=== PATIENT | male | born 1960 | race American Indian/Alaskan Native ===

== ENCOUNTER 2017-12-15 08:22 | Observation (INO) | payer MEDICARE, OTHER ==
--- NOTE | 2017-12-15 08:30 | ED PDOC ---
Arrival/HPI - General Chief Complaint: Shortness Of Breath Time Seen by Provider: 12/15/17 08:25 Historian: Patient, Other (Patient is deaf-mute and a signing high scaler was used) - History of Present Illness Time/Duration: Other (Approximately 4 days) Symptom Onset: Gradual Symptom Course: Worsening Severity Level: Moderate Associated Symptoms (Text): 12/15/17 08:38 Signing high scaler reports approximately a 4 day history of chest pain and shortness of breath and increasing pedal edema with a mild nonproductive cough. No abdominal pain nausea vomiting or diarrhea. Urinary frequency. No fever or chills. No trauma. Unclear what medications other than Lasix that the patient takes. He has a pacemaker or defibrillator in the left chest. Past Medical History - Provider Review Nursing Documentation Reviewed: Yes - Infectious Disease Hx of Infectious Diseases: None - Cardiac Hx Hypertension: Yes - Psychiatric Hx Psychophysiologic Disorder: No Hx Anxiety: No Hx Bipolar Disorder: No Hx Depression: No Hx Emotional Abuse: No Hx Hallucinations: No Hx Panic Disorder: No Hx Post Traumatic Stress Disorder: No Hx Psychosis: No Hx Physical Abuse: No Hx Schizophrenia: No Hx Sexual Abuse: No Hx Substance Use: No - Anesthesia Hx Anesthesia: No Hx Anesthesia Reactions: No Hx Malignant Hyperthermia: No Family/Social History - Physician Review Nursing Documentation Reviewed: Yes Family/Social History: Unknown Family HX Smoking Status: Never Smoked Hx Alcohol Use: Yes Hx Substance Use: No Hx Substance Use Treatment: No Allergies/Home Meds Allergies/Adverse Reactions: Allergies No Known Allergies Allergy (Verified 12/15/17 08:38) Home Medications: Home Meds Medication Instructions Recorded Confirmed Carvedilol [Coreg] 12.5 mg PO BID 04/08/13 12/15/17 Tamsulosin [Flomax] 0.4 mg PO DAILY 04/08/13 12/15/17 Aspirin [Aspirin EC] 81 mg PO DAILY 12/15/17 12/15/17 Clopidogrel [Plavix] 75 mg PO DAILY 12/15/17 12/15/17 Furosemide [Lasix] 40 mg PO BID 12/15/17 12/15/17 Omega3,5,6,7,9 No.1/[place] Oil 1 each PO BID 12/15/17 12/15/17 [Complete [place] Softgel] Pantoprazole [Protonix] 40 mg PO DAILY 12/15/17 12/15/17 Sacubitril/Valsartan [Entresto 24 1 each PO DAILY 12/15/17 12/15/17 mg-26 mg Tablet] Simvastatin [Zocor] 20 mg PO DAILY 12/15/17 12/15/17 Spironolactone [Aldactone] 25 mg PO DAILY 12/15/17 12/15/17 Torsemide [Demadex] 10 mg PO DAILY 12/15/17 12/15/17 Review of Systems - Physician Review All systems were reviewed & negative as marked: Yes - Review of Systems Constitutional: Fatigue. absent: Fevers Respiratory: SOB, Cough. absent: Sputum, Wheezing Cardiovascular: Chest Pain. absent: Palpitations, Syncope Gastrointestinal: absent: Abdominal Pain, Diarrhea, Nausea, Vomiting Genitourinary Male: Frequency. absent: Hematuria Neurological: absent: Headache, Dizziness Physical Exam Vital Signs Reviewed: Yes Vital Signs Temp Pulse Resp BP Pulse Ox 12/15/17 12:09 82 18 119/84 95 12/15/17 10:30 104/74 12/15/17 08:58 20 12/15/17 08:37 98.6 F 83 18 108/65 98 Temperature: Afebrile Blood Pressure: Normal Pulse: Regular Respiratory Rate: Normal Appearance: Positive for: Well-Appearing, Non-Toxic, Comfortable Pain Distress: None Mental Status: Positive for: other (Awake alert and cooperative) - Systems Exam Head: Present: Atraumatic, Normocephalic Pupils: Present: PERRL Extroacular Muscles: Present: EOMI Conjunctiva: Present: Normal Mouth: Present: Moist Mucous Membranes Pharnyx: No: ERYTHEMA, EXUDATE, TONSILS ENLARGED Neck: Present: Normal Range of Motion. No: Paraspinal Tenderness Respiratory/Chest: Present: Clear to Auscultation, Good Air Exchange, Decreased Breath Sounds. No: Respiratory Distress, Accessory Muscle Use Cardiovascular: Present: Regular Rate and Rhythm, Normal S1, S2. No: Murmurs Abdomen: No: Tenderness, Distention, Peritoneal Signs, Rebound, Guarding Back: Present: Normal Inspection. No: CVA Tenderness Upper Extremity: Present: Normal Inspection. No: Cyanosis, Edema Lower Extremity: Present: Edema (1+ bilateral lower extremity edema) Neurological: Present: GCS=15, CN II-XII Intact, Motor Func Grossly Intact Skin: Present: Warm, Dry, Normal Color. No: Rashes Psychiatric: Present: Alert Medical Decision Making ED Course and Treatment: 12/15/17 08:41 EKG shows atrial flutter rate approximately 90 with variable conduction and poor R waves with no acute ST changes and inverted T waves laterally 12/15/17 09:15 Chest X-ray Impressions: No active disease 12/15/17 09:54 Patient's BNP is elevated and Lasix has been ordered. A d-dimer is markedly elevated. His creatinine is 2.3 and therefore a VQ scan has been ordered. 12/15/17 13:05 Dr. Vaz is here - Lab Interpretations Lab Results: 12/15/17 08:50 12/15/17 09:00 Lab Results 12/15/17 11:30: Urine Color Yellow, Urine Appearance Clear, Urine pH 6.0, Ur Specific [place] 1.020, Urine Protein 30 H, Urine Glucose (UA) Negative, Urine Ketones Negative, Urine Blood Negative, Urine Nitrate Negative, Urine Bilirubin Negative, Urine Urobilinogen 2.0 H, Ur Leukocyte Esterase Negative, Urine RBC 0 - 2, Urine WBC 1 - 3, Ur Epithelial Cells None, Urine Bacteria Mod, Hyaline Casts 0 - 2 12/15/17 09:00: PT 18.3 H, INR 1.58, APTT 29.4, D-Dimer, Quantitative 886 H 12/15/17 09:00: Sodium 141, Chloride 103, Potassium 4.5, Carbon Dioxide 25, Anion Gap 18, BUN 39 H, Creatinine 2.3 H, Est GFR ( Amer) 36, Est GFR ( Non-Af Amer) 29, Random Glucose 123 H, Calcium 9.5, Magnesium 2.2, Total Bilirubin 3.6 H, AST 26, ALT 34, Alkaline Phosphatase 280 H, Lactate Dehydrogenase 529, Total Creatine Kinase 75, Troponin I 0.07, NT-Pro-B Natriuret Pep 6830 H, Total Protein 6.9, Albumin 3.6, Globulin 3.3, Albumin/ Globulin Ratio 1.1 12/15/17 08:50: pO2 48, VBG pH 7.35, VBG pCO2 46.0, VBG HCO3 25.4, VBG Total CO2 26.8, VBG O2 Sat (Calc) 81.2 H, VBG Base Excess -0.6 L, VBG Potassium 7.6 H* , Sodium 136.0, Chloride 101.0, Glucose 132 H, Lactate 2.3 H, FiO2 21.0, Venous Blood Potassium 7.6 H* 12/15/17 08:50: WBC 5.6, RBC 5.38, Hgb 15.3, Hct 45.0, MCV 83.6, MCH 28.4, MCHC 34.0, RDW 19.3 H, Plt Count 170, MPV 10.2, Gran % 56.9, Lymph % (Auto) 32.4, Burke % (Auto) 9.9 H, Eos % (Auto) 0.4 L, Baso % (Auto) 0.4, Gran # 3.16, Lymph # (Auto) 1.8, Burke # (Auto) 0.6, Eos # (Auto) 0.0, Baso # (Auto) 0.02 12/15/17 08:48: POC Glucose (mg/dL) 109 - RAD Interpretation Radiology Orders: 12/15/17 08:36 CHEST PORTABLE [RAD] Stat 12/15/17 09:53 LUNG PERF & VENT SCAN [NM] Stat Chest one view shows severe cardiomegaly and a pacemaker present. No infiltrate or effusion. VQ scan as read by the radiologist shows low probability for pulmonary embolus. [facility] Nurse: Radiologist - Medication Orders Current Medication Orders: Discontinued Medications Furosemide (Lasix) 40 mg IVP ONCE ONE Stop: 12/15/17 09:54 Last Admin: 12/15/17 10:30 Dose: 40 mg MAR Blood Pressure Document 12/15/17 10:30 SZA (Rec: 12/15/17 10:43 [facility] [id number]) Blood Pressure Blood Pressure (100/60-150/90 mm Hg) 104/74 IVP Administration Document 12/15/17 10:30 SZMaria R (Rec: 12/15/17 10:43 [facility] [id number]) Charges for Administration # of IVP Administrations 1 Disposition/Present on Arrival - Present on Arrival Any Indicators Present on Arrival: No History of DVT/PE: No History of Uncontrolled Diabetes: No Urinary Catheter: No History of Decub. Ulcer: No History Surgical Site Infection Following: None - Disposition Have Diagnosis and Disposition been Completed?: Yes Diagnosis: Cardiomegaly, Congestive heart failure, Pedal edema, Renal failure, Lactic acidosis Disposition: HOSPITALIZED Disposition Time: 13:05 Patient Plan: Observation, Telemetry Patient Problems: Current Active Problems Problem Status Onset Cardiomegaly Acute Congestive heart failure Acute Pedal edema Acute Renal failure Acute Condition: FAIR Discharge Instructions (ExitCare): Heart Failure (ED) Forms: [employer] (Stateless)
[2017-12-15 09:03] LABS: BASO # 0.02 K/mm3 (0.0-2.0); BASO % 0.4 % (0.0-3.0); EOS % 0.4 % (1.5-5.0); GRAN # 3.16 (1.4-6.5); GRAN % 56.9 % (50.0-68.0); HEMOGLOBIN 15.3 g/dL (14.0-18.0); LYMPH # 1.8 (1.2-3.4); LYMPH % 32.4 % (22.0-35.0); MEAN CELL VOLUME 83.6 fl (80.0-105.0); MEAN CORPUSCULAR HEMOGLOBIN 28.4 pg (25.0-35.0); MEAN PLATELET VOLUME 10.2 fl (7.0-11.0); MONO # 0.6 (0.1-0.6); MONO % 9.9 % (1.0-6.0); RBC 5.38 10^6/uL (3.5-6.1); RED CELL DISTRIBUTION WIDTH 19.3 % (11.5-14.5); WHITE BLOOD COUNT 5.6 10^3/ul (4.5-11.0)
[2017-12-15 09:04] LABS: VENOUS BLOOD GAS BASE EXCESS -0.6 mmol/L (0.0-2.0); VENOUS BLOOD GAS PO2 48 mm/Hg (30-55); VENOUS BLOOD PH 7.35 (7.32-7.43)
--- NOTE | 2017-12-15 09:12 | RAD ---
Date of service: 12/15/2017 HISTORY: sob COMPARISON: No prior. FINDINGS: LUNGS: No active pulmonary disease. PLEURA: No significant pleural effusion identified, no pneumothorax apparent. CARDIOVASCULAR: Severe cardiomegaly. Pacemaker OSSEOUS STRUCTURES: No significant abnormalities. VISUALIZED UPPER ABDOMEN: Normal. OTHER FINDINGS: None. IMPRESSION: No active disease.
[2017-12-15 09:39] LABS: ALB/GLOB RATIO 1.1 (1.1-1.8); ALBUMIN 3.6 g/dL (3.0-4.8); CALCIUM 9.5 mg/dL (8.4-10.5)
[2017-12-15 09:44] LABS: INR 1.58; PROTHROMBIN TIME 18.3 SECONDS (9.4-12.5)
[2017-12-15 09:49] LABS: PARTIAL THROMBOPLASTIN TIME 29.4 Seconds (25.1-36.5)
[2017-12-15 09:50] LABS: TROPONIN I 0.07 ng/mL
[2017-12-15 11:40] LABS: URINE BILIRUBIN NEGATIVE (NEGATIVE); URINE BLOOD NEGATIVE (NEGATIVE); URINE GLUCOSE (UA) NEGATIVE (NEGATIVE); URINE LEUKOCYTE ESTERASE NEGATIVE Leu/uL (NEGATIVE); URINE PROTEIN 30 mg/dL (<30 mg/dL)
[2017-12-15 11:50] LABS: URINE APPEARANCE CLEAR (CLEAR); URINE COLOR YELLOW (YELLOW)
[2017-12-15 12:01] LABS: URINE BACTERIA MOD (NEG); URINE HYALINE CAST 0 - 2 /hpf; URINE RBC 0 - 2 /hpf (0-2)
--- NOTE | 2017-12-15 12:37 | NM ---
Date of service: 12/15/2017 COMPARISON: December 15, 2017. Single-view chest. TECHNIQUE: 38.2 mCi technetium 99-m DTPA aerosol. 3.8 mCI technetium 99-m MAA administered intravenously. FINDINGS: VENTILATION COMPONENT: Unremarkable. Retention of radionuclide in the tracheobronchial tree and ingestion of radionuclide in the stomach, incidental findings PERFUSION COMPONENT: Heterogeneous distribution of radionuclide. No geographic, segmental, lobar abnormalities apparent on the present examination. IMPRESSION: Low probability ventilation perfusion scan for pulmonary embolism.
[2017-12-15 13:23] LABS: VENOUS BLOOD GAS BASE EXCESS 0.7 mmol/L (0.0-2.0); VENOUS BLOOD GAS PO2 32 mm/Hg (30-55); VENOUS BLOOD PH 7.32 (7.32-7.43)
[2017-12-15] MEDS: cefTRIAXone 1 gm 1 GM/100 ML BAG IVPB SCH (13:59)
--- NOTE | 2017-12-15 14:50 | HP ---
Copied To: Wesley Vaz DO Attending MD: Wesley Vaz DO HISTORY OF PRESENT ILLNESS: I am on-call for the emergency room today. I got called down by the emergency room doctor for a patient that is deaf and mute. He has a signing refinery process engineer which is his son who brought him in. He comes in with shortness of breath for approximately 4 days. It is still got worse. He is a 57-year-old man with 4 days of worsening shortness of breath, [id number] level of shortness of breath. He has been drinking lots of water. He has not been taking his medications what I understand. He has had this before. His legs are getting swollen and nonproductive cough. No nausea or vomiting. He is getting weaker especially in the right leg with the swelling. It is harder for him to lift the legs up. He has a pacemaker and a defibrillator in the left chest. He has hypertension. He has CHF. He has a defibrillator and a pacemaker. FAMILY HISTORY: He also has GERD, high cholesterol, hypertension in the family. SOCIAL HISTORY: Never smoked. Does drink alcohol. No drugs. ALLERGIES: NO KNOWN DRUG ALLERGIES. MEDICATIONS: He is on Coreg, Flomax for BPH, aspirin, Plavix, Lasix, omega-3, Protonix, Entresto, Zocor, Aldactone, Demadex. REVIEW OF SYSTEMS: He is tired, swollen. He is short of breath with a cough. He has chest pain. No palpitations. No abdominal pain. No diarrhea, nausea or vomiting. He has increasing urination. No headaches or dizziness. Skin for the most part is intact. PHYSICAL EXAMINATION: VITAL SIGNS: He has a 98.6 temperature, 83 pulse, 18 respiratory rate, 108/65 blood pressure, 98% O2 sat. HEENT: Head: Atraumatic, normocephalic. He is well appearing after a dose of Lasix. Pupils equally and reactive to light and accommodation. Extraocular muscle intact. Throat is moist. NECK: Supple. HEART: Regular rate. Normal S1, S2. LUNGS: Decreased breath sounds bilaterally, but clear to auscultation. ABDOMEN: Soft, nontender. Positive bowel sounds. EXTREMITIES: Have +1 pitting edema in bilateral lower extremities up to the knee. SKIN: For I could tell, he has got no rashes or ulcers appreciated. Warm and dry. NEUROLOGIC: GCS is 15. Cranial nerves II-XII grossly intact. He is alert. He is oriented as per the son. LABORATORY DATA AND IMAGING: He has had multiple tests. The chest x-ray showed no active disease. Low probability on V/Q scan. Urine was moderate bacteria. I will give him a dose of Rocephin. He has 141 sodium, potassium 4.5, BUN 29, creatinine 2.3. He is little bit renal insufficient. I will get Renal to see him. GFR is 29, sugar is 123. I will put him on insulin coverage. Calcium is 9.5, magnesium 2.2, total bili is 3.6, AST is 26, ALT is 34, alkaline phosphatase 280, total creatine kinase is 75, lactate dehydrogenase is 529. Troponin I is 0.07. I will check more troponins. His BNP is quite high at 6830, total protein 6.9, previous potassium 7.6, his lactate was 2.3. His D-dimer is 886, gasper high with an INR of 1.58. The V/Q scan was low probability. WBC is 5.6, hemoglobin 15.3, hematocrit 45, platelets of 170. He will have consults with Cardiology and Renal. He will have IV Lasix. Hopefully, he will improve. We will check his labs tomorrow and he is here for acute CHF. Wesley Vaz, DO : 12/15/2017 13:29:53
--- NOTE | 2017-12-15 14:51 | CP.PCM.CON ---
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 Hypertension control with meds as ordered. Maintain hemodynamics stable. Avoid hypotension. Patient on ACEI/ARB as Entresto, can continue. also on aldactone Monitor Input/Output, daily weights and renal function with basic metabolic panel CHF optimization as per primary team/cardiology continue with loop diuretics continue with flomax Check urine analysis, spot protein/creatinine, albumin/creatinine ratio, urine for sodium/cr, renal and bladder sonogram Check for 25-OH vitamin D, iPTH, phosphorus level. Dose meds/antibiotics for reduced GFR. Avoid fleets enema/magnesium based laxatives. Avoid nephrotoxins/NSAIDs/ iodinated contrast (unless needed emergently) Glycemic control Further work up/management as per primary team Thanks for allowing me to participate in care of your patient. Will follow patient with you. Please call if any Qs Dr Shree Ríos Office: [phone] Chief Complaint; shortness of breath Reason for consult: Acute Kidney Injury HPI: Pt is a 57 M with hx of deafness since , no family hx of CKD, BPH< CHF s/p AICD presented with complaints of worsening SOB on exertion and leg swelling for last few days. also feels distension of abdomen. pt aware about kidney problem for some time, was told it is due to heart and excess fluid. Denies OTC/herbal meds or NSAIDs No recent iodinated contrast exposure. No obvious episodes of low BP. ROS: language line [employer] used for sign/language interpretation Cardiovascular: No chest pain. Pulmonary: c/o shortness of breath Gastrointestinal: denies abdominal pain No nausea. No vomiting. Genitourinary: No pain while urinating. Denies blood in urine. reports increased frequency if urination All other negative except as mentioned in HPI Physical Examination: General Appearance: Comfortable, in no acute respiratory distress, co-operative . Vitals reviewed and noted as below Head; Atraumatic, normocephalic ENT: no ulcers no thrush. Tongue is midline. Oropharynx: no rash or ulcers. has hearing impairment EYES: Pupils are equal, round and reactive to light accommodation. Eye muscles and extraocular movement intact. Sclera is icteric. Neck; supple no lymphadenopathy, no thyromegaly or bruit. JVP distended Lungs: Normal respiratory rate/effort. Breath sounds bilateral clear and decreased at bases Heart: Normal rate. s1s2 normal. No rub or gallop. left side AICD + Extremities: 2+ edema. No varicose veins Neurological: Patient is alert, awake and oriented to person, place and time. No focal deficit. Strength bilateral appropriate and equal Skin: Warm and dry. Normal turgor. No rash. Palpitation: Normal elasticity for age Abdomen: Abdomen is soft. Bowel sounds +. There is no abdominal tenderness, no guarding/rigidity has hepatomegaly. distended Psych: normal insight and normal affect/mood MSK: no joint tenderness or swelling. Digits and nails normal, no deformity : kidney or bladder not palpable but exam limited Labs/imaging reviewed. Past medical history, past surgical history, family history, social history, allergy reviewed and noted as below Family hx: no hx of CKD. Rest non-contributory work up: VQ scan neg Past Patient History - Infectious Disease Hx of Infectious Diseases: None - Past Social History Smoking Status: Never Smoked - CARDIAC Hx Hypertension: Yes - ENDOCRINE/METABOLIC Hx Diabetes Mellitus Type 2: Yes - PSYCHIATRIC Hx Psychophysiologic Disorder: No Hx Anxiety: No Hx Bipolar Disorder: No Hx Depression: No Hx Emotional Abuse: No Hx Hallucinations: No Hx Panic Symptoms: No Hx Post Traumatic Stress Disorder: No Hx Psychosis: No Hx Physical Abuse: No Hx Schizophrenia: No Hx Sexual Abuse: No Hx Substance Use: No - ANESTHESIA Hx Anesthesia: No Hx Anesthesia Reactions: No Hx Malignant Hyperthermia: No Meds Allergies/Adverse Reactions: Allergies Allergy/AdvReac Type Severity Reaction Status Date / Time No Known Allergies Allergy Verified 12/15/17 14:09 - Medications Medications: Current Medications Aspirin (Ecotrin) 81 mg PO DAILY [facility] Atorvastatin Calcium (Lipitor) 10 mg PO DAILY [facility] Carvedilol (Coreg) 12.5 mg PO BID [facility] Clopidogrel Bisulfate (Plavix) 75 mg PO DAILY [facility] Furosemide (Lasix) 40 mg IVP DAILY [facility] Ceftriaxone Sodium (Rocephin 1 Gram Ivpb) 1 gm in 100 mls @ 100 mls/hr IVPB DAILY [facility] PRN Reason: Protocol Last Admin: 12/15/17 13:59 Dose: 100 mls/hr Insulin Human Regular (Humulin R Med) 0 units SC ACHS [facility] PRN Reason: Protocol Non-Formulary Medication (Omega3,5,6,7,9 No.1/[place] Oil [Complete [place] Softgel ]) 1 each PO BID [facility] Pantoprazole Sodium (Protonix Ec Tab) 40 mg PO DAILY [facility] Spironolactone (Aldactone) 25 mg PO DAILY [facility] Tamsulosin HCl (Flomax) 0.4 mg PO DAILY [facility] Results - Vital Signs Recent Vital Signs: Last Vital Signs Temp 98.6 F 12/15/17 08:37 Pulse 77 12/15/17 14:02 Resp 18 12/15/17 14:02 BP 146/83 12/15/17 14:02 Pulse Ox 96 12/15/17 14:02 - Labs Result Diagrams: 12/15/17 08:50 12/15/17 09:00 Labs: Laboratory Results - last 24 hr 12/15/17 13:10 pO2 32 VBG pH 7.32 VBG pCO2 54.0 VBG HCO3 27.8 VBG Total CO2 29.5 H VBG O2 Sat (Calc) 55.9 VBG Base Excess 0.7 VBG Potassium 4.3 Sodium 140.0 Chloride 100.0 Glucose 123 H Lactate 1.7 FiO2 21.0 Venous Blood Potassium 4.3
--- NOTE | 2017-12-15 15:12 | CARD ---
APPROVED REPORT Date of service: 12/15/2017 EKG Measurement Heart [id number] <Conclusion> Atrial flutter with variable AV block with premature ventricular or aberrantly conducted complexes Left axis deviation Incomplete right bundle branch block Septal infarct, age undetermined Inferior infarct, age undetermined Abnormal ECG
[2017-12-15 16:21] LABS: BASO # 0.04 K/mm3 (0.0-2.0); BASO % 0.6 % (0.0-3.0); EOS % 0.3 % (1.5-5.0); GRAN # 4.02 (1.4-6.5); GRAN % 62.5 % (50.0-68.0); HEMOGLOBIN 14.7 g/dL (14.0-18.0); LYMPH # 1.7 (1.2-3.4); LYMPH % 26.2 % (22.0-35.0); MEAN CELL VOLUME 84.1 fl (80.0-105.0); MEAN CORPUSCULAR HEMOGLOBIN 28.1 pg (25.0-35.0); MEAN CORPUSCULAR HGB CONC 33.4 g/dl (31.0-37.0); MEAN PLATELET VOLUME 10.2 fl (7.0-11.0); MONO # 0.7 (0.1-0.6); MONO % 10.4 % (1.0-6.0); RBC 5.23 10^6/uL (3.5-6.1); RED CELL DISTRIBUTION WIDTH 19.1 % (11.5-14.5); WHITE BLOOD COUNT 6.4 10^3/ul (4.5-11.0)
[2017-12-15] MEDS: Insulin Reg-MEDIUM-Coverage SC SCH ×2 (16:40→23:03)
[2017-12-15] MEDS: [UNRECOGNIZED DRUG - REMARK] PO SCH (17:34)
[2017-12-15 19:40] VITALS: BMI 25.1
[2017-12-15] MEDS ORDERED: Pneumococcal 23-Valent Vaccine IM ONE (19:40)
[2017-12-15] MEDS ORDERED: guaiFENesin 100 mg/5 ml Syrup UD PO ONE (23:09)
[2017-12-16] MEDS ORDERED: Albuterol 0.083% Inhal Sol (2.5 mg/3 mL) UD INH STA (00:34)
[2017-12-16 06:44] LABS: ALB/GLOB RATIO 1.1 (1.1-1.8); ALBUMIN 3.9 g/dL (3.0-4.8); CALCIUM 9.7 mg/dL (8.4-10.5)
[2017-12-16] MEDS: Insulin Reg-MEDIUM-Coverage SC SCH ×4 (08:10→23:13)
--- NOTE | 2017-12-16 08:56 | PN ---
Copied To: Wesley Vaz DO Attending MD: Wesley Vaz DO DATE: 12/16/2017 SUBJECTIVE: I saw him this morning in bed. He told me to a media technician on demand that he is worse than yesterday. He has got more shortness of breath. He is having abdominal pain now. He did not move his bowels yesterday. He is eating okay. Just does not feel well. Some chest discomfort too. MEDICATIONS: On Aldactone, Coreg, Ecotrin, Flomax, Lasix, Lipitor, Plavix, Protonix and Rocephin. PHYSICAL EXAMINATION: VITAL SIGNS: 97.5 temp. He has 83 pulse, 111/84 blood pressure, 20 respiratory rate and 99% O2 sat on 2 L. HEENT: His head is atraumatic, normocephalic. GENERAL: He is very alert. HEART: Regular rate. LUNGS: Decreased breath sounds, but clear. ABDOMEN: Mildly distended like a bubble, but soft. Positive bowel sounds. Not tender to palpation. EXTREMITIES: The extremities have +1/4 pitting edema. He is getting the Lasix IV and still with edema. LABORATORY DATA: He has a moderate bacteriuria in urine, which is part of his issue. He has a 6.4 white count, 14.7 hemoglobin, 44 hematocrit with 161 platelets. His lactate dropped to 1.7, it was 2.3 when he came in. He has a 142 sodium, potassium 4.7, BUN 42, creatinine 2.3, GFR is 29, sugar is 125, calcium is 9.7, phosphorus is 4.2, total bili is 3.8, AST is 24, ALT is 40, alk phos 288, total protein 7.5. ASSESSMENT AND PLAN: So the new complaints from today are more shortness of breath, getting worse and abdominal pain. I am going to consult GI. I am going to consult Dr. Lewis, who is a floor framer. Renal had seen him. Awaiting for Cardiology to come in. We will check his labs tomorrow. Waiting for physical therapy, get him out of bed to chair and hopefully he will start improving. He is still in observation. I am hoping that if he can improve in the next 24 hours, I can discharge him if he does improve. Wesley Vaz DO
[2017-12-16] MEDS ORDERED: Levalbuterol 1.25 MG/3 ML Inhal Soln UD IH SCH (09:15)
[2017-12-16] MEDS: Pantoprazole 40 mg EC Tab PO SCH (09:44)
[2017-12-16] MEDS: cefTRIAXone 1 gm 1 GM/100 ML BAG IVPB SCH (09:44)
--- NOTE | 2017-12-16 09:47 | CON ---
Copied To: Yang Lewis MD Attending MD: Yang Lewis MD DATE: 12/16/2017 PULMONARY CONSULTATION REASON FOR CONSULTATION: Shortness of breath. REFERRING PHYSICIAN: Dr. Wesley Vaz. HISTORY OF PRESENT ILLNESS: History is obtained via extensive discussion with the nurse. I have also obtained the history via signing lock fitter. I have also reviewed the chart at length. The patient is a 57-year-old male, with past medical history significant for congestive heart failure, cardiomyopathy("weak heart"), status post AICD placement, who presents to [facility] (Formerly [facility]) with a two-day history of worsening shortness of breath at rest and dyspnea on exertion. The patient also states to a dry cough over the past two days. No history of sputum production. No history of chest pain, coughing up of blood or chest pain - made worse with deep respirations. There is no history of temperatures, chills or infectious exposure. There is no history of night sweats, weight loss or appetite change prior to the above events. No history of leg or calf pains. However, the patient does state to bilateral leg swelling over the past few days. No history of syncope or diaphoresis. No history of recent travel or trauma. REVIEW OF SYSTEMS: No history of nausea, vomiting or diarrhea. No acute urinary symptoms. No new neurologic or musculoskeletal complaints. Rest of the review of systems is negative. ALLERGIES: NO KNOWN ALLERGIES. SOCIAL HISTORY: Negative for tobacco and negative for alcohol. FAMILY HISTORY: No inheritable diseases. HOME MEDICATIONS: Include Demadex, Zocor, Lasix, Protonix, Plavix, Coreg, Aldactone, aspirin and Flomax. PHYSICAL EXAMINATION: GENERAL: The patient appears comfortable at rest. He is not short of breath. He is not using accessory muscles for breathing. VITAL SIGNS: Temperature is 97.5, pulse 83, respirations 18/20, blood pressure 111/84. Oxygen saturation on room air is 99-100%. HEENT: Normocephalic and atraumatic. No JVD. CARDIOVASCULAR: Positive S1, S2. Questionable S3 gallop. LUNGS: Decreased breath sounds at the bases. No rhonchi. No wheezing. EXTREMITIES: Mild edema. No cyanosis, no clubbing. Calves are nontender to palpation. GI: Abdomen is soft, nontender and nondistended. Bowel sounds are positive. SKIN: No acute rash. NEUROLOGIC: Exam limited at the present time. PERTINENT LABORATORY DATA: Chest x-ray was done yesterday and reviewed. There is significant cardiomegaly present. Pacemaker is also present. Other than these two findings, there is no active disease present. Ventilation-perfusion scan was also done. It is low probability for pulmonary embolism. CBC: White count 6.4K, hemoglobin 14.7, hematocrit 44, platelets of 161,000. Complete metabolic profile: BUN 42, creatinine 2.3, glucose 125, bilirubin 3.8, alkaline phosphatase 288. Rest of the metabolic profile is within normal limits. Initial B-type natriuretic peptide 6830. IMPRESSION: 1. Acute congestive heart failure. 2. Cardiomyopathy. 3. Mild bronchitis. 4. Renal insufficiency. PLAN: Again, I did discuss the case with the nurse at length. I have also obtained the history via a sign lock fitter. I have also reviewed the chart at length. The patient presents to [facility] (Former[facility]) with increasing pulmonary symptoms for the past two days. I did review the chest x-ray as above. There is severe cardiomegaly and a pacemaker present. There are no other abnormal findings. The patient also had a ventilation-perfusion scan. It is low probability for pulmonary embolism. On physical exam, there is no significant bronchospasm noted. In addition, there is no significant alveolar-arterial gradient. I will start the patient on Xopenex nebulizer treatments - hopefully, that will help his cough.. Input by Renal (Dr. Best) is noted. In addition, Cardiology and GI evaluations have been ordered. At the time of my examination, the patient is quite comfortable and not short of breath. He does state (via sign lock fitter) to feeling better this morning. He is clinically improved. Additional pulmonary intervention will be based on the clinical status of the patient. I will discuss the above with Dr. Vaz. Thank you very much for this pulmonary consultation. Yang Lewis MD JUHI
--- NOTE | 2017-12-16 10:10 | CP.PCM.CON ---
<Sarah Galeano - Last Filed: 12/16/17 10:21> History of Present Illness - History of Present Illness History of Present Illness: GI Fellow PGY5 Consult Note This is a 57yM with a significant pmhx of HTN, HLD, BPH, CKD who is presenting with complaints of Chest pain and SOB for the past 3-4days. Pt is deaf and mute and much of the history was gathered from reconsignment clerk and EMR. He has been complaining of chest pain and shortness of breath and increasing pedal edema. He reports mild abdominal pain yesterday which he attributes to difficultly breathing which has now resolved. He reports soft 2BM today. He denies any prior abdominal pain, no constipation, diarrhea, N/V, rectal bleeding. He never had a colonoscopy. Denies any issues with liver, gallbladder or hepatitis. He is tolerating diet with no issues. No prior hx of tobacco or etoh use. He has a pacemaker or defibrillator in the left chest. ROS: A 12pt ROS was negative except as above PmHx: As stated in HPI PsHx: AICD, PPM SHx: Denies etoh, drugs, tobacco FHx: Neg for colon cancer Past Patient History - Infectious Disease Hx of Infectious Diseases: None - Past Social History Smoking Status: Never Smoked - CARDIAC Hx Cardiac Disorders: Yes (CARDIOMEGALY) Hx Congestive Heart Failure: Yes (12-15-17) Hx Hypercholesterolemia: Yes Hx Hypertension: Yes Hx Pacemaker: Yes (2003) Hx Peripheral Edema: Yes - PULMONARY Hx Respiratory Disorders: No - NEUROLOGICAL Hx Neurological Disorder: No - HEENT Hx HEENT Problems: Yes Hx Deafness: Yes (MUTE) - RENAL Hx Chronic Kidney Disease: No - ENDOCRINE/METABOLIC Hx Endocrine Disorders: Yes Hx Diabetes Mellitus Type 2: Yes - HEMATOLOGICAL/ONCOLOGICAL Hx Blood Disorders: No - INTEGUMENTARY Hx Dermatological Problems: Yes Other/Comment: 12-15-17 BILATERAL LE EDEMA +3 EXTENDS TO LOWER ABDOMINAL AREA. - MUSCULOSKELETAL/RHEUMATOLOGICAL Hx Musculoskeletal Disorders: No Hx Falls: No - GASTROINTESTINAL Hx Gastrointestinal Disorders: No - GENITOURINARY/GYNECOLOGICAL Hx Genitourinary Disorders: No - PSYCHIATRIC Hx Psychophysiologic Disorder: No Hx Anxiety: No Hx Bipolar Disorder: No Hx Depression: No Hx Emotional Abuse: No Hx Hallucinations: No Hx Panic Symptoms: No Hx Post Traumatic Stress Disorder: No Hx Psychosis: No Hx Physical Abuse: No Hx Schizophrenia: No Hx Sexual Abuse: No Hx Substance Use: No - SURGICAL HISTORY Hx Surgeries: Yes (PACEMAKER) - ANESTHESIA Hx Anesthesia: No Hx Anesthesia Reactions: No Hx Malignant Hyperthermia: No Meds Allergies/Adverse Reactions: Allergies Allergy/AdvReac Type Severity Reaction Status Date / Time No Known Allergies Allergy Verified 12/15/17 14:09 - Medications Medications: Current Medications Aspirin (Ecotrin) 81 mg PO DAILY [facility] Last Admin: 12/16/17 09:45 Dose: 81 mg Atorvastatin Calcium (Lipitor) 10 mg PO DAILY [facility] Last Admin: 12/16/17 09:45 Dose: 10 mg Carvedilol (Coreg) 12.5 mg PO BID [facility] Last Admin: 12/16/17 09:45 Dose: 12.5 mg Clopidogrel Bisulfate (Plavix) 75 mg PO DAILY [facility] Last Admin: 12/16/17 09:45 Dose: 75 mg Furosemide (Lasix) 40 mg IVP DAILY [facility] Last Admin: 12/16/17 09:45 Dose: 40 mg Ceftriaxone Sodium (Rocephin 1 Gram Ivpb) 1 gm in 100 mls @ 100 mls/hr IVPB DAILY [facility] PRN Reason: Protocol Last Admin: 12/16/17 09:44 Dose: 100 mls/hr Insulin Human Regular (Humulin R Med) 0 units SC ACHS [facility] PRN Reason: Protocol Last Admin: 12/16/17 08:10 Dose: Not Given Levalbuterol HCl (Xopenex) 1.25 mg IH TIDRESP [facility] Non-Formulary Medication (Omega3,5,6,7,9 No.1/Sargeant Oil [Complete [place] Softgel ]) 1 each PO BID [facility] Last Admin: 12/15/17 17:34 Dose: Not Given Pantoprazole Sodium (Protonix Ec Tab) 40 mg PO DAILY [facility] Last Admin: 12/16/17 09:44 Dose: 40 mg Spironolactone (Aldactone) 25 mg PO DAILY [facility] Last Admin: 12/16/17 09:45 Dose: 25 mg Tamsulosin HCl (Flomax) 0.4 mg PO DAILY [facility] Last Admin: 12/16/17 09:45 Dose: 0.4 mg Physical Exam - Constitutional Appears: Non-toxic, No Acute Distress - Head Exam Head Exam: ATRAUMATIC, NORMAL INSPECTION, NORMOCEPHALIC - Eye Exam Eye Exam: EOMI, Normal appearance, PERRL Pupil Exam: PERRL - ENT Exam ENT Exam: Mucous Membranes Moist - Neck Exam Neck exam: Positive for: Full Rom, Normal Inspection - Respiratory Exam Respiratory Exam: Clear to Auscultation Bilateral, NORMAL BREATHING PATTERN - Cardiovascular Exam Cardiovascular Exam: REGULAR RHYTHM, RRR, +S1, +S2 - GI/Abdominal Exam GI & Abdominal Exam: Distended, Normal Bowel Sounds, Soft. absent: Firm, Guarding, Organomegaly, Tenderness - Rectal Exam Rectal Exam: Deferred - Extremities Exam Extremities exam: Positive for: full ROM, pedal edema - Back Exam Back exam: NORMAL INSPECTION - Neurological Exam Neurological exam: Alert, Oriented x3 - Psychiatric Exam Psychiatric exam: Normal Affect, Normal Mood - Skin Skin Exam: Dry, Intact, Normal Color, Warm Results - Vital Signs Recent Vital Signs: Last Vital Signs Temp 97.5 F L 12/16/17 06:00 Pulse 85 12/16/17 09:45 Resp 20 12/16/17 06:00 BP 99/62 L 12/16/17 09:45 Pulse Ox 99 12/16/17 06:00 - Labs Result Diagrams: 12/15/17 16:21 12/16/17 05:25 Labs: Laboratory Results - last 24 hr 12/15/17 12/15/17 12/15/17 13:10 16:21 16:31 WBC 6.4 RBC 5.23 Hgb 14.7 Hct 44.0 MCV 84.1 MCH 28.1 MCHC 33.4 RDW 19.1 H Plt Count 161 MPV 10.2 Gran % 62.5 Lymph % (Auto) 26.2 [place] % (Auto) 10.4 H Eos % (Auto) 0.3 L Baso % (Auto) 0.6 Gran # 4.02 Lymph # (Auto) 1.7 [place] # (Auto) 0.7 H Eos # (Auto) 0.0 Baso # (Auto) 0.04 pO2 32 VBG pH 7.32 VBG pCO2 54.0 VBG HCO3 27.8 VBG Total CO2 29.5 H VBG O2 Sat (Calc) 55.9 VBG Base Excess 0.7 VBG Potassium 4.3 Sodium 140.0 Chloride 100.0 Glucose 123 H Lactate 1.7 FiO2 21.0 Potassium Carbon Dioxide Anion Gap BUN Creatinine Est GFR ( Amer) Est GFR (Non-Af Amer) POC Glucose (mg/dL) 145 H Random Glucose Calcium Phosphorus Total Bilirubin AST ALT Alkaline Phosphatase Total Protein Albumin Globulin Albumin/Globulin Ratio Venous Blood Potassium 4.3 Ur Random Creatinine Ur Random Sodium 12/15/17 12/15/17 12/15/17 21:30 21:40 21:46 WBC RBC Hgb Hct MCV MCH MCHC RDW Plt Count MPV Gran % Lymph % (Auto) [place] % (Auto) Eos % (Auto) Baso % (Auto) Gran # Lymph # (Auto) [place] # (Auto) Eos # (Auto) Baso # (Auto) pO2 VBG pH VBG pCO2 VBG HCO3 VBG Total CO2 VBG O2 Sat (Calc) VBG Base Excess VBG Potassium Sodium Chloride Glucose Lactate FiO2 Potassium Carbon Dioxide Anion Gap BUN Creatinine Est GFR ( Amer) Est GFR (Non-Af Amer) POC Glucose (mg/dL) 139 H Random Glucose Calcium Phosphorus Total Bilirubin AST ALT Alkaline Phosphatase Total Protein Albumin Globulin Albumin/Globulin Ratio Venous Blood Potassium Ur Random Creatinine 124 Ur Random Sodium 57 12/16/17 12/16/17 05:25 07:24 WBC RBC Hgb Hct MCV MCH MCHC RDW Plt Count MPV Gran % Lymph % (Auto) [place] % (Auto) Eos % (Auto) Baso % (Auto) Gran # Lymph # (Auto) [place] # (Auto) Eos # (Auto) Baso # (Auto) pO2 VBG pH VBG pCO2 VBG HCO3 VBG Total CO2 VBG O2 Sat (Calc) VBG Base Excess VBG Potassium Sodium 142 Chloride 102 Glucose Lactate FiO2 Potassium 4.7 Carbon Dioxide 26 Anion Gap 19 BUN 42 H Creatinine 2.3 H Est GFR ( Amer) 36 Est GFR (Non-Af Amer) 29 POC Glucose (mg/dL) 125 H Random Glucose 125 H Calcium 9.7 Phosphorus 4.2 Total Bilirubin 3.8 H AST 24 ALT 40 Alkaline Phosphatase 288 H Total Protein 7.5 Albumin 3.9 Globulin 3.6 Albumin/Globulin Ratio 1.1 Venous Blood Potassium Ur Random Creatinine Ur Random Sodium Assessment & Plan - Assessment and Plan (Free Text) Assessment: This is a 57yM with pmhx of CHF s/p AICD, PPM, HTN, HLD presenting with complaints of progressively worsening SOB and Chest pain. 1. Abdominal pain resolved 2. Elevated Alkaline Phosphatase 3. Elevated Tbili 4. AECHF 5. YODIT/CKD 6. Hx of CAD AICD, PPM Plan: -Continue supportive care with pain control and anti-emetics -Pt with abdominal pain that has resolved -Recommend bowel regimen with miralax daily -Pt with elevated alkaline phosphatase likely from congestive hepatopathy vs cholestasis -Will order GGTP -Will order Abdominal US -Elevated Tbili will order fractionated bili -Further medical management for AECHF per primary and cardio team -Will continue to follow closely Discussed patient and A/P with Dr. Damon who agrees with the above mentioned plan of care. <Louise Damon - Last Filed: 12/16/17 12:50> Meds - Medications Medications: Current Medications Aspirin (Ecotrin) 81 mg PO DAILY [facility] Last Admin: 12/16/17 09:45 Dose: 81 mg Atorvastatin Calcium (Lipitor) 10 mg PO DAILY [facility] Last Admin: 12/16/17 09:45 Dose: 10 mg Carvedilol (Coreg) 12.5 mg PO BID [facility] Last Admin: 12/16/17 09:45 Dose: 12.5 mg Clopidogrel Bisulfate (Plavix) 75 mg PO DAILY [facility] Last Admin: 12/16/17 09:45 Dose: 75 mg Furosemide (Lasix) 40 mg IVP DAILY [facility] Last Admin: 12/16/17 09:45 Dose: 40 mg Ceftriaxone Sodium (Rocephin 1 Gram Ivpb) 1 gm in 100 mls @ 100 mls/hr IVPB DAILY [facility] PRN Reason: Protocol Last Admin: 12/16/17 09:44 Dose: 100 mls/hr Insulin Human Regular (Humulin R Med) 0 units SC ACHS [facility] PRN Reason: Protocol Last Admin: 12/16/17 11:57 Dose: Not Given Levalbuterol HCl (Xopenex) 1.25 mg IH TIDRESP [facility] Last Admin: 12/16/17 11:08 Dose: 1.25 mg Non-Formulary Medication (Omega3,5,6,7,9 No.1/[place] Oil [Complete [place] Softgel ]) 1 each PO BID [facility] Last Admin: 12/16/17 11:58 Dose: Not Given Pantoprazole Sodium (Protonix Ec Tab) 40 mg PO DAILY [facility] Last Admin: 12/16/17 09:44 Dose: 40 mg Polyethylene Glycol (Miralax) 17 gm PO DAILY [facility] Spironolactone (Aldactone) 25 mg PO DAILY [facility] Last Admin: 12/16/17 09:45 Dose: 25 mg Tamsulosin HCl (Flomax) 0.4 mg PO DAILY [facility] Last Admin: 12/16/17 09:45 Dose: 0.4 mg Results - Vital Signs Recent Vital Signs: Last Vital Signs Temp 98.6 F 12/16/17 11:53 Pulse 70 12/16/17 11:53 Resp 18 12/16/17 11:53 BP 118/89 12/16/17 11:53 Pulse Ox 99 12/16/17 06:00 - Labs Result Diagrams: 12/15/17 16:21 12/16/17 05:25 Labs: Laboratory Results - last 24 hr 12/15/17 12/15/17 12/15/17 13:10 16:21 16:21 WBC 6.4 RBC 5.23 Hgb 14.7 Hct 44.0 MCV 84.1 MCH 28.1 MCHC 33.4 RDW 19.1 H Plt Count 161 MPV 10.2 Gran % 62.5 Lymph % (Auto) 26.2 [place] % (Auto) 10.4 H Eos % (Auto) 0.3 L Baso % (Auto) 0.6 Gran # 4.02 Lymph # (Auto) 1.7 [place] # (Auto) 0.7 H Eos # (Auto) 0.0 Baso # (Auto) 0.04 pO2 32 VBG pH 7.32 VBG pCO2 54.0 VBG HCO3 27.8 VBG Total CO2 29.5 H VBG O2 Sat (Calc) 55.9 VBG Base Excess 0.7 VBG Potassium 4.3 Sodium 140.0 Chloride 100.0 Glucose 123 H Lactate 1.7 FiO2 21.0 Potassium Carbon Dioxide Anion Gap BUN Creatinine Est GFR ( Amer) Est GFR (Non-Af Amer) POC Glucose (mg/dL) Random Glucose Calcium Phosphorus Total Bilirubin Direct Bilirubin GGT AST ALT Alkaline Phosphatase Total Protein Albumin Globulin Albumin/Globulin Ratio 25-OH Vitamin D Total PTH Intact Whole Molec 83 H Venous Blood Potassium 4.3 Ur Random Creatinine Ur Random Sodium 12/15/17 12/15/17 12/15/17 16:31 21:30 21:40 WBC RBC Hgb Hct MCV MCH MCHC RDW Plt Count MPV Gran % Lymph % (Auto) [place] % (Auto) Eos % (Auto) Baso % (Auto) Gran # Lymph # (Auto) [place] # (Auto) Eos # (Auto) Baso # (Auto) pO2 VBG pH VBG pCO2 VBG HCO3 VBG Total CO2 VBG O2 Sat (Calc) VBG Base Excess VBG Potassium Sodium Chloride Glucose Lactate FiO2 Potassium Carbon Dioxide Anion Gap BUN Creatinine Est GFR ( Amer) Est GFR (Non-Af Amer) POC Glucose (mg/dL) 145 H 139 H Random Glucose Calcium Phosphorus Total Bilirubin Direct Bilirubin GGT AST ALT Alkaline Phosphatase Total Protein Albumin Globulin Albumin/Globulin Ratio 25-OH Vitamin D Total PTH Intact Whole Molec Venous Blood Potassium Ur Random Creatinine Ur Random Sodium 57 12/15/17 12/16/17 12/16/17 21:46 05:25 05:25 WBC RBC Hgb Hct MCV MCH MCHC RDW Plt Count MPV Gran % Lymph % (Auto) [place] % (Auto) Eos % (Auto) Baso % (Auto) Gran # Lymph # (Auto) [place] # (Auto) Eos # (Auto) Baso # (Auto) pO2 VBG pH VBG pCO2 VBG HCO3 VBG Total CO2 VBG O2 Sat (Calc) VBG Base Excess VBG Potassium Sodium 142 Chloride 102 Glucose Lactate FiO2 Potassium 4.7 Carbon Dioxide 26 Anion Gap 19 BUN 42 H Creatinine 2.3 H Est GFR ( Amer) 36 Est GFR (Non-Af Amer) 29 POC Glucose (mg/dL) Random Glucose 125 H Calcium 9.7 Phosphorus 4.2 Total Bilirubin 3.8 H Direct Bilirubin GGT AST 24 ALT 40 Alkaline Phosphatase 288 H Total Protein 7.5 Albumin 3.9 Globulin 3.6 Albumin/Globulin Ratio 1.1 25-OH Vitamin D Total 16.3 L PTH Intact Whole Molec Venous Blood Potassium Ur Random Creatinine 124 Ur Random Sodium 12/16/17 12/16/17 06:30 07:24 WBC RBC Hgb Hct MCV MCH MCHC RDW Plt Count MPV Gran % Lymph % (Auto) [place] % (Auto) Eos % (Auto) Baso % (Auto) Gran # Lymph # (Auto) [place] # (Auto) Eos # (Auto) Baso # (Auto) pO2 VBG pH VBG pCO2 VBG HCO3 VBG Total CO2 VBG O2 Sat (Calc) VBG Base Excess VBG Potassium Sodium Chloride Glucose Lactate FiO2 Potassium Carbon Dioxide Anion Gap BUN Creatinine Est GFR ( Amer) Est GFR (Non-Af Amer) POC Glucose (mg/dL) 125 H Random Glucose Calcium Phosphorus Total Bilirubin 3.6 H Direct Bilirubin 1.8 H GGT 605 H AST ALT Alkaline Phosphatase Total Protein Albumin Globulin Albumin/Globulin Ratio 25-OH Vitamin D Total PTH Intact Whole Molec Venous Blood Potassium Ur Random Creatinine Ur Random Sodium Attending/Attestation - Attestation I have personally seen and examined this patient.: Yes I have fully participated in the care of the patient.: Yes I have reviewed all pertinent clinical information: Yes Notes (Text): 12/16/17 12:48 Patient discussed with GI fellow in detail. In a nutshell this is a 57 yr old M with pmhx of CHF s/p AICD, PPM, HTN, HLD presenting with complaints of progressively worsening SOB and Chest pain getting work up for PE. GI called for associated abdominal pain which has resolved. Elevated cholestatic pic likely due to CHF. Bowel regimen for constipation. Fractionate bilirubin
--- NOTE | 2017-12-16 10:30 | CP.PCM.PN ---
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 Hypertension control with meds as ordered. Maintain hemodynamics stable. Avoid hypotension. Patient on ACEI/ARB as Entresto, can continue. also on aldactone Monitor Input/Output, daily weights and renal function with basic metabolic panel CHF optimization as per primary team/cardiology continue with loop diuretics continue with flomax Check urine analysis, spot protein/creatinine, albumin/creatinine ratio, urine for sodium/cr, renal and bladder sonogram Check for 25-OH vitamin D, iPTH, phosphorus level. Dose meds/antibiotics for reduced GFR. Avoid fleets enema/magnesium based laxatives. Avoid nephrotoxins/NSAIDs/ iodinated contrast (unless needed emergently) Glycemic control Further work up/management as per primary team Thanks for allowing me to participate in care of your patient. Will follow patient with you. Please call if any Qs. had d/w team Dr Shree Ríos Office: [phone] Chief Complaint; shortness of breath Reason for consult: Acute Kidney Injury HPI: Pt is a 57 M with hx of deafness since , no family hx of CKD, BPH< CHF s/p AICD presented with complaints of worsening SOB on exertion and leg swelling for last few days. also feels distension of abdomen. pt aware about kidney problem for some time, was told it is due to heart and excess fluid. Denies OTC/herbal meds or NSAIDs No recent iodinated contrast exposure. No obvious episodes of low BP. ROS: language line [employer] used for sign/language interpretation Cardiovascular: No chest pain. Pulmonary: c/o shortness of breath Gastrointestinal: denies abdominal pain No nausea. No vomiting. Genitourinary: No pain while urinating. Denies blood in urine. reports increased frequency of urination All other negative except as mentioned in HPI Physical Examination: General Appearance: Comfortable, SOB noted, co-operative . Vitals reviewed and noted as below Head; Atraumatic, normocephalic ENT: no ulcers no thrush. Tongue is midline. Oropharynx: no rash or ulcers. has hearing impairment EYES: Pupils are equal, round and reactive to light accommodation. Eye muscles and extraocular movement intact. Sclera is icteric. Neck; supple no lymphadenopathy, no thyromegaly or bruit. JVP distended Lungs: Increased respiratory rate/effort. Breath sounds bilateral clear and improved at bases Heart: Normal rate. s1s2 normal. No rub or gallop. left side AICD + Extremities: 1+ edema. No varicose veins Neurological: Patient is alert, awake and oriented to person, place and time. No focal deficit. Strength bilateral appropriate and equal Skin: Warm and dry. Normal turgor. No rash. Palpitation: Normal elasticity for age Abdomen: Abdomen is soft. Bowel sounds +. There is no abdominal tenderness, no guarding/rigidity has hepatomegaly. distended Psych: normal insight and normal affect/mood MSK: no joint tenderness or swelling. Digits and nails normal, no deformity : kidney or bladder not palpable but exam limited Labs/imaging reviewed. Past medical history, past surgical history, family history, social history, allergy reviewed and noted as below Family hx: no hx of CKD. Rest non-contributory work up: VQ scan neg Objective - Vital Signs/Intake and Output Vital Signs (last 24 hours): Temp Pulse Resp BP Pulse Ox 97.5 F L 85 20 99/62 L 99 12/16/17 06:00 12/16/17 09:45 12/16/17 06:00 12/16/17 09:45 12/16/17 06:00 Intake and Output: 12/16/17 12/16/17 06:59 18:59 Intake Total 240 Balance 240 - Medications Medications: Current Medications Aspirin (Ecotrin) 81 mg PO DAILY [facility] Last Admin: 12/16/17 09:45 Dose: 81 mg Atorvastatin Calcium (Lipitor) 10 mg PO DAILY [facility] Last Admin: 12/16/17 09:45 Dose: 10 mg Carvedilol (Coreg) 12.5 mg PO BID [facility] Last Admin: 12/16/17 09:45 Dose: 12.5 mg Clopidogrel Bisulfate (Plavix) 75 mg PO DAILY [facility] Last Admin: 12/16/17 09:45 Dose: 75 mg Furosemide (Lasix) 40 mg IVP DAILY [facility] Last Admin: 12/16/17 09:45 Dose: 40 mg Ceftriaxone Sodium (Rocephin 1 Gram Ivpb) 1 gm in 100 mls @ 100 mls/hr IVPB DAILY [facility] PRN Reason: Protocol Last Admin: 12/16/17 09:44 Dose: 100 mls/hr Insulin Human Regular (Humulin R Med) 0 units SC ACHS [facility] PRN Reason: Protocol Last Admin: 12/16/17 08:10 Dose: Not Given Levalbuterol HCl (Xopenex) 1.25 mg IH TIDRESP [facility] Non-Formulary Medication (Omega3,5,6,7,9 No.1/[place] Oil [Complete [place] Softgel ]) 1 each PO BID [facility] Last Admin: 12/15/17 17:34 Dose: Not Given Pantoprazole Sodium (Protonix Ec Tab) 40 mg PO DAILY [facility] Last Admin: 12/16/17 09:44 Dose: 40 mg Polyethylene Glycol (Miralax) 17 gm PO DAILY [facility] Spironolactone (Aldactone) 25 mg PO DAILY [facility] Last Admin: 12/16/17 09:45 Dose: 25 mg Tamsulosin HCl (Flomax) 0.4 mg PO DAILY [facility] Last Admin: 12/16/17 09:45 Dose: 0.4 mg - Labs Labs: 12/15/17 16:21 12/16/17 05:25 PT 18.3 SECONDS (9.4-12.5) H 12/15/17 09:00 INR 1.58 12/15/17 09:00 APTT 29.4 Seconds (25.1-36.5) 12/15/17 09:00
[2017-12-16 10:39] LABS: BILIRUBIN,DIRECT 1.8 mg/dL (0.0-0.4)
[2017-12-16 11:53] VITALS: RESP 18
[2017-12-16] MEDS: [UNRECOGNIZED DRUG - REMARK] PO SCH ×2 (11:58→18:01)
[2017-12-16] MEDS ORDERED: DOBUTamine 500mg/250ml D5W 500 MG/250 ML BAG IV PRN (13:11)
[2017-12-16] MEDS ORDERED: Ergocalciferol 50,000 Intl Units Cap PO SCH (13:45)
--- NOTE | 2017-12-16 14:15 | CON ---
Copied To: Garrett Yang MD Attending MD: Garrett Yang MD DATE: 12/16/2017 CARDIOLOGY CONSULTATION HISTORY OF PRESENT ILLNESS: The patient is a 57-year-old male with decreased hearing and decrease in speaking who through a index editor were able to that the patient presented with progressive shortness of breath. He was found to have a dilated cardiomyopathy treated and diagnosed at [facility] where he has been treated with Entresto, Lasix, diuretics, beta-blockers. He comes to the hospital with progressive shortness of breath including shortness of breath at rest. It appears he was placed on aspirin and Plavix for atrial fibrillation/atrial flutter. There is a question of why no anticoagulants were given. The patient denies chest pain. Social history and review of systems was difficult but his predominant symptoms are dyspnea at rest as well as dyspnea on exertion. There is no edema in lower extremities. PHYSICAL EXAMINATION: VITAL SIGNS: Blood pressure is 118/89, heart rate is atrial flutter/atrial fibrillation in the 70s. NECK: Negative JVD. LUNGS: Decreased breath sounds bilaterally with crackles at the bases. HEART: Reveal S1, S2. EXTREMITIES: Without edema. EKG shows atrial fib versus atrial flutter with ventricular rate in the 80s. Laboratory is elevated. ProBNP, BUN and creatinine is 42 and 2.3. The glucose is 125, hemoglobin 14.7. Chest x-ray reveals no infiltrates. IMPRESSION: 1. Acute systolic congestive heart failure. 2. Dilated cardiomyopathy. 3. Atrial fibrillation/flutter. 4. Dyspnea. 5. Diabetes mellitus. 6. History of pacemaker defibrillator. PLAN: Given these findings, we will hold his beta-blockers for now. We will discontinue his IV antibiotics. We will start the patient on IV dobutamine in hopes of increasing his cardiac output improving his dyspnea as well as his BUN and creatinine. If his symptoms are better in the morning, we will discontinue his Xopenex. Garrett Yang MD : 12/16/2017 13:26:57
[2017-12-17 06:24] LABS: HEMOGLOBIN 13.8 g/dL (14.0-18.0); MEAN CELL VOLUME 83.8 fl (80.0-105.0); MEAN CORPUSCULAR HEMOGLOBIN 27.9 pg (25.0-35.0); MEAN CORPUSCULAR HGB CONC 33.3 g/dl (31.0-37.0); MEAN PLATELET VOLUME 10.1 fl (7.0-11.0); RBC 4.95 10^6/uL (3.5-6.1); RED CELL DISTRIBUTION WIDTH 19.2 % (11.5-14.5); WHITE BLOOD COUNT 5.9 10^3/ul (4.5-11.0)
[2017-12-17 06:39] VITALS: TEMP 97.8; O2SAT 100
[2017-12-17] MEDS: Insulin Reg-MEDIUM-Coverage SC SCH ×2 (07:38→12:34)
[2017-12-17 07:43] LABS: ALBUMIN 3.3 g/dL (3.0-4.8); CALCIUM 9.1 mg/dL (8.4-10.5)
--- NOTE | 2017-12-17 07:50 | PN ---
Copied To: Yang Lewis MD Attending MD: Yang Lewis MD DATE: 12/17/2017 PULMONARY NOTE SUBJECTIVE: The patient appears very comfortable this morning. He is not short of breath at rest. PHYSICAL EXAMINATION: VITAL SIGNS: Temperature is 97.8, pulse 81, respirations 18, blood pressure 123/83. Oxygen saturation on room air is 100%. HEENT: Normocephalic, atraumatic. No JVD. CARDIOVASCULAR: Positive S1, S2. Questionable S3 gallop. LUNGS: Clear bilaterally. EXTREMITIES: Mild edema. No cyanosis. No clubbing. Calves are nontender to palpation. GI: Abdomen is soft, nontender and nondistended. Bowel sounds are positive. SKIN: No acute rash. NEUROLOGIC: Limited at the present time. IMPRESSION: 1. Acute congestive heart failure. 2. Cardiomyopathy. 3. Mild bronchitis - resolved. 4. Renal insufficiency. PLAN: The patient appears very comfortable this morning. He is not short of breath at rest. I did discuss the case with the night nurse at length. The night nurse informed me that the patient did have a run of ventricular tachycardia last night. The night nurse also informed me that she did NOT witness any shortness of breath or cough during her shift. On physical exam, the patient's lungs remain clear. The saturation on room air is now 100%. Xopenex nebulizer treatments were discontinued by Cardiology (prior to the ventricular tachycardia). At this point in time, no additional pulmonary intervention is needed or warranted. Again, the patient's lungs are clear. Oxygen saturation on room air is 100%. Again, the nurse did not note any shortness of breath or cough during her shift. I will thus follow up on this patient again as requested. Please call me for any additional pulmonary questions or problems. I would be happy to reevaluate. I did discuss the above with Dr. Vaz. Yang Lewis MD MTDD
--- NOTE | 2017-12-17 09:52 | CP.PCM.PN ---
<Sarah Galeano - Last Filed: 12/17/17 10:32> Subjective - Date & Time of Evaluation Date of Evaluation: 12/17/17 Time of Evaluation: 09:00 - Subjective Subjective: GI Fellow PGY5 Progress Note Pt seen and examined at bedside, pt doing well with no abdominal pain, N/V. Tolerating diet and +BM. ROS: A 12pt ROS was negative except as above. Objective - Vital Signs/Intake and Output Vital Signs (last 24 hours): Temp Pulse Resp BP Pulse Ox 97.8 F 81 18 123/83 100 12/17/17 06:00 12/17/17 06:00 12/17/17 06:00 12/17/17 06:00 12/17/17 06:00 Intake and Output: 12/17/17 12/17/17 06:59 18:59 Intake Total 120 0 Output Total 100 Balance 120 -100 - Medications Medications: Current Medications Aspirin (Ecotrin) 81 mg PO DAILY [facility] Last Admin: 12/16/17 09:45 Dose: 81 mg Atorvastatin Calcium (Lipitor) 10 mg PO DAILY [facility] Last Admin: 12/16/17 09:45 Dose: 10 mg Clopidogrel Bisulfate (Plavix) 75 mg PO DAILY [facility] Last Admin: 12/16/17 09:45 Dose: 75 mg Ergocalciferol (Drisdol 50,000 Intl Units Cap) 1 cap PO Q7D [facility] Last Admin: 12/16/17 15:00 Dose: 1 cap Furosemide (Lasix) 40 mg IVP DAILY [facility] Last Admin: 12/16/17 09:45 Dose: 40 mg Dobutamine HCl/Dextrose (Dobutamine/Dextrose 5% 500mg/250ml) 500 mg in 250 mls @ 11.567 mls/hr IV .[id number] PRN; Protocol; 5 MCG/KG/MIN PRN Reason: TITRATE PER PROTOCOL Last Admin: 12/16/17 13:34 Dose: 5 mcg/kg/min, 11.567 mls/hr Insulin Human Regular (Humulin R Med) 0 units SC ACHS [facility] PRN Reason: Protocol Last Admin: 12/17/17 07:38 Dose: Not Given Non-Formulary Medication (Omega3,5,6,7,9 No.1/[place] Oil [Complete [place] Softgel ]) 1 each PO BID [facility] Last Admin: 12/16/17 18:01 Dose: Not Given Pantoprazole Sodium (Protonix Ec Tab) 40 mg PO DAILY [facility] Last Admin: 12/16/17 09:44 Dose: 40 mg Polyethylene Glycol (Miralax) 17 gm PO DAILY [facility] Spironolactone (Aldactone) 25 mg PO DAILY [facility] Last Admin: 12/16/17 09:45 Dose: 25 mg Tamsulosin HCl (Flomax) 0.4 mg PO DAILY [facility] Last Admin: 12/16/17 09:45 Dose: 0.4 mg - Labs Labs: 12/17/17 05:30 12/17/17 05:30 PT 18.3 SECONDS (9.4-12.5) H 12/15/17 09:00 INR 1.58 12/15/17 09:00 APTT 29.4 Seconds (25.1-36.5) 12/15/17 09:00 - Constitutional Appears: Non-toxic, No Acute Distress, Chronically Ill - Head Exam Head Exam: ATRAUMATIC, NORMAL INSPECTION, NORMOCEPHALIC - Eye Exam Eye Exam: EOMI, Normal appearance, PERRL Pupil Exam: PERRL - ENT Exam ENT Exam: Mucous Membranes Moist, Normal Exam - Neck Exam Neck Exam: Normal Inspection - Respiratory Exam Respiratory Exam: Clear to Ausculation Bilateral, NORMAL BREATHING PATTERN - Cardiovascular Exam Cardiovascular Exam: REGULAR RHYTHM, +S1, +S2 - GI/Abdominal Exam GI & Abdominal Exam: Distended, Soft, Tenderness, Normal Bowel Sounds. absent: Organomegaly - Rectal Exam Rectal Exam: Deferred - Extremities Exam Extremities Exam: Full ROM, Pedal Edema - Back Exam Back Exam: NORMAL INSPECTION - Neurological Exam Neurological Exam: Alert, Awake, Oriented x3 - Psychiatric Exam Psychiatric exam: Normal Affect, Normal Mood - Skin Skin Exam: Dry, Intact, Normal Color, Warm Assessment and Plan - Assessment and Plan (Free Text) Assessment: This is a 57yM with pmhx of CHF s/p AICD, PPM, HTN, HLD presenting with complaints of progressively worsening SOB and Chest pain. 1. Abdominal pain resolved 2. Elevated Alkaline Phosphatase 3. Elevated Tbili 4. AECHF 5. YODIT/CKD 6. Hx of CAD AICD, PPM Plan: -Continue supportive care with pain control and anti-emetics -Pt with abdominal pain that has resolved -Recommend bowel regimen with miralax daily -Pt with elevated alkaline phosphatase likely from congestive hepatopathy vs cholestasis -GGTP elevated likely liver etiology -Abdominal US with ascites, no stones or hepatomegaly -Tbili trending down -Further medical management for AECHF per primary and cardio team -Pt will need outpt workup for ascites and possible paracentesis, recommend aggressive diuresis -From GI perspective okay for discharge home <Van Guidry - Last Filed: 12/17/17 12:52> Objective - Vital Signs/Intake and Output Vital Signs (last 24 hours): Temp Pulse Resp BP Pulse Ox 97.8 F 58 L 18 103/79 100 12/17/17 11:36 12/17/17 11:36 12/17/17 11:36 12/17/17 11:36 12/17/17 06:00 Intake and Output: 12/17/17 12/17/17 06:59 18:59 Intake Total 120 0 Output Total 100 Balance 120 -100 - Medications Medications: Current Medications Aspirin (Ecotrin) 81 mg PO DAILY [facility] Last Admin: 12/17/17 10:06 Dose: 81 mg Atorvastatin Calcium (Lipitor) 10 mg PO DAILY [facility] Last Admin: 12/17/17 10:07 Dose: 10 mg Clopidogrel Bisulfate (Plavix) 75 mg PO DAILY [facility] Last Admin: 12/17/17 10:08 Dose: 75 mg Ergocalciferol (Drisdol 50,000 Intl Units Cap) 1 cap PO Q7D [facility] Last Admin: 12/16/17 15:00 Dose: 1 cap Furosemide (Lasix) 40 mg IVP DAILY [facility] Last Admin: 12/17/17 10:06 Dose: 40 mg Insulin Human Regular (Humulin R Med) 0 units SC [facility] PRN Reason: Protocol Last Admin: 12/17/17 12:34 Dose: 3 unit Non-Formulary Medication (Omega3,5,6,7,9 No.1/[place] Oil [Complete [place] Softgel ]) 1 each PO BID [facility] Last Admin: 12/17/17 10:09 Dose: Not Given Pantoprazole Sodium (Protonix Ec Tab) 40 mg PO DAILY [facility] Last Admin: 12/17/17 10:08 Dose: 40 mg Polyethylene Glycol (Miralax) 17 gm PO DAILY [facility] Last Admin: 12/17/17 10:05 Dose: 17 gm Spironolactone (Aldactone) 25 mg PO DAILY [facility] Last Admin: 12/17/17 10:08 Dose: 25 mg Tamsulosin HCl (Flomax) 0.4 mg PO DAILY [facility] Last Admin: 12/17/17 10:06 Dose: 0.4 mg - Labs Labs: 12/17/17 05:30 12/17/17 05:30 PT 18.3 SECONDS (9.4-12.5) H 12/15/17 09:00 INR 1.58 12/15/17 09:00 APTT 29.4 Seconds (25.1-36.5) 12/15/17 09:00 Attending/Attestation - Attestation I have personally seen and examined this patient.: Yes I have fully participated in the care of the patient.: Yes I have reviewed all pertinent clinical information, including history, physical exam and plan: Yes Notes (Text): 12/17/17 12:48 I have seen and examined patient with GI fellow. No acute events overnight, he is seen resting in bed comfortably. He still continues to report ongoing mild dyspnea but otherwise denies abdominal pain, nausea, vomiting, fever/chills. Tolerating PO diet without difficulty. Review of vitals from today are normal. CHF s/p ICD HTN CKD Hyperlipidemia Elevated LFTs Ascites - likely cardiac etiology based on clinical presentation - Low sodium diet as tolerated - Management of CHF as per cardiology - LFTs stable, continue to monitor - Patient would benefit from outpatient elective further workup of suspected cardiac related ascites, he would need diagnostic paracentesis for further evaluation - Patient planned for hospital discharge today, office contact information provided for additional GI follow up. Will sign off case, please reconsult as necessary, thank you.
[2017-12-17] MEDS ORDERED: POLYETHYLENE GLYCOL 3350 17 GM/Dose PACKET PO SCH (10:00)
[2017-12-17] MEDS: Pantoprazole 40 mg EC Tab PO SCH (10:08)
[2017-12-17] MEDS: [UNRECOGNIZED DRUG - REMARK] PO SCH (10:09)
--- NOTE | 2017-12-17 10:16 | PN ---
Copied To: Wesley Vaz DO Attending MD: Wesley Vaz DO DATE: 12/17/2017 SUBJECTIVE: I saw him resting comfortably in bed. He is eating his breakfast very well, better than yesterday. He is breathing better. He is now on new medicines from Cardiology. He is on dobutamine drip. He is on Aldactone, Drisdol, Ecotrin, Flomax, insulin, Lasix, Lipitor, MiraLax, omega-3, Plavix, Protonix. He is off beta blockers. His legs are less swollen. He slept through the night, not short of breath. He had three bowel movements. OBJECTIVE: VITAL SIGNS: He has 97.8 temperature, 81 pulse, 123/83 blood pressure, 18 respiratory rate, 100% O2 sat on room air. I had in-demand business functional analyst, sign language lady and the nurse in the room as I conducted my interview and exam. He is doing much better than yesterday. HEENT: His head is atraumatic, normocephalic. HEART: Regular rate. LUNGS: Decreased breath sounds, but clear. ABDOMEN: Soft. Positive bowel sounds. Nontender. EXTREMITIES: Have trace if any edema, much better. DATA: His blood test today, he has 5.9 white count,13.8 hemoglobin, 41.5 hematocrit with 159 platelets. He has a 141 sodium, potassium 3.8, BUN 40, creatinine 2. He is a bit better. GFR is 34, sugar is 108, calcium is 9.1, total bili is 2.9, AST is 24, ALT is 26, alkaline phosphatase 241, total protein 6.5. Overall, I see an improvement. I will talk to the supervisor fryer farm this morning, Dr. Yang; Renal, Pulmonary and GI said there is nothing else to do for him and I can get him off the dobutamine drip and back on his regular medications. We will discharge him. He did walk well with physical therapy. He is here for a few reasons; acute congestive heart failure, systolic; dilated cardiomyopathy; acute kidney injury; constipation; atrial fibrillation; diabetes. Wesley Vaz DO [facility] # [id number]
[2017-12-17 11:37] VITALS: BP 103/79; PULSE 58
--- NOTE | 2017-12-17 12:29 | US ---
Date of service: 12/16/2017 HISTORY: r/o gallstones, biliary obstruction COMPARISON: None. TECHNIQUE: Sonographic evaluation of the abdomen. FINDINGS: LIVER: Measures 16.3 x 14.5 cm. Patent portal vein. Portal venous flow: Hepatopetal. Unremarkable echogenicity of the liver parenchyma. No mass. No intrahepatic bile duct dilatation. GALLBLADDER: Collapsed gallbladder. No gallstones identified. COMMON BILE DUCT: Measures 4.4 mm. No stones. No dilatation. PANCREAS: Unremarkable as visualized. No mass. No ductal dilatation. RIGHT KIDNEY: Measures 4.8 x 11.1cm. Normal echogenicity. No calculus, mass, or hydronephrosis.Incidental finding(s): Exophytic cyst upper pole 2.4 x 2.6 cm. LEFT KIDNEY: Measures 4.4 x 10.4cm. Normal echogenicity. No calculus, mass, or hydronephrosis. SPLEEN: Normal in size and contour. No mass. AORTA: No aneurysmal dilatation. IVC: Unremarkable. OTHER FINDINGS: None. IMPRESSION: Hepatosplenomegaly. Incompletely visualized ascitic fluid. Incompletely visualized and characterized cyst/mass upper pole right kidney. Elective follow-up recommended. Incompletely visualized ascites. Concordant results (preliminary interpretation) provided by [facility]. Procedure Completed: 20:02 Preliminary ([facility]) Report: Dictated and Authenticated: 21:43. Final Interpretation: 12:21 December 17, 2017.
--- NOTE | 2017-12-17 12:30 | US ---
Date of service: 12/16/2017 PROCEDURE: Bladder ultrasound HISTORY: YODIT versus CKD r/o retention COMPARISON: None TECHNIQUE: Standard protocol for this study/examination. FINDINGS: Urinary bladder assessment: Prevoid volume: 115.4 ml Postvoid residual: 33.7 ml Intrinsic, mural, perivesical abnormalities: None Ureteral jets: Not visualize. Enlarged prostate. Transabdominal volume 70.6 mL. The prostate impresses upon the base of the urinary bladder. IMPRESSION: Small capacitance bladder, moderate postvoid residual. Enlarged heterogeneous prostate.
--- NOTE | 2017-12-17 13:38 | CP.PCM.PN ---
Subjective - Date & Time of Evaluation Date of Evaluation: 12/17/17 Time of Evaluation: 13:37 - Subjective Subjective: Nephrology Consultation Note: Assessment: Stable Acute Kidney Injury (N17.9) versus underlying CKD 3, likely due to cardio-renal syndrome CHF exacerbation hyperbilirubinemia hx of AICD BPH, hearing impairment Renal cyst vit D def Plan No acute need for renal replacement therapy at this time. Hypertension control with meds as ordered. Maintain hemodynamics stable. Avoid hypotension. Patient on ACEI/ARB as Entresto, can continue. also on aldactone Monitor Input/Output, daily weights and renal function with basic metabolic panel CHF optimization as per primary team/cardiology continue with loop diuretics continue with flomax started on inotropes by cardiology, serum cr improvement noted will start weekly vit D Check urine analysis, spot protein/creatinine, albumin/creatinine ratio, urine for sodium/cr, renal and bladder sonogram Check for 25-OH vitamin D, iPTH, phosphorus level. Dose meds/antibiotics for reduced GFR. Avoid fleets enema/magnesium based laxatives. Avoid nephrotoxins/NSAIDs/ iodinated contrast (unless needed emergently) Glycemic control Further work up/management as per primary team Thanks for allowing me to participate in care of your patient. Will follow patient with you. Please call if any Qs. had d/w team Dr Shree Ríos Office: [phone] Chief Complaint; shortness of breath Reason for consult: Acute Kidney Injury HPI: Pt is a 57 M with hx of deafness since , no family hx of CKD, BPH< CHF s/p AICD presented with complaints of worsening SOB on exertion and leg swelling for last few days. also feels distension of abdomen. pt aware about kidney problem for some time, was told it is due to heart and excess fluid. Denies OTC/herbal meds or NSAIDs No recent iodinated contrast exposure. No obvious episodes of low BP. ROS: son helped in sign/language interpretation Cardiovascular: No chest pain. Pulmonary: improved shortness of breath Gastrointestinal: denies abdominal pain No nausea. No vomiting. Genitourinary: No pain while urinating. Denies blood in urine. reports increased frequency of urination All other negative except as mentioned in HPI Physical Examination: General Appearance: Comfortable, no SOB today, co-operative . Vitals reviewed and noted as below Head; Atraumatic, normocephalic ENT: no ulcers no thrush. Tongue is midline. Oropharynx: no rash or ulcers. has hearing impairment EYES: Pupils are equal, round and reactive to light accommodation. Eye muscles and extraocular movement intact. Sclera is icteric. Neck; supple no lymphadenopathy, no thyromegaly or bruit. JVP distended Lungs: Improved respiratory rate/effort. Breath sounds bilateral clear and improved at bases Heart: Normal rate. s1s2 normal. No rub or gallop. left side AICD + Extremities: trace+ edema. No varicose veins Neurological: Patient is alert, awake and oriented to person, place and time. No focal deficit. Strength bilateral appropriate and equal Skin: Warm and dry. Normal turgor. No rash. Palpitation: Normal elasticity for age Abdomen: Abdomen is soft. Bowel sounds +. There is no abdominal tenderness, no guarding/rigidity has hepatomegaly. distended Psych: normal insight and normal affect/mood MSK: no joint tenderness or swelling. Digits and nails normal, no deformity : kidney or bladder not palpable but exam limited Labs/imaging reviewed. Past medical history, past surgical history, family history, social history, allergy reviewed and noted as below Family hx: no hx of CKD. Rest non-contributory work up: VQ scan neg Objective - Vital Signs/Intake and Output Vital Signs (last 24 hours): Temp Pulse Resp BP Pulse Ox 97.8 F 58 L 18 103/79 100 12/17/17 11:36 12/17/17 11:36 12/17/17 11:36 12/17/17 11:36 12/17/17 06:00 Intake and Output: 12/17/17 12/17/17 06:59 18:59 Intake Total 120 0 Output Total 100 Balance 120 -100 - Medications Medications: Current Medications Aspirin (Ecotrin) 81 mg PO DAILY [facility] Last Admin: 12/17/17 10:06 Dose: 81 mg Atorvastatin Calcium (Lipitor) 10 mg PO DAILY [facility] Last Admin: 12/17/17 10:07 Dose: 10 mg Clopidogrel Bisulfate (Plavix) 75 mg PO DAILY [facility] Last Admin: 12/17/17 10:08 Dose: 75 mg Ergocalciferol (Drisdol 50,000 Intl Units Cap) 1 cap PO Q7D [facility] Last Admin: 12/16/17 15:00 Dose: 1 cap Furosemide (Lasix) 40 mg IVP DAILY [facility] Last Admin: 12/17/17 10:06 Dose: 40 mg Insulin Human Regular (Humulin R Med) 0 units SC ACHS [facility] PRN Reason: Protocol Last Admin: 12/17/17 12:34 Dose: 3 unit Non-Formulary Medication (Omega3,5,6,7,9 No.1/[place] Oil [Complete [place] Softgel ]) 1 each PO BID [facility] Last Admin: 12/17/17 10:09 Dose: Not Given Pantoprazole Sodium (Protonix Ec Tab) 40 mg PO DAILY [facility] Last Admin: 12/17/17 10:08 Dose: 40 mg Polyethylene Glycol (Miralax) 17 gm PO DAILY [facility] Last Admin: 12/17/17 10:05 Dose: 17 gm Spironolactone (Aldactone) 25 mg PO DAILY [facility] Last Admin: 12/17/17 10:08 Dose: 25 mg Tamsulosin HCl (Flomax) 0.4 mg PO DAILY [facility] Last Admin: 12/17/17 10:06 Dose: 0.4 mg - Labs Labs: 12/17/17 05:30 12/17/17 05:30 PT 18.3 SECONDS (9.4-12.5) H 12/15/17 09:00 INR 1.58 12/15/17 09:00 APTT 29.4 Seconds (25.1-36.5) 12/15/17 09:00
--- NOTE | 2017-12-17 13:42 | PN ---
Copied To: Garrett Yang MD Attending MD: Garrett Yang MD DATE: 12/17/2017 CARDIOLOGY FOLLOWUP SUBJECTIVE: The patient's breathing is markedly improved on IV dobutamine. PHYSICAL EXAMINATION: VITAL SIGNS: Blood pressure 123/83, heart rates in the 80s. NECK: Negative JVD. LUNGS: Without rales. HEART: S1 and S2. EXTREMITIES: Without edema. LABORATORY: Hemoglobin is 13.8. Chemistries, BUN and creatinine are improved to 40 and 2.0. The glucose is 113 with potassium of 3.8. IMPRESSION: 1. Severe dilated cardiomyopathy. 2. History of percutaneous transluminal coronary angioplasty and stents in the past. 3. Ischemic dilated cardiomyopathy. 4. Resolution of congestive heart failure. 5. Improvement of renal function. 6. Diabetes mellitus. 7. Status post defibrillator and pacemaker. PLAN: Given these findings, we will DC the IV inotropic therapy. Followup and instructions have been given to the patient. He will see me in the office in the next 2 to 3 weeks. Garrett Yang MD
== END 2017-12-17 13:40 | disposition home or self-care (01) ==
LOC: ED 08:22 → ERH 13:03 → 2RNO 14:43
PROVIDERS: ADMIT Family Medicine; ATTEND Family Medicine
DX: I13.0 Hypertensive heart and chronic kidney disease with heart failure and stage 1 through stage 4 chronic kidney disease, or unspecified chronic kidney disease (principal); I50.21 Acute systolic (congestive) heart failure; N17.9 Acute kidney failure, unspecified; E11.22 Type 2 diabetes mellitus with diabetic chronic kidney disease; N18.3 Chronic kidney disease, stage 3 (moderate); I42.0 Dilated cardiomyopathy; I25.5 Ischemic cardiomyopathy; E87.2 Acidosis; N40.0 Benign prostatic hyperplasia without lower urinary tract symptoms; E78.00 Pure hypercholesterolemia, unspecified; H91.3 Deaf nonspeaking, not elsewhere classified; J40 Bronchitis, not specified as acute or chronic; I25.10 Atherosclerotic heart disease of native coronary artery without angina pectoris; I48.91 Unspecified atrial fibrillation; I48.92 Unspecified atrial flutter; N28.1 Cyst of kidney, acquired; E78.5 Hyperlipidemia, unspecified; E55.9 Vitamin D deficiency, unspecified; R10.9 Unspecified abdominal pain; R18.8 Other ascites; K59.00 Constipation, unspecified; R17 Unspecified jaundice; Z95.810 Presence of automatic (implantable) cardiac defibrillator; Z79.02 Long term (current) use of antithrombotics/antiplatelets; Z79.82 Long term (current) use of aspirin; Z95.5 Presence of coronary angioplasty implant and graft; Z82.49 Family history of ischemic heart disease and other diseases of the circulatory system
CPT/HCPCS: 36415; 71045; 76700; 76857; 78582; 80053; 81001; 82043; 82247; 82248; 82306; 82550; 82570; 82803; 82948; 82977; 83615; 83735; 83880; 83970; 84100; 84156; 84300; 84484; 85025; 85027; 85378; 85610; 85730; 93005; 93306; 94640; 94761; 96365; 96366; 96375; 96376; 97116; 97161; 97530; 99285; A9540; G0378; G8978; G8979; J0696; J1250; J1940

== ENCOUNTER 2018-01-20 21:59 | Inpatient (IN) | payer MEDICARE, OTHER ==
--- NOTE | 2018-01-20 23:04 | ED PDOC ---
Arrival/HPI - General Historian: Patient <Destinee Coulter - Last Filed: 01/21/18 02:10> <Karson Stone - Last Filed: 01/21/18 04:36> - General Chief Complaint: Syncope Time Seen by Provider: 01/20/18 22:17 - History of Present Illness Narrative History of Present Illness (Text): 01/20/18 22:58 57-year-old male with a history of CHF presents today with a syncopal episode earlier today. Patient is complaining of dizziness he is complaining of headache and complaining of abdominal distention and the inability to urinate for the past 3 days as well as the inability to have a bowel movement. He is also complaining of bilateral lower leg swelling. Patient denies chest pain or shortness of breath at present time. He denies fevers or chills. No other complaints. History was translated by the patient's daughter as a show design supervisor approved by the patient (Destinee Coulter) Past Medical History - Provider Review Nursing Documentation Reviewed: Yes - Travel History Have you recently traveled outside [place] w/in the past 3 mons?: No - Infectious Disease Hx of Infectious Diseases: None - Cardiac Hx Congestive Heart Failure: Yes Hx Hypertension: Yes Hx Pacemaker: Yes (with defib) - Pulmonary Hx Respiratory Disorders: No - Neurological Hx Neurological Disorder: No - HEENT Hx HEENT Disorder: Yes Hx Deafness: Yes (MUTE) - Renal Hx Renal Disorder: No - Endocrine/Metabolic Hx Endocrine Disorders: Yes Hx Diabetes Mellitus Type 2: Yes - Hematological/Oncological Hx Blood Disorders: No - Integumentary Hx Dermatological Disorder: Yes Other/Comment: 12-15-17 BILATERAL LE EDEMA +3 EXTENDS TO LOWER ABDOMINAL AREA. - Musculoskeletal/Rheumatological Hx Musculoskeletal Disorders: No Hx Falls: No - Gastrointestinal Hx Gastrointestinal Disorders: No - Genitourinary/Gynecological Hx Genitourinary Disorders: No - Psychiatric Hx Psychophysiologic Disorder: No Hx Anxiety: No Hx Bipolar Disorder: No Hx Depression: No Hx Emotional Abuse: No Hx Hallucinations: No Hx Panic Disorder: No Hx Post Traumatic Stress Disorder: No Hx Psychosis: No Hx Physical Abuse: No Hx Schizophrenia: No Hx Sexual Abuse: No Hx Substance Use: No - Anesthesia Hx Anesthesia: Yes Hx Anesthesia Reactions: No Hx Malignant Hyperthermia: No <Destinee Coulter - Last Filed: 01/21/18 02:10> Family/Social History - Physician Review Nursing Documentation Reviewed: Yes Family/Social History: Unknown Family HX Smoking Status: Never Smoked Hx Alcohol Use: Yes (OCCASIONALLY) Hx Substance Use: No Hx Substance Use Treatment: No <Destinee Coulter - Last Filed: 01/21/18 02:10> Allergies/Home Meds <Destinee Coulter - Last Filed: 01/21/18 02:10> <Karson Stone - Last Filed: 01/21/18 04:36> Allergies/Adverse Reactions: Allergies No Known Allergies Allergy (Verified 12/15/17 14:09) Home Medications: Home Meds Medication Instructions Recorded Confirmed Albuterol HFA [Ventolin HFA 90 1 puff IH PRN PRN 01/20/18 01/20/18 mcg/actuation (8 g)] Atenolol [Tenormin] 1 tab PO DAILY 01/20/18 01/20/18 Carvedilol [Coreg] 1 tab PO DAILY 01/20/18 01/20/18 Linagliptin [Tradjenta] 1 tab PO DAILY 01/20/18 01/20/18 Magnesium Oxide [Mag-Oxide] 400 mg PO DAILY 01/20/18 01/20/18 Potassium Chloride [K-Dur 20 mEq 1 tab PO DAILY 01/20/18 01/20/18 ER Tab] Sacubitril/Valsartan [Entresto 97 1 tab PO DAILY 01/20/18 01/20/18 mg-103 mg Tablet] Spironolactone [Aldactone] 1 tab PO DAILY 01/20/18 01/20/18 Tramadol HCl [Ultram] 1 tab PO BID PRN 01/20/18 01/20/18 Review of Systems - Review of Systems Constitutional: Fatigue, Fevers Respiratory: absent: SOB, Cough Cardiovascular: Syncope. absent: Chest Pain, Palpitations Gastrointestinal: Abdominal Pain, Constipation. absent: Nausea, Vomiting Genitourinary Male: Urinary Output Changes. absent: Hematuria Musculoskeletal: absent: Arthralgias, Back Pain, Neck Pain Neurological: Headache, Dizziness Psychiatric: absent: Anxiety, Depression <Destinee Coulter - Last Filed: 01/21/18 02:10> Physical Exam Vital Signs Reviewed: Yes Temperature: Afebrile Blood Pressure: Normal Pulse: Tachycardic Respiratory Rate: Normal Appearance: Positive for: Well-Appearing, Non-Toxic, Comfortable Pain Distress: None Mental Status: Positive for: Alert and Oriented X 3 - Systems Exam Head: Present: Atraumatic Pupils: Present: PERRL Extroacular Muscles: Present: EOMI Mouth: Present: Moist Mucous Membranes Neck: Present: Normal Range of Motion Respiratory/Chest: Present: Clear to Auscultation, Good Air Exchange. No: Respiratory Distress, Accessory Muscle Use, Wheezes, Rhonchi Cardiovascular: Present: Murmurs, Irregular Rhythm Abdomen: Present: Tenderness, Distention, Guarding. No: Rebound Back: Present: Normal Inspection Upper Extremity: Present: Normal ROM Lower Extremity: Present: Edema (there is 2+ pitting edema to bilateral legs/ thighs), Normal ROM Neurological: Present: GCS=15, Motor Func Grossly Intact, Normal Sensory Function Skin: Present: Warm Psychiatric: Present: Alert, Oriented x 3 <Destinee Coulter - Last Filed: 01/21/18 02:10> Vital Signs Temp Pulse Resp BP Pulse Ox 01/20/18 22:27 97.3 F L 93 H 18 134/73 100 Medical Decision Making <Destinee Coulter - Last Filed: 01/21/18 02:10> <Karson Stone - Last Filed: 01/21/18 04:36> ED Course and Treatment: 01/20/18 23:36 57yr old male with dizziness and syncope episode with abdominal distention and difficulty with urination x 3 days cbc wnl cmp; elevated bun/cr trop; 0.05 ekg; atrial flutter with variable AV block at 95 bpm left axis deviation QTC 496. Reviewed from 12/15/2017 unchanged cxr; + cardiomegaly; no infiltrate head ct abd/pelvis ct pt reassessment; resting comfortably; no distress. vitals stable. 01/21/18 02:10 case signed out to dr. stone pending labs, CT abd/pelvis, ct head re- evaluation and disposition. (Destinee Coulter) 01/21/18 03:49: Case discussed in detail with medical esthetician and Dr. Gracia who accepts patient to the hospitalist's service. EXAM: CT Head Without Intravenous Contrast Dictated and Authenticated by: Kane Rush MD 01/21/2018 3:59 AM Eastern Time ([place] & [place]) IMPRESSION: 1. 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 2. No acute CT intracranial abnormalities. EXAM: CT Abdomen and Pelvis Without Intravenous Contrast Dictated and Authenticated by: Kane Rush MD 01/21/2018 4:17 AM Eastern Time ([place] & [place]). IMPRESSION: 1. Marked cardiomegaly. 2. Approximately 1.3 cm pericardial effusion on right side. 3. Large abdominal and pelvic ascites. 4. No bowel obstruction. Preliminary interpretation is based on receipt of 674 images. A final report will be issued subsequently. We appreciate the opportunity to be involved in this patient's care. (Karson Stone) - Lab Interpretations Lab Results: 01/20/18 23:22 01/21/18 01:05 Lab Results 01/21/18 01:05: PT 17.3 H, INR 1.50, APTT 30.5 01/21/18 01:05: Sodium 141, Potassium 4.9, Chloride 106, Carbon Dioxide 21, Anion Gap 20, BUN 47 H, Creatinine 2.3 H, Est GFR ( Amer) 36, Est GFR ( Non-Af Amer) 29, Random Glucose 113 H, Calcium 9.8, Total Bilirubin 3.6 H, AST 31, ALT 25, Alkaline Phosphatase 286 H, Lactate Dehydrogenase 489, Total Creatine Kinase 90, Troponin I 0.05 D, Total Protein 7.6, Albumin 4.0, Globulin 3.6, Albumin/Globulin Ratio 1.1, Lipase 66 01/20/18 23:22: WBC 4.5 D, RBC 5.49, Hgb 15.8 D, Hct 46.1, MCV 84.0, MCH 28.8 , MCHC 34.3, RDW 19.7 H, Plt Count 198, MPV 9.9, Gran % 67.6, Lymph % (Auto) 24.4, Sampson % (Auto) 7.1 H, Eos % (Auto) 0.2 L, Baso % (Auto) 0.7, Gran # 3.04, Lymph # (Auto) 1.1 L, Sampson # (Auto) 0.3, Eos # (Auto) 0.0, Baso # (Auto) 0.03 01/20/18 23:16: POC Glucose (mg/dL) 118 H 01/20/18 23:00: Urine Color Dark yellow, Urine Appearance Clear, Urine pH 6.0, Ur Specific Donner >= 1.030, Urine Protein 100 H, Urine Glucose (UA) Negative, Urine Ketones Negative, Urine Blood Negative, Urine Nitrate Negative, Urine Bilirubin Moderate H, Urine Urobilinogen 2.0 H, Ur Leukocyte Esterase Negative, Urine RBC 0 - 2, Urine WBC 0 - 2, Ur Epithelial Cells 0 - 2, Amorphous Sediment Few, Hyaline Casts 4-6 - RAD Interpretation Radiology Orders: 01/20/18 22:30 HEAD W/O CONTRAST [CT] Stat CHEST PORTABLE [RAD] Stat 01/21/18 01:59 ABD & PELVIS W/O PO OR IV CONT [CT] Stat - PA / DIESEL STATIONARY ENGINEER / Resident Statement / has reviewed & agrees with the documentation as recorded. / has examined the patient and agrees with the treatment plan. <Karson Stone - Last Filed: 01/21/18 04:36> Disposition/Present on Arrival - Present on Arrival History of DVT/PE: No History of Uncontrolled Diabetes: No Urinary Catheter: No History of Decub. Ulcer: No History Surgical Site Infection Following: None <Destinee Coulter - Last Filed: 01/21/18 02:10> - Present on Arrival Any Indicators Present on Arrival: No History of DVT/PE: No History of Uncontrolled Diabetes: No Urinary Catheter: No History of Decub. Ulcer: No History Surgical Site Infection Following: None - Disposition Have Diagnosis and Disposition been Completed?: Yes Disposition Time: 03:45 <Karson Stone - Last Filed: 01/21/18 04:36> - Disposition Diagnosis: Syncope Disposition: HOSPITALIZED Patient Problems: Current Active Problems Problem Status Onset Syncope Acute Condition: STABLE
[2018-01-20 23:47] LABS: BASO # 0.03 K/mm3 (0.0-2.0); BASO % 0.7 % (0.0-3.0); EOS % 0.2 % (1.5-5.0); GRAN # 3.04 (1.4-6.5); GRAN % 67.6 % (50.0-68.0); LYMPH # 1.1 (1.2-3.4); LYMPH % 24.4 % (22.0-35.0); MEAN CORPUSCULAR HEMOGLOBIN 28.8 pg (25.0-35.0); MEAN CORPUSCULAR HGB CONC 34.3 g/dl (31.0-37.0); MEAN PLATELET VOLUME 9.9 fl (7.0-11.0); MONO # 0.3 (0.1-0.6); MONO % 7.1 % (1.0-6.0); RBC 5.49 10^6/uL (3.5-6.1); RED CELL DISTRIBUTION WIDTH 19.7 % (11.5-14.5); WHITE BLOOD COUNT 4.5 10^3/ul (4.5-11.0)
[2018-01-20 23:54] LABS: URINE BILIRUBIN MODERATE (NEGATIVE); URINE BLOOD NEGATIVE (NEGATIVE); URINE GLUCOSE (UA) NEGATIVE (NEGATIVE); URINE LEUKOCYTE ESTERASE NEGATIVE Leu/uL (NEGATIVE); URINE PROTEIN 100 mg/dL (<30 mg/dL)
[2018-01-20 23:55] LABS: HEMOGLOBIN 15.8 g/dL (14.0-18.0)
[2018-01-20 23:56] LABS: URINE APPEARANCE CLEAR (CLEAR); URINE COLOR DARK YELLOW (YELLOW)
[2018-01-21 00:15] LABS: URINE RBC 0 - 2 /hpf (0-2); URINE WBC 0 - 2 /hpf (0-6)
[2018-01-21 00:16] LABS: URINE EPITHELIAL CELLS 0 - 2 /hpf (0-5)
[2018-01-21 00:17] LABS: URINE AMORPHOUS SEDIMENT FEW
[2018-01-21 01:22] LABS: INR 1.5; PARTIAL THROMBOPLASTIN TIME 30.5 Seconds (25.1-36.5); PROTHROMBIN TIME 17.3 SECONDS (9.4-12.5)
[2018-01-21 01:47] LABS: ALB/GLOB RATIO 1.1 (1.1-1.8); CALCIUM 9.8 mg/dL (8.4-10.5)
[2018-01-21 02:03] LABS: TROPONIN I 0.05 ng/mL
--- NOTE | 2018-01-21 05:40 | CP.PCM.HP ---
History of Present Illness - History of Present Illness History of Present Illness: Lisset Lewis, PGY-1 H&P for Hospitalist Service This is a 57 year old male with PMH of HTN, CKD, DM, systolic CHF with EF last month of 12%, pacemaker, defibrillator, deaf and mute presenting to hospital for unwitnessed syncopal episode earlier today. Per son, who communicates with patient via sign language, patient lost consciousness while standing, hit his head on the floor, and does not remember how long he was on the floor. Patient states he was dizzy before syncopal episode but admits to no other symptoms at time of LOC. Additionally, patient says he has not urinated or had BM in 3 days. He admits to abdominal swelling and B/L lower extremity swelling. Patient was admitted last month for similar symptoms. Currently, he denies CP, SOB, abdominal pain, back pain, fevers, chills, nausea, vomiting, numbness, tingling , recent travel and recent sickness. 12 point ROS noted here, otherwise unremarkable. In the ED, EKG showed atrial flutter with variable AV block 95bpm and left axis deviation that is unchanged from EKG last month. Troponin was 0.05. Elevated BUN /Cr. CXR showed cardiomegaly (interpreted by me). 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 No acute CT intracranial abnormalities. CT abd/pelvis showed 1.3cm pericardial effusion on right, large abdominal/pelvic ascites, no bowel obstruction. Swatch Maker: Dr. Yang PMH: as above SH: lives by himself, independent with ADL. History of former drinker, denies drugs/smoking Sx: pacemaker and defibrillator FH: GERD, HTN, dyslipidemia All: NKDA Present on Admission - Present on Admission Any Indicators Present on Admission: No Past Patient History - Infectious Disease Hx of Infectious Diseases: None - Past Social History Smoking Status: Never Smoked - CARDIAC Hx Congestive Heart Failure: Yes Hx Hypertension: Yes Hx Pacemaker: Yes (with defib) - PULMONARY Hx Respiratory Disorders: No - NEUROLOGICAL Hx Neurological Disorder: No - HEENT Hx HEENT Problems: Yes Hx Deafness: Yes (MUTE) - RENAL Hx Chronic Kidney Disease: No - ENDOCRINE/METABOLIC Hx Endocrine Disorders: Yes Hx Diabetes Mellitus Type 2: Yes - HEMATOLOGICAL/ONCOLOGICAL Hx Blood Disorders: No - INTEGUMENTARY Hx Dermatological Problems: Yes Other/Comment: 12-15-17 BILATERAL LE EDEMA +3 EXTENDS TO LOWER ABDOMINAL AREA. - MUSCULOSKELETAL/RHEUMATOLOGICAL Hx Musculoskeletal Disorders: No Hx Falls: No - GASTROINTESTINAL Hx Gastrointestinal Disorders: No - GENITOURINARY/GYNECOLOGICAL Hx Genitourinary Disorders: No - PSYCHIATRIC Hx Psychophysiologic Disorder: No Hx Anxiety: No Hx Bipolar Disorder: No Hx Depression: No Hx Emotional Abuse: No Hx Hallucinations: No Hx Panic Symptoms: No Hx Post Traumatic Stress Disorder: No Hx Psychosis: No Hx Physical Abuse: No Hx Schizophrenia: No Hx Sexual Abuse: No Hx Substance Use: No - SURGICAL HISTORY Hx Surgeries: Yes (PACEMAKER) - ANESTHESIA Hx Anesthesia: Yes Hx Anesthesia Reactions: No Hx Malignant Hyperthermia: No Meds Allergies/Adverse Reactions: Allergies Allergy/AdvReac Type Severity Reaction Status Date / Time No Known Allergies Allergy Verified 12/15/17 14:09 Physical Exam - Constitutional Appears: No Acute Distress - Head Exam Head Exam: ATRAUMATIC, NORMAL INSPECTION - Eye Exam Eye Exam: EOMI Pupil Exam: PERRL - ENT Exam ENT Exam: Mucous Membranes Moist - Neck Exam Neck exam: Positive for: Normal Inspection - Respiratory Exam Respiratory Exam: absent: Wheezes, Respiratory Distress Additional comments: rales appreciated in B/L lower lung [place] - Cardiovascular Exam Cardiovascular Exam: REGULAR RHYTHM, +S1, +S2, Systolic Murmur - GI/Abdominal Exam GI & Abdominal Exam: Distended, Normal Bowel Sounds. absent: Firm, Guarding - Extremities Exam Extremities exam: Positive for: normal inspection. Negative for: calf tenderness Additional comments: +1 B/L swelling appreciated in lower extremities - Neurological Exam Neurological exam: Alert, CN II-XII Intact - Skin Skin Exam: Normal Color, Warm Results - Vital Signs Recent Vital Signs: Last Vital Signs Temp 97.3 F L 01/20/18 22:27 Pulse 93 H 01/20/18 22:27 Resp 18 01/20/18 22:27 BP 134/73 01/20/18 22:27 Pulse Ox 100 01/20/18 22:27 - Labs Result Diagrams: 01/20/18 23:22 01/21/18 01:05 Assessment & Plan - Assessment and Plan (Free Text) Assessment: This is a 57 year old male with PMH of HTN, CKD, DM, systolic CHF with EF last month of 12%, pacemaker, defibrillator, deaf and mute presenting to hospital for unwitnessed syncopal episode earlier today. Patient is deaf/mute and communicates via sign language with children who are present. Patient will have syncopal workup. Admitted to [facility] for monitoring. Plan: Syncope -CT head showed encephalomalacia from previous infarct left frontal lobe and left parietal occipital lobe -EKG showed atrial flutter with variable AV block 95bpm and left axis deviation that is unchanged from EKG last month -Troponin was 0.05 on admission, will trend troponin -orthostatics ordered -carotid dopplers ordered -neurology on consult, Dr. Wetzel -cardiology on consult, Dr. Yang Hx of Systolic CHF -echo 12/2017 showed EF 12%, severe LV hypokinesis, mild LVH, dilated LA/RA/RV, mild MR and pulmonary hypertension, severe TR and pacemaker in RV. -CXR showed cardiomegaly (interpreted by me) -s/p pacemaker, defibrillator -BNP pending -may need diuresis, awaiting cardiology recommendations Urinary retention with abdominal distention -CT abd/pelvis showed 1.3cm pericardial effusion on right, large abdominal/ pelvic ascites, no bowel obstruction -ortiz catheter in place, initially draining sanguineous fluid -may need paracentesis -GI on consult, Dr. Bird HX CKD -elevated BUN/Cr consistent with previous baseline -avoid nephrotoxic agents Hx HTN -currently normotensive, will monitor Hx DM -continue home tradjenta PPX with protonix and heparin Patient seen and case discussed with attending, Dr. Mak Lewis, PGY-1
[2018-01-21] MEDS ORDERED: Albuterol 0.083% Inhal Sol (2.5 mg/3 mL) UD IH PRN (06:09)
[2018-01-21 07:55] LABS: BASO # 0.03 K/mm3 (0.0-2.0); BASO % 0.5 % (0.0-3.0); EOS % 0.2 % (1.5-5.0); GRAN # 4.1 (1.4-6.5); GRAN % 69.7 % (50.0-68.0); HEMOGLOBIN 14.6 g/dL (14.0-18.0); LYMPH # 1.1 (1.2-3.4); LYMPH % 18.7 % (22.0-35.0); MEAN CELL VOLUME 84.2 fl (80.0-105.0); MEAN CORPUSCULAR HEMOGLOBIN 27.9 pg (25.0-35.0); MEAN CORPUSCULAR HGB CONC 33.1 g/dl (31.0-37.0); MONO # 0.6 (0.1-0.6); MONO % 10.9 % (1.0-6.0); RBC 5.24 10^6/uL (3.5-6.1); RED CELL DISTRIBUTION WIDTH 19.7 % (11.5-14.5); WHITE BLOOD COUNT 5.9 10^3/ul (4.5-11.0)
--- NOTE | 2018-01-21 08:03 | RAD ---
Date of service: 01/20/2018 HISTORY: syncope COMPARISON: 12/15/2017 FINDINGS: LUNGS: No active pulmonary disease. PLEURA: No significant pleural effusion identified, no pneumothorax apparent. CARDIOVASCULAR: Moderate cardiomegaly. Dual lead pacemaker OSSEOUS STRUCTURES: No significant abnormalities. VISUALIZED UPPER ABDOMEN: Normal. OTHER FINDINGS: None. IMPRESSION: No active disease.
[2018-01-21 08:06] LABS: ALB/GLOB RATIO 1.1 (1.1-1.8); ALBUMIN 3.8 g/dL (3.0-4.8); CALCIUM 9.6 mg/dL (8.4-10.5)
[2018-01-21 08:13] LABS: TROPONIN I 0.05 ng/mL
--- NOTE | 2018-01-21 09:09 | CP.PCM.CON ---
<Carlos EnriqueVel - Last Filed: 01/21/18 14:28> History of Present Illness - History of Present Illness History of Present Illness: GI Consult Note for Dr. Bird's Service - Sina PGY2 Reason for Consult: Abdominal/Pelvic Ascites; Congestive Hepatopathy Mr. Snider is a 57 year old male with a past medical history significant for HTN, CKD, DM2, systolic CHF (Last EF 12%), PPM, AICD, deafness and mute who presents with one syncopal episode earlier today. Patient communicates through ASL and historic interpreter was used to obtain HPI information. Patient reports that earlier today, he felt lightheaded while standing and the next thing he remembers was waking up on the floor. According to patients family, patient did hit his head on the ground. Patient also endorses that he has been unable to urinate or defecate for the past three days but does note that he has been having intermittent but progressive abdominal "fullness" that he has never experienced before. GI was consulted as patient was found to have a moderate to large amount of abdominal/pelvis ascites. Currently, he denies any sick contacts , changes in diet, fevers, headache, chest pain, SOB, abdominal pain, N/V/D/C, hematemesis, melena, hematochezia, or skin changes. Of note, a CT Abdomen/Pelvis without contrast was done in the ED and showed marked cardiomegaly, hepatomegaly, and large abdominal/pelvic ascites. PMH: As stated above PSH: PPM and AICD Family History: GERD, HTN, HLD; No history of colon/liver/GI cancer Social History: Currently denies any tobacco, alcohol or illicit drug use; Former alcohol abuse noted; Lives alone and independent with ADL's Allergies: NKDA Home Medications: As per [facility] Felt Finishing Supervisor: Dr. Yang Review of Systems - Review of Systems Review of Systems: As stated in HPI, otherwise negative Past Patient History - Infectious Disease Hx of Infectious Diseases: None - Past Social History Smoking Status: Never Smoked - CARDIAC Hx Congestive Heart Failure: Yes Hx Hypertension: Yes Hx Pacemaker: Yes (with defib) - PULMONARY Hx Respiratory Disorders: No - NEUROLOGICAL Hx Neurological Disorder: No - HEENT Hx HEENT Problems: Yes Hx Deafness: Yes (MUTE) - RENAL Hx Chronic Kidney Disease: No - ENDOCRINE/METABOLIC Hx Endocrine Disorders: Yes Hx Diabetes Mellitus Type 2: Yes - HEMATOLOGICAL/ONCOLOGICAL Hx Blood Disorders: No - INTEGUMENTARY Hx Dermatological Problems: Yes Other/Comment: 12-15-17 BILATERAL LE EDEMA +3 EXTENDS TO LOWER ABDOMINAL AREA. - MUSCULOSKELETAL/RHEUMATOLOGICAL Hx Musculoskeletal Disorders: No Hx Falls: No - GASTROINTESTINAL Hx Gastrointestinal Disorders: No - GENITOURINARY/GYNECOLOGICAL Hx Genitourinary Disorders: No - PSYCHIATRIC Hx Psychophysiologic Disorder: No Hx Anxiety: No Hx Bipolar Disorder: No Hx Depression: No Hx Emotional Abuse: No Hx Hallucinations: No Hx Panic Symptoms: No Hx Post Traumatic Stress Disorder: No Hx Psychosis: No Hx Physical Abuse: No Hx Schizophrenia: No Hx Sexual Abuse: No Hx Substance Use: No - SURGICAL HISTORY Hx Surgeries: Yes (PACEMAKER) - ANESTHESIA Hx Anesthesia: Yes Hx Anesthesia Reactions: No Hx Malignant Hyperthermia: No Meds Allergies/Adverse Reactions: Allergies Allergy/AdvReac Type Severity Reaction Status Date / Time No Known Allergies Allergy Verified 01/21/18 11:32 - Medications Medications: Current Medications Albuterol Sulfate (Albuterol 0.083% Inhal Fanny (2.5 Mg/3 Ml) Ud) 2.5 mg IH [id number] PRN PRN Reason: Shortness of Breath Non-Formulary Medication (Linagliptin [Tradjenta]) 1 tab PO DAILY MOOK Pantoprazole Sodium (Protonix Ec Tab) 40 mg PO 0600 MOOK Tramadol HCl (Ultram) 50 mg PO BID PRN PRN Reason: Pain, moderate (4-7) Physical Exam - Constitutional Appears: Non-toxic, No Acute Distress - Head Exam Head Exam: ATRAUMATIC, NORMOCEPHALIC - Eye Exam Eye Exam: EOMI - ENT Exam ENT Exam: Mucous Membranes Moist - Neck Exam Neck exam: Positive for: Full Rom - Respiratory Exam Respiratory Exam: NORMAL BREATHING PATTERN. absent: Accessory Muscle Use, Respiratory Distress - Cardiovascular Exam Cardiovascular Exam: +S1, +S2 - GI/Abdominal Exam GI & Abdominal Exam: Distended (Mild to moderate distention; per patient interval history), Normal Bowel Sounds, Soft. absent: Bruit, Diminished Bowel Sounds, Firm, Guarding, Hernia, Hyperactive Bowel Sounds, Hypoactive Bowel Sounds, Mass, Organomegaly, Pulsatile Mass, Rebound, Rigid, Tenderness Additional comments: +shifting dullness - Rectal Exam Rectal Exam: Deferred - Neurological Exam Neurological exam: Alert, Oriented x3 - Psychiatric Exam Psychiatric exam: Normal Affect, Normal Mood - Skin Skin Exam: Dry, Intact, Normal Color, Warm Results - Vital Signs Recent Vital Signs: Last Vital Signs Temp 97.8 F 01/21/18 06:30 Pulse 67 01/21/18 06:30 Resp 18 01/21/18 06:30 BP 118/80 01/21/18 06:30 Pulse Ox 99 01/21/18 06:30 - Labs Result Diagrams: 01/21/18 07:30 01/21/18 07:30 Labs: Laboratory Results - last 24 hr 01/21/18 01/21/18 01/21/18 07:29 07:30 07:30 WBC 5.9 D RBC 5.24 Hgb 14.6 Hct 44.1 MCV 84.2 MCH 27.9 MCHC 33.1 RDW 19.7 H Plt Count 172 MPV 10.0 Gran % 69.7 H Lymph % (Auto) 18.7 L Ross % (Auto) 10.9 H Eos % (Auto) 0.2 L Baso % (Auto) 0.5 Gran # 4.10 Lymph # (Auto) 1.1 L Ross # (Auto) 0.6 Eos # (Auto) 0.0 Baso # (Auto) 0.03 Sodium 140 Potassium 4.5 Chloride 108 H Carbon Dioxide 20 L Anion Gap 17 BUN 46 H Creatinine 2.1 H Est GFR ( Amer) 39 Est GFR (Non-Af Amer) 33 POC Glucose (mg/dL) 88 Random Glucose 94 Calcium 9.6 Total Bilirubin 3.7 H AST 23 ALT 27 Alkaline Phosphatase 274 H Troponin I 0.05 Total Protein 7.4 Albumin 3.8 Globulin 3.5 Albumin/Globulin Ratio 1.1 Assessment & Plan - Assessment and Plan (Free Text) Assessment: 57 year old male with a past medical history significant for HTN, CKD, DM2, systolic CHF (Last EF 12%), PPM, AICD, deafness and mute who presents with one syncopal episode earlier today. Of note, a CT Abdomen/Pelvis without contrast was done in the ED and showed marked cardiomegaly, hepatomegaly, and large abdominal/pelvic ascites. Plan: -CT Abdomen/Pelvis without contrast was done in the ED and showed marked cardiomegaly, hepatomegaly, and large abdominal/pelvic ascites -Heart Healthy Diet -Daily PPI for GI Prophylaxis -DVT Prophylaxis -Cardiology consulted, all recommendations appreciated Will discuss further with attending - Date & Time Date: 01/21/18 Time: 15:08 <Roger Bird V - Last Filed: 01/21/18 23:43> Meds - Medications Medications: Current Medications Albuterol Sulfate (Albuterol 0.083% Inhal Fanny (2.5 Mg/3 Ml) Ud) 2.5 mg IH [id number] PRN PRN Reason: Shortness of Breath Furosemide (Lasix) 40 mg IVP DAILY MOOK Non-Formulary Medication (Linagliptin [Tradjenta]) 1 tab PO DAILY MOOK Pantoprazole Sodium (Protonix Ec Tab) 40 mg PO 0600 MOOK Tramadol HCl (Ultram) 50 mg PO BID PRN PRN Reason: Pain, moderate (4-7) Results - Vital Signs Recent Vital Signs: Last Vital Signs Temp 99.3 F 01/21/18 18:00 Pulse 77 01/21/18 18:00 Resp 20 01/21/18 18:00 BP 120/66 01/21/18 18:00 Pulse Ox 99 01/21/18 06:30 - Labs Result Diagrams: 01/21/18 07:30 01/21/18 07:30 Labs: Laboratory Results - last 24 hr 01/21/18 01/21/18 01/21/18 07:29 07:30 07:30 WBC 5.9 D RBC 5.24 Hgb 14.6 Hct 44.1 MCV 84.2 MCH 27.9 MCHC 33.1 RDW 19.7 H Plt Count 172 MPV 10.0 Gran % 69.7 H Lymph % (Auto) 18.7 L Ross % (Auto) 10.9 H Eos % (Auto) 0.2 L Baso % (Auto) 0.5 Gran # 4.10 Lymph # (Auto) 1.1 L Ross # (Auto) 0.6 Eos # (Auto) 0.0 Baso # (Auto) 0.03 Sodium 140 Potassium 4.5 Chloride 108 H Carbon Dioxide 20 L Anion Gap 17 BUN 46 H Creatinine 2.1 H Est GFR ( Amer) 39 Est GFR (Non-Af Amer) 33 POC Glucose (mg/dL) 88 Random Glucose 94 Calcium 9.6 Total Bilirubin 3.7 H AST 23 ALT 27 Alkaline Phosphatase 274 H Troponin I 0.05 Total Protein 7.4 Albumin 3.8 Globulin 3.5 Albumin/Globulin Ratio 1.1 Prostate Specific Ag 01/21/18 01/21/18 01/21/18 11:10 11:32 16:33 WBC RBC Hgb Hct MCV MCH MCHC RDW Plt Count MPV Gran % Lymph % (Auto) Ross % (Auto) Eos % (Auto) Baso % (Auto) Gran # Lymph # (Auto) Ross # (Auto) Eos # (Auto) Baso # (Auto) Sodium Potassium Chloride Carbon Dioxide Anion Gap BUN Creatinine Est GFR ( Amer) Est GFR (Non-Af Amer) POC Glucose (mg/dL) 201 H 116 H Random Glucose Calcium Total Bilirubin AST ALT Alkaline Phosphatase Troponin I Total Protein Albumin Globulin Albumin/Globulin Ratio Prostate Specific Ag 7.1 H 01/21/18 19:36 WBC RBC Hgb Hct MCV MCH MCHC RDW Plt Count MPV Gran % Lymph % (Auto) Ross % (Auto) Eos % (Auto) Baso % (Auto) Gran # Lymph # (Auto) Ross # (Auto) Eos # (Auto) Baso # (Auto) Sodium Potassium Chloride Carbon Dioxide Anion Gap BUN Creatinine Est GFR ( Amer) Est GFR (Non-Af Amer) POC Glucose (mg/dL) Random Glucose Calcium Total Bilirubin AST ALT Alkaline Phosphatase Troponin I 0.06 Total Protein Albumin Globulin Albumin/Globulin Ratio Prostate Specific Ag Attending/Attestation - Attestation I have personally seen and examined this patient.: Yes I have fully participated in the care of the patient.: Yes I have reviewed all pertinent clinical information: Yes Notes (Text): This is an addendum to GI consult report dictated by the [facility].The patient was seen and evaluated earlier. Medical records, lab studies, imagings were reviewed. Last 24 hours events reviewed. Agreed with the above treatment plan as outlined in [facility] 's notes with the addition of the following This patient who is deaf and mute admitted syncopal episode is past medical history includes CKD, DM CHF cardiomypathy with EF12% Has acitis GI consult was requested to follow up Cardiology eval noted Would consider large volume paracentisis if OK with cardiology (being considered for ionotropic support) Would request abdominal doppler to evaluate portal vein Would request hepatitis profile 01/21/18 23:39
--- NOTE | 2018-01-21 09:26 | CT ---
Date of service: 01/21/2018 PROCEDURE: CT HEAD WITHOUT CONTRAST. HISTORY: syncope/headache COMPARISON: None available. TECHNIQUE: Axial computed tomography images were obtained through the head/brain without intravenous contrast. Radiation dose: Total exam DLP = 833.02 mGy-cm. This CT exam was performed using one or more of the following dose reduction techniques: Automated exposure control, adjustment of the mA and/or kV according to patient size, and/or use of iterative reconstruction technique. FINDINGS: HEMORRHAGE: No intracranial hemorrhage. 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 Mild atrophy and xvah-mi-[id number] white matter changes suggestive but nonspecific for chronic microvascular ischemic disease. VENTRICLES: Unremarkable. No hydrocephalus. CALVARIUM: Unremarkable. PARANASAL SINUSES: Unremarkable as visualized. No significant inflammatory changes. MASTOID AIR CELLS: Unremarkable as visualized. No inflammatory changes. OTHER FINDINGS: None. IMPRESSION: No evidence of acute intracranial hemorrhage mass effect or midline shift. 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 Preliminary report was submitted by [facility].
--- NOTE | 2018-01-21 09:43 | CT ---
Date of service: 01/21/2018 PROCEDURE: CT Abdomen and Pelvis without intravenous contrast HISTORY: ABDOMINAL PAIN COMPARISON: No prior similar study available for comparison. Patient had ultrasound of the abdomen dated 12/16/2017 TECHNIQUE: Axial and reformatted coronal and sagittal CT images of the abdomen and pelvis were obtained without IV or oral contrast administration.. Contrast dose: 0 Radiation dose: Total exam DLP = 920.52 mGy-cm. This CT exam was performed using one or more of the following dose reduction techniques: Automated exposure control, adjustment of the mA and/or kV according to patient size, and/or use of iterative reconstruction technique. FINDINGS: LOWER THORAX: Market cardiomegaly is noted. There are pacemaker wires extending to the heart. There is a small pericardial effusion seen. No evidence of pleural effusion. Small opacities noted at the right lung base may represent atelectasis or pneumonia. LIVER: Hepatomegaly is noted. The assessment of the liver and upper abdomen solid organs is limited without IV contrast administration and due to motion artifacts. GALLBLADDER AND BILE DUCTS: Distended gallbladder without definite CT evidence of acute cholecystitis or biliary obstruction. PANCREAS: Unremarkable. No gross lesion or ductal dilatation. SPLEEN: Unremarkable. ADRENALS: Unremarkable. No mass. KIDNEYS AND URETERS: No evidence of obstructing renal calculi or hydronephrosis. Foci of cortical defects noted bilaterally suggestive of prior injury or infarct in the renal cortex. VASCULATURE: Unremarkable. No aortic aneurysm. BOWEL: No evidence of high-grade bowel obstruction. No evidence of pneumatosis. APPENDIX: No evidence of appendicitis. PERITONEUM: Unremarkable. NoThere is moderate to large amount of ascites in the abdomen and pelvis noted. No evidence of free air in this limited study. Free fluid. No free air. LYMPH NODES: Unremarkable. No enlarged lymph nodes. BLADDER: Gordon catheter in the urinary bladder is noted. REPRODUCTIVE: The prostate is moderately to markedly enlarged. BONES: No acute fracture. OTHER FINDINGS: Mild to moderate anasarca. IMPRESSION: Limited assessment without IV or oral contrast administration Cardiomegaly. Small pericardial effusion. Moderate to large amount of ascites in the abdomen and pelvis. Enlarged prostate. [id number] anasarca. Preliminary report was submitted by [facility].
[2018-01-21] MEDS ORDERED: LINAGLIPTIN PO SCH (10:00)
[2018-01-21] MEDS: DOBUTamine 500mg/250ml D5W 500 MG/250 ML BAG IV PRN ×2 (15:07→15:08)
[2018-01-21 15:59] VITALS: BMI 25.5
[2018-01-21] MEDS ORDERED: Pneumococcal 23-Valent Vaccine IM ONE (15:59)
--- NOTE | 2018-01-21 17:27 | US ---
PROCEDURE: Bilateral carotid artery duplex ultrasound HISTORY: Carotid stenosis PHYSICIAN(S): Garrett Dejesus MD. TECHNIQUE: Duplex sonography and color-flow Doppler were used to evaluate the carotid bifurcations and limited segments of the vertebral arteries bilaterally. FINDINGS: There is mild smooth hypoechoic plaque noted at the carotid bifurcations bilaterally. The peak systolic velocity in the proximal right internal carotid artery is 44 cm/sec. This corresponds to a 20 to 39% proximal right ICA stenosis. Normal systolic velocities are noted in the proximal right external carotid artery. There is antegrade flow in the right vertebral artery. The peak systolic velocity in the proximal left internal carotid artery is 50 cm/sec. This corresponds to a 20 to 39% proximal left ICA stenosis. Normal systolic velocities are noted in the proximal left external carotid artery. There is antegrade flow in the left vertebral artery. IMPRESSION: 1. Bilateral 20-39% proximal ICA stenoses. 2. Antegrade flow in both vertebral arteries.
--- NOTE | 2018-01-21 17:39 | CARD ---
APPROVED REPORT Date of service: 01/20/2018 EKG Measurement Heart [id number] <Conclusion> Atrial flutter with variable AV block Left axis deviation Incomplete right bundle branch block Possible Lateral infarct, age undetermined Inferior infarct, age undetermined Abnormal ECG
[2018-01-21] MEDS ORDERED: Morphine 2 mg/ml ISec IVP ONE (19:47)
[2018-01-22] MEDS ORDERED: Pantoprazole 40 mg EC Tab PO SCH (06:00)
--- NOTE | 2018-01-22 06:37 | CP.PCM.PN ---
<Bon Benitez - Last Filed: 01/22/18 18:55> Subjective - Date & Time of Evaluation Date of Evaluation: 01/22/18 Time of Evaluation: 05:46 - Subjective Subjective: Bon Benitez DO PGY-1, Internal Medicine Resident. Hospitalist Progress Note Patient seen and examined at bedside. Patient is deaf/mute and communicates via sign language through the automated service. Patient felt SOB with suprapubic discomfort yesterday, Lasix was given and bladder irrigation, he felt well after. Patient denied CP, palpitations, headache, fever. ROS is otherwise negative Objective - Vital Signs/Intake and Output Vital Signs (last 24 hours): Temp Pulse Resp BP Pulse Ox 99.3 F 91 H 20 120/66 99 01/21/18 18:00 01/22/18 02:00 01/21/18 18:00 01/21/18 18:00 01/21/18 06:30 Intake and Output: 01/21/18 01/22/18 18:59 06:59 Intake Total 1320 Output Total 300 Balance 1020 - Medications Medications: Current Medications Albuterol Sulfate (Albuterol 0.083% Inhal Fanny (2.5 Mg/3 Ml) Ud) 2.5 mg IH [id number] PRN PRN Reason: Shortness of Breath Furosemide (Lasix) 40 mg IVP DAILY MOOK Non-Formulary Medication (Linagliptin [Tradjenta]) 1 tab PO DAILY MOOK Pantoprazole Sodium (Protonix Ec Tab) 40 mg PO 0600 MOOK Last Admin: 01/22/18 05:36 Dose: 40 mg Tramadol HCl (Ultram) 50 mg PO BID PRN PRN Reason: Pain, moderate (4-7) Last Admin: 01/22/18 02:45 Dose: 50 mg - Labs Labs: 01/21/18 07:30 01/21/18 07:30 PT 17.3 SECONDS (9.4-12.5) H 01/21/18 01:05 INR 1.50 01/21/18 01:05 APTT 30.5 Seconds (25.1-36.5) 01/21/18 01:05 - Constitutional Appears: Well, Other (mild discomfort due to ascites and sanchez placed) - Head Exam Head Exam: ATRAUMATIC, NORMOCEPHALIC - Eye Exam Eye Exam: EOMI, Normal appearance, PERRL Pupil Exam: NORMAL ACCOMODATION, PERRL - ENT Exam ENT Exam: Mucous Membranes Moist, Normal Exam - Neck Exam Neck Exam: Full ROM. absent: Thyromegaly Additional comments: +JVD - Respiratory Exam Respiratory Exam: Decreased Breath Sounds, Respiratory Distress - Cardiovascular Exam Cardiovascular Exam: +S1, +S2, Murmur - GI/Abdominal Exam GI & Abdominal Exam: Distended, Firm, Normal Bowel Sounds. absent: Guarding - Exam Additional comments: SANCHEZ IN PLACE. NO SIGNS OF INFECTION - Extremities Exam Extremities Exam: Full ROM, Normal Capillary Refill, Normal Inspection, Pedal Edema. absent: Joint Swelling Additional comments: +1 LE edema - Back Exam Back Exam: NORMAL INSPECTION - Neurological Exam Neurological Exam: Alert, Awake, CN II-XII Intact, Oriented x3 - Psychiatric Exam Psychiatric exam: Normal Affect, Normal Mood - Skin Skin Exam: Dry, Intact, Normal Color, Warm Assessment and Plan - Assessment and Plan (Free Text) Assessment: 57 y/o male with PMH of HTN, CKD, DM, systolic CHF with EF last month of 12%, pacemaker, defibrillator, presented to ED with unwitnessed syncopal episode. Admitted for anuria, syncope, ascites and LE edema. Plan: Syncope -Head CT: encephalomalacia from previous infarct left frontal lobe and left parietal occipital lobe -EKG showed atrial flutter with variable AV block 95bpm and left axis deviation that is unchanged from EKG last month -neurology consulted Dr. Wetzel: no neurological abnormlities, cadiac related -cardiology on consult, Dr. Yang -carotid US Bilateral 20-39% proximal ICA stenosis -Troponin 0.05 -patient did not tolerate dobutamine when initiated Ascites -CT abd/pelvis showed large abdominal/pelvic ascites, no bowel obstruction -Albumin/globulin ratio 1.1 -AST/ALT normal -PT/INR 17.3/1.5 -Lipase 66 -Tramadol for abd pain prn -As per GI consult: patient should have Dx/Tx paracentesis. Cell count, culture , gram stain, albumin, TP, cytology should be ordered. Hx of Systolic CHF -Last Ech 12/25 showed EF 12%, severe LV hypokinesis, mild LVH, dilated LA/RA/RV , mild MR and PHTN, severe TR -s/p pacemaker, defibrillator -continue lasix -CXR showed cardiomegaly Urinary retention -Patient anuric for 4 days -sanchez catheter in place, initially draining bloody urine with clots. getting clear now -UA: +protein, bilirubin. - RBC, blood, WBC, epithelial cells -urology consulted -PSA 7.1 -BUN/Cr elevated DM2 -continue home med trajenta PPX with protonix, GI ppx:protonix DVT ppx SCD heart healthy diet Head elevation PT/OT eval and treat Case reviewed and plan discussed with attending physician Dr. Palumbo <Jeff Palumbo - Last Filed: 01/23/18 06:55> Objective - Vital Signs/Intake and Output Vital Signs (last 24 hours): Temp Pulse Resp BP Pulse Ox 97.8 F 95 H 19 126/96 H 100 01/23/18 06:00 01/23/18 06:00 01/23/18 06:00 01/23/18 06:00 01/23/18 06:00 Intake and Output: 01/22/18 01/23/18 18:59 06:59 Intake Total 300 880 Output Total 1000 1500 Balance -700 -620 - Medications Medications: Current Medications Albuterol Sulfate (Albuterol 0.083% Inhal Fanny (2.5 Mg/3 Ml) Ud) 2.5 mg IH [id number] PRN PRN Reason: Shortness of Breath Furosemide (Lasix) 40 mg IVP DAILY MOOK Non-Formulary Medication (Linagliptin [Tradjenta]) 1 tab PO DAILY MOOK Tramadol HCl (Ultram) 50 mg PO BID PRN PRN Reason: Pain, moderate (4-7) Last Admin: 01/23/18 06:02 Dose: 50 mg - Labs Labs: PT 17.3 SECONDS (9.4-12.5) H 01/21/18 01:05 INR 1.50 01/21/18 01:05 APTT 30.5 Seconds (25.1-36.5) 01/21/18 01:05 Attending/Attestation - Attestation I have personally seen and examined this patient.: Yes I have fully participated in the care of the patient.: Yes I have reviewed all pertinent clinical information, including history, physical exam and plan: Yes Notes (Text): 01/22/18 57 year old male with past medical history of hypertension, cardiomyopathy s/p PPM/defibrillator and diabetes who presented with syncopal episode. Also found to have ascites and urinary retention. 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 Neurology evaluation was appreciated; no further workup recommended. Cardiology evaluation was also appreciated. Pacemaker was interrogated; ok as per Dr. Yang. CT abd/pelvis showed moderate to large abdominal ascites. Patient is started on iv lasix. Case was discussed with Dr. Yang given cardiac history recommended first trial of diuresis prior to attempting paracentesis. Also recommended dobutamine which patient did not tolerate. GI evaluation was also appreciated. Abdominal doppler and hepatitis panel is ordered. Consider diagnostic/therapeutic tap on Wednesday if no improvement of ascites and ok with cardiology. Urology evaluation was requested for urinary retention and possible BPH. Jeff Palumbo MD Hospitalist.
[2018-01-22 07:51] LABS: BASO # 0.02 K/mm3 (0.0-2.0); BASO % 0.3 % (0.0-3.0); GRAN # 4.68 (1.4-6.5); GRAN % 72.6 % (50.0-68.0); HEMOGLOBIN 14.8 g/dL (14.0-18.0); LYMPH # 1.2 (1.2-3.4); MEAN CELL VOLUME 83.8 fl (80.0-105.0); MEAN CORPUSCULAR HEMOGLOBIN 27.9 pg (25.0-35.0); MEAN CORPUSCULAR HGB CONC 33.3 g/dl (31.0-37.0); MEAN PLATELET VOLUME 9.5 fl (7.0-11.0); MONO # 0.6 (0.1-0.6); MONO % 9.1 % (1.0-6.0); RBC 5.3 10^6/uL (3.5-6.1); RED CELL DISTRIBUTION WIDTH 19.5 % (11.5-14.5); WHITE BLOOD COUNT 6.5 10^3/ul (4.5-11.0)
[2018-01-22 08:07] LABS: ALB/GLOB RATIO 1.1 (1.1-1.8); ALBUMIN 3.6 g/dL (3.0-4.8); CALCIUM 9.4 mg/dL (8.4-10.5)
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
--- NOTE | 2018-01-22 09:40 | CARD ---
APPROVED REPORT Date of service: 01/21/2018 EKG Measurement Heart [id number] <Conclusion> Atrial fibrillation with rapid ventricular response Left axis deviation Right bundle branch block Septal infarct, age undetermined T wave abnormality, consider lateral ischemia or digitalis effect Abnormal ECG
--- NOTE | 2018-01-22 15:33 | CP.PCM.PN ---
<Brad Radford - Last Filed: 01/22/18 15:27> Subjective - Date & Time of Evaluation Date of Evaluation: 01/22/18 Time of Evaluation: 15:27 - Subjective Subjective: GI Fellow PGY4, Patient looks improved from last night. No distress. Afeb, HDS. Objective - Vital Signs/Intake and Output Vital Signs (last 24 hours): Temp Pulse Resp BP Pulse Ox 98.6 F 85 20 108/77 100 01/22/18 12:00 01/22/18 12:00 01/22/18 12:00 01/22/18 12:00 01/22/18 06:00 Intake and Output: 01/22/18 01/22/18 06:59 18:59 Intake Total 1320 Output Total 300 Balance 1020 - Medications Medications: Current Medications Albuterol Sulfate (Albuterol 0.083% Inhal Fanny (2.5 Mg/3 Ml) Ud) 2.5 mg IH [id number] PRN PRN Reason: Shortness of Breath Non-Formulary Medication (Linagliptin [Tradjenta]) 1 tab PO DAILY [facility] Tramadol HCl (Ultram) 50 mg PO BID PRN PRN Reason: Pain, moderate (4-7) Last Admin: 01/22/18 02:45 Dose: 50 mg - Labs Labs: 01/22/18 07:00 01/22/18 07:00 PT 17.3 SECONDS (9.4-12.5) H 01/21/18 01:05 INR 1.50 01/21/18 01:05 APTT 30.5 Seconds (25.1-36.5) 01/21/18 01:05 - Constitutional Appears: No Acute Distress, Chronically Ill - Head Exam Head Exam: NORMAL INSPECTION - Eye Exam Eye Exam: Normal appearance - ENT Exam ENT Exam: Mucous Membranes Moist - Respiratory Exam Respiratory Exam: Clear to Ausculation Bilateral, NORMAL BREATHING PATTERN - Cardiovascular Exam Cardiovascular Exam: REGULAR RHYTHM, +S1, +S2 - GI/Abdominal Exam GI & Abdominal Exam: Distended, Firm, Normal Bowel Sounds. absent: Tenderness - Extremities Exam Extremities Exam: Normal Inspection - Neurological Exam Neurological Exam: Alert, Awake, Oriented x3 - Psychiatric Exam Psychiatric exam: Normal Affect, Normal Mood - Skin Skin Exam: Dry, Normal Color Assessment and Plan - Assessment and Plan (Free Text) Assessment: 57 year old male with a past medical history significant for HTN, CKD, DM2, systolic CHF (Last EF 12%), PPM, AICD, deafness and mute who presents with one syncopal episode earlier today. Of note, a CT Abdomen/Pelvis without contrast was done in the ED and showed marked cardiomegaly, hepatomegaly, and large abdominal/pelvic ascites. Plan: -CT Abdomen/Pelvis without contrast was done in the ED and showed marked cardiomegaly, hepatomegaly, and large abdominal/pelvic ascites -Heart Healthy Diet -Daily PPI for GI Prophylaxis -DVT Prophylaxis -Cardiology consulted, all recommendations appreciated -Patient should have Dx/Tx paracentesis. Cell count, culture, gram stain, albumin, TP, cytology should be ordered. <Rogre Bird V - Last Filed: 01/22/18 21:00> Objective - Vital Signs/Intake and Output Vital Signs (last 24 hours): Temp Pulse Resp BP Pulse Ox 98.6 F 109 H 18 108/81 99 01/22/18 18:00 01/22/18 18:00 01/22/18 18:00 01/22/18 18:00 01/22/18 18:00 Intake and Output: 01/22/18 01/23/18 18:59 06:59 Intake Total 300 Output Total 1000 Balance -700 - Medications Medications: Current Medications Albuterol Sulfate (Albuterol 0.083% Inhal Fanny (2.5 Mg/3 Ml) Ud) 2.5 mg IH [id number] PRN PRN Reason: Shortness of Breath Furosemide (Lasix) 40 mg IVP DAILY [facility] Non-Formulary Medication (Linagliptin [Tradjenta]) 1 tab PO DAILY [facility] Tramadol HCl (Ultram) 50 mg PO BID PRN PRN Reason: Pain, moderate (4-7) Last Admin: 01/22/18 02:45 Dose: 50 mg - Labs Labs: PT 17.3 SECONDS (9.4-12.5) H 01/21/18 01:05 INR 1.50 01/21/18 01:05 APTT 30.5 Seconds (25.1-36.5) 01/21/18 01:05 Attending/Attestation - Attestation I have personally seen and examined this patient.: Yes I have fully participated in the care of the patient.: Yes I have reviewed all pertinent clinical information, including history, physical exam and plan: Yes Notes (Text): This is an addendum to GI progress report dictated by the GI Fellow.The patient was seen and examined earlier. Medical records, lab studies, imagings were reviewed. Last 24 hours events reviewed. Agreed with the above treatment plan as outlined in GI Fellow 's notes with the addition of the following This patient with chronic kidney disease, CHF status post defibrillator Patient could not tolerate DOBUTAMAINE has ortiz cath and on diuretics Large ascitis would recommend paracenthisis and fluid analysis patient is deaf mute explain to the nurse Will discuss with medical team 01/22/18 20:51 01/22/18 20:59
--- NOTE | 2018-01-23 06:40 | CP.PCM.PN ---
<Bon Benitez - Last Filed: 01/23/18 15:06> Subjective - Date & Time of Evaluation Date of Evaluation: 01/23/18 Time of Evaluation: 06:20 - Subjective Subjective: Bon Benitez DO PGY-1, Internal Medicine Resident. Hospitalist Progress Note Patient seen and examined at bedside. Patient is deaf/mute and communicates via sign language through the automated service. Patient still feels suprapubic discomfort and irritation at sanchez site. Patient denied CP, palpitations, headache, fever. ROS is otherwise negative Objective - Vital Signs/Intake and Output Vital Signs (last 24 hours): Temp Pulse Resp BP Pulse Ox 97.9 F 119 H 20 115/85 99 01/23/18 00:01 01/23/18 02:00 01/23/18 00:01 01/23/18 00:01 01/23/18 00:01 Intake and Output: 01/22/18 01/23/18 18:59 06:59 Intake Total 300 200 Output Total 1000 250 Balance -700 -50 - Medications Medications: Current Medications Albuterol Sulfate (Albuterol 0.083% Inhal Fanny (2.5 Mg/3 Ml) Ud) 2.5 mg IH [id number] PRN PRN Reason: Shortness of Breath Furosemide (Lasix) 40 mg IVP DAILY [facility] Non-Formulary Medication (Linagliptin [Tradjenta]) 1 tab PO DAILY [facility] Tramadol HCl (Ultram) 50 mg PO BID PRN PRN Reason: Pain, moderate (4-7) Last Admin: 01/23/18 06:02 Dose: 50 mg - Labs Labs: PT 17.3 SECONDS (9.4-12.5) H 01/21/18 01:05 INR 1.50 01/21/18 01:05 APTT 30.5 Seconds (25.1-36.5) 01/21/18 01:05 - Additional Findings Additional findings: - Constitutional Appears: Well, Other (mild discomfort due to ascites and sanchez placed) - Head Exam Head Exam: ATRAUMATIC, NORMOCEPHALIC - Eye Exam Eye Exam: EOMI, Normal appearance, PERRL Pupil Exam: NORMAL ACCOMODATION, PERRL - ENT Exam ENT Exam: Mucous Membranes Moist, Normal Exam - Neck Exam Neck Exam: Full ROM. absent: Thyromegaly Additional comments: +JVD - Respiratory Exam Respiratory Exam: Decreased Breath Sounds, Respiratory Distress - Cardiovascular Exam Cardiovascular Exam: +S1, +S2, Murmur - GI/Abdominal Exam GI & Abdominal Exam: Distended, Firm, Normal Bowel Sounds. absent: Guarding - Exam Additional comments: SANCHEZ IN PLACE. NO SIGNS OF INFECTION - Extremities Exam Extremities Exam: Full ROM, Normal Capillary Refill, Normal Inspection, Pedal Edema. absent: Joint Swelling Additional comments: +1 LE edema - Back Exam Back Exam: NORMAL INSPECTION - Neurological Exam Neurological Exam: Alert, Awake, CN II-XII Intact, Oriented x3 - Psychiatric Exam Psychiatric exam: Normal Affect, Normal Mood - Skin Skin Exam: Dry, Intact, Normal Color, Warm Assessment and Plan - Assessment and Plan (Free Text) Assessment: 57 y/o male with PMH of HTN, CKD, DM, systolic CHF with EF last month of 12%, pacemaker, defibrillator, presented to ED with unwitnessed syncopal episode. Admitted for anuria, syncope, ascites and LE edema. 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 Wetzel: no neurological abnormlities, cadiac related -cardiology consult Dr Whitehead: -carotid US Bilateral 20-39% proximal ICA stenosis -Troponin 0.05 -patient did not tolerate dobutamine when initiated Ascites -CT abd/pelvis showed large abdominal/pelvic ascites, no bowel obstruction -Albumin/globulin ratio 1.1 -AST/ALT normal -PT/INR 17.3/1.5 -Lipase 66 -Tramadol for abd pain prn -As per GI consult: patient should have Dx/Tx paracentesis. Cell count, culture , gram stain, albumin, TP, cytology should be ordered. -Lactulose was given as per GI Hx of Systolic CHF -Last Ech 12/25 showed EF 12%, severe LV hypokinesis, mild LVH, dilated LA/RA/RV , mild MR and PHTN, severe TR -s/p pacemaker, defibrillator -continue lasix -CXR showed cardiomegaly Urinary retention -Patient anuric for 4 days -sanchez catheter in place, initially draining bloody urine with clots. getting clear now -UA: +protein, bilirubin. - RBC, blood, WBC, epithelial cells -Per urology consult Dr Miller: Flomax 0.4mg BID, repeat PSA, Urine Cx and cytology -PSA 7.1 -BUN/Cr elevated DM2 -continue home med trajenta PPX with protonix, GI ppx:protonix DVT ppx SCD heart healthy diet Head elevation PT/OT eval and treat Encourage out of bed ambulation Case reviewed and plan discussed with attending physician Dr. Palumbo <Jeff Palumbo - Last Filed: 01/23/18 16:20> Objective - Vital Signs/Intake and Output Vital Signs (last 24 hours): Temp Pulse Resp BP Pulse Ox 98 F 92 H 18 130/73 100 01/23/18 12:00 01/23/18 14:00 01/23/18 12:00 01/23/18 12:00 01/23/18 06:00 Intake and Output: 01/23/18 01/23/18 06:59 18:59 Intake Total 880 Output Total 1500 Balance -620 - Medications Medications: Current Medications Albuterol Sulfate (Albuterol 0.083% Inhal Fanny (2.5 Mg/3 Ml) Ud) 2.5 mg IH [id number] PRN PRN Reason: Shortness of Breath Furosemide (Lasix) 40 mg IVP DAILY [facility] Last Admin: 01/23/18 10:45 Dose: 40 mg Lactulose (Enulose) 20 gm PO DAILY [facility] Last Admin: 01/23/18 12:04 Dose: 20 gm Non-Formulary Medication (Linagliptin [Tradjenta]) 1 tab PO DAILY [facility] Tamsulosin HCl (Flomax) 0.4 mg PO BID [facility] Last Admin: 01/23/18 10:45 Dose: 0.4 mg Tramadol HCl (Ultram) 50 mg PO BID PRN PRN Reason: Pain, moderate (4-7) Last Admin: 01/23/18 06:02 Dose: 50 mg - Labs Labs: 01/23/18 06:30 01/23/18 06:30 PT 17.3 SECONDS (9.4-12.5) H 01/21/18 01:05 INR 1.50 01/21/18 01:05 APTT 30.5 Seconds (25.1-36.5) 01/21/18 01:05 Attending/Attestation - Attestation I have personally seen and examined this patient.: Yes I have fully participated in the care of the patient.: Yes I have reviewed all pertinent clinical information, including history, physical exam and plan: Yes Notes (Text): 01/23/18 16:17 57 year old male with past medical history of hypertension, cardiomyopathy s/p PPM/defibrillator and diabetes who presented with syncopal episode. 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 Neurology evaluation was appreciated; no further workup recommended. Cardiology evaluation was also appreciated. Pacemaker was interrogated; ok as per Dr. Yang. He was also found to have ascites and urinary retention. CT abd/pelvis showed moderate to large abdominal ascites and enlarged prostate. PSA elevated. Case was discussed with Dr. Yang given cardiac history recommended first trial of diuresis prior to attempting paracentesis. Also recommended dobutamine which patient did not tolerate. Patient is on lasix with minimal improvement. Will request IR evaluation tomorrow for diagnostic/therapeutic paracentesis tomorrow if ok with cardiology. GI is also following and requested abdominal doppler and hepatitis panel. Case also discussed with urology who recommended flomax, repeat PSA and urine cytology. Jeff Palumbo MD Hospitalist.
[2018-01-23 07:34] LABS: BASO # 0.02 K/mm3 (0.0-2.0); BASO % 0.3 % (0.0-3.0); EOS % 0.2 % (1.5-5.0); GRAN # 4.43 (1.4-6.5); GRAN % 68.5 % (50.0-68.0); HEMOGLOBIN 15.2 g/dL (14.0-18.0); LYMPH # 1.5 (1.2-3.4); LYMPH % 22.8 % (22.0-35.0); MEAN CELL VOLUME 84.6 fl (80.0-105.0); MEAN CORPUSCULAR HEMOGLOBIN 28.2 pg (25.0-35.0); MEAN CORPUSCULAR HGB CONC 33.3 g/dl (31.0-37.0); MEAN PLATELET VOLUME 10.3 fl (7.0-11.0); MONO # 0.5 (0.1-0.6); MONO % 8.2 % (1.0-6.0); RBC 5.39 10^6/uL (3.5-6.1); RED CELL DISTRIBUTION WIDTH 19.9 % (11.5-14.5); WHITE BLOOD COUNT 6.5 10^3/ul (4.5-11.0)
[2018-01-23 07:46] LABS: ALB/GLOB RATIO 1.1 (1.1-1.8); ALBUMIN 3.8 g/dL (3.0-4.8); CALCIUM 9.3 mg/dL (8.4-10.5)
[2018-01-23] MEDS ORDERED: POLYETHYLENE GLYCOL 3350 17 GM/Dose PACKET PO ONE (10:17)
--- NOTE | 2018-01-23 11:39 | CP.PCM.PN ---
<Brad Radford - Last Filed: 01/23/18 11:37> Subjective - Date & Time of Evaluation Date of Evaluation: 01/23/18 Time of Evaluation: 11:37 - Subjective Subjective: GI Fellow pgy4 No changes clinically, still with distended abdomen. Paracentesis tomorrow. Objective - Vital Signs/Intake and Output Vital Signs (last 24 hours): Temp Pulse Resp BP Pulse Ox 97.8 F 115 H 19 115/74 100 01/23/18 06:00 01/23/18 10:00 01/23/18 06:00 01/23/18 10:45 01/23/18 06:00 Intake and Output: 01/23/18 01/23/18 06:59 18:59 Intake Total 880 Output Total 1500 Balance -620 - Medications Medications: Current Medications Albuterol Sulfate (Albuterol 0.083% Inhal Fanny (2.5 Mg/3 Ml) Ud) 2.5 mg IH [id number] PRN PRN Reason: Shortness of Breath Furosemide (Lasix) 40 mg IVP DAILY [facility] Last Admin: 01/23/18 10:45 Dose: 40 mg Lactulose (Enulose) 20 gm PO DAILY [facility] Non-Formulary Medication (Linagliptin [Tradjenta]) 1 tab PO DAILY [facility] Tamsulosin HCl (Flomax) 0.4 mg PO BID [facility] Last Admin: 01/23/18 10:45 Dose: 0.4 mg Tramadol HCl (Ultram) 50 mg PO BID PRN PRN Reason: Pain, moderate (4-7) Last Admin: 01/23/18 06:02 Dose: 50 mg - Labs Labs: 01/23/18 06:30 01/23/18 06:30 PT 17.3 SECONDS (9.4-12.5) H 01/21/18 01:05 INR 1.50 01/21/18 01:05 APTT 30.5 Seconds (25.1-36.5) 01/21/18 01:05 - Constitutional Appears: No Acute Distress, Chronically Ill - Respiratory Exam Respiratory Exam: Clear to Ausculation Bilateral, NORMAL BREATHING PATTERN - Cardiovascular Exam Cardiovascular Exam: REGULAR RHYTHM - GI/Abdominal Exam GI & Abdominal Exam: Distended, Normal Bowel Sounds. absent: Tenderness - Extremities Exam Extremities Exam: Normal Inspection - Neurological Exam Neurological Exam: Alert, Awake, Oriented x3 - Psychiatric Exam Psychiatric exam: Normal Affect, Normal Mood - Skin Skin Exam: Normal Color Assessment and Plan - Assessment and Plan (Free Text) Assessment: 57 year old male with a past medical history significant for HTN, CKD, DM2, systolic CHF (Last EF 12%), PPM, AICD, deafness and mute who presents with one syncopal episode earlier today. Of note, a CT Abdomen/Pelvis without contrast was done in the ED and showed marked cardiomegaly, hepatomegaly, and large abdominal/pelvic ascites. Plan: -CT Abdomen/Pelvis without contrast was done in the ED and showed marked cardiomegaly, hepatomegaly, and large abdominal/pelvic ascites -Heart Healthy Diet -Daily PPI for GI Prophylaxis -DVT Prophylaxis -Cardiology consulted, all recommendations appreciated -Patient should have Dx/Tx paracentesis. Cell count, culture, gram stain, albumin, TP, cytology has been ordered by me. <Roger Bird V - Last Filed: 01/23/18 21:38> Objective - Vital Signs/Intake and Output Vital Signs (last 24 hours): Temp Pulse Resp BP Pulse Ox 98.6 F 94 H 18 128/63 100 01/23/18 17:56 01/23/18 18:00 01/23/18 17:56 01/23/18 17:56 01/23/18 06:00 Intake and Output: 01/23/18 01/24/18 18:59 06:59 Intake Total 720 Output Total 1100 Balance -380 - Medications Medications: Current Medications Albuterol Sulfate (Albuterol 0.083% Inhal Fanny (2.5 Mg/3 Ml) Ud) 2.5 mg IH [id number] PRN PRN Reason: Shortness of Breath Carvedilol (Coreg) 3.125 mg PO BID [facility] Furosemide (Lasix) 40 mg IVP DAILY [facility] Last Admin: 01/23/18 10:45 Dose: 40 mg Heparin Sodium (Porcine) (Heparin) 5,000 units SC Q8 [facility] PRN Reason: Protocol Lactulose (Enulose) 20 gm PO DAILY [facility] Last Admin: 01/23/18 12:04 Dose: 20 gm Losartan Potassium (Cozaar) 12.5 mg PO DAILY [facility] Non-Formulary Medication (Linagliptin [Tradjenta]) 1 tab PO DAILY [facility] Spironolactone (Aldactone) 12.5 mg PO BID [facility] Tamsulosin HCl (Flomax) 0.4 mg PO BID [facility] Last Admin: 01/23/18 17:15 Dose: 0.4 mg Tramadol HCl (Ultram) 50 mg PO BID PRN PRN Reason: Pain, moderate (4-7) Last Admin: 01/23/18 17:21 Dose: 50 mg - Labs Labs: 01/23/18 06:30 01/23/18 06:30 PT 17.3 SECONDS (9.4-12.5) H 01/21/18 01:05 INR 1.50 01/21/18 01:05 APTT 30.5 Seconds (25.1-36.5) 01/21/18 01:05 Attending/Attestation - Attestation I have personally seen and examined this patient.: Yes I have fully participated in the care of the patient.: Yes I have reviewed all pertinent clinical information, including history, physical exam and plan: Yes Notes (Text): This is an addendum to GI progress report dictated by the GI Fellow.The patient was seen and examined earlier. Medical records, lab studies, imagings were reviewed. Last 24 hours events reviewed. Agreed with the above treatment plan as outlined in GI Fellow 's notes with the addition of the following Patient would benefit from large volume paracentesis patient has chronic kidney disease which limits effectiveness of diaursis In this patient with large ascitis Would request baseline hepatitis profile and follow up lytes 01/23/18 21:32
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
--- NOTE | 2018-01-23 22:27 | PN ---
DATE: 01/23/2018 COVERING FOR: Garrett Yang MD. SUBJECTIVE: I did have digital designer via the closed TV circuit. The patient stated that he underwent cardiac catheterization recently by his job specification writer, Dr. Willy Singer at [facility]. The patient denies any prior abdominal tap and is unaware of any coronary artery disease. The patient is mainly bothered by the indwelling Gordon catheter and he denies any dizziness or chest pain at this time. PHYSICAL EXAMINATION: VITAL SIGNS: Blood pressure 1:08, heart rate 73, temperature 98, respirations 18. HEENT: Normocephalic. CHEST: Diminished breath sounds over the bases. HEART: S1 and S2 regular. ABDOMEN: Moderate ascites. EXTREMITIES: Trace edema. LABORATORY DATA: EKG revealed atrial flutter with 2:1 conduction. Hemoglobin and hematocrit 15.1 and 45.6, white count and platelet count are within normal limits. Today's BUN and creatinine are 44 and 1.9. The rest of SMA-7 is within normal limits. Total bilirubin is elevated at 4. Troponin 0.06 and 0.05. Prostatic specific antigen is elevated at 7.1. A recent echocardiographic study last month revealed severe left ventricular hypokinesis, mild LVH, dilated left atrium, right atrium, right ventricle with mild pulmonary hypertension. Chest x-ray on admission revealed significant cardiomegaly, ICD placement. Ventilation/perfusion scan last month was low probability for PE. Abdominopelvic CT scan: Cardiomegaly, small pericardial effusion, [id number] ascites, enlarged prostate, [id number] anasarca. ASSESSMENT: 1. Cardiomyopathy. 2. Enlarged prostate with elevated prostatic specific antigen. 3. Chronic renal insufficiency. 4. Consider right heart failure. RECOMMENDATIONS: Continue Lasix 40 mg intravenously daily. Start Aldactone at 12.5 mg once a day. Start Cozaar 12.5 mg daily, Coreg 3.125 mg twice a day. Start subcutaneous heparin 5000 units every 8 hours. Consider full anticoagulation for atrial flutter following any planned urological intervention on the patient's bladder neck obstruction. Ke Torres MD Psychiatric # [id number]
--- NOTE | 2018-01-24 06:20 | CP.PCM.PN ---
<Bon Benitez - Last Filed: 01/24/18 17:20> Subjective - Date & Time of Evaluation Date of Evaluation: 01/24/18 Time of Evaluation: 06:20 - Subjective Subjective: Bon Benitez DO PGY-1, Internal Medicine Resident. Hospitalist Progress Note Patient seen and examined at bedside. Patient is deaf/mute and communicates via sign language through the automated service. Patient still feels suprapubic discomfort and irritation at sanchez site. Patient denied CP, palpitations, headache, fever. Patient had 3 large bowel movement last night after starting lactulose. ROS is otherwise negative Objective - Vital Signs/Intake and Output Vital Signs (last 24 hours): Temp Pulse Resp BP Pulse Ox 98.6 F 94 H 18 128/63 100 01/23/18 17:56 01/23/18 18:00 01/23/18 17:56 01/23/18 17:56 01/23/18 06:00 Intake and Output: 01/23/18 01/24/18 18:59 06:59 Intake Total 720 Output Total 1100 Balance -380 - Medications Medications: Current Medications Albuterol Sulfate (Albuterol 0.083% Inhal Fanny (2.5 Mg/3 Ml) Ud) 2.5 mg IH [id number] PRN PRN Reason: Shortness of Breath Carvedilol (Coreg) 3.125 mg PO BID [facility] Furosemide (Lasix) 40 mg IVP DAILY [facility] Last Admin: 01/23/18 10:45 Dose: 40 mg Heparin Sodium (Porcine) (Heparin) 5,000 units SC Q8 [facility] PRN Reason: Protocol Last Admin: 01/24/18 05:30 Dose: 5,000 units Lactulose (Enulose) 20 gm PO DAILY [facility] Last Admin: 01/23/18 12:04 Dose: 20 gm Losartan Potassium (Cozaar) 12.5 mg PO DAILY [facility] Non-Formulary Medication (Linagliptin [Tradjenta]) 1 tab PO DAILY [facility] Spironolactone (Aldactone) 12.5 mg PO BID [facility] Tamsulosin HCl (Flomax) 0.4 mg PO BID [facility] Last Admin: 01/23/18 17:15 Dose: 0.4 mg Tramadol HCl (Ultram) 50 mg PO BID PRN PRN Reason: Pain, moderate (4-7) Last Admin: 01/23/18 17:21 Dose: 50 mg - Labs Labs: 01/23/18 06:30 01/23/18 06:30 PT 17.3 SECONDS (9.4-12.5) H 01/21/18 01:05 INR 1.50 01/21/18 01:05 APTT 30.5 Seconds (25.1-36.5) 01/21/18 01:05 - Additional Findings Additional findings: - Constitutional Appears: Well, Other (mild discomfort due to ascites and sanchez placed) - Head Exam Head Exam: ATRAUMATIC, NORMOCEPHALIC - Eye Exam Eye Exam: EOMI, Normal appearance, PERRL Pupil Exam: NORMAL ACCOMODATION, PERRL - ENT Exam ENT Exam: Mucous Membranes Moist, Normal Exam - Neck Exam Neck Exam: Full ROM. absent: Thyromegaly Additional comments: +JVD - Respiratory Exam Respiratory Exam: Decreased Breath Sounds, Respiratory Distress - Cardiovascular Exam Cardiovascular Exam: +S1, +S2, Murmur - GI/Abdominal Exam GI & Abdominal Exam: Distended, Firm, Normal Bowel Sounds. absent: Guarding - Exam Additional comments: SANCHEZ IN PLACE. NO SIGNS OF INFECTION - Extremities Exam Extremities Exam: Full ROM, Normal Capillary Refill, Normal Inspection, Pedal Edema. absent: Joint Swelling Additional comments: +1 LE edema - Back Exam Back Exam: NORMAL INSPECTION - Neurological Exam Neurological Exam: Alert, Awake, CN II-XII Intact, Oriented x3 - Psychiatric Exam Psychiatric exam: Normal Affect, Normal Mood - Skin Skin Exam: Dry, Intact, Normal Color, Warm Assessment and Plan - Assessment and Plan (Free Text) Assessment: 57 y/o male with PMH of HTN, CKD, DM, systolic CHF with EF last month of 12%, pacemaker, defibrillator, presented to ED with unwitnessed syncopal episode. Admitted for anuria, syncope, ascites and LE edema. 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 Wetzel: no neurological abnormlities, cadiac related -cardiology consult Dr Whitehead: -carotid US Bilateral 20-39% proximal ICA stenosis -Troponin 0.05 -patient did not tolerate dobutamine when initiated Ascites -CT abd/pelvis showed large abdominal/pelvic ascites, no bowel obstruction -Albumin/globulin ratio 1.1 -AST/ALT normal -PT/INR 17.3/1.5 -Lipase 66 -Tramadol for abd pain prn -As per GI consult: patient should have Dx/Tx paracentesis. Cell count, culture , gram stain, albumin, TP, cytology should be ordered. -Abdominal US Duplex to r/o PVT pending -Lactulose was given as per GI -Paracentesis done today -Cell count/Differential, GS/Culture, Albumin, Total Protein, and Cytology of ascitic fluid have been ordered. Hx of Systolic CHF -Last Ech 12/25 showed EF 12%, severe LV hypokinesis, mild LVH, dilated LA/RA/RV , mild MR and PHTN, severe TR -s/p pacemaker, defibrillator -continue lasix -CXR showed cardiomegaly Urinary retention -Patient anuric for 4 days -sanchez catheter in place, initially draining bloody urine with clots. getting clear now -UA: +protein, bilirubin. - RBC, blood, WBC, epithelial cells -Per urology consult Dr Miller: Flomax 0.4mg BID, repeat PSA, Urine Cx and cytology -PSA 7.1 -BUN/Cr elevated DM2 -continue home med trajenta PPX with protonix, GI ppx:protonix DVT ppx SCD heart healthy diet Head elevation PT/OT eval and treat Encourage out of bed ambulation Case reviewed and plan discussed with attending physician Dr. Beckwith <Varun Beckwith - Last Filed: 01/27/18 15:55> Objective - Vital Signs/Intake and Output Vital Signs (last 24 hours): Temp Pulse Resp BP Pulse Ox 98.4 F 54 L 18 118/74 98 01/26/18 17:17 01/26/18 17:17 01/26/18 17:17 01/26/18 17:17 01/26/18 17:17 - Labs Labs: 01/26/18 05:30 01/26/18 05:30 PT 17.3 SECONDS (9.4-12.5) H 01/21/18 01:05 INR 1.50 01/21/18 01:05 APTT 28.6 Seconds (25.1-36.5) 01/24/18 06:30 Attending/Attestation - Attestation I have personally seen and examined this patient.: Yes I have fully participated in the care of the patient.: Yes I have reviewed all pertinent clinical information, including history, physical exam and plan: Yes Notes (Text): 01/27/18 15:51 Medical record note made by the resident after discussion with my direction and input after the patient was personally seen and examined by me. I have reviewed the chart and agree that the record accurately reflects by personal performance of the history, physical exam, data review, and medical decision-making, in the course for the patient. I have also personally directed the plan of care. 57 year old male with past medical history of hypertension, cardiomyopathy s/p AICD, and diabetes who presented with syncopal episode. 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 Neurology evaluation was appreciated; no further workup recommended.. Pacemaker was interrogated; ok as per Dr. Yang. He was also found to have ascites and urinary retention. CT abdomen and pelvis showed moderate to large abdominal ascites and enlarged prostate. His diuretic dose was adjusted. Patient was evaluated by GI and is undergoing Paracentesis today. Urinary Retention,SP Folley catheter, also on flomax,
[2018-01-24 07:24] LABS: BASO # 0.02 K/mm3 (0.0-2.0); BASO % 0.4 % (0.0-3.0); EOS % 0.8 % (1.5-5.0); GRAN # 3.26 (1.4-6.5); GRAN % 64.9 % (50.0-68.0); HEMOGLOBIN 14.7 g/dL (14.0-18.0); LYMPH # 1.2 (1.2-3.4); LYMPH % 24.1 % (22.0-35.0); MEAN CELL VOLUME 83.9 fl (80.0-105.0); MEAN CORPUSCULAR HEMOGLOBIN 28.1 pg (25.0-35.0); MEAN CORPUSCULAR HGB CONC 33.5 g/dl (31.0-37.0); MEAN PLATELET VOLUME 9.6 fl (7.0-11.0); MONO # 0.5 (0.1-0.6); MONO % 9.8 % (1.0-6.0); RBC 5.23 10^6/uL (3.5-6.1); RED CELL DISTRIBUTION WIDTH 19.8 % (11.5-14.5)
[2018-01-24 08:01] LABS: ALBUMIN 3.7 g/dL (3.0-4.8); CALCIUM 9.3 mg/dL (8.4-10.5)
--- NOTE | 2018-01-24 08:29 | CP.PCM.PN ---
<Vel Monaco - Last Filed: 01/24/18 17:42> Subjective - Date & Time of Evaluation Date of Evaluation: 01/24/18 Time of Evaluation: 08:25 - Subjective Subjective: GI Progress Note for Dr. Bird's Service- Sina, PGY2 Patient seen and assessed at bedside. No acute events overnight noted. Patient reports improvement in his abdominal distention and breathing but still endorses pain associated with ortiz. He also endorses three large BM's. Patient denies complaints at this time including any fevers, chills, chest pain, SOB, abdominal pain, N/V/D/C, hematemeis, melena, hematochezia or any skin changes. Objective - Vital Signs/Intake and Output Vital Signs (last 24 hours): Temp Pulse Resp BP Pulse Ox 97.4 F L 66 20 95/32 L 99 01/24/18 06:00 01/24/18 06:00 01/24/18 06:00 01/24/18 06:00 01/24/18 06:00 Intake and Output: 01/24/18 01/24/18 06:59 18:59 Intake Total 620 Output Total 300 Balance 320 - Medications Medications: Current Medications Albuterol Sulfate (Albuterol 0.083% Inhal Fanny (2.5 Mg/3 Ml) Ud) 2.5 mg IH [id number] PRN PRN Reason: Shortness of Breath Carvedilol (Coreg) 3.125 mg PO BID [facility] Furosemide (Lasix) 40 mg IVP DAILY [facility] Last Admin: 01/23/18 10:45 Dose: 40 mg Heparin Sodium (Porcine) (Heparin) 5,000 units SC Q8 [facility] PRN Reason: Protocol Last Admin: 01/24/18 05:30 Dose: 5,000 units Lactulose (Enulose) 20 gm PO DAILY [facility] Last Admin: 01/23/18 12:04 Dose: 20 gm Losartan Potassium (Cozaar) 12.5 mg PO DAILY [facility] Non-Formulary Medication (Linagliptin [Tradjenta]) 1 tab PO DAILY [facility] Pantoprazole Sodium (Protonix Ec Tab) 40 mg PO 0600 [facility] Spironolactone (Aldactone) 12.5 mg PO BID [facility] Tamsulosin HCl (Flomax) 0.4 mg PO BID [facility] Last Admin: 01/23/18 17:15 Dose: 0.4 mg Tramadol HCl (Ultram) 50 mg PO BID PRN PRN Reason: Pain, moderate (4-7) Last Admin: 01/23/18 17:21 Dose: 50 mg - Labs Labs: 01/24/18 06:30 01/24/18 06:30 PT 17.3 SECONDS (9.4-12.5) H 01/21/18 01:05 INR 1.50 01/21/18 01:05 APTT 28.6 Seconds (25.1-36.5) 01/24/18 06:30 - Constitutional Appears: Non-toxic, No Acute Distress - Head Exam Head Exam: ATRAUMATIC, NORMOCEPHALIC - Eye Exam Eye Exam: EOMI - Neck Exam Neck Exam: Full ROM - Respiratory Exam Respiratory Exam: NORMAL BREATHING PATTERN. absent: Accessory Muscle Use, Respiratory Distress - Cardiovascular Exam Cardiovascular Exam: +S1, +S2 - GI/Abdominal Exam GI & Abdominal Exam: Distended (Present but with interval improvement noted), Soft, Normal Bowel Sounds. absent: Bruit, Firm, Guarding, Rigid, Tenderness, Diminished Bowel Sounds, Hernia, Hyperactive Bowel Sounds, Hypoactive Bowel Sounds, Mass, Organomegaly, Pulsatile Mass, Rebound - Rectal Exam Rectal Exam: Deferred - Neurological Exam Neurological Exam: Alert, Awake, Oriented x3 - Psychiatric Exam Psychiatric exam: Normal Affect, Normal Mood - Skin Skin Exam: Dry, Intact, Normal Color, Warm Assessment and Plan - Assessment and Plan (Free Text) Assessment: 57 year old male with a past medical history significant for HTN, CKD, DM2, systolic CHF (Last EF 12%), PPM, AICD, deafness and mute who presented with one syncopal. GI was consulted for abdominal/pelvic ascites. Plan: -CT Abdomen/Pelvis without contrast was done in the ED and showed marked cardiomegaly, hepatomegaly, and large abdominal/pelvic ascites -Abdominal US Duplex to r/o PVT pending -Continue Enulose -Heart Healthy Diet -Daily PPI for GI Prophylaxis -DVT Prophylaxis -Cardiology and IR consulted, all recommendations appreciated GI Disposition: IR was consulted for possible diagnostic/therapeutic paracentesis. Cell count/Differential, GS/Culture, Albumin, Total Protein, and Cytology of ascitic fluid have been ordered. Patient seen and case discussed with attending, Dr. Bird. <Roger Bird Last Filed: 01/24/18 22:38> Objective - Vital Signs/Intake and Output Vital Signs (last 24 hours): Temp Pulse Resp BP Pulse Ox 97.4 F L 104 H 20 109/77 96 01/24/18 16:53 18 18:22 01/24/18 16:53 01/24/18 18:22 01/24/18 16:53 Intake and Output: 18 01/25/18 18:59 06:59 Intake Total 660 Output Total 925 Balance -265 - Medications Medications: Current Medications Albuterol Sulfate (Albuterol 0.083% Inhal Fanny (2.5 Mg/3 Ml) Ud) 2.5 mg IH [id number] PRN PRN Reason: Shortness of Breath Carvedilol (Coreg) 3.125 mg PO BID [facility] Last Admin: 01/24/18 18:22 Dose: 3.125 mg Furosemide (Lasix) 40 mg IVP DAILY [facility] Last Admin: 01/24/18 10:27 Dose: 40 mg Heparin Sodium (Porcine) (Heparin) 5,000 units SC Q8 [facility]OOK PRN Reason: Protocol Last Admin: 01/24/18 18:19 Dose: 5,000 units Lactulose (Enulose) 20 gm PO DAILY [facility] Last Admin: 01/24/18 10:32 Dose: 20 gm Lidocaine HCl (Xylocaine 2%) 1 ea TOP BID PRN PRN Reason: Urinary discomt Last Admin: 01/24/18 16:35 Dose: 1 applic Losartan Potassium (Cozaar) 12.5 mg PO DAILY [facility] Last Admin: 01/24/18 10:23 Dose: 12.5 mg Non-Formulary Medication (Linagliptin [Tradjenta]) 1 tab PO DAILY [facility] Pantoprazole Sodium (Protonix Ec Tab) 40 mg PO 0600 [facility] Spironolactone (Aldactone) 12.5 mg PO BID [facility] Last Admin: 01/24/18 10:30 Dose: 12.5 mg Tamsulosin HCl (Flomax) 0.4 mg PO BID [facility] Last Admin: 01/24/18 18:22 Dose: 0.4 mg Tramadol HCl (Ultram) 50 mg PO BID PRN PRN Reason: Pain, moderate (4-7) Last Admin: 09/16/18 17:21 Dose: 50 mg - Labs Labs: 01/24/18 06:30 01/24/18 06:30 PT 17.3 SECONDS (9.4-12.5) H 01/21/18 01:05 INR 1.50 01/21/18 01:05 APTT 28.6 Seconds (25.1-36.5) 01/24/18 06:30 Attending/Attestation - Attestation I have personally seen and examined this patient.: Yes I have fully participated in the care of the patient.: Yes I have reviewed all pertinent clinical information, including history, physical exam and plan: Yes Notes (Text): This is an addendum to GI followup report dictated by the Stretching Machine Tender Frame. The patient was seen and evaluated earlier. Medical records, lab studies, imagings were reviewed. Last 24 hours events reviewed. Agreed with the above treatment plan as outlined in Stretching Machine Tender Frame 's notes with the addition of the following Status post large volume paracentis 2.2 L removed Followup Hb and lyth Followup ascitic Fluid studies Cardiac followup 01/24/18 22:34
[2018-01-24 09:10] LABS: HEPATITIS B SURFACE AG Negative (NEGATIVE)
[2018-01-24 09:16] LABS: HEPATITIS A IGM NEGATIVE (NEGATIVE); HEPATITIS B CORE AB NEGATIVE (NEGATIVE)
[2018-01-24 09:28] LABS: HEPATITIS C ANTIBODY NEGATIVE (NEGATIVE)
--- NOTE | 2018-01-24 10:47 | PN ---
DATE: 01/24/2018 CARDIOLOGY FOLLOWUP SUBJECTIVE: The patient is without shortness of breath. PHYSICAL EXAMINATION: VITAL SIGNS: Blood pressure is 95/32, the heart rate is in the 60s. NECK: Negative JVD. LUNGS: Without rales. HEART: Reveals S1, S2. EXTREMITIES: Without edema. LABORATORY DATA: Hemoglobin is 14.7. BUN and creatinine are 43 and 1.7. ASSESSMENT AND PLAN: Given these findings, the patient's cardiomyopathy is at its baseline state. There is no evidence for ventricular arrhythmias after interrogation of his defibrillator. History of coronary artery disease as well as renal insufficiency and diabetes mellitus. Given these findings, we will discontinue telemetry today. The patient will need to follow up with his primary wire brusher in [place]. Garrett Yang MD
--- NOTE | 2018-01-24 12:20 | US ---
PROCEDURE: Portal vein duplex ultrasound. CLINICAL HISTORY: Deteriorating liver function. Evaluate for portal vein thrombosis. PHYSICIAN(S): Garrett Dejesus M.D. FINDINGS: The exam is limited. The extrahepatic portal vein is patent with hepatopetal flow. No sonographic evidence for thrombus or obstruction is seen. The 3 hepatic veins are visualized centrally and patent. The hepatic artery is patent. No ascites is appreciated. The spleen was not imaged. IMPRESSION: 1. Patent portal vein with hepatopetal flow.
[2018-01-24 13:59] LABS: BODY FLUID TYPE PERITONEAL/ASCITES
[2018-01-24 14:30] LABS: BF GROSS APPEARANCE CLEAR (CLEAR); BODY FLUID MONO/MACROPHAGE 0 % (0-0); BODY FLUID TOTAL COUNT 100 (0-0)
[2018-01-24 15:47] LABS: TOTAL PSA 9.8 ng/mL (< or = 4.0)
[2018-01-24] MEDS: Lidocaine 2% Jelly (30 ml) TOP PRN (16:35)
--- NOTE | 2018-01-24 17:28 | US ---
PROCEDURE: Ultrasound guided paracentesis. HISTORY: Cardiomyopathy. New onset ascites. Needs diagnostic and therapeutic paracentesis PHYSICIAN(S): Garrett Dejesus MD. TECHNIQUE: The relative risks and indications for the procedure were explained to the patient and informed written consent obtained. Sonography of the abdomen was performed in a supine position. This revealed a small to moderate amount of non-loculated ascites, greatest in the right lower quadrant. A puncture site was selected and the area was prepped and draped in the usual sterile fashion. 1% Xylocaine was used to anesthetize the skin and soft tissues. A 7 Occitan paracentesis catheter was trocared into the right lower quadrantand 2100 cc of sammy fluid aspirated. The appropriate labs were sent. IMPRESSION: Ultrasound-guided paracentesis in the right lower quadrant. 2100 cc of fluid were aspirated. Labs were sent
[2018-01-25] MEDS: Lidocaine 2% Jelly (30 ml) TOP PRN (05:55)
[2018-01-25] MEDS: Pantoprazole 40 mg EC Tab PO SCH (06:07)
--- NOTE | 2018-01-25 06:26 | CP.PCM.PN ---
<Bon Benitez - Last Filed: 01/25/18 18:02> Subjective - Date & Time of Evaluation Date of Evaluation: 01/25/18 Time of Evaluation: 05:47 - Subjective Subjective: Bon Benitez DO PGY-1, Internal Medicine Resident. Hospitalist Progress Note Patient seen and examined at bedside. Patient is deaf/mute and communicates via sign language through the automated service. Patient still feels suprapubic discomfort and irritation at sanchez site. Patient denied CP, palpitations, headache, fever. Patient had regular bowel movement last night. Abdominal distension improved after paracentesis. ROS is otherwise negative Objective - Vital Signs/Intake and Output Vital Signs (last 24 hours): Temp Pulse Resp BP Pulse Ox 98.2 F 100 H 20 105/77 99 01/25/18 00:01 01/25/18 00:01 01/25/18 00:01 01/25/18 00:01 01/25/18 00:01 Intake and Output: 01/24/18 01/25/18 18:59 06:59 Intake Total 660 Output Total 925 Balance -265 - Medications Medications: Current Medications Albuterol Sulfate (Albuterol 0.083% Inhal Fanny (2.5 Mg/3 Ml) Ud) 2.5 mg IH [id number] PRN PRN Reason: Shortness of Breath Carvedilol (Coreg) 3.125 mg PO BID [facility] Last Admin: 01/24/18 18:22 Dose: 3.125 mg Furosemide (Lasix) 40 mg IVP DAILY [facility] Last Admin: 01/24/18 10:27 Dose: 40 mg Heparin Sodium (Porcine) (Heparin) 5,000 units SC Q8 [facility]OOK PRN Reason: Protocol Last Admin: 01/25/18 05:48 Dose: 5,000 units Lactulose (Enulose) 20 gm PO DAILY [facility] Last Admin: 01/24/18 10:32 Dose: 20 gm Lidocaine HCl (Xylocaine 2%) 1 ea TOP BID PRN PRN Reason: Urinary discomt Last Admin: 01/25/18 05:55 Dose: 1 applic Losartan Potassium (Cozaar) 12.5 mg PO DAILY [facility] Last Admin: 01/24/18 10:23 Dose: 12.5 mg Non-Formulary Medication (Linagliptin [Tradjenta]) 1 tab PO DAILY [facility] Pantoprazole Sodium (Protonix Ec Tab) 40 mg PO 0600 [facility] Last Admin: 01/25/18 06:07 Dose: 40 mg Spironolactone (Aldactone) 12.5 mg PO BID [facility] Last Admin: 01/24/18 10:30 Dose: 12.5 mg Tamsulosin HCl (Flomax) 0.4 mg PO BID [facility] Last Admin: 01/24/18 18:22 Dose: 0.4 mg Tramadol HCl (Ultram) 50 mg PO BID PRN PRN Reason: Pain, moderate (4-7) Last Admin: 01/23/18 17:21 Dose: 50 mg - Labs Labs: 01/24/18 06:30 01/24/18 06:30 PT 17.3 SECONDS (9.4-12.5) H 01/21/18 01:05 INR 1.50 01/21/18 01:05 APTT 28.6 Seconds (25.1-36.5) 01/24/18 06:30 - Additional Findings Additional findings: - Constitutional Appears: Well, Other (mild discomfort due to ascites and sanchez placed) - Head Exam Head Exam: ATRAUMATIC, NORMOCEPHALIC - Eye Exam Eye Exam: EOMI, Normal appearance, PERRL Pupil Exam: NORMAL ACCOMODATION, PERRL - ENT Exam ENT Exam: Mucous Membranes Moist, Normal Exam - Neck Exam Neck Exam: Full ROM. absent: Thyromegaly Additional comments: +JVD - Respiratory Exam Respiratory Exam: Decreased Breath Sounds, Respiratory Distress - Cardiovascular Exam Cardiovascular Exam: +S1, +S2, Murmur - GI/Abdominal Exam GI & Abdominal Exam: Distended, Firm, Normal Bowel Sounds. absent: Guarding - Exam Additional comments: SANCHEZ IN PLACE. NO SIGNS OF INFECTION - Extremities Exam Extremities Exam: Full ROM, Normal Capillary Refill, Normal Inspection, Pedal Edema. absent: Joint Swelling Additional comments: +1 LE edema - Back Exam Back Exam: NORMAL INSPECTION - Neurological Exam Neurological Exam: Alert, Awake, CN II-XII Intact, Oriented x3 - Psychiatric Exam Psychiatric exam: Normal Affect, Normal Mood - Skin Skin Exam: Dry, Intact, Normal Color, Warm Assessment and Plan - Assessment and Plan (Free Text) Assessment: 57 y/o male with PMH of HTN, CKD, DM, systolic CHF with EF last month of 12%, pacemaker, defibrillator, presented to ED with unwitnessed syncopal episode. Admitted for anuria, syncope, ascites and LE edema. 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 Wetzel: no neurological abnormlities noted. it's likely cadiac related -cardiology consulted: diuretics, patient to follow up with refund specialist as outpatient -carotid US Bilateral 20-39% proximal ICA stenosis -Troponin 0.05 -patient did not tolerate dobutamine when initiated Ascites -CT abd/pelvis showed large abdominal/pelvic ascites, no bowel obstruction -Albumin/globulin ratio 1.1 -AST/ALT normal -PT/INR 17.3/1.5 -Lipase 66 -Tramadol for abd pain prn -Abdominal US Duplex shows patent non-obstructed portal vein -Paracentesis of 2.2 L done -Cell count/Differential, GS/Culture, Albumin, Total Protein, and Cytology of ascitic fluid Hx of Systolic CHF -Last Ech 12/25 showed EF 12%, severe LV hypokinesis, mild LVH, dilated LA/RA/RV , mild MR and PHTN, severe TR -s/p pacemaker, defibrillator -continue lasix -CXR showed cardiomegaly Urinary retention -Patient anuric for 4 days -sanchez catheter in place, initially draining bloody urine with clots. getting clear now -UA: +protein, bilirubin. - RBC, blood, WBC, epithelial cells -Per urology consult Dr Miller: Flomax 0.4mg BID, repeat PSA, Urine Cx and cytology -PSA 7.1 -BUN/Cr elevated -Patient to follow up with Dr Del Rio as outpatient for possible cystoscopy. Sanchez still in place for now DM2 -continue home med trajenta PPX with protonix, GI ppx:protonix DVT ppx SCD heart healthy diet Head elevation PT/OT eval and treat Encourage out of bed ambulation Case reviewed and plan discussed with attending physician Dr. Beckwith No further inpatient GI interventions planned at this time <Varun Beckwith - Last Filed: 01/27/18 16:01> Objective - Vital Signs/Intake and Output Vital Signs (last 24 hours): Temp Pulse Resp BP Pulse Ox 98.4 F 54 L 18 118/74 98 01/26/18 17:17 01/26/18 17:17 01/26/18 17:17 01/26/18 17:17 01/26/18 17:17 - Labs Labs: 01/26/18 05:30 01/26/18 05:30 PT 17.3 SECONDS (9.4-12.5) H 01/21/18 01:05 INR 1.50 01/21/18 01:05 APTT 28.6 Seconds (25.1-36.5) 01/24/18 06:30 Attending/Attestation - Attestation I have personally seen and examined this patient.: Yes I have fully participated in the care of the patient.: Yes I have reviewed all pertinent clinical information, including history, physical exam and plan: Yes Notes (Text): 01/27/18 16:01 Medical record note made by the resident after discussion with my direction and input after the patient was personally seen and examined by me. I have reviewed the chart and agree that the record accurately reflects by personal performance of the history, physical exam, data review, and medical decision-making, in the course for the patient. I have also personally directed the plan of care.
[2018-01-25 06:32] LABS: BASO # 0.02 K/mm3 (0.0-2.0); BASO % 0.4 % (0.0-3.0); EOS % 0.4 % (1.5-5.0); GRAN # 3.62 (1.4-6.5); GRAN % 67.3 % (50.0-68.0); HEMOGLOBIN 15.6 g/dL (14.0-18.0); LYMPH # 1.2 (1.2-3.4); LYMPH % 21.7 % (22.0-35.0); MEAN CELL VOLUME 84.1 fl (80.0-105.0); MEAN CORPUSCULAR HEMOGLOBIN 28.3 pg (25.0-35.0); MEAN CORPUSCULAR HGB CONC 33.6 g/dl (31.0-37.0); MEAN PLATELET VOLUME 10.4 fl (7.0-11.0); MONO # 0.6 (0.1-0.6); MONO % 10.2 % (1.0-6.0); RBC 5.52 10^6/uL (3.5-6.1); RED CELL DISTRIBUTION WIDTH 19.9 % (11.5-14.5); WHITE BLOOD COUNT 5.4 10^3/ul (4.5-11.0)
[2018-01-25 06:54] LABS: ALBUMIN 3.8 g/dL (3.0-4.8); CALCIUM 9.3 mg/dL (8.4-10.5)
[2018-01-25] MEDS: Insulin Reg-LOW-Coverage SC SCH ×4 (11:31→22:52)
--- NOTE | 2018-01-25 15:01 | PN ---
DATE: 01/25/2018 CARDIOLOGY FOLLOWUP SUBJECTIVE: The patient is status post paracentesis. PHYSICAL EXAMINATION: VITAL SIGNS: Blood pressure 106/80, the heart rate is 100. NECK: Negative JVD. LUNGS: Decreased breath sounds without rales. HEART: Reveals S1, S2. ABDOMEN: Increased girth. EXTREMITIES: Without change. LABORATORY DATA: Hemoglobin is 15.6. Chemistries: BUN and creatinine are 43 and 1.6. IMPRESSION 1. Severe dilated cardiomyopathy. 2. Resolution of congestive heart failure. 3. Ascites. 4. Diabetes mellitus. PLAN: Given these findings, we will put the patient back on his Entresto. Garrett Yang MD
--- NOTE | 2018-01-25 16:48 | CP.PCM.PN ---
<Vel Monaco - Last Filed: 01/25/18 17:09> Subjective - Date & Time of Evaluation Date of Evaluation: 01/25/18 Time of Evaluation: 16:48 - Subjective Subjective: GI Progress Note for Dr. Bird's Service- Sina, PGY2 Patient seen and assessed at bedside. No acute events overnight noted. Patient notes significant improvement in his breathing after paracentesis but still endorses pain associated with ortiz. He also endorses three large episodes of diarrhea. Patient denies further complaints at this time including any fevers, chills, chest pain, SOB, abdominal pain, N/V/C, hematemeis, melena, hematochezia or any skin changes. Objective - Vital Signs/Intake and Output Vital Signs (last 24 hours): Temp Pulse Resp BP Pulse Ox 98.3 F 117 H 20 106/79 100 01/25/18 08:28 01/25/18 08:28 01/25/18 08:28 01/25/18 11:31 01/25/18 08:28 Intake and Output: 01/25/18 01/25/18 06:59 18:59 Intake Total 900 Output Total 1225 Balance -325 - Medications Medications: Current Medications Albuterol Sulfate (Albuterol 0.083% Inhal Fanny (2.5 Mg/3 Ml) Ud) 2.5 mg IH [id number] PRN PRN Reason: Shortness of Breath Carvedilol (Coreg) 3.125 mg PO BID [facility] Last Admin: 01/25/18 11:36 Dose: 3.125 mg Furosemide (Lasix) 40 mg IVP DAILY [facility] Last Admin: 01/25/18 11:31 Dose: 40 mg Heparin Sodium (Porcine) (Heparin) 5,000 units SC Q8 [facility] PRN Reason: Protocol Last Admin: 01/25/18 15:00 Dose: 5,000 units Insulin Human Regular (Humulin R Low) 0 units SC ACHS MOOK PRN Reason: Protocol Lactulose (Enulose) 20 gm PO DAILY [facility] Last Admin: 01/25/18 11:30 Dose: 20 gm Lidocaine HCl (Xylocaine 2%) 1 ea TOP BID PRN PRN Reason: Urinary discomt Last Admin: 01/25/18 05:55 Dose: 1 applic Pantoprazole Sodium (Protonix Ec Tab) 40 mg PO 0600 [facility] Last Admin: 01/25/18 06:07 Dose: 40 mg Sacubitril/Valsartan (Entresto 24 Mg-26 Mg Tablet) 1 each PO BID [facility] Spironolactone (Aldactone) 12.5 mg PO BID [facility] Last Admin: 01/25/18 11:29 Dose: 12.5 mg Tamsulosin HCl (Flomax) 0.4 mg PO BID [facility] Last Admin: 01/25/18 11:30 Dose: 0.4 mg Tramadol HCl (Ultram) 50 mg PO BID PRN PRN Reason: Pain, moderate (4-7) Last Admin: 01/23/18 17:21 Dose: 50 mg - Labs Labs: 01/25/18 05:45 01/25/18 05:45 PT 17.3 SECONDS (9.4-12.5) H 01/21/18 01:05 INR 1.50 01/21/18 01:05 APTT 28.6 Seconds (25.1-36.5) 01/24/18 06:30 - Constitutional Appears: Non-toxic, No Acute Distress - Head Exam Head Exam: ATRAUMATIC, NORMOCEPHALIC - Eye Exam Eye Exam: EOMI - Neck Exam Neck Exam: Full ROM - Respiratory Exam Respiratory Exam: NORMAL BREATHING PATTERN. absent: Accessory Muscle Use, Respiratory Distress - Cardiovascular Exam Cardiovascular Exam: +S1, +S2 - GI/Abdominal Exam GI & Abdominal Exam: Distended (Present but with interval improvement noted), Soft, Normal Bowel Sounds. absent: Firm, Guarding, Rigid, Tenderness - Rectal Exam Rectal Exam: Deferred - Neurological Exam Neurological Exam: Alert, Awake, Oriented x3 - Psychiatric Exam Psychiatric exam: Normal Affect, Normal Mood - Skin Skin Exam: Dry, Intact, Normal Color, Warm Assessment and Plan - Assessment and Plan (Free Text) Assessment: 57 year old male with a past medical history significant for HTN, CKD, DM2, systolic CHF (Last EF 12%), PPM, AICD, deafness and mute who presented with one syncopal. GI was consulted for abdominal/pelvic ascites. Plan: -S/P Paracentesis with 2.2L drained; No signs of SBP; Total Protein/Albumin pending -CT Abdomen/Pelvis without contrast was done in the ED and showed marked cardiomegaly, hepatomegaly, and large abdominal/pelvic ascites -Abdominal US Duplex shows patent non-obstructed portal vein -Discontinue Enulose -Heart Healthy Diet -Daily PPI for GI Prophylaxis -DVT Prophylaxis -Cardiology and IR consulted, all recommendations appreciated GI Disposition: Albumin, Total Protein, and Cytology of ascitic fluid pending. No further inpatient GI interventions planned at this time. Patient seen and case discussed with attending, Dr. Bird. <Roger Bird V - Last Filed: 01/25/18 21:43> Objective - Vital Signs/Intake and Output Vital Signs (last 24 hours): Temp Pulse Resp BP Pulse Ox 98.9 F 119 H 19 110/82 97 01/25/18 17:28 01/25/18 17:28 01/25/18 17:28 01/25/18 18:15 01/25/18 17:28 Intake and Output: 01/25/18 01/26/18 18:59 06:59 Intake Total 970 Output Total 1000 Balance -30 - Medications Medications: Current Medications Albuterol Sulfate (Albuterol 0.083% Inhal Fanny (2.5 Mg/3 Ml) Ud) 2.5 mg IH [id number] PRN PRN Reason: Shortness of Breath Carvedilol (Coreg) 3.125 mg PO BID [facility] Last Admin: 01/25/18 18:15 Dose: 3.125 mg Furosemide (Lasix) 40 mg IVP DAILY [facility] Last Admin: 01/25/18 11:31 Dose: 40 mg Heparin Sodium (Porcine) (Heparin) 5,000 units SC Q8 [facility]OOK PRN Reason: Protocol Last Admin: 01/25/18 15:00 Dose: 5,000 units Insulin Human Regular (Humulin R Low) 0 units SC ACHS [facility] PRN Reason: Protocol Last Admin: 01/25/18 17:21 Dose: Not Given Lidocaine HCl (Xylocaine 2%) 1 ea TOP BID PRN PRN Reason: Urinary discomt Last Admin: 01/25/18 05:55 Dose: 1 applic Pantoprazole Sodium (Protonix Ec Tab) 40 mg PO 0600 [facility] Last Admin: 01/25/18 06:07 Dose: 40 mg Sacubitril/Valsartan (Entresto 24 Mg-26 Mg Tablet) 1 each PO BID [facility] Last Admin: 01/25/18 18:16 Dose: 1 each Spironolactone (Aldactone) 12.5 mg PO BID [facility] Last Admin: 01/25/18 18:15 Dose: 12.5 mg Tamsulosin HCl (Flomax) 0.4 mg PO BID [facility] Last Admin: 01/25/18 18:16 Dose: 0.4 mg Tramadol HCl (Ultram) 50 mg PO BID PRN PRN Reason: Pain, moderate (4-7) Last Admin: 01/25/18 19:40 Dose: 50 mg - Labs Labs: 01/25/18 05:45 01/25/18 05:45 PT 17.3 SECONDS (9.4-12.5) H 01/21/18 01:05 INR 1.50 01/21/18 01:05 APTT 28.6 Seconds (25.1-36.5) 01/24/18 06:30 Attending/Attestation - Attestation I have personally seen and examined this patient.: Yes I have fully participated in the care of the patient.: Yes I have reviewed all pertinent clinical information, including history, physical exam and plan: Yes Notes (Text): This is an addendum to GI followup report dictated by the Sports Physical Therapist. The patient was seen and evaluated earlier. Medical records, lab studies, imagings were reviewed. Last 24 hours events reviewed. Agreed with the above treatment plan as outlined in Sports Physical Therapist 's notes with the addition of the following Status post 2.2 large volume paracentesis Previously CT reviewed Patient has chronic kidney disease Ascitis is relatively refractory in view of that Ascitic fluid analysis negative for SBP Ascitis fluid albumen results pending will follow 01/25/18 21:38
[2018-01-25] MEDS: SACUBITRIL 24mg/VALSARTAN 26mg tab PO SCH (18:16)
[2018-01-26 01:08] VITALS: O2SAT 98
[2018-01-26] MEDS: Pantoprazole 40 mg EC Tab PO SCH (06:01)
--- NOTE | 2018-01-26 06:24 | CP.PCM.PN ---
Subjective - Date & Time of Evaluation Date of Evaluation: 01/26/18 Time of Evaluation: 06:02 - Subjective Subjective: Bon Benitez, PGY-1, Internal Medicine Resident. Hospitalist Progress Note Patient seen and examined at bedside. Patient is deaf/mute and communicates via sign language through the automated service. Suprapubic discomfort is improving and irritation at sanchez site is getting better. Patient denied CP, palpitations , headache, fever. Patient had regular bowel movement last night. Abdominal distension improved after paracentesis. ROS is otherwise negative Objective - Vital Signs/Intake and Output Vital Signs (last 24 hours): Temp Pulse Resp BP Pulse Ox 97 F L 99 H 20 112/80 98 01/26/18 00:01 01/26/18 00:01 01/26/18 00:01 01/26/18 00:01 01/26/18 00:01 Intake and Output: 01/25/18 01/26/18 18:59 06:59 Intake Total 970 Output Total 1000 Balance -30 - Medications Medications: Current Medications Albuterol Sulfate (Albuterol 0.083% Inhal Fanny (2.5 Mg/3 Ml) Ud) 2.5 mg IH [id number] PRN PRN Reason: Shortness of Breath Carvedilol (Coreg) 3.125 mg PO BID [facility] Last Admin: 01/25/18 18:15 Dose: 3.125 mg Furosemide (Lasix) 40 mg IVP DAILY [facility] Last Admin: 01/25/18 11:31 Dose: 40 mg Heparin Sodium (Porcine) (Heparin) 5,000 units SC Q8 [facility] PRN Reason: Protocol Last Admin: 01/26/18 06:02 Dose: 5,000 units Insulin Human Regular (Humulin R Low) 0 units SC ACHS [facility]OOK PRN Reason: Protocol Last Admin: 01/25/18 22:52 Dose: Not Given Lidocaine HCl (Xylocaine 2%) 1 ea TOP BID PRN PRN Reason: Urinary discomt Last Admin: 01/25/18 05:55 Dose: 1 applic Pantoprazole Sodium (Protonix Ec Tab) 40 mg PO 0600 [facility] Last Admin: 01/26/18 06:01 Dose: 40 mg Sacubitril/Valsartan (Entresto 24 Mg-26 Mg Tablet) 1 each PO BID [facility] Last Admin: 01/25/18 18:16 Dose: 1 each Spironolactone (Aldactone) 12.5 mg PO BID [facility] Last Admin: 01/25/18 18:15 Dose: 12.5 mg Tamsulosin HCl (Flomax) 0.4 mg PO BID [facility] Last Admin: 01/25/18 18:16 Dose: 0.4 mg Tramadol HCl (Ultram) 50 mg PO BID PRN PRN Reason: Pain, moderate (4-7) Last Admin: 01/25/18 19:40 Dose: 50 mg - Labs Labs: 01/25/18 05:45 01/25/18 05:45 PT 17.3 SECONDS (9.4-12.5) H 01/21/18 01:05 INR 1.50 01/21/18 01:05 APTT 28.6 Seconds (25.1-36.5) 01/24/18 06:30 - Additional Findings Additional findings: - Constitutional Appears: Well, Other (mild discomfort due to ascites and sanchez placed) - Head Exam Head Exam: ATRAUMATIC, NORMOCEPHALIC - Eye Exam Eye Exam: EOMI, Normal appearance, PERRL Pupil Exam: NORMAL ACCOMODATION, PERRL - ENT Exam ENT Exam: Mucous Membranes Moist, Normal Exam - Neck Exam Neck Exam: Full ROM. absent: Thyromegaly Additional comments: +JVD - Respiratory Exam Respiratory Exam: Decreased Breath Sounds, Respiratory Distress - Cardiovascular Exam Cardiovascular Exam: +S1, +S2, Murmur - GI/Abdominal Exam GI & Abdominal Exam: Distended, Firm, Normal Bowel Sounds. absent: Guarding - Exam Additional comments: SANCHEZ IN PLACE. NO SIGNS OF INFECTION - Extremities Exam Extremities Exam: Full ROM, Normal Capillary Refill, Normal Inspection, Pedal Edema. absent: Joint Swelling Additional comments: +1 LE edema - Back Exam Back Exam: NORMAL INSPECTION - Neurological Exam Neurological Exam: Alert, Awake, CN II-XII Intact, Oriented x3 - Psychiatric Exam Psychiatric exam: Normal Affect, Normal Mood - Skin Skin Exam: Dry, Intact, Normal Color, Warm Assessment and Plan - Assessment and Plan (Free Text) Assessment: 57 y/o male with PMH of HTN, CKD, DM, systolic CHF with EF last month of 12%, pacemaker, defibrillator, presented to ED with unwitnessed syncopal episode. Admitted for anuria, syncope, ascites and LE edema. On diuretics, sanchez is in place, ascites improved after paracentesis of 2.2 L of ascitic fluid. 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 Wetzel: no neurological abnormlities noted. it's likely cadiac related -cardiology consulted: diuretics, patient to follow up with senior java software engineer as outpatient -carotid US Bilateral 20-39% proximal ICA stenosis -Troponin 0.05 -patient did not tolerate dobutamine when initiated Ascites -CT abd/pelvis showed large abdominal/pelvic ascites, no bowel obstruction -Albumin/globulin ratio 1.1 -AST/ALT normal -PT/INR 17.3/1.5 -Lipase 66 -Tramadol for abd pain prn -Abdominal US Duplex shows patent non-obstructed portal vein -Paracentesis of 2.2 L done -Cell count/Differential, GS/Culture, Albumin, Total Protein, and Cytology of ascitic fluid Hx of Systolic CHF -Last Ech 12/25 showed EF 12%, severe LV hypokinesis, mild LVH, dilated LA/RA/RV , mild MR and PHTN, severe TR -s/p pacemaker, defibrillator -continue lasix -CXR showed cardiomegaly Urinary retention -Patient anuric for 4 days -sanchez catheter in place, initially draining bloody urine with clots. getting clear now -UA: +protein, bilirubin. - RBC, blood, WBC, epithelial cells -Per urology consult Dr Miller: Flomax 0.4mg BID, repeat PSA, Urine Cx and cytology -PSA 7.1 -BUN/Cr elevated -Patient to follow up with Dr Del Rio as outpatient for possible cystoscopy. Sanchez still in place for now DM2 -continue home med trajenta PPX with protonix, GI ppx:protonix DVT ppx SCD heart healthy diet Head elevation PT/OT eval and treat Encourage out of bed ambulation Case to be reviewed with attending physician Dr. Beckwith drafted not fanalized
[2018-01-26 06:49] LABS: BASO # 0.02 K/mm3 (0.0-2.0); BASO % 0.4 % (0.0-3.0); EOS % 0.2 % (1.5-5.0); GRAN # 3.09 (1.4-6.5); GRAN % 64.3 % (50.0-68.0); HEMOGLOBIN 15.6 g/dL (14.0-18.0); LYMPH # 1.3 (1.2-3.4); LYMPH % 27.4 % (22.0-35.0); MEAN CELL VOLUME 84.7 fl (80.0-105.0); MEAN CORPUSCULAR HEMOGLOBIN 28.8 pg (25.0-35.0); MEAN CORPUSCULAR HGB CONC 34.1 g/dl (31.0-37.0); MEAN PLATELET VOLUME 9.8 fl (7.0-11.0); MONO # 0.4 (0.1-0.6); MONO % 7.7 % (1.0-6.0); RBC 5.41 10^6/uL (3.5-6.1); RED CELL DISTRIBUTION WIDTH 19.9 % (11.5-14.5); WHITE BLOOD COUNT 4.8 10^3/ul (4.5-11.0)
[2018-01-26 07:05] LABS: ALBUMIN 3.3 g/dL (3.0-4.8); CALCIUM 9.3 mg/dL (8.4-10.5)
[2018-01-26] MEDS: Insulin Reg-LOW-Coverage SC SCH ×2 (08:17→12:07)
--- NOTE | 2018-01-26 10:20 | CP.PCM.PN ---
<Vel Monaco - Last Filed: 01/26/18 16:52> Subjective - Date & Time of Evaluation Date of Evaluation: 01/26/18 Time of Evaluation: 10:18 - Subjective Subjective: GI Progress Note for Dr. Bird's Service- Sina, PGY2 Patient seen and assessed at bedside. No acute events overnight noted. Patient reports that he has no abdominal pain and that he no longer has diarrhea with a solid BM noted overnight s/p discontinuation of lactulose. Patient denies further complaints at this time including any fevers, chills, chest pain, SOB, abdominal pain, N/V/C/D, hematemeis, melena, hematochezia or any skin changes. Objective - Vital Signs/Intake and Output Vital Signs (last 24 hours): Temp Pulse Resp BP Pulse Ox 97 F L 99 H 20 112/80 98 01/26/18 00:01 01/26/18 00:01 01/26/18 00:01 01/26/18 00:01 01/26/18 00:01 Intake and Output: 01/26/18 01/26/18 06:59 18:59 Intake Total 120 Output Total 550 Balance -430 - Medications Medications: Current Medications Albuterol Sulfate (Albuterol 0.083% Inhal Fanny (2.5 Mg/3 Ml) Ud) 2.5 mg IH [id number] PRN PRN Reason: Shortness of Breath Carvedilol (Coreg) 3.125 mg PO BID [facility] Last Admin: 01/25/18 18:15 Dose: 3.125 mg Furosemide (Lasix) 40 mg IVP DAILY [facility] Last Admin: 01/25/18 11:31 Dose: 40 mg Heparin Sodium (Porcine) (Heparin) 5,000 units SC Q8 MOOK PRN Reason: Protocol Last Admin: 01/26/18 06:44 Dose: Not Given Insulin Human Regular (Humulin R Low) 0 units SC ACHS MOOK PRN Reason: Protocol Last Admin: 01/26/18 08:17 Dose: Not Given Lidocaine HCl (Xylocaine 2%) 1 ea TOP BID PRN PRN Reason: Urinary discomt Last Admin: 01/25/18 05:55 Dose: 1 applic Pantoprazole Sodium (Protonix Ec Tab) 40 mg PO 0600 [facility] Last Admin: 01/26/18 06:01 Dose: 40 mg Sacubitril/Valsartan (Entresto 24 Mg-26 Mg Tablet) 1 each PO BID [facility] Last Admin: 01/25/18 18:16 Dose: 1 each Spironolactone (Aldactone) 12.5 mg PO BID [facility] Last Admin: 01/25/18 18:15 Dose: 12.5 mg Tamsulosin HCl (Flomax) 0.4 mg PO BID [facility] Last Admin: 01/25/18 18:16 Dose: 0.4 mg Tramadol HCl (Ultram) 50 mg PO BID PRN PRN Reason: Pain, moderate (4-7) Last Admin: 01/25/18 19:40 Dose: 50 mg - Labs Labs: 01/26/18 05:30 01/26/18 05:30 PT 17.3 SECONDS (9.4-12.5) H 01/21/18 01:05 INR 1.50 01/21/18 01:05 APTT 28.6 Seconds (25.1-36.5) 01/24/18 06:30 - Constitutional Appears: Non-toxic, No Acute Distress - Head Exam Head Exam: ATRAUMATIC, NORMOCEPHALIC - Eye Exam Eye Exam: EOMI - ENT Exam ENT Exam: Mucous Membranes Moist - Neck Exam Neck Exam: Full ROM - Respiratory Exam Respiratory Exam: NORMAL BREATHING PATTERN. absent: Accessory Muscle Use, Respiratory Distress - Cardiovascular Exam Cardiovascular Exam: +S1, +S2 - GI/Abdominal Exam GI & Abdominal Exam: Distended (Interval improvement noted), Soft, Normal Bowel Sounds. absent: Bruit, Firm, Guarding, Rigid, Tenderness, Diminished Bowel Sounds, Hernia, Hyperactive Bowel Sounds, Hypoactive Bowel Sounds, Mass, Organomegaly, Pulsatile Mass, Rebound - Rectal Exam Rectal Exam: Deferred - Neurological Exam Neurological Exam: Alert, Awake, Oriented x3 - Psychiatric Exam Psychiatric exam: Normal Affect, Normal Mood - Skin Skin Exam: Dry, Intact, Normal Color, Warm Assessment and Plan - Assessment and Plan (Free Text) Assessment: 57 year old male with a past medical history significant for HTN, CKD, DM2, systolic CHF (Last EF 12%), PPM, AICD, deafness and mute who presented with one episode of syncope. GI was consulted for abdominal/pelvic ascites. Plan: -S/P Paracentesis with 2.2L drained; No signs of SBP -CT Abdomen/Pelvis without contrast was done in the ED and showed marked cardiomegaly, hepatomegaly, and large abdominal/pelvic ascites -Abdominal US Duplex shows patent non-obstructed portal vein -Ascitic Total Protein/Albumin pending -Heart Healthy Diet -Daily PPI for GI Prophylaxis -DVT Prophylaxis -Cardiology and IR consulted, all recommendations appreciated GI Disposition: Albumin, Total Protein, and Cytology of ascitic fluid pending. No further inpatient GI interventions planned at this time. Patient seen and case discussed with attending, Dr. Bird. <Roger Bird V - Last Filed: 01/27/18 00:10> Objective - Vital Signs/Intake and Output Vital Signs (last 24 hours): Temp Pulse Resp BP Pulse Ox 98.4 F 54 L 18 118/74 98 01/26/18 17:17 01/26/18 17:17 01/26/18 17:17 01/26/18 17:17 01/26/18 17:17 - Labs Labs: 01/26/18 05:30 01/26/18 05:30 PT 17.3 SECONDS (9.4-12.5) H 01/21/18 01:05 INR 1.50 01/21/18 01:05 APTT 28.6 Seconds (25.1-36.5) 01/24/18 06:30 Attending/Attestation - Attestation I have personally seen and examined this patient.: Yes I have fully participated in the care of the patient.: Yes I have reviewed all pertinent clinical information, including history, physical exam and plan: Yes Notes (Text): This is an addendum to GI followup report dictated by the [facility] Worker. The patient was seen and evaluated earlier. Medical records, lab studies, imagings were reviewed. Last 24 hours events reviewed. Agreed with the above treatment plan as outlined in [facility] Worker 's notes with the addition of the following This patient who is deaf mute with multiple co-morbidities CHF, CKD status post had underwent large volume paracentesis This patient with relatively refractory ascitis in view of CKD would require in future periodic paracentesis Followup up ascitis fluid albumin and total protein pending Will followup on that 01/27/18 00:07
[2018-01-26] MEDS: SACUBITRIL 24mg/VALSARTAN 26mg tab PO SCH (10:33)
[2018-01-26 15:38] LABS: URINE BILIRUBIN MODERATE (NEGATIVE); URINE BLOOD LARGE (NEGATIVE); URINE GLUCOSE (UA) NEGATIVE (NEGATIVE); URINE LEUKOCYTE ESTERASE SMALL Leu/uL (NEGATIVE); URINE PROTEIN >=300 mg/dL (<30 mg/dL)
[2018-01-26 15:52] LABS: URINE APPEARANCE CLOUDY (CLEAR); URINE COLOR DARK YELLOW (YELLOW)
[2018-01-26 15:53] LABS: URINE BACTERIA MANY (NEG); URINE RBC TNTC /hpf (0-2); URINE WBC TNTC /hpf (0-6)
[2018-01-26 17:17] VITALS: BP 118/74; PULSE 54; RESP 18; TEMP 98.4
--- NOTE | 2018-01-26 20:09 | CP.PCM.DIS ---
<EmmanuelBon - Last Filed: 01/26/18 20:06> Provider - Provider Date of Admission: 01/22/18 16:58 Attending physician: Varun Beckwith MD Consults: urology cadio GI IR Time Spent in preparation of Discharge (in minutes): 45 Hospital Course - Lab Results Lab Results: Micro Results 01/24/18 13:20 Ascitic Fluid Gram Stain - Final 01/24/18 13:20 Ascitic Fluid Body Fluid Culture - Preliminary NO GROWTH AFTER 2 DAYS Most Recent Lab Values WBC 4.8 10^3/ul (4.5-11.0) 01/26/18 05:30 RBC 5.41 10^6/uL (3.5-6.1) 01/26/18 05:30 Hgb 15.6 g/dL (14.0-18.0) 01/26/18 05:30 Hct 45.8 % (42.0-52.0) 01/26/18 05:30 MCV 84.7 fl (80.0-105.0) 01/26/18 05:30 MCH 28.8 pg (25.0-35.0) 01/26/18 05:30 MCHC 34.1 g/dl (31.0-37.0) 01/26/18 05:30 RDW 19.9 % (11.5-14.5) H 01/26/18 05:30 Plt Count 167 10^3/uL (120.0-450.0) 01/26/18 05:30 MPV 9.8 fl (7.0-11.0) 01/26/18 05:30 Gran % 64.3 % (50.0-68.0) 01/26/18 05:30 Lymph % (Auto) 27.4 % (22.0-35.0) 01/26/18 05:30 Jennings % (Auto) 7.7 % (1.0-6.0) H 01/26/18 05:30 Eos % (Auto) 0.2 % (1.5-5.0) L 01/26/18 05:30 Baso % (Auto) 0.4 % (0.0-3.0) 01/26/18 05:30 Gran # 3.09 (1.4-6.5) 01/26/18 05:30 Lymph # (Auto) 1.3 (1.2-3.4) 01/26/18 05:30 Jennings # (Auto) 0.4 (0.1-0.6) 01/26/18 05:30 Eos # (Auto) 0.0 (0.0-0.7) 01/26/18 05:30 Baso # (Auto) 0.02 K/mm3 (0.0-2.0) 01/26/18 05:30 PT 17.3 SECONDS (9.4-12.5) H 01/21/18 01:05 INR 1.50 01/21/18 01:05 APTT 28.6 Seconds (25.1-36.5) 01/24/18 06:30 Sodium 140 mmol/L (132-148) 01/26/18 05:30 Potassium 4.3 mmol/L (3.6-5.0) 01/26/18 05:30 Chloride 105 mmol/L (98-107) 01/26/18 05:30 Carbon Dioxide 22 mmol/L (21-33) 01/26/18 05:30 Anion Gap 17 (10-20) 01/26/18 05:30 BUN 41 mg/dL (7-21) H 01/26/18 05:30 Creatinine 1.5 mg/dl (0.8-1.5) 01/26/18 05:30 Est GFR ( Amer) 58 01/26/18 05:30 Est GFR (Non-Af Amer) 48 01/26/18 05:30 POC Glucose (mg/dL) 138 mg/dL (65-110) H 01/26/18 16:55 Random Glucose 101 mg/dL (70-110) 01/26/18 05:30 Calcium 9.3 mg/dL (8.4-10.5) 01/26/18 05:30 Total Bilirubin 4.0 mg/dL (0.2-1.3) H 01/26/18 05:30 AST 23 U/L (17-59) 01/26/18 05:30 ALT 32 U/L (7-56) 01/26/18 05:30 Alkaline Phosphatase 302 U/L (38-126) H 01/26/18 05:30 Lactate Dehydrogenase 489 U/L (333-699) 01/21/18 01:05 Total Creatine Kinase 90 U/L (35-230) 01/21/18 01:05 Troponin I 0.06 ng/mL 01/21/18 19:36 Total Protein 6.6 g/dL (5.8-8.3) 01/26/18 05:30 Albumin 3.3 g/dL (3.0-4.8) 01/26/18 05:30 Globulin 3.2 gm/dL 01/26/18 05:30 Albumin/Globulin Ratio 1.0 (1.1-1.8) L 01/26/18 05:30 Lipase 66 U/L (23-300) 01/21/18 01:05 Prostate Specific Ag 7.1 ng/mL (0.00-2.5) H 01/21/18 11:10 Free PSA 1.1 ng/mL 01/23/18 06:30 % Free PSA 11 % (calc) (>25) L 01/23/18 06:30 Total PSA 9.8 ng/mL (< or = 4.0) H 01/23/18 06:30 Urine Color Dark yellow (YELLOW) 01/26/18 15:16 Urine Appearance Cloudy (CLEAR) 01/26/18 15:16 Urine pH 6.0 (4.7-8.0) 01/26/18 15:16 Ur Specific [place] 1.025 (1.005-1.035) 01/26/18 15:16 Urine Protein >=300 mg/dL (<30 mg/dL) H 01/26/18 15:16 Urine Glucose (UA) Negative mg/dL (NEGATIVE) 01/26/18 15:16 Urine Ketones Trace mg/dL (NEGATIVE) H 01/26/18 15:16 Urine Blood Large (NEGATIVE) H 01/26/18 15:16 Urine Nitrate Negative (NEGATIVE) 01/26/18 15:16 Urine Bilirubin Moderate (NEGATIVE) H 01/26/18 15:16 Urine Urobilinogen 2.0 E.U./dL (<1 E.U./dL) H 01/26/18 15:16 Ur Leukocyte Esterase Small Terrie/uL (NEGATIVE) H 01/26/18 15:16 Urine RBC Tntc /hpf (0-2) 01/26/18 15:16 Urine WBC Tntc /hpf (0-6) 01/26/18 15:16 Ur Epithelial Cells 10 - 12 /hpf (0-5) 01/26/18 15:16 Amorphous Sediment Few 01/20/18 23:00 Urine Bacteria Many (NEG) 01/26/18 15:16 Hyaline Casts 4-6 /hpf 01/20/18 23:00 Fluid Source Peritoneal/ascites 01/24/18 13:20 Fluid Appearance Clear (CLEAR) 01/24/18 13:20 Fluid WBC 310.0 /uL (0.0-300.0) H 01/24/18 13:20 Fluid RBC 1584.0 /uL (0.0-0.0) H 01/24/18 13:20 Fluid Tot Cell Count 100 (0-0) H 01/24/18 13:20 Fluid Neutrophils 5.8 % (0-0) H 01/24/18 13:20 Fluid Lymphocytes 94.2 % (0-0) H 01/24/18 13:20 Fld Monocyte/Macrophag 0 % (0-0) 01/24/18 13:20 Fluid Albumin 2.1 g/dL 01/24/18 13:20 Fluid Comment TEST NOT PERFORMED 01/24/18 13:20 Peritoneal Tot Protein 3.7 g/dL 01/24/18 13:20 Hepatitis A IgM Ab Negative (NEGATIVE) 01/22/18 06:30 Hep Bs Antigen Negative (NEGATIVE) 01/22/18 06:30 Hep B Core IgM Ab Negative (NEGATIVE) 01/22/18 06:30 Hepatitis C Antibody Negative (NEGATIVE) 01/22/18 06:30 - Hospital Course Hospital Course: 57 y/o male with PMH of HTN, CKD, DM, systolic CHF with EF last month of 12%, pacemaker, defibrillator, presented to ED with unwitnessed syncopal episode. Admitted for anuria, syncope, ascites and LE edema. 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 EKG showed atrial flutter with variable AV block 95bpm and left axis deviation that is unchanged from EKG last month. Neurology consulted Dr. Wetzel and stated that no neurological abnormlities noted. Cardiology consulted and patient was given diuretics, patient to follow up with overnight stocker as outpatient. Carotid US Bilateral 20-39% proximal ICA stenosis. Last Ech 8/18 showed EF 12%, severe LV hypokinesis, mild LVH, dilated LA/RA/RV, mild MR and PHTN, severe TR CT abd/pelvis showed large abdominal/pelvic ascites, no bowel obstruction. Paracentesis was done and retrieved 2.2 L of ascitic fluid that was sent for cytology and testing. Patient was anuric for 4 days sanchez catheter inserted in ED, initially drained bloody urine with clots that is clearing by time. Urology was consulted, flomax was given. PSA was elevated. There was concern for prostate cancer. Urology work up as outpatient for cystoscopy. PT saw the patient and recommended inpatient rehab. Patient transferred to inpatient rehab unit at [facility]. will be followed by cardiology and urology. Sanchez removed before transfer, patient will attempt to urinate, if anuric flomax will be given and bladder scan. If patient still anuric sanchez cath will be placed again. Discharge Exam - Additional Findings Additional findings: - Constitutional Appears: Well, Other (mild discomfort due to ascites and sanchez placed) - Head Exam Head Exam: ATRAUMATIC, NORMOCEPHALIC - Eye Exam Eye Exam: EOMI, Normal appearance, PERRL Pupil Exam: NORMAL ACCOMODATION, PERRL - ENT Exam ENT Exam: Mucous Membranes Moist, Normal Exam - Neck Exam Neck Exam: Full ROM. absent: Thyromegaly Additional comments: +JVD - Respiratory Exam Respiratory Exam: Decreased Breath Sounds, Respiratory Distress - Cardiovascular Exam Cardiovascular Exam: +S1, +S2, Murmur - GI/Abdominal Exam GI & Abdominal Exam: Distended, Firm, Normal Bowel Sounds. absent: Guarding - Exam Additional comments: SANCHEZ IN PLACE. NO SIGNS OF INFECTION - Extremities Exam Extremities Exam: Full ROM, Normal Capillary Refill, Normal Inspection, Pedal Edema. absent: Joint Swelling Additional comments: +1 LE edema - Back Exam Back Exam: NORMAL INSPECTION - Neurological Exam Neurological Exam: Alert, Awake, CN II-XII Intact, Oriented x3 - Psychiatric Exam Psychiatric exam: Normal Affect, Normal Mood - Skin Skin Exam: Dry, Intact, Normal Color, Warm Discharge Plan - Follow Up Plan Condition: STABLE Disposition: TRANSF TO SNF Instructions: Heart Failure, Adult (DC), Sanchez Catheter, Male, Fluid in the Belly (Ascites) (DC), Urinary Retention (DC), Syncope (DC) Additional Instructions: You are being discharged from the medical floor to the rehab unit (TCU). You will continue to be seen by the medical team that was following you on the medical floor, as well as by any specialists still following you. You will continue to receive medical therapy to treat your heart failure and abdominal swelling, in addition to your routine medications and physical therapy. You will undergo a voiding trial, in which the sanchez catheter will be removed and you will attempt to urinate on your own. If you are unable to urinate, or if you only are able to urinately minimally while still retaining urine, you may require replacement of the sanchez. <Varun Beckwith - Last Filed: 01/27/18 16:07> Provider - Provider Date of Admission: 01/22/18 16:58 Attending physician: Varun Beckwith MD Hospital Course - Lab Results Lab Results: Micro Results 01/24/18 13:20 Ascitic Fluid Gram Stain - Final 01/24/18 13:20 Ascitic Fluid Body Fluid Culture - Preliminary NO GROWTH AFTER 3 DAYS Most Recent Lab Values WBC 4.8 10^3/ul (4.5-11.0) 01/26/18 05:30 RBC 5.41 10^6/uL (3.5-6.1) 01/26/18 05:30 Hgb 15.6 g/dL (14.0-18.0) 01/26/18 05:30 Hct 45.8 % (42.0-52.0) 01/26/18 05:30 MCV 84.7 fl (80.0-105.0) 01/26/18 05:30 MCH 28.8 pg (25.0-35.0) 01/26/18 05:30 MCHC 34.1 g/dl (31.0-37.0) 01/26/18 05:30 RDW 19.9 % (11.5-14.5) H 01/26/18 05:30 Plt Count 167 10^3/uL (120.0-450.0) 01/26/18 05:30 MPV 9.8 fl (7.0-11.0) 01/26/18 05:30 Gran % 64.3 % (50.0-68.0) 01/26/18 05:30 Lymph % (Auto) 27.4 % (22.0-35.0) 01/26/18 05:30 Jennings % (Auto) 7.7 % (1.0-6.0) H 01/26/18 05:30 Eos % (Auto) 0.2 % (1.5-5.0) L 01/26/18 05:30 Baso % (Auto) 0.4 % (0.0-3.0) 01/26/18 05:30 Gran # 3.09 (1.4-6.5) 01/26/18 05:30 Lymph # (Auto) 1.3 (1.2-3.4) 01/26/18 05:30 Jennings # (Auto) 0.4 (0.1-0.6) 01/26/18 05:30 Eos # (Auto) 0.0 (0.0-0.7) 01/26/18 05:30 Baso # (Auto) 0.02 K/mm3 (0.0-2.0) 01/26/18 05:30 PT 17.3 SECONDS (9.4-12.5) H 01/21/18 01:05 INR 1.50 01/21/18 01:05 APTT 28.6 Seconds (25.1-36.5) 01/24/18 06:30 Sodium 140 mmol/L (132-148) 01/26/18 05:30 Potassium 4.3 mmol/L (3.6-5.0) 01/26/18 05:30 Chloride 105 mmol/L (98-107) 01/26/18 05:30 Carbon Dioxide 22 mmol/L (21-33) 01/26/18 05:30 Anion Gap 17 (10-20) 01/26/18 05:30 BUN 41 mg/dL (7-21) H 01/26/18 05:30 Creatinine 1.5 mg/dl (0.8-1.5) 01/26/18 05:30 Est GFR ( Amer) 58 01/26/18 05:30 Est GFR (Non-Af Amer) 48 01/26/18 05:30 POC Glucose (mg/dL) 138 mg/dL (65-110) H 01/26/18 16:55 Random Glucose 101 mg/dL (70-110) 01/26/18 05:30 Calcium 9.3 mg/dL (8.4-10.5) 01/26/18 05:30 Total Bilirubin 4.0 mg/dL (0.2-1.3) H 01/26/18 05:30 AST 23 U/L (17-59) 01/26/18 05:30 ALT 32 U/L (7-56) 01/26/18 05:30 Alkaline Phosphatase 302 U/L (38-126) H 01/26/18 05:30 Lactate Dehydrogenase 489 U/L (333-699) 01/21/18 01:05 Total Creatine Kinase 90 U/L (35-230) 01/21/18 01:05 Troponin I 0.06 ng/mL 01/21/18 19:36 Total Protein 6.6 g/dL (5.8-8.3) 01/26/18 05:30 Albumin 3.3 g/dL (3.0-4.8) 01/26/18 05:30 Globulin 3.2 gm/dL 01/26/18 05:30 Albumin/Globulin Ratio 1.0 (1.1-1.8) L 01/26/18 05:30 Lipase 66 U/L (23-300) 01/21/18 01:05 Prostate Specific Ag 7.1 ng/mL (0.00-2.5) H 01/21/18 11:10 Free PSA 1.1 ng/mL 01/23/18 06:30 % Free PSA 11 % (calc) (>25) L 01/23/18 06:30 Total PSA 9.8 ng/mL (< or = 4.0) H 01/23/18 06:30 Urine Color Dark yellow (YELLOW) 01/26/18 15:16 Urine Appearance Cloudy (CLEAR) 01/26/18 15:16 Urine pH 6.0 (4.7-8.0) 01/26/18 15:16 Ur Specific [place] 1.025 (1.005-1.035) 01/26/18 15:16 Urine Protein >=300 mg/dL (<30 mg/dL) H 01/26/18 15:16 Urine Glucose (UA) Negative mg/dL (NEGATIVE) 01/26/18 15:16 Urine Ketones Trace mg/dL (NEGATIVE) H 01/26/18 15:16 Urine Blood Large (NEGATIVE) H 01/26/18 15:16 Urine Nitrate Negative (NEGATIVE) 01/26/18 15:16 Urine Bilirubin Moderate (NEGATIVE) H 01/26/18 15:16 Urine Urobilinogen 2.0 E.U./dL (<1 E.U./dL) H 01/26/18 15:16 Ur Leukocyte Esterase Small Terrie/uL (NEGATIVE) H 01/26/18 15:16 Urine RBC Tntc /hpf (0-2) 01/26/18 15:16 Urine WBC Tntc /hpf (0-6) 01/26/18 15:16 Ur Epithelial Cells 10 - 12 /hpf (0-5) 01/26/18 15:16 Amorphous Sediment Few 01/20/18 23:00 Urine Bacteria Many (NEG) 01/26/18 15:16 Hyaline Casts 4-6 /hpf 01/20/18 23:00 Fluid Source Peritoneal/ascites 01/24/18 13:20 Fluid Appearance Clear (CLEAR) 01/24/18 13:20 Fluid WBC 310.0 /uL (0.0-300.0) H 01/24/18 13:20 Fluid RBC 1584.0 /uL (0.0-0.0) H 01/24/18 13:20 Fluid Tot Cell Count 100 (0-0) H 01/24/18 13:20 Fluid Neutrophils 5.8 % (0-0) H 01/24/18 13:20 Fluid Lymphocytes 94.2 % (0-0) H 01/24/18 13:20 Fld Monocyte/Macrophag 0 % (0-0) 01/24/18 13:20 Fluid Albumin 2.1 g/dL 01/24/18 13:20 Fluid Comment TEST NOT PERFORMED 01/24/18 13:20 Peritoneal Tot Protein 3.7 g/dL 01/24/18 13:20 Hepatitis A IgM Ab Negative (NEGATIVE) 01/22/18 06:30 Hep Bs Antigen Negative (NEGATIVE) 01/22/18 06:30 Hep B Core IgM Ab Negative (NEGATIVE) 01/22/18 06:30 Hepatitis C Antibody Negative (NEGATIVE) 01/22/18 06:30 Attending/Attestation - Attestation I have personally seen and examined this patient.: Yes I have fully participated in the care of the patient.: Yes I have reviewed all pertinent clinical information, including history, physical exam and plan: Yes Notes (Text): 01/27/18 16:02 Medical record note made by the resident after discussion with my direction and input after the patient was personally seen and examined by me. I have reviewed the chart and agree that the record accurately reflects by personal performance of the history, physical exam, data review, and medical decision-making, in the course for the patient. I have also personally directed the plan of care. 57 year old male with past medical history of hypertension, CHF with systolic dysfunction EF 12%, s/p AICD, and diabetes who presented with syncopal episode. 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 Neurology evaluation was appreciated; no further workup recommended.. Pacemaker was interrogated; ok as per Dr. Yang. He was also found to have ascites and urinary retention.CT abdomen and pelvis showed moderate to large abdominal ascites and enlarged prostate. His diuretic dose was adjusted.Patient was evaluated by GI and is underwent Paracentesis which was negative for SBP. Patient has responded well to diuresis and his lasix and aldactone dose is adjusted.Patient is also on Entresto as per cardiology for his systolic CHF Urinary Retention also on flomax, Folley catheter is removed today. Patient was evaluated by PT and TCU was recommended.He will be discharged to TCU. Management plan was discussed in detail with patient. Education was provided.
--- NOTE | 2018-01-27 07:00 | CON ---
DATE: 01/23/2018 UROLOGY CONSULTATION Urology consultation is requested by Dr. Sujey Suggs. Urology consultation is filled by Dr. Tanika Miller. REASON FOR CONSULTATION: Urinary retention. HISTORY OF PRESENT ILLNESS: The patient is a 57-year-old male with urinary retention. The patient is in otherwise fair health. The patient presented to the emergency room with syncope. The patient has history of CHF. The patient was found to have a distended abdomen. A Gordon catheter was inserted. The patient had been unable to urinate for the past several days. He also had obstipation for the past several days. The patient reports no chest pain. No recent fever or rigors. No hematuria. The patient has impaired hearing and speech. There is history of cardiac pacemaker. History of hypertension. History of CHF. The patient has history of diabetes. The patient's medications have included atenolol, carvedilol, Tradjenta, sacubitril, valsartan, spironolactone, tramadol, and albuterol. Gordon catheter is draining well at present. LABORATORY DATA: On admission, BUN 47, creatinine 2.3. Hematocrit 46. White blood count 4500. Platelet count 398,000. PHYSICAL EXAMINATION: GENERAL: The patient is a well-developed, well-nourished male, appearing his stated age. ABDOMEN: Soft, nontender, nondistended. No mass or organomegaly. BACK: No CVA tenderness. GENITALIA: Without inflammation. Urine is clear via the Gordon catheter. I was unable to perform prostate examination at present. IMPRESSION: A 57-year-old male with urinary retention. Etiology of urinary retention may be due to bladder outlet obstruction and/or detrusor muscle hypofunction. The patient has significant cardiac disease with history of pacemaker and defibrillator insertion. There is history of congestive heart failure and hypertension. RECOMMENDATION AND PLAN: Gordon catheter in place. Monitor renal function. Serum PSA. Try , once bowel function has improved, and once the patient has increased this level of activity. Obtain serum PSA. Recommend obtaining urine culture. Tamsulosin 0.4 mg b.i.d. If retention recurs, the patient will require further evaluation including urodynamic evaluation and cystoscopy. Further therapy to follow according to the patient's clinical course as well as results of above. Findings were discussed with the nursing and the resident staff as well. [place] MD Paul cc: Sujey Suggs Do
--- NOTE | 2018-01-27 13:08 | PN ---
DATE: 01/27/2018 SUBJECTIVE: The patient had severe dilated cardiomyopathy. He is currently without shortness of breath at bed. PHYSICAL EXAMINATION: VITAL SIGNS: On physical exam, blood pressure is 118/74, heart rates in the 90s. NECK: Negative JVD. LUNGS: Decreased breath sounds. HEART: S1, S2. ABDOMEN: The abdomen has still increased girth. EXTREMITIES: Without change. LABORATORY DATA: Hemoglobin is 15.8. Chemistries, BUN and creatinine is 41 and 1.5. The glucose is 148. IMPRESSION: 1. Severe dilated cardiomyopathy. 2. Right heart congestive heart failure. 3. Ascites. 4. Status post paracentesis. 5. Diabetes mellitus. 6. History of pacemaker and defibrillator. Given these findings,we will continue the patient on his diuretics. Garrett Yang MD
== END 2018-01-26 17:05 | DRG 726 ==
LOC: ED 21:59 → ERH 01-21 03:44 → 2RSO 01-21 06:13 → OBSVTOIN 01-22 16:58 → 3RSO 01-24 14:06
PROVIDERS: ADMIT Hospitalist; ATTEND Internal Medicine
PROC: 0W9G3ZZ Drainage of Peritoneal Cavity, Percutaneous Approach (ICD-10-PCS; principal; 2018-01-24 12:30)
DX: N40.1 Benign prostatic hyperplasia with lower urinary tract symptoms (principal); R33.8 Other retention of urine; R18.8 Other ascites; I13.0 Hypertensive heart and chronic kidney disease with heart failure and stage 1 through stage 4 chronic kidney disease, or unspecified chronic kidney disease; I50.22 Chronic systolic (congestive) heart failure; I31.3 Pericardial effusion (noninflammatory); I42.0 Dilated cardiomyopathy; N18.9 Chronic kidney disease, unspecified; E11.22 Type 2 diabetes mellitus with diabetic chronic kidney disease; R97.20 Elevated prostate specific antigen [PSA]; I69.398 Other sequelae of cerebral infarction; G93.89 Other specified disorders of brain; I25.10 Atherosclerotic heart disease of native coronary artery without angina pectoris; K59.00 Constipation, unspecified; I65.23 Occlusion and stenosis of bilateral carotid arteries; H91.3 Deaf nonspeaking, not elsewhere classified; Z95.810 Presence of automatic (implantable) cardiac defibrillator

== ENCOUNTER 2018-01-26 17:05 | Inpatient (IN) | payer MEDICARE, OTHER ==
[2018-01-26] MEDS ORDERED: Albuterol 0.083% Inhal Sol (2.5 mg/3 mL) UD IH PRN (17:43)
[2018-01-26] MEDS ORDERED: Lidocaine 2% Jelly (30 ml) TOP PRN (17:43)
[2018-01-26 17:44] VITALS: BMI 24.8
[2018-01-26] MEDS: Insulin Reg-LOW-Coverage SC SCH (21:39)
[2018-01-26] MEDS: SACUBITRIL 24mg/VALSARTAN 26mg tab PO SCH (21:40)
[2018-01-27] MEDS ORDERED: Pantoprazole 40 mg EC Tab PO SCH (06:00)
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
[2018-01-27] MEDS: Insulin Reg-LOW-Coverage SC SCH ×2 (06:36→12:23)
[2018-01-27 10:11] VITALS: BP 118/74; RESP 20; TEMP 97.8
[2018-01-27] MEDS: SACUBITRIL 24mg/VALSARTAN 26mg tab PO SCH (10:17)
[2018-01-27 11:19] LABS: BASO # 0.02 K/mm3 (0.0-2.0); BASO % 0.4 % (0.0-3.0); EOS % 0.8 % (1.5-5.0); GRAN # 3.2 (1.4-6.5); GRAN % 60.9 % (50.0-68.0); HEMOGLOBIN 15.8 g/dL (14.0-18.0); LYMPH # 1.5 (1.2-3.4); LYMPH % 27.6 % (22.0-35.0); MEAN CELL VOLUME 84.9 fl (80.0-105.0); MEAN CORPUSCULAR HEMOGLOBIN 28.7 pg (25.0-35.0); MEAN CORPUSCULAR HGB CONC 33.8 g/dl (31.0-37.0); MEAN PLATELET VOLUME 9.4 fl (7.0-11.0); MONO # 0.5 (0.1-0.6); MONO % 10.3 % (1.0-6.0); RBC 5.5 10^6/uL (3.5-6.1); RED CELL DISTRIBUTION WIDTH 19.9 % (11.5-14.5); WHITE BLOOD COUNT 5.3 10^3/ul (4.5-11.0)
[2018-01-27 11:32] LABS: ALB/GLOB RATIO 1.1 (1.1-1.8); ALBUMIN 3.9 g/dL (3.0-4.8); CALCIUM 9.5 mg/dL (8.4-10.5)
[2018-01-27 12:08] VITALS: PULSE 87; O2SAT 97
--- NOTE | 2018-01-27 19:00 | CP.PCM.DIS ---
<Isamar Benitezony - Last Filed: 01/27/18 18:57> Provider - Provider Date of Admission: 01/26/18 17:05 Attending physician: Varun Beckwith MD Consults: urology cadio GI IR Time Spent in preparation of Discharge (in minutes): 50 Hospital Course - Lab Results Lab Results: Most Recent Lab Values WBC 5.3 10^3/ul (4.5-11.0) 01/27/18 10:00 RBC 5.50 10^6/uL (3.5-6.1) 01/27/18 10:00 Hgb 15.8 g/dL (14.0-18.0) 01/27/18 10:00 Hct 46.7 % (42.0-52.0) 01/27/18 10:00 MCV 84.9 fl (80.0-105.0) 01/27/18 10:00 MCH 28.7 pg (25.0-35.0) 01/27/18 10:00 MCHC 33.8 g/dl (31.0-37.0) 01/27/18 10:00 RDW 19.9 % (11.5-14.5) H 01/27/18 10:00 Plt Count 191 10^3/uL (120.0-450.0) 01/27/18 10:00 MPV 9.4 fl (7.0-11.0) 01/27/18 10:00 Gran % 60.9 % (50.0-68.0) 01/27/18 10:00 Lymph % (Auto) 27.6 % (22.0-35.0) 01/27/18 10:00 [place] % (Auto) 10.3 % (1.0-6.0) H 01/27/18 10:00 Eos % (Auto) 0.8 % (1.5-5.0) L 01/27/18 10:00 Baso % (Auto) 0.4 % (0.0-3.0) 01/27/18 10:00 Gran # 3.20 (1.4-6.5) 01/27/18 10:00 Lymph # (Auto) 1.5 (1.2-3.4) 01/27/18 10:00 [place] # (Auto) 0.5 (0.1-0.6) 01/27/18 10:00 Eos # (Auto) 0.0 (0.0-0.7) 01/27/18 10:00 Baso # (Auto) 0.02 K/mm3 (0.0-2.0) 01/27/18 10:00 Sodium 138 mmol/L (132-148) 01/27/18 10:00 Potassium 4.5 mmol/L (3.6-5.0) 01/27/18 10:00 Chloride 102 mmol/L (98-107) 01/27/18 10:00 Carbon Dioxide 25 mmol/L (21-33) 01/27/18 10:00 Anion Gap 16 (10-20) 01/27/18 10:00 BUN 41 mg/dL (7-21) H 01/27/18 10:00 Creatinine 1.5 mg/dl (0.8-1.5) 01/27/18 10:00 Est GFR ( Amer) 58 01/27/18 10:00 Est GFR (Non-Af Amer) 48 01/27/18 10:00 POC Glucose (mg/dL) 165 mg/dL (65-110) H 01/27/18 11:18 Random Glucose 148 mg/dL (70-110) H 01/27/18 10:00 Calcium 9.5 mg/dL (8.4-10.5) 01/27/18 10:00 Total Bilirubin 4.0 mg/dL (0.2-1.3) H 01/27/18 10:00 AST 27 U/L (17-59) 01/27/18 10:00 ALT 29 U/L (7-56) 01/27/18 10:00 Alkaline Phosphatase 299 U/L (38-126) H 01/27/18 10:00 Total Protein 7.5 g/dL (5.8-8.3) 01/27/18 10:00 Albumin 3.9 g/dL (3.0-4.8) 01/27/18 10:00 Globulin 3.6 gm/dL 01/27/18 10:00 Albumin/Globulin Ratio 1.1 (1.1-1.8) 01/27/18 10:00 - Hospital Course Hospital Course: 57 y/o male with PMH of HTN, CKD, DM, systolic CHF with EF last month of 12%, pacemaker, defibrillator, presented to ED with unwitnessed syncopal episode. Admitted for anuria, syncope, ascites and LE edema. 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 EKG showed atrial flutter with variable AV block 95bpm and left axis deviation that is unchanged from EKG last month. Neurology consulted Dr. Wetzel and stated that no neurological abnormlities noted. Cardiology consulted and patient was given diuretics, patient to follow up with marketing program coordinator as outpatient. Carotid US Bilateral 20-39% proximal ICA stenosis. Last Ech 12/25 showed EF 12%, severe LV hypokinesis, mild LVH, dilated LA/RA/RV, mild MR and PHTN, severe TR CT abd/pelvis showed large abdominal/pelvic ascites, no bowel obstruction. Paracentesis was done and retrieved 2.2 L of ascitic fluid that was negative for SBP. Patient was anuric for 4 days ortiz catheter inserted in ED, initially drained bloody urine with clots that is clearing by time. Urology was consulted , flomax was given. PSA was elevated. There was concern for prostate cancer. Urology work up as outpatient for cystoscopy. PT saw the patient and recommended inpatient rehab. Patient transferred to inpatient rehab unit at [facility]/ TCU and followed by PT. Patient was making urine with no difficulty after Ortiz removal. Diuretics switched to PO lasix. Patient signed AMA today. The risks of leaving AMA were explained to patient including heart attack, arrhythmia, internal bleeding and . Patient showed capacity and understanding to the risk and decided to leave. Discharge Exam - Additional Findings Additional findings: Patient signed AMA. No physical exam performed Discharge Plan - Follow Up Plan Condition: GOOD Disposition: AGAINST MEDICAL ADVICE <Varun Beckwith - Last Filed: 01/28/18 18:40> Provider - Provider Date of Admission: 01/26/18 17:05 Attending physician: Varun Beckwith MD Hospital Course - Lab Results Lab Results: Most Recent Lab Values WBC 5.3 10^3/ul (4.5-11.0) 01/27/18 10:00 RBC 5.50 10^6/uL (3.5-6.1) 01/27/18 10:00 Hgb 15.8 g/dL (14.0-18.0) 01/27/18 10:00 Hct 46.7 % (42.0-52.0) 01/27/18 10:00 MCV 84.9 fl (80.0-105.0) 01/27/18 10:00 MCH 28.7 pg (25.0-35.0) 01/27/18 10:00 MCHC 33.8 g/dl (31.0-37.0) 01/27/18 10:00 RDW 19.9 % (11.5-14.5) H 01/27/18 10:00 Plt Count 191 10^3/uL (120.0-450.0) 01/27/18 10:00 MPV 9.4 fl (7.0-11.0) 01/27/18 10:00 Gran % 60.9 % (50.0-68.0) 01/27/18 10:00 Lymph % (Auto) 27.6 % (22.0-35.0) 01/27/18 10:00 [place] % (Auto) 10.3 % (1.0-6.0) H 01/27/18 10:00 Eos % (Auto) 0.8 % (1.5-5.0) L 01/27/18 10:00 Baso % (Auto) 0.4 % (0.0-3.0) 01/27/18 10:00 Gran # 3.20 (1.4-6.5) 01/27/18 10:00 Lymph # (Auto) 1.5 (1.2-3.4) 01/27/18 10:00 [place] # (Auto) 0.5 (0.1-0.6) 01/27/18 10:00 Eos # (Auto) 0.0 (0.0-0.7) 01/27/18 10:00 Baso # (Auto) 0.02 K/mm3 (0.0-2.0) 01/27/18 10:00 Sodium 138 mmol/L (132-148) 01/27/18 10:00 Potassium 4.5 mmol/L (3.6-5.0) 01/27/18 10:00 Chloride 102 mmol/L (98-107) 01/27/18 10:00 Carbon Dioxide 25 mmol/L (21-33) 01/27/18 10:00 Anion Gap 16 (10-20) 01/27/18 10:00 BUN 41 mg/dL (7-21) H 01/27/18 10:00 Creatinine 1.5 mg/dl (0.8-1.5) 01/27/18 10:00 Est GFR ( Amer) 58 01/27/18 10:00 Est GFR (Non-Af Amer) 48 01/27/18 10:00 POC Glucose (mg/dL) 165 mg/dL (65-110) H 01/27/18 11:18 Random Glucose 148 mg/dL (70-110) H 01/27/18 10:00 Calcium 9.5 mg/dL (8.4-10.5) 01/27/18 10:00 Total Bilirubin 4.0 mg/dL (0.2-1.3) H 01/27/18 10:00 AST 27 U/L (17-59) 01/27/18 10:00 ALT 29 U/L (7-56) 01/27/18 10:00 Alkaline Phosphatase 299 U/L (38-126) H 01/27/18 10:00 Total Protein 7.5 g/dL (5.8-8.3) 01/27/18 10:00 Albumin 3.9 g/dL (3.0-4.8) 01/27/18 10:00 Globulin 3.6 gm/dL 01/27/18 10:00 Albumin/Globulin Ratio 1.1 (1.1-1.8) 01/27/18 10:00 Attending/Attestation - Attestation I have personally seen and examined this patient.: Yes I have fully participated in the care of the patient.: Yes I have reviewed all pertinent clinical information, including history, physical exam and plan: Yes Notes (Text): 01/28/18 18:40 Please see HPI
== END 2018-01-27 12:56 | disposition left against medical advice (07) | DRG 312 ==
LOC: TRCU 17:05
PROVIDERS: ADMIT Internal Medicine; ATTEND Internal Medicine
DX: R55 Syncope and collapse (principal); I13.0 Hypertensive heart and chronic kidney disease with heart failure and stage 1 through stage 4 chronic kidney disease, or unspecified chronic kidney disease; I50.20 Unspecified systolic (congestive) heart failure; R18.8 Other ascites; N40.1 Benign prostatic hyperplasia with lower urinary tract symptoms; R33.8 Other retention of urine; N18.9 Chronic kidney disease, unspecified; E11.22 Type 2 diabetes mellitus with diabetic chronic kidney disease; G93.89 Other specified disorders of brain; I65.23 Occlusion and stenosis of bilateral carotid arteries; H91.90 Unspecified hearing loss, unspecified ear; Z83.79 Family history of other diseases of the digestive system; Z79.84 Long term (current) use of oral hypoglycemic drugs; Z95.810 Presence of automatic (implantable) cardiac defibrillator

== ENCOUNTER 2018-06-24 00:52 | Inpatient (IN) | payer MEDICARE, OTHER ==
[2018-06-24 00:52] VITALS: BMI 24.5
--- NOTE | 2018-06-24 01:19 | ED PDOC ---
Arrival/HPI - General Time Seen by Provider: 06/24/18 00:52 Historian: Patient, Physician Chief Of Pathology (Son translated ) - History of Present Illness Narrative History of Present Illness (Text): 06/24/18 01:16 57 year old male with a history of CHF and A-flutter not on anticoagulants secondary to hematuria and bladder CA as per previous notes, presents to the emergency department for shortness of breath. Patient states he feels a lot of fluid built up in abdomen. pt is deaf mute info obtained with son tranlaing. . Patient informs of previous paracentesis procedures. Patient denies any denies fevers, chills, headache, dizziness, chest pain, abdominal pain, nausea, vomiting, diarrhea, back pain, neck pain, or any other complaint. = Time/Duration: Prior to Arrival Symptom Onset: Gradual Symptom Course: Unchanged Activities at Onset: Light Context: Home Past Medical History - Provider Review Nursing Documentation Reviewed: Yes - Infectious Disease Hx of Infectious Diseases: None - Cardiac Hx Cardiac Disorders: Yes Hx Congestive Heart Failure: Yes Hx Hypertension: Yes - Pulmonary Hx Respiratory Disorders: No - Neurological HX Cerebrovascular Accident: Yes - HEENT Hx HEENT Disorder: Yes Hx Deafness: Yes Other/Comment: mute - Renal Hx Renal Disorder: Yes - Endocrine/Metabolic Hx Endocrine Disorders: Yes Hx Diabetes Mellitus Type 2: Yes - Hematological/Oncological Hx Cirrhosis: Yes Hx Metastasis: Yes Other/Comment: Liver CA/Bladder CA. Ascitis - Integumentary Hx Dermatological Disorder: No - Musculoskeletal/Rheumatological Hx Falls: Yes - Gastrointestinal Hx Gastrointestinal Disorders: Yes Other/Comment: ascites - Genitourinary/Gynecological Hx Genitourinary Disorders: Yes (retentrion ortiz to sgd) Hx Bladder Cancer: Yes Other/Comment: bph - Psychiatric Hx Substance Use: No - Surgical History Other/Comment: AICD. Paracentesis - Anesthesia Hx Anesthesia: Yes Hx Anesthesia Reactions: No Hx Malignant Hyperthermia: No Family/Social History - Physician Review Nursing Documentation Reviewed: Yes Family/Social History: No Known Family HX Smoking Status: Never Smoked Hx Alcohol Use: No Hx Substance Use: No Hx Substance Use Treatment: No Allergies/Home Meds Allergies/Adverse Reactions: Allergies No Known Allergies Allergy (Verified 06/24/18 01:00) Home Medications: Home Meds Medication Instructions Recorded Confirmed RX: Furosemide [Lasix] 40 mg PO Q12 04/18/18 06/24/18 RX: Simethicone [Mylicon Chew Tab] 80 mg PO DAILY PRN 06/24/18 06/24/18 RX: Spironolactone [Aldactone] 50 mg PO DAILY 06/24/18 06/24/18 Review of Systems - Physician Review All systems were reviewed & negative as marked: Yes - Review of Systems Constitutional: absent: Fevers, Night Sweats Respiratory: SOB Cardiovascular: absent: Chest Pain Gastrointestinal: absent: Abdominal Pain, Diarrhea, Nausea, Vomiting Musculoskeletal: absent: Back Pain, Neck Pain Neurological: absent: Headache, Dizziness Physical Exam Temperature: Afebrile Blood Pressure: Normal Pulse: Tachycardic Respiratory Rate: Normal Appearance: Positive for: Other (chronically ill appearing cachcetic) Pain Distress: None Mental Status: Positive for: Alert and Oriented X 3 - Systems Exam Head: Present: Atraumatic, Normocephalic Pupils: Present: PERRL Extroacular Muscles: Present: EOMI Conjunctiva: Present: Normal Mouth: Present: Moist Mucous Membranes Neck: Present: Normal Range of Motion Respiratory/Chest: Present: Rales (rales at the bases). No: Respiratory Distress, Accessory Muscle Use Cardiovascular: Present: Regular Rate and Rhythm, Normal S1, S2. No: Murmurs Abdomen: Present: Distention. No: Tenderness, Peritoneal Signs Back: Present: Normal Inspection Upper Extremity: Present: Normal Inspection. No: Cyanosis, Edema Lower Extremity: Present: Edema (b/l 2+), NORMAL PULSES, Swelling, Neurovascularly Intact. No: CALF TENDERNESS, Jono's Sign, Tenderness, Erythema, Deformity Neurological: Present: GCS=15, CN II-XII Intact, Speech Normal Skin: Present: Warm, Dry, Normal Color. No: Rashes Psychiatric: Present: Alert, Oriented x 3, Normal Insight, Normal Concentration Medical Decision Making ED Course and Treatment: 06/24/18 01:25 Impression: 57 year old male presents with shortness of breath suspect chf Plan: -- EKG -- Labs -- Chest X-ray -- Urinalysis -- Reassess and disposition Prior Visits: Notes and results from previous visits were reviewed Progress Notes: EKG Reviewed by me, shows: A-flutter @114bpm 06/24/18 03:24 chf lasix dosed cxr cardiomegaly. accepted dr fregoso. - RAD Interpretation Radiology Orders: 06/24/18 01:13 CHEST PORTABLE [RAD] Stat - Scribe Statement The provider has reviewed the documentation as recorded by the Scribe Garrett Melissa Provider Scribe Attestation: All medical record entries made by the Scribe were at my direction and personally dictated by me. I have reviewed the chart and agree that the record accurately reflects my personal performance of the history, physical exam, medical decision making, and the department course for this patient. I have also personally directed, reviewed, and agree with the discharge instructions and disposition. Disposition/Present on Arrival - Present on Arrival Any Indicators Present on Arrival: No History of DVT/PE: No History of Uncontrolled Diabetes: No Urinary Catheter: Yes History of Decub. Ulcer: No History Surgical Site Infection Following: None - Disposition Have Diagnosis and Disposition been Completed?: Yes Diagnosis: CHF (congestive heart failure), UTI (urinary tract infection) Disposition: HOME/ ROUTINE Disposition Time: 03:26 Condition: FAIR
[2018-06-24 02:02] LABS: URINE BILIRUBIN NEGATIVE (NEGATIVE); URINE BLOOD SMALL (NEGATIVE); URINE GLUCOSE (UA) NEGATIVE (NEGATIVE); URINE LEUKOCYTE ESTERASE SMALL Leu/uL (NEGATIVE); URINE PROTEIN NEGATIVE mg/dL (<30 mg/dL); URINE UROBILINOGEN 0.2 E.U./dL (<1 E.U./dL)
[2018-06-24 02:03] LABS: ALB/GLOB RATIO 0.9 (1.1-1.8); ALBUMIN 3.3 g/dL (3.0-4.8); BASO # 0.07 K/mm3 (0.0-2.0); BASO % 0.9 % (0.0-3.0); CALCIUM 9.1 mg/dL (8.4-10.5); EOS # 0.3 (0.0-0.7); EOS % 3.4 % (1.5-5.0); HEMOGLOBIN 14.3 g/dL (14.0-18.0); LYMPH # 1.1 (1.2-3.4); LYMPH % 13.7 % (22.0-35.0); MEAN CORPUSCULAR HGB CONC 32.4 g/dl (31.0-37.0); MEAN PLATELET VOLUME 9.3 fl (7.0-11.0); MONO # 0.7 (0.1-0.6); MONO % 8.3 % (1.0-6.0); RBC 4.77 10^6/uL (3.5-6.1); RED CELL DISTRIBUTION WIDTH 17.1 % (11.5-14.5)
[2018-06-24 02:11] LABS: INR 1.64; PARTIAL THROMBOPLASTIN TIME 31.2 Seconds (26.9-38.3); PROTHROMBIN TIME 18.2 SECONDS (9.4-12.5)
[2018-06-24 02:12] LABS: MEAN CELL VOLUME 92.7 fl (80.0-105.0); URINE APPEARANCE SL CLOUDY (CLEAR); URINE COLOR YELLOW (YELLOW)
[2018-06-24 02:14] LABS: URINE BACTERIA TRACE /hpf; URINE RBC 0 - 2 /hpf (0-2)
[2018-06-24 02:15] LABS: TROPONIN I 0.11 ng/mL
[2018-06-24] MEDS ORDERED: cefTRIAXone 1 gm 1 GM/100 ML BAG IVPB STA (02:20)
--- NOTE | 2018-06-24 03:12 | CP.PCM.HP ---
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 History was obtained with assistance of son's translation at bedside. Patient states that he was recently noncompliant with fluid restriction and subsequently started developing swelling. His swelling also causes lower extremity pain and discomfort, most notably in his thighs bilaterally which compromises his ability to ambulate. He also admits to a nonproductive cough and shortness of breath when he lies on his side. Denies fevers, chills, chest pain, diarrhea. Patient also has a chronic indwelling ortiz catheter. PMH: CHF s/p AICD, bladder cancer, BPH, HTN, CKD, liver cirrhosis PSH: pacemaker/AICD (2000), paracentesis (most recent 04/2018) SHx: previous alcohol abuse (last drink 1 year ago), denies tobacco or illicit drug use FHx: denies Allergies: NKDA PMD: Dr. Edwards Present on Admission - Present on Admission Any Indicators Present on Admission: Yes Urinary Catheter: Yes Review of Systems - Review of Systems All systems: reviewed and no additional remarkable complaints except (as stated in HPI) Past Patient History - Infectious Disease Hx of Infectious Diseases: None - Past Medical History & Family History Past Medical History?: Yes - Past Social History Smoking Status: Never Smoked - CARDIAC Hx Cardiac Disorders: Yes Hx Congestive Heart Failure: Yes Hx Hypertension: Yes - PULMONARY Hx Respiratory Disorders: No - NEUROLOGICAL HX Cerebrovascular Accident: Yes - HEENT Hx HEENT Problems: Yes Hx Deafness: Yes Other/Comment: mute - RENAL Hx Chronic Kidney Disease: Yes - ENDOCRINE/METABOLIC Hx Endocrine Disorders: Yes Hx Diabetes Mellitus Type 2: Yes - HEMATOLOGICAL/ONCOLOGICAL Hx Cirrhosis: Yes Hx Metastesis: Yes Other/Comment: Liver CA/Bladder CA. Ascitis - INTEGUMENTARY Hx Dermatological Problems: No - MUSCULOSKELETAL/RHEUMATOLOGICAL Hx Falls: Yes - GASTROINTESTINAL Hx Gastrointestinal Disorders: Yes Other/Comment: ascites - GENITOURINARY/GYNECOLOGICAL Hx Genitourinary Disorders: Yes (retentrion ortiz to sgd) Hx Bladder Cancer: Yes Other/Comment: bph - PSYCHIATRIC Hx Substance Use: No - SURGICAL HISTORY Other/Comment: AICD. Paracentesis - ANESTHESIA Hx Anesthesia: Yes Hx Anesthesia Reactions: No Hx Malignant Hyperthermia: No Meds Allergies/Adverse Reactions: Allergies Allergy/AdvReac Type Severity Reaction Status Date / Time No Known Allergies Allergy Verified 06/24/18 01:00 Physical Exam - Constitutional Appears: Non-toxic, No Acute Distress - Head Exam Head Exam: ATRAUMATIC, NORMOCEPHALIC - Eye Exam Eye Exam: EOMI, Normal appearance, PERRL, Scleral icterus - ENT Exam ENT Exam: Mucous Membranes Moist - Respiratory Exam Respiratory Exam: Decreased Breath Sounds. absent: Accessory Muscle Use, Rales, Rhonchi, Wheezes, Respiratory Distress - Cardiovascular Exam Cardiovascular Exam: JVD, RRR, +S1, +S2 - GI/Abdominal Exam GI & Abdominal Exam: Distended. absent: Guarding, Rebound, Tenderness - Extremities Exam Extremities exam: Positive for: pedal edema. Negative for: tenderness - Neurological Exam Neurological exam: Alert, CN II-XII Intact, Oriented x3 - Psychiatric Exam Psychiatric exam: Normal Affect, Normal Mood - Skin Skin Exam: Dry, Intact, Warm Results - Vital Signs Recent Vital Signs: Last Vital Signs Temp Pulse Resp BP Pulse Ox 98 06/24/18 02:09 - Labs Result Diagrams: 06/24/18 01:40 06/24/18 01:40 Labs: Laboratory Results - last 24 hr 06/24/18 06/24/18 06/24/18 01:40 01:40 01:40 WBC 8.0 RBC 4.77 Hgb 14.3 Hct 44.2 MCV 92.7 D MCH 30.0 MCHC 32.4 RDW 17.1 H Plt Count 274 MPV 9.3 Neut % (Auto) 73.7 H Lymph % (Auto) 13.7 L [place] % (Auto) 8.3 H Eos % (Auto) 3.4 Baso % (Auto) 0.9 Lymph # (Auto) 1.1 L [place] # (Auto) 0.7 H Eos # (Auto) 0.3 Baso # (Auto) 0.07 Absolute Neuts (auto) 5.92 PT 18.2 H INR 1.64 APTT 31.2 Sodium Potassium Chloride Carbon Dioxide Anion Gap BUN Creatinine Est GFR ( Amer) Est GFR (Non-Af Amer) Random Glucose Calcium Magnesium Total Bilirubin AST ALT Alkaline Phosphatase Lactate Dehydrogenase Total Creatine Kinase Troponin I NT-Pro-B Natriuret Pep Total Protein Albumin Globulin Albumin/Globulin Ratio Lipase Urine Color Urine Appearance Urine pH Ur Specific [place] Urine Protein Urine Glucose (UA) Urine Ketones Urine Blood Urine Nitrate Urine Bilirubin Urine Urobilinogen Ur Leukocyte Esterase Urine RBC Urine WBC Ur Epithelial Cells Urine Bacteria Digoxin < 0.4 L 06/24/18 06/24/18 01:40 01:40 WBC RBC Hgb Hct MCV MCH MCHC RDW Plt Count MPV Neut % (Auto) Lymph % (Auto) Rapides % (Auto) Eos % (Auto) Baso % (Auto) Lymph # (Auto) [place] # (Auto) Eos # (Auto) Baso # (Auto) Absolute Neuts (auto) PT INR APTT Sodium 138 Potassium 4.5 Chloride 106 Carbon Dioxide 24 Anion Gap 13 BUN 41 H Creatinine 1.6 H Est GFR ( Amer) 54 Est GFR (Non-Af Amer) 45 Random Glucose 117 H Calcium 9.1 Magnesium 1.9 Total Bilirubin 3.3 H AST 41 ALT 24 Alkaline Phosphatase 608 H Lactate Dehydrogenase 669 Total Creatine Kinase 115 Troponin I 0.11 D NT-Pro-B Natriuret Pep 8380 H Total Protein 7.2 Albumin 3.3 Globulin 3.9 Albumin/Globulin Ratio 0.9 L Lipase 95 Urine Color Yellow Urine Appearance Sl cloudy Urine pH 7.0 Ur Specific [place] 1.010 Urine Protein Negative Urine Glucose (UA) Negative Urine Ketones Negative Urine Blood Small H Urine Nitrate Positive H Urine Bilirubin Negative Urine Urobilinogen 0.2 Ur Leukocyte Esterase Small H Urine RBC 0 - 2 Urine WBC 1 - 3 Ur Epithelial Cells 1 - 3 Urine Bacteria Trace Digoxin Assessment & Plan - Assessment and Plan (Free Text) Assessment: Patient is a 57 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 Plan: Ascites - 12/2017 hepatitis panel negative - total bilirubin is at baseline - Abdominal ultrasound (01/2018) shows extrahepatic portal vein is patent with hepatopetal flow, no thrombus or obstruction. The 3 hepatic veins are visualized centrally and patent. The hepatic artery is patent. - GI and IR consulted. Appreciate recs. CHF (systolic) - ECHO (03/2018) shows EF 10%, - elevated BNP - 40 mg Lasix IV BID - continue home Digoxin - Cardiology consulted. Appreciate recs. - daily weights, I&O's, head of bed 45 degrees - fluid restriction 1 L daily Bladder cancer - urinary retention s/p ortiz placement - Urology consulted. Appreciate recs. 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 Codey Patino PGY-1 - Date & Time Date: 06/24/18 Time: 03:14 <Karl Alegre - Last Filed: 06/24/18 20:43> Results - Vital Signs Recent Vital Signs: Last Vital Signs Temp 97.3 F L 06/24/18 12:00 Pulse 92 H 06/24/18 18:00 Resp 18 06/24/18 12:00 BP 107/84 06/24/18 17:31 Pulse Ox 100 06/24/18 06:10 - Labs Result Diagrams: 06/24/18 01:40 06/24/18 01:40 Labs: Laboratory Results - last 24 hr 06/24/18 06/24/18 06/24/18 01:40 01:40 01:40 WBC 8.0 RBC 4.77 Hgb 14.3 Hct 44.2 MCV 92.7 D MCH 30.0 MCHC 32.4 RDW 17.1 H Plt Count 274 MPV 9.3 Neut % (Auto) 73.7 H Lymph % (Auto) 13.7 L [place] % (Auto) 8.3 H Eos % (Auto) 3.4 Baso % (Auto) 0.9 Lymph # (Auto) 1.1 L [place] # (Auto) 0.7 H Eos # (Auto) 0.3 Baso # (Auto) 0.07 Absolute Neuts (auto) 5.92 PT 18.2 H INR 1.64 APTT 31.2 Sodium Potassium Chloride Carbon Dioxide Anion Gap BUN Creatinine Est GFR ( Amer) Est GFR (Non-Af Amer) Random Glucose Calcium Phosphorus Magnesium Total Bilirubin AST ALT Alkaline Phosphatase Lactate Dehydrogenase Total Creatine Kinase Troponin I NT-Pro-B Natriuret Pep Total Protein Albumin Globulin Albumin/Globulin Ratio Lipase Alpha Fetoprotein Urine Color Urine Appearance Urine pH Ur Specific [place] Urine Protein Urine Glucose (UA) Urine Ketones Urine Blood Urine Nitrate Urine Bilirubin Urine Urobilinogen Ur Leukocyte Esterase Urine RBC Urine WBC Ur Epithelial Cells Urine Bacteria Fluid Source Fluid Appearance Fluid WBC Fluid RBC Fluid Tot Cell Count Fluid Mononuclear Cell Fl Polymorphonucl Cell Fluid Comment Digoxin < 0.4 L 06/24/18 06/24/18 06/24/18 01:40 01:40 08:20 WBC RBC Hgb Hct MCV MCH MCHC RDW Plt Count MPV Neut % (Auto) Lymph % (Auto) [place] % (Auto) Eos % (Auto) Baso % (Auto) Lymph # (Auto) [place] # (Auto) Eos # (Auto) Baso # (Auto) Absolute Neuts (auto) PT INR APTT Sodium 138 Potassium 4.5 Chloride 106 Carbon Dioxide 24 Anion Gap 13 BUN 41 H Creatinine 1.6 H Est GFR ( Amer) 54 Est GFR (Non-Af Amer) 45 Random Glucose 117 H Calcium 9.1 Phosphorus 4.3 Magnesium 1.9 2.0 Total Bilirubin 3.3 H AST 41 ALT 24 Alkaline Phosphatase 608 H Lactate Dehydrogenase 669 Total Creatine Kinase 115 Troponin I 0.11 D NT-Pro-B Natriuret Pep 8380 H Total Protein 7.2 Albumin 3.3 Globulin 3.9 Albumin/Globulin Ratio 0.9 L Lipase 95 Alpha Fetoprotein Urine Color Yellow Urine Appearance Sl cloudy Urine pH 7.0 Ur Specific [place] 1.010 Urine Protein Negative Urine Glucose (UA) Negative Urine Ketones Negative Urine Blood Small H Urine Nitrate Positive H Urine Bilirubin Negative Urine Urobilinogen 0.2 Ur Leukocyte Esterase Small H Urine RBC 0 - 2 Urine WBC 1 - 3 Ur Epithelial Cells 1 - 3 Urine Bacteria Trace Fluid Source Fluid Appearance Fluid WBC Fluid RBC Fluid Tot Cell Count Fluid Mononuclear Cell Fl Polymorphonucl Cell Fluid Comment Digoxin 06/24/18 06/24/18 10:20 15:40 WBC RBC Hgb Hct MCV MCH MCHC RDW Plt Count MPV Neut % (Auto) Lymph % (Auto) [place] % (Auto) Eos % (Auto) Baso % (Auto) Lymph # (Auto) [place] # (Auto) Eos # (Auto) Baso # (Auto) Absolute Neuts (auto) PT INR APTT Sodium Potassium Chloride Carbon Dioxide Anion Gap BUN Creatinine Est GFR ( Amer) Est GFR (Non-Af Amer) Random Glucose Calcium Phosphorus Magnesium Total Bilirubin AST ALT Alkaline Phosphatase Lactate Dehydrogenase Total Creatine Kinase Troponin I NT-Pro-B Natriuret Pep Total Protein Albumin Globulin Albumin/Globulin Ratio Lipase Alpha Fetoprotein 8.0 H Urine Color Urine Appearance Urine pH Ur Specific [place] Urine Protein Urine Glucose (UA) Urine Ketones Urine Blood Urine Nitrate Urine Bilirubin Urine Urobilinogen Ur Leukocyte Esterase Urine RBC Urine WBC Ur Epithelial Cells Urine Bacteria Fluid Source Peritoneal/ascites Fluid Appearance Clear Fluid WBC 164.0 Fluid RBC 20.4 H Fluid Tot Cell Count 100 H Fluid Mononuclear Cell 89.6 H Fl Polymorphonucl Cell 10.4 H Fluid Comment Yellow Digoxin Attending/Attestation - Attestation I have personally seen and examined this patient.: Yes I have fully participated in the care of the patient.: Yes I have reviewed all pertinent clinical information: Yes
[2018-06-24] MEDS ORDERED: Simethicone 80 mg Chewtab PO PRN (03:42)
[2018-06-24] MEDS ORDERED: Albuterol-Ipratrop 3 mg / 0.5 (3 ml) UD ONE (04:12)
[2018-06-24] MEDS ORDERED: Dextrose 50% SYRINGE Inj (50 ml) IV PRN (05:00)
[2018-06-24] MEDS: Albuterol-Ipratrop 3 mg / 0.5 (3 ml) UD INH SCH ×3 (08:28→19:38)
--- NOTE | 2018-06-24 09:09 | CP.PCM.CON ---
<Yasemin Suggs - Last Filed: 06/24/18 09:24> History of Present Illness - History of Present Illness History of Present Illness: PGY5 GI Consult Note Benny Snider is a 57M, deaf/mute, presenting with scrotal and abdominal swelling. We have seen this patient on our service a few times before this. He comes in with recurrent ascites due to cardiac hepatopathy. His last paracentesis was on 06/03/2018. He has at least 7 paracentesis since 01/2018. Pt was recently discharged from hospital for similiar complaints. Prior to discharge he was started on Lasix (unknown discharge dose) and aldactone 100mg daily. Pt states that he was complaint on whatever meds were given. Pt is oriented x3. Denies any rectal bleeding, hematemsis or coffee-ground emesis He admits that he does not know the medications or the dosing he is taking. He does not weigh himself daily nor know his "dry" weight. He drinks 6 glasses of water per day. PMHx -Dilated CMP, EF 12%, CAD, CKD, ESLD w/ ascites, bladder CA PSHx - AICD, chronic ortiz Family History: GERD, HTN, HLD; No history of colon/liver/GI cancer Social History: Currently denies any tobacco, alcohol or illicit drug use; Former alcohol abuse noted; Lives alone and independent with ADL's Endo Hx: unknown Past Patient History - Infectious Disease Hx of Infectious Diseases: None - Past Medical History & Family History Past Medical History?: Yes - Past Social History Smoking Status: Never Smoked - CARDIAC Hx Cardiac Disorders: Yes Hx Congestive Heart Failure: Yes Hx Hypertension: Yes - PULMONARY Hx Respiratory Disorders: No - NEUROLOGICAL HX Cerebrovascular Accident: Yes - HEENT Hx HEENT Problems: Yes Hx Deafness: Yes Other/Comment: mute - RENAL Hx Chronic Kidney Disease: Yes - ENDOCRINE/METABOLIC Hx Endocrine Disorders: Yes Hx Diabetes Mellitus Type 2: Yes - HEMATOLOGICAL/ONCOLOGICAL Hx Cirrhosis: Yes Hx Metastesis: Yes Other/Comment: Liver CA/Bladder CA. Ascitis - INTEGUMENTARY Hx Dermatological Problems: No - MUSCULOSKELETAL/RHEUMATOLOGICAL Hx Falls: Yes - GASTROINTESTINAL Hx Gastrointestinal Disorders: Yes Other/Comment: ascites - GENITOURINARY/GYNECOLOGICAL Hx Genitourinary Disorders: Yes (retentrion ortiz to sgd) Other/Comment: bph - PSYCHIATRIC Hx Substance Use: No - SURGICAL HISTORY Other/Comment: AICD. Paracentesis - ANESTHESIA Hx Anesthesia: Yes Hx Anesthesia Reactions: No Hx Malignant Hyperthermia: No Meds Allergies/Adverse Reactions: Allergies Allergy/AdvReac Type Severity Reaction Status Date / Time No Known Allergies Allergy Verified 06/24/18 01:00 - Medications Medications: Current Medications Albuterol/Ipratropium (Duoneb 3 Mg/0.5 Mg (3 Ml) Ud) 3 ml INH [id number] [facility] Last Admin: 06/24/18 08:28 Dose: 3 ml Aspirin (Aspirin Chewable) 81 mg PO DAILY [facility] Bisacodyl (Dulcolax) [address] DAILY PRN PRN Reason: Constipation Carvedilol (Coreg) 6.25 mg PO Q12H [facility] Last Admin: 06/24/18 04:13 Dose: 6.25 mg Dextrose (Dextrose 50% Inj) 0 ml IV STAT PRN; Protocol PRN Reason: Hypoglycemia Protocol Digoxin (Digoxin) 0.125 mg PO DAILY@1800 [facility] Famotidine (Pepcid) 10 mg PO BID [facility] Finasteride (Proscar) 5 mg PO DAILY [facility] Furosemide (Lasix) 40 mg IVP BID [facility] Heparin Sodium (Porcine) (Heparin) 5,000 units SC Q12H [facility]; Protocol Last Admin: 06/24/18 04:11 Dose: 5,000 units Dextrose (Dextrose 5% In Water 1000 Ml) 1,000 mls @ 0 mls/hr IV .Q0M PRN; Pro tocol PRN Reason: Hypoglycemia Protocol Insulin Human Regular (Humulin R Med) 0 units SC ACHS [facility]; Protocol Lisinopril (Zestril) 2.5 mg PO DAILY [facility] Magnesium Oxide (Mag-Ox) 400 mg PO DAILY [facility] Simethicone (Mylicon Chew Tab) 80 mg PO DAILY PRN PRN Reason: Flatulence Spironolactone (Aldactone) 50 mg PO DAILY [facility] Physical Exam - Constitutional Appears: Well, No Acute Distress - Head Exam Head Exam: ATRAUMATIC, NORMOCEPHALIC - Eye Exam Eye Exam: Normal appearance - ENT Exam ENT Exam: Mucous Membranes Moist, Normal Exam - Respiratory Exam Respiratory Exam: Clear to Auscultation Bilateral, NORMAL BREATHING PATTERN. absent: Rales, Rhonchi, Wheezes, Respiratory Distress - Cardiovascular Exam Cardiovascular Exam: REGULAR RHYTHM, +S1, +S2 - GI/Abdominal Exam GI & Abdominal Exam: Distended, Firm, Normal Bowel Sounds. absent: Guarding, Organomegaly, Pulsatile Mass, Rebound, Rigid, Tenderness - Exam Additional comments: swollen scrotum - Extremities Exam Extremities exam: Negative for: joint swelling, pedal edema Additional comments: proximal upper ext edema - Neurological Exam Neurological exam: Alert, Oriented x3 - Psychiatric Exam Psychiatric exam: Normal Affect, Normal Mood - Skin Skin Exam: Dry, Intact, Normal Color, Warm Results - Vital Signs Recent Vital Signs: Last Vital Signs Temp 97.8 F 06/24/18 06:10 Pulse 84 06/24/18 08:10 Resp 20 06/24/18 08:10 BP 111/75 06/24/18 06:10 Pulse Ox 100 06/24/18 06:10 - Labs Result Diagrams: 06/24/18 01:40 06/24/18 01:40 Labs: Laboratory Results - last 24 hr 06/24/18 06/24/18 06/24/18 01:40 01:40 01:40 WBC 8.0 RBC 4.77 Hgb 14.3 Hct 44.2 MCV 92.7 D MCH 30.0 MCHC 32.4 RDW 17.1 H Plt Count 274 MPV 9.3 Neut % (Auto) 73.7 H Lymph % (Auto) 13.7 L Hamilton % (Auto) 8.3 H Eos % (Auto) 3.4 Baso % (Auto) 0.9 Lymph # (Auto) 1.1 L Hamilton # (Auto) 0.7 H Eos # (Auto) 0.3 Baso # (Auto) 0.07 Absolute Neuts (auto) 5.92 PT 18.2 H INR 1.64 APTT 31.2 Sodium Potassium Chloride Carbon Dioxide Anion Gap BUN Creatinine Est GFR ( Amer) Est GFR (Non-Af Amer) Random Glucose Calcium Phosphorus Magnesium Total Bilirubin AST ALT Alkaline Phosphatase Lactate Dehydrogenase Total Creatine Kinase Troponin I NT-Pro-B Natriuret Pep Total Protein Albumin Globulin Albumin/Globulin Ratio Lipase Urine Color Urine Appearance Urine pH Ur Specific Given Urine Protein Urine Glucose (UA) Urine Ketones Urine Blood Urine Nitrate Urine Bilirubin Urine Urobilinogen Ur Leukocyte Esterase Urine RBC Urine WBC Ur Epithelial Cells Urine Bacteria Digoxin < 0.4 L 06/24/18 06/24/18 06/24/18 01:40 01:40 08:20 WBC RBC Hgb Hct MCV MCH MCHC RDW Plt Count MPV Neut % (Auto) Lymph % (Auto) Hamilton % (Auto) Eos % (Auto) Baso % (Auto) Lymph # (Auto) Hamilton # (Auto) Eos # (Auto) Baso # (Auto) Absolute Neuts (auto) PT INR APTT Sodium 138 Potassium 4.5 Chloride 106 Carbon Dioxide 24 Anion Gap 13 BUN 41 H Creatinine 1.6 H Est GFR ( Amer) 54 Est GFR (Non-Af Amer) 45 Random Glucose 117 H Calcium 9.1 Phosphorus 4.3 Magnesium 1.9 2.0 Total Bilirubin 3.3 H AST 41 ALT 24 Alkaline Phosphatase 608 H Lactate Dehydrogenase 669 Total Creatine Kinase 115 Troponin I 0.11 D NT-Pro-B Natriuret Pep 8380 H Total Protein 7.2 Albumin 3.3 Globulin 3.9 Albumin/Globulin Ratio 0.9 L Lipase 95 Urine Color Yellow Urine Appearance Sl cloudy Urine pH 7.0 Ur Specific Given 1.010 Urine Protein Negative Urine Glucose (UA) Negative Urine Ketones Negative Urine Blood Small H Urine Nitrate Positive H Urine Bilirubin Negative Urine Urobilinogen 0.2 Ur Leukocyte Esterase Small H Urine RBC 0 - 2 Urine WBC 1 - 3 Ur Epithelial Cells 1 - 3 Urine Bacteria Trace Digoxin Assessment & Plan - Assessment and Plan (Free Text) Assessment: Benny Snider is a 57M w/ hx of 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 who presents to the Er with complaints of weakness, SOB, and abd distention Decompensated cardiac cirrhosis, MELD-Na: 22 06/24/2018 Recurrent tense ascites due to cardiac failure Acute on chronic systolic heart failure, EF 12%. AICD Cardiac hepatopathy YODIT on CKD Papillary Urothelial Carcinoma PLAN: -Labs and exam show decompensated right sided cardiac failure likely due to medication non-compliance. -Advised patient to find his "dry" weight and weight himself everyday on the same scale. -Advised him to take the medications everyday and write down the medications and dosing that he is taking. -Advised him to drink no more than 1L of water per day, and avoid salt. -recommend IR guided paracentesis, with fluid analysis for cell count, albumin, and total protein -hold aldactone for now -will need to optimized with diuretics, need closer monitoring -TIPS is not advisable. Medication, diet and lifestyle adherence is best management. Patient would benefit from frequent nursing checks at home to do cument medications and daily weights. This would help prevent recurrent admissions. D/W Dr. Guidry <Van Guidry - Last Filed: 06/24/18 13:45> Meds - Medications Medications: Current Medications Albuterol/Ipratropium (Duoneb 3 Mg/0.5 Mg (3 Ml) Ud) 3 ml INH [id number] [facility] Last Admin: 06/24/18 08:28 Dose: 3 ml Aspirin (Aspirin Chewable) 81 mg PO DAILY [facility] Last Admin: 06/24/18 10:07 Dose: 81 mg Bisacodyl (Dulcolax) [address] DAILY PRN PRN Reason: Constipation Carvedilol (Coreg) 6.25 mg PO Q12H [facility] Last Admin: 06/24/18 04:13 Dose: 6.25 mg Dextrose (Dextrose 50% Inj) 0 ml IV STAT PRN; Protocol PRN Reason: Hypoglycemia Protocol Digoxin (Digoxin) 0.125 mg PO DAILY@1800 [facility] Famotidine (Pepcid) 10 mg PO BID [facility] Last Admin: 06/24/18 10:06 Dose: 10 mg Finasteride (Proscar) 5 mg PO DAILY [facility] Last Admin: 06/24/18 10:07 Dose: 5 mg Furosemide (Lasix) 40 mg IVP BID [facility] Last Admin: 06/24/18 10:07 Dose: 40 mg Heparin Sodium (Porcine) (Heparin) 5,000 units SC Q12H [facility]; Protocol Last Admin: 06/24/18 04:11 Dose: 5,000 units Dextrose (Dextrose 5% In Water 1000 Ml) 1,000 mls @ 0 mls/hr IV .Q0M PRN; Protocol PRN Reason: Hypoglycemia Protocol Insulin Human Regular (Humulin R Med) 0 units SC ACHS [facility]; Protocol Last Admin: 06/24/18 10:00 Dose: Not Given Magnesium Oxide (Mag-Ox) 400 mg PO DAILY [facility] Last Admin: 06/24/18 10:07 Dose: 400 mg Simethicone (Mylicon Chew Tab) 80 mg PO DAILY PRN PRN Reason: Flatulence Results - Vital Signs Recent Vital Signs: Last Vital Signs Temp 97.3 F L 06/24/18 12:00 Pulse 47 L 06/24/18 12:00 Resp 18 06/24/18 12:00 BP 101/77 06/24/18 12:00 Pulse Ox 100 06/24/18 06:10 - Labs Result Diagrams: 06/24/18 01:40 06/24/18 01:40 Labs: Laboratory Results - last 24 hr 06/24/18 06/24/18 06/24/18 01:40 01:40 01:40 WBC 8.0 RBC 4.77 Hgb 14.3 Hct 44.2 MCV 92.7 D MCH 30.0 MCHC 32.4 RDW 17.1 H Plt Count 274 MPV 9.3 Neut % (Auto) 73.7 H Lymph % (Auto) 13.7 L Hamilton % (Auto) 8.3 H Eos % (Auto) 3.4 Baso % (Auto) 0.9 Lymph # (Auto) 1.1 L Hamilton # (Auto) 0.7 H Eos # (Auto) 0.3 Baso # (Auto) 0.07 Absolute Neuts (auto) 5.92 PT 18.2 H INR 1.64 APTT 31.2 Sodium Potassium Chloride Carbon Dioxide Anion Gap BUN Creatinine Est GFR ( Amer) Est GFR (Non-Af Amer) Random Glucose Calcium Phosphorus Magnesium Total Bilirubin AST ALT Alkaline Phosphatase Lactate Dehydrogenase Total Creatine Kinase Troponin I NT-Pro-B Natriuret Pep Total Protein Albumin Globulin Albumin/Globulin Ratio Lipase Urine Color Urine Appearance Urine pH Ur Specific Given Urine Protein Urine Glucose (UA) Urine Ketones Urine Blood Urine Nitrate Urine Bilirubin Urine Urobilinogen Ur Leukocyte Esterase Urine RBC Urine WBC Ur Epithelial Cells Urine Bacteria Digoxin < 0.4 L 06/24/18 06/24/18 06/24/18 01:40 01:40 08:20 WBC RBC Hgb Hct MCV MCH MCHC RDW Plt Count MPV Neut % (Auto) Lymph % (Auto) Hamilton % (Auto) Eos % (Auto) Baso % (Auto) Lymph # (Auto) Hamilton # (Auto) Eos # (Auto) Baso # (Auto) Absolute Neuts (auto) PT INR APTT Sodium 138 Potassium 4.5 Chloride 106 Carbon Dioxide 24 Anion Gap 13 BUN 41 H Creatinine 1.6 H Est GFR ( Amer) 54 Est GFR (Non-Af Amer) 45 Random Glucose 117 H Calcium 9.1 Phosphorus 4.3 Magnesium 1.9 2.0 Total Bilirubin 3.3 H AST 41 ALT 24 Alkaline Phosphatase 608 H Lactate Dehydrogenase 669 Total Creatine Kinase 115 Troponin I 0.11 D NT-Pro-B Natriuret Pep 8380 H Total Protein 7.2 Albumin 3.3 Globulin 3.9 Albumin/Globulin Ratio 0.9 L Lipase 95 Urine Color Yellow Urine Appearance Sl cloudy Urine pH 7.0 Ur Specific Given 1.010 Urine Protein Negative Urine Glucose (UA) Negative Urine Ketones Negative Urine Blood Small H Urine Nitrate Positive H Urine Bilirubin Negative Urine Urobilinogen 0.2 Ur Leukocyte Esterase Small H Urine RBC 0 - 2 Urine WBC 1 - 3 Ur Epithelial Cells 1 - 3 Urine Bacteria Trace Digoxin Attending/Attestation - Attestation I have personally seen and examined this patient.: Yes I have fully participated in the care of the patient.: Yes I have reviewed all pertinent clinical information: Yes Notes (Text): 06/24/18 13:41 I have seen and examined patient with GI fellow. Agree with above documentation with the following additions. In brief, this is a 57 year old male with history of deaf/mute, end stage CHF, cardiac decompensated cirrhosis, CKD who presents to hospital with complaint of progressive abdominal distention and dyspnea over the past one week. He reports worsening ascites, claims to be compliant with medical regimen though is not able to describe specific dosage. He denies abdominal pain, nausea, vomiting, fever/chills. He claims to be compliant with low sodium diet. He has had multiple paracentesis prior, most recently on June 03. No prior endoscopic evaluation. Deaf/mute CHF s/p ICD Decompensated cirrhosis secondary to cardiac cause, admission MELD 22 CKD Ascites - Low sodium diet as tolerated - Suggest therapeutic paracentesis - Optimize cardiac status - Will hold diuretics for time being given acute renal insufficiency and monitor creatinine following dose of albumin after paracentesis - Will continue to monitor patient clinical course
--- NOTE | 2018-06-24 09:14 | CARD ---
APPROVED REPORT Date of service: 06/24/2018 EKG Measurement Heart [id number] <Conclusion> Atrial fibrillation with rapid ventricular response Left axis deviation RSR' or QR pattern in V1 suggests right ventricular conduction delay Inferior infarct, age undetermined T wave abnormality, consider lateral ischemia or digitalis effect Abnormal ECG
[2018-06-24] MEDS ORDERED: ENALAPRIL MALEATE 2.5 MG PO SCH (10:00)
[2018-06-24] MEDS: Insulin Reg-MEDIUM-Coverage SC SCH ×4 (10:00→22:02)
[2018-06-24] MEDS: Magnesium Oxide 400 mg Tab UD PO SCH (10:07)
--- NOTE | 2018-06-24 10:44 | RAD ---
Date of service: 06/24/2018 HISTORY: sob COMPARISON: Comparison is made with 01/20/2018 FINDINGS: LUNGS: Slight pulmonary vascular congestion is noted. No evidence of new consolidation PLEURA: Suspicious for small blunting of the right costophrenic angle. CARDIOVASCULAR: No aortic atherosclerotic calcification present. The heart is moderately enlarged. Left-sided pacemaker is again seen in place. OSSEOUS STRUCTURES: No significant abnormalities. VISUALIZED UPPER ABDOMEN: Normal. OTHER FINDINGS: None. IMPRESSION: Mild pulmonary vascular congestion. Cardiomegaly is again noted.
--- NOTE | 2018-06-24 14:48 | CON ---
DATE OF CONSULTATION: 06/24/2018 CARDIOLOGY CONSULTATION REASON FOR CONSULTATION: Congestive heart failure and atrial flutter. SOURCE OF HISTORY: History was taken via a [employer] deaf and mute audio/video engineer. HISTORY OF PRESENT ILLNESS: The patient is 57 years old male, who is deaf and mute, has a history of cardiomyopathy, status post ICD placement, history of chronic atrial flutter, history of benign prostatic hypertrophy requiring an indwelling Gordon catheter, history of low-grade bladder malignancy, and history of cardiac cirrhosis, who required recurrent abdominal paracentesis. He presents because of worsening of his ascites as well as recurrence of his scrotal swelling. The patient denies retrosternal chest pain. The patient denies any recent discharge with the defibrillator. SOCIAL HISTORY: Nonsmoker. He is single. He lives with his son. MEDICATIONS: Aspirin 81 mg once a day, Coreg 6.25 mg twice a day, digoxin 0.125 mg once a day, albuterol inhaler, subcutaneous heparin 5000 units every 12 hours, Lasix 40 mL intravenous twice a day, magnesium oxide 400 mg daily, Pepcid 10 mg p.o. twice a day, and Proscar 5 mg once a day. REVIEW OF SYSTEMS: No fever or chills. No dizziness or syncope. No palpitation. No recent discharge of the defibrillator. PHYSICAL EXAMINATION: GENERAL: The patient is a middle-aged male, who does not appear to be in any distress. VITAL SIGNS: Blood pressure 101/77, heart rate 94, temperature 97.3, respirations 18. HEENT: Head, normocephalic. CHEST: Absent breath sounds over the bases. HEART: S1 and S2 regular. ABDOMEN: Moderate ascites. There is moderate scrotal edema. EXTREMITIES: 1+ pitting edema. LABORATORY DATA: Hemoglobin and hematocrit are 14.3 and 44.2, white count and platelet count are within normal limits. The SMA-7, sodium 138, potassium 4.5, chloride 106, CO2 of 24, glucose 170, BUN 41, creatinine 1.6. ProBNP is 8380. Lipase is within normal limit. INR is 1.64, PTT is 31.2. Digoxin level is less than 0.4. EKG revealed atrial flutter with variable AV conduction, heart rate 114, old inferior infarct, consider lateral ischemic T-wave changes. The most recent echo was in March of last year, which revealed ejection fraction less than 20%, severely dilated left ventricle with severe global hypokinesis, severely dilated left atrium, severely dilated right atrium, moderate pulmonary hypertension, and small circumferential pericardial effusion. Today's chest x-ray revealed significant cardiomegaly and no infiltrate, effusion or constellation. ASSESSMENT: 1. Dilated cardiomyopathy. 2. Worsening ascites. 3. Chronic atrial flutter. 4. Benign prostatic hypertrophy requiring an indwelling Gordon catheter. 5. Low-grade bladder wall malignancy. RECOMMENDATIONS: Case was discussed at length with the medical team including primary physician, Dr. Suggs, the hospitalist on the case. Continue aspirin 81 mg once a day, Coreg 6.25 mg twice a day, digoxin 0.125 mg once a day, subcutaneous heparin 5000 units every 12 hours, Lasix 40 g intravenous twice a day, start Aldactone at 50 mg orally once a day. Interventional Radiology evaluation is requested to evaluate the patient for abdominal paracentesis. Restrict daily fluid intake. In this case, he was not considered a suitable candidate for long-term anticoagulation after discussing the issue in the past with his primary booking officer, Dr. Ellie Aguilera. Ke Torres MD
[2018-06-24 15:47] LABS: BODY FLUID TYPE PERITONEAL/ASCITES
[2018-06-24 16:28] LABS: BF GROSS APPEARANCE CLEAR (CLEAR); BODY FLUID TOTAL COUNT 100 (0-0)
[2018-06-24 16:36] LABS: BODY FLUID RBC 20.4 /uL (0.0-0.0)
--- NOTE | 2018-06-24 16:48 | US ---
PROCEDURE: Ultrasound guided paracentesis. HISTORY: Cardiogenic cirrhosis. Recurrent ascites with abdominal pain and distension. Needs diagnostic and therapeutic paracentesis PHYSICIAN(S): Garrett Dejesus MD. TECHNIQUE: The relative risks and indications for the procedure were explained to the patient and informed written consent obtained. Sonography of the abdomen was performed in a supine position. This revealed a moderate amount of non-loculated ascites, greatest in the right lower quadrant. A puncture site was selected and the area was prepped and draped in the usual sterile fashion. 1% Xylocaine was used to anesthetize the skin and soft tissues. A 7 Romanian paracentesis catheter was trocared into the right lower quadrantand 3000 cc of clear yellow slightly bilious fluid aspirated. The requested labs were sent IMPRESSION: Ultrasound-guided paracentesis in the right lower quadrant. 3000 cc of fluid were aspirated. The requested labs were sent
[2018-06-24] MEDS: Digoxin 125 mcg (0.125 mg) Tab PO SCH (17:36)
[2018-06-24 17:37] VITALS: PULSE 95
[2018-06-25] MEDS: Albuterol-Ipratrop 3 mg / 0.5 (3 ml) UD INH SCH ×3 (01:17→13:46)
[2018-06-25] MEDS: Insulin Reg-MEDIUM-Coverage SC SCH ×3 (07:36→16:30)
[2018-06-25 08:38] LABS: BASO # 0.07 K/mm3 (0.0-2.0); EOS # 0.4 (0.0-0.7); EOS % 5.5 % (1.5-5.0); HEMOGLOBIN 14.6 g/dL (14.0-18.0); LYMPH # 1.2 (1.2-3.4); LYMPH % 17.5 % (22.0-35.0); MEAN CELL VOLUME 93.4 fl (80.0-105.0); MEAN CORPUSCULAR HEMOGLOBIN 29.3 pg (25.0-35.0); MEAN CORPUSCULAR HGB CONC 31.4 g/dl (31.0-37.0); MEAN PLATELET VOLUME 9.3 fl (7.0-11.0); MONO # 0.6 (0.1-0.6); RBC 4.98 10^6/uL (3.5-6.1); RED CELL DISTRIBUTION WIDTH 17.3 % (11.5-14.5); WHITE BLOOD COUNT 7.1 10^3/uL (4.5-11.0)
[2018-06-25 08:58] LABS: ALB/GLOB RATIO 0.9 (1.1-1.8); ALBUMIN 3.4 g/dL (3.0-4.8); CALCIUM 9.5 mg/dL (8.4-10.5)
--- NOTE | 2018-06-25 09:14 | CP.PCM.PN ---
<Dulce Zayas - Last Filed: 06/25/18 09:33> Subjective - Date & Time of Evaluation Date of Evaluation: 06/25/18 Time of Evaluation: 09:11 - Subjective Subjective: Gastroenterology Fellow/PGY6 Progress Note Patient off floor for Duplex Ultrasound. No acute events noted overnight. Status post paracentesis of three liters yesterday. Objective - Vital Signs/Intake and Output Vital Signs (last 24 hours): Temp Pulse Resp BP Pulse Ox 97.6 F 90 21 110/85 99 06/25/18 06:00 06/25/18 06:00 06/25/18 06:00 06/25/18 06:00 06/25/18 06:00 Intake and Output: 06/25/18 06/25/18 06:59 18:59 Intake Total 240 Output Total 800 Balance -560 - Medications Medications: Current Medications Albuterol/Ipratropium (Duoneb 3 Mg/0.5 Mg (3 Ml) Ud) 3 ml INH [id number] [facility] Last Admin: 06/25/18 07:20 Dose: 3 ml Aspirin (Aspirin Chewable) 81 mg PO DAILY [facility] Last Admin: 06/24/18 10:07 Dose: 81 mg Bisacodyl (Dulcolax) 10 mg AK DAILY PRN PRN Reason: Constipation Carvedilol (Coreg) 6.25 mg PO Q12H [facility] Last Admin: 06/25/18 05:12 Dose: 6.25 mg Dextrose (Dextrose 50% Inj) 0 ml IV STAT PRN; Protocol PRN Reason: Hypoglycemia Protocol Digoxin (Digoxin) 0.125 mg PO DAILY@1800 [facility] Last Admin: 06/24/18 17:36 Dose: 0.125 mg Famotidine (Pepcid) 10 mg PO BID [facility] Last Admin: 06/24/18 17:32 Dose: 10 mg Finasteride (Proscar) 5 mg PO DAILY [facility] Last Admin: 06/24/18 10:07 Dose: 5 mg Furosemide (Lasix) 40 mg IVP BID [facility] Last Admin: 06/24/18 17:30 Dose: 40 mg Heparin Sodium (Porcine) (Heparin) 5,000 units SC Q12H [facility]; Protocol Last Admin: 06/25/18 05:12 Dose: 5,000 units Dextrose (Dextrose 5% In Water 1000 Ml) 1,000 mls @ 0 mls/hr IV .Q0M PRN; Protocol PRN Reason: Hypoglycemia Protocol Insulin Human Regular (Humulin R Med) 0 units SC ACHS [facility]; Protocol Last Admin: 06/25/18 07:36 Dose: Not Given Magnesium Oxide (Mag-Ox) 400 mg PO DAILY [facility] Last Admin: 06/24/18 10:07 Dose: 400 mg Simethicone (Mylicon Chew Tab) 80 mg PO DAILY PRN PRN Reason: Flatulence - Labs Labs: 06/25/18 08:26 06/25/18 08:26 PT 18.2 SECONDS (9.4-12.5) H 06/24/18 01:40 INR 1.64 06/24/18 01:40 APTT 31.2 Seconds (26.9-38.3) 06/24/18 01:40 - Constitutional Appears: Non-toxic, No Acute Distress - Head Exam Head Exam: ATRAUMATIC, NORMOCEPHALIC - Eye Exam Eye Exam: EOMI, PERRL, Scleral icterus Pupil Exam: PERRL. absent: Miosis, Mydriatic - ENT Exam ENT Exam: Mucous Membranes Moist, Normal Oropharynx - Neck Exam Neck Exam: Full ROM, Normal Inspection - Respiratory Exam Respiratory Exam: Clear to Ausculation Bilateral. absent: Rales, Rhonchi, Wheezes - Cardiovascular Exam Cardiovascular Exam: RRR, +S1, +S2. absent: Gallop, Rubs - GI/Abdominal Exam GI & Abdominal Exam: Distended, Soft, Normal Bowel Sounds. 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 Active treatment of decompensated cirrhosis 2/2 ascites and YODIT. Plan: -MELD 22 -POD1 paracentesis -3Liters, no SBP- PMNs 17 -creatinine unchanged -no albumin received yesterday -provide albumin 25g today -follow up Duplex U/S to evaluate portal system -AFP 8 -U/S 04/2018- no hepatic lesions -low sodium diet -resume home diuretic management with counselling on compliance provided -would benefit from continuity of care at liver center- [facility] , counselling provided, discussed with primary team -would benefit from elective EGD for variceal screening -not TIPs candidate as would be unable to monitor for hepatic encephalopathy in setting of being deaf and mute -will follow clinical course <Van Guidry Y - Last Filed: 06/25/18 09:51> Objective - Vital Signs/Intake and Output Vital Signs (last 24 hours): Temp Pulse Resp BP Pulse Ox 97.6 F 90 21 109/81 99 06/25/18 06:00 06/25/18 06:00 06/25/18 06:00 06/25/18 09:41 06/25/18 06:00 Intake and Output: 06/25/18 06/25/18 06:59 18:59 Intake Total 240 Output Total 800 Balance -560 - Medications Medications: Current Medications Albuterol/Ipratropium (Duoneb 3 Mg/0.5 Mg (3 Ml) Ud) 3 ml INH [id number] [facility] Last Admin: 06/25/18 07:20 Dose: 3 ml Aspirin (Aspirin Chewable) 81 mg PO DAILY [facility] Last Admin: 06/25/18 09:41 Dose: 81 mg Bisacodyl (Dulcolax) 10 mg AK DAILY PRN PRN Reason: Constipation Carvedilol (Coreg) 6.25 mg PO Q12H [facility] Last Admin: 06/25/18 05:12 Dose: 6.25 mg Dextrose (Dextrose 50% Inj) 0 ml IV STAT PRN; Protocol PRN Reason: Hypoglycemia Protocol Digoxin (Digoxin) 0.125 mg PO DAILY@1800 [facility] Last Admin: 06/24/18 17:36 Dose: 0.125 mg Famotidine (Pepcid) 10 mg PO BID [facility] Last Admin: 06/25/18 09:40 Dose: 10 mg Finasteride (Proscar) 5 mg PO DAILY [facility] Last Admin: 06/25/18 09:40 Dose: 5 mg Furosemide (Lasix) 40 mg IVP BID [facility] Last Admin: 06/25/18 09:41 Dose: 40 mg Heparin Sodium (Porcine) (Heparin) 5,000 units SC Q12H [facility]; Protocol Last Admin: 06/25/18 05:12 Dose: 5,000 units Dextrose (Dextrose 5% In Water 1000 Ml) 1,000 mls @ 0 mls/hr IV .Q0M PRN; Protocol PRN Reason: Hypoglycemia Protocol Insulin Human Regular (Humulin R Med) 0 units SC ACHS [facility]; Protocol Last Admin: 06/25/18 07:36 Dose: Not Given Magnesium Oxide (Mag-Ox) 400 mg PO DAILY [facility] Last Admin: 06/24/18 10:07 Dose: 400 mg Simethicone (Mylicon Chew Tab) 80 mg PO DAILY PRN PRN Reason: Flatulence - Labs Labs: 06/25/18 08:26 06/25/18 08:26 PT 18.2 SECONDS (9.4-12.5) H 06/24/18 01:40 INR 1.64 06/24/18 01:40 APTT 31.2 Seconds (26.9-38.3) 06/24/18 01:40 Attending/Attestation - Attestation I have personally seen and examined this patient.: Yes I have fully participated in the care of the patient.: Yes I have reviewed all pertinent clinical information, including history, physical exam and plan: Yes Notes (Text): 06/25/18 09:48 I have seen and examined patient with GI fellow. No acute events overnight, he is seen sitting in bed and appears quite comfortable. He denies abdominal pain, nausea, vomiting, fever/chills. S/p paracentesis yesterday with 3 liters fluid removed. CHF s/p ICD CKD Decompensated cirrhosis secondary to cardiac dysfunction Ascites s/p paracentesis yesterday DM Bladder cancer Deaf/mute - Low sodium diet as tolerated - Creatinine stable, suggest albumin replacement following paracentesis - Follow up abdominal duplex - Ascitic fluid analysis shows no evidence of SBP - Can resume diuretic therapy, monitor electrolytes - Patient would benefit from tertiary care center referral to [facility] for ongoing management of recurrent ascites and decompensated cirrhosis. No further planned GI intervention at this time, will sign off case. Please reconsult as necessary, thank you.
[2018-06-25] MEDS: Magnesium Oxide 400 mg Tab UD PO SCH (10:40)
[2018-06-25 10:55] LABS: INR 1.52; PROTHROMBIN TIME 17.2 SECONDS (9.4-12.5)
[2018-06-25] MEDS ORDERED: Albumin Human 25% (12.5 gm/50 ml) IV SCH (12:00)
[2018-06-25] MEDS: Albumin Human 25% (12.5 gm/50 ml) IV SCH ×2 (12:06→13:18)
--- NOTE | 2018-06-25 13:45 | US ---
PROCEDURE: Portal vein duplex ultrasound. CLINICAL HISTORY: Cardiogenic cirrhosis. Deteriorating liver function. Evaluate portal vein patency PHYSICIAN(S): Garrett Dejesus M.D. FINDINGS: The extrahepatic portal vein is patent with blunted hepatopetal flow The hepatic artery is patent. The central hepatic veins are prominent, consistent with elevated right heart pressures There is a trace amount of ascites in the upper abdomen. IMPRESSION: 1. Patent portal vein with blunted hepatopetal flow
--- NOTE | 2018-06-25 13:48 | PN ---
DATE: 06/25/2018 SUBJECTIVE: The patient underwent abdominal paracentesis yesterday by Dr. Garrett Dejesus with removal of 3 mL of fluid. The patient denies any abdominal pain or shortness of breath at this time. PHYSICAL EXAMINATION VITAL SIGNS: Blood pressure 110/85, heart rate 90, temperature 97.6, respirations 21. HEENT: Normocephalic. CHEST: Clear. HEART: S1 and S2, regular. ABDOMEN: Mild ascites and mild scrotal edema. EXTREMITIES: 1+ pitting edema. LABORATORY DATA: Today's hemoglobin and hematocrit are 14.6 and 46.5, white count and platelet count are within normal limits. Today's BUN and creatinine are 43 and 1.6 respectively. Rest of BMP is within normal limits. ASSESSMENT 1. Cardiomyopathy. 2. Status post abdominal paracentesis with removal of 3 liters of ascitic fluid. 3. Cardiac cirrhosis. 4. Benign prostatic hypertrophy requiring an indwelling Gordon catheter. 5. Low grade bladder malignancy. 6. Chronic renal insufficiency. RECOMMENDATIONS: The case was discussed with primary physician, Dr. Suggs. Continue aspirin 81 mg once a day, Coreg 6.25 mg twice a day, digoxin 0.125 mg daily, subcutaneous heparin 5000 units every 12 hours, Lasix 40 mg intravenously twice a day, and magnesium oxide 400 mg once a day. Start Aldactone at 50 mg orally daily. The patient can be discharged from the cardiac point of view. Ke Torres MD
[2018-06-25 17:46] VITALS: O2SAT 98
[2018-06-25] MEDS: Digoxin 125 mcg (0.125 mg) Tab PO SCH (18:05)
[2018-06-25 18:43] VITALS: BP 109/58; PULSE 66; RESP 18; TEMP 97.6
--- NOTE | 2018-06-25 23:21 | CP.PCM.DIS ---
Provider - Provider Date of Admission: 06/24/18 02:27 Attending physician: Sujey Suggs DO Consults: 06/24/18 03:36 Physician Consult Routine Comment: Consulting Provider: Claudio Miller Consulting Physician: Claudio Miller Reason for Consult: Hx bladder cancer, chronic ortiz 06/24/18 03:41 Physician Consult Routine Comment: Consulting Provider: Garrett Dejesus Consulting Physician: Garrett Dejesus Reason for Consult: paracentesis 06/24/18 03:46 Cardiology Consult Routine Comment: Consulting Provider: Ke Torres Consulting Physician: Ke Torres Reason for Consult: CHF (EF 10%), aflutter 06/24/18 08:15 Social Work Referral Routine Comment: Patric score 12 Physician Instructions: Reason For Exam: Protocol 06/24/18 08:43 Nursing Referral for Wound Care Routine Comment: Physician Instructions: Reason For Exam: Protocol Time Spent in preparation of Discharge (in minutes): 35 Hospital Course - Lab Results Lab Results: Micro Results 06/24/18 15:40 Ascitic Fluid Gram Stain - Final 06/24/18 15:40 Ascitic Fluid Body Fluid Culture - Preliminary NO GROWTH AFTER 24 HOURS 06/24/18 01:40 Urine,Clean Catch Urine Culture - Final Corynebacterium Species Most Recent Lab Values WBC 7.1 10^3/uL (4.5-11.0) 06/25/18 08:26 RBC 4.98 10^6/uL (3.5-6.1) 06/25/18 08:26 Hgb 14.6 g/dL (14.0-18.0) 06/25/18 08:26 Hct 46.5 % (42.0-52.0) 06/25/18 08:26 MCV 93.4 fl (80.0-105.0) 06/25/18 08:26 MCH 29.3 pg (25.0-35.0) 06/25/18 08:26 MCHC 31.4 g/dl (31.0-37.0) 06/25/18 08:26 RDW 17.3 % (11.5-14.5) H 06/25/18 08:26 Plt Count 262 10^3/uL (120.0-450.0) 06/25/18 08:26 MPV 9.3 fl (7.0-11.0) 06/25/18 08:26 Neut % (Auto) 67.0 % (50.0-68.0) 06/25/18 08:26 Lymph % (Auto) 17.5 % (22.0-35.0) L 06/25/18 08:26 Cassia % (Auto) 9.0 % (1.0-6.0) H 06/25/18 08:26 Eos % (Auto) 5.5 % (1.5-5.0) H 06/25/18 08:26 Baso % (Auto) 1.0 % (0.0-3.0) 06/25/18 08:26 Lymph # (Auto) 1.2 (1.2-3.4) 06/25/18 08:26 Cassia # (Auto) 0.6 (0.1-0.6) 06/25/18 08:26 Eos # (Auto) 0.4 (0.0-0.7) 06/25/18 08:26 Baso # (Auto) 0.07 K/mm3 (0.0-2.0) 06/25/18 08:26 Absolute Neuts (auto) 4.75 (1.4-6.5) 06/25/18 08:26 PT 17.2 SECONDS (9.4-12.5) H 06/25/18 10:30 INR 1.52 06/25/18 10:30 APTT 31.2 Seconds (26.9-38.3) 06/24/18 01:40 Sodium 139 mmol/L (132-148) 06/25/18 08:26 Potassium 4.3 mmol/L (3.6-5.0) 06/25/18 08:26 Chloride 103 mmol/L (98-107) 06/25/18 08:26 Carbon Dioxide 25 mmol/L (21-33) 06/25/18 08:26 Anion Gap 16 (10-20) 06/25/18 08:26 BUN 43 mg/dL (7-21) H 06/25/18 08:26 Creatinine 1.6 mg/dl (0.8-1.5) H 06/25/18 08:26 Est GFR ( Amer) 54 06/25/18 08:26 Est GFR (Non-Af Amer) 45 06/25/18 08:26 POC Glucose (mg/dL) 250 mg/dL (65-110) H 06/25/18 11:24 Random Glucose 98 mg/dL (70-110) 06/25/18 08:26 Calcium 9.5 mg/dL (8.4-10.5) 06/25/18 08:26 Phosphorus 4.6 mg/dL (2.5-4.5) H 06/25/18 08:26 Magnesium 2.2 mg/dL (1.7-2.2) 06/25/18 08:26 Total Bilirubin 3.1 mg/dL (0.2-1.3) H 06/25/18 08:26 AST 44 U/L (17-59) 06/25/18 08:26 ALT 15 U/L (7-56) 06/25/18 08:26 Alkaline Phosphatase 567 U/L (38-126) H 06/25/18 08:26 Lactate Dehydrogenase 669 U/L (333-699) 06/24/18 01:40 Total Creatine Kinase 115 U/L (35-230) 06/24/18 01:40 Troponin I 0.11 ng/mL D 06/24/18 01:40 NT-Pro-B Natriuret Pep 8380 pg/mL (0-450) H 06/24/18 01:40 Total Protein 7.4 g/dL (5.8-8.3) 06/25/18 08:26 Albumin 3.4 g/dL (3.0-4.8) 06/25/18 08:26 Globulin 4.0 gm/dL 06/25/18 08:26 Albumin/Globulin Ratio 0.9 (1.1-1.8) L 06/25/18 08:26 Lipase 95 U/L (23-300) 06/24/18 01:40 Alpha Fetoprotein 8.0 ng/mL (0.0-7.5) H 06/24/18 10:20 Urine Color Yellow (YELLOW) 06/24/18 01:40 Urine Appearance Sl cloudy (CLEAR) 06/24/18 01:40 Urine pH 7.0 (4.7-8.0) 06/24/18 01:40 Ur Specific [place] 1.010 (1.005-1.035) 06/24/18 01:40 Urine Protein Negative mg/dL (<30 mg/dL) 06/24/18 01:40 Urine Glucose (UA) Negative mg/dL (NEGATIVE) 06/24/18 01:40 Urine Ketones Negative mg/dL (NEGATIVE) 06/24/18 01:40 Urine Blood Small (NEGATIVE) H 06/24/18 01:40 Urine Nitrate Positive (NEGATIVE) H 06/24/18 01:40 Urine Bilirubin Negative (NEGATIVE) 06/24/18 01:40 Urine Urobilinogen 0.2 E.U./dL (<1 E.U./dL) 06/24/18 01:40 Ur Leukocyte Esterase Small Terrie/uL (NEGATIVE) H 06/24/18 01:40 Urine RBC 0 - 2 /hpf (0-2) 06/24/18 01:40 Urine WBC 1 - 3 /hpf (0-6) 06/24/18 01:40 Ur Epithelial Cells 1 - 3 /hpf (0-5) 06/24/18 01:40 Urine Bacteria Trace /hpf (NONE) 06/24/18 01:40 Fluid Source Peritoneal/ascites 06/24/18 15:40 Fluid Appearance Clear (CLEAR) 06/24/18 15:40 Fluid WBC 164.0 /uL (0.0-300.0) 06/24/18 15:40 Fluid RBC 20.4 /uL (0.0-0.0) H 06/24/18 15:40 Fluid Tot Cell Count 100 (0-0) H 06/24/18 15:40 Fluid Mononuclear Cell 89.6 % (0-0) H 06/24/18 15:40 Fl Polymorphonucl Cell 10.4 % (0-0) H 06/24/18 15:40 Fluid Comment Yellow 06/24/18 15:40 Digoxin < 0.4 ng/mL (0.8-2.0) L 06/24/18 01:40 - Hospital Course Hospital Course: Hung Tadeo, PGY1 Discharge Summary for Dr. Suggs Patient is a 57 year old deaf and mute male with past medical history of CHF s/p AICD, bladder cancer, BPH, HTN, CKD, liver cirrhosis who presented with chief complaint of increased generalized swelling and worsening abdominal distension. Patient stated that he was recently noncompliant with fluid restriction and subsequently started developing swelling. His swelling also caused lower extremity pain and discomfort, most notably in his thighs bilaterally which compromised his ability to ambulate. He also endorsed nonproductive cough and shortness of breath when he lies on his side. Medical team evaluated patient and he was admitted. geosciences professor was used for patient. Patient admitted for abdominal ascites. He did not show any signs of altered mental status or infection. Patient has a recent echo (03/2018) that showed EF 10%. Cardio was consulted. Home meds were restarted and he was kept on fluid restriction during hospital course. For the ascites, GI and IR was consulted. Cardio recs were to continue with fluid restriction. GI recommended low sodium diet and therapeutic paracentesis. As a result, paracentesis was done for the patient by IR in which 3 L were drained successfully. Afterwards, patient said he felt much better. Abdominal US showed patent portal vein with blunted hepatopetal flow. Cardio had no further recommendations for the patient. Upon reviewing all labs, vitals, and imaging, patient is hemodynamically stable for discharge. He will follow up with his PMD and GI/Urologist upon discharge. Discharge Exam - Head Exam Head Exam: ATRAUMATIC, NORMOCEPHALIC - Eye Exam Eye Exam: Normal appearance Pupil Exam: NORMAL ACCOMODATION, PERRL - Respiratory Exam Respiratory Exam: Clear to PA & Lateral. absent: Rales, Rhonchi, Wheezes - Cardiovascular Exam Cardiovascular Exam: RRR, +S1, +S2 - GI/Abdominal Exam GI & Abdominal Exam: Distended (Large adomen due to ascites (improved since admission) ), Soft. absent: Guarding, Hernia, Rebound, Rigid, Tenderness - Extremities Exam Extremities exam: normal capillary refill, normal inspection, pedal pulses present - Neurological Exam Neurological exam: Alert, CN II-XII Intact, Normal Gait, Oriented x3, Reflexes Normal - Psychiatric Exam Psychiatric exam: Normal Mood Additional comments: Patient is deaf and mute. - Skin Skin Exam: Dry, Intact, Normal Color, Warm Discharge Plan - Follow Up Plan Condition: FAIR Disposition: HOME/ ROUTINE Instructions: Heart Failure, Adult (DC), Fluid in the Belly (Ascites) (DC) Additional Instructions: 1. Follow up with Primary care doctor within 3-5 days. 2. You will need a repeat urinalysis with you primary care doctor or urologist 3. You will need to follow up with Construction Site Manager (Dr. Guidry) within 1 week. 4. Please follow up with your urologist Dr. Claudio Miller within 1 week. 5. Continue all of your home medications 6. If you experience new or worsening symptoms, return to nearest emergency department Referrals: Ke Torres MD [Staff Provider] - Claudio Miller MD [Staff Provider] -
== END 2018-06-25 19:07 | disposition home or self-care (01) | DRG 291 ==
LOC: ED 00:52 → ERH 02:27 → 2RNO 04:55
PROVIDERS: ADMIT Internal Medicine; ATTEND Hospitalist
PROC: BW40ZZZ Ultrasonography of Abdomen (ICD-10-PCS; 2018-06-24)
PROC: 0W9G3ZZ Drainage of Peritoneal Cavity, Percutaneous Approach (ICD-10-PCS; principal; 2018-06-24 16:30)
DX: I13.0 Hypertensive heart and chronic kidney disease with heart failure and stage 1 through stage 4 chronic kidney disease, or unspecified chronic kidney disease (principal); I50.23 Acute on chronic systolic (congestive) heart failure; N39.0 Urinary tract infection, site not specified; R18.8 Other ascites; I48.92 Unspecified atrial flutter; I50.20 Unspecified systolic (congestive) heart failure; N17.9 Acute kidney failure, unspecified; H91.3 Deaf nonspeaking, not elsewhere classified; N40.0 Benign prostatic hyperplasia without lower urinary tract symptoms; Z91.11 Patient's noncompliance with dietary regimen; Z85.51 Personal history of malignant neoplasm of bladder; Z85.05 Personal history of malignant neoplasm of liver; Z95.810 Presence of automatic (implantable) cardiac defibrillator; N18.9 Chronic kidney disease, unspecified; E11.22 Type 2 diabetes mellitus with diabetic chronic kidney disease; Z79.01 Long term (current) use of anticoagulants; I42.0 Dilated cardiomyopathy; Z82.49 Family history of ischemic heart disease and other diseases of the circulatory system; Z83.438 Family history of other disorder of lipoprotein metabolism and other lipidemia; I25.10 Atherosclerotic heart disease of native coronary artery without angina pectoris; I50.84 End stage heart failure; K74.60 Unspecified cirrhosis of liver; N50.89 Other specified disorders of the male genital organs; Z86.73 Personal history of transient ischemic attack (TIA), and cerebral infarction without residual deficits

== ENCOUNTER 2018-09-14 17:07 | Inpatient (IN) | payer MEDICAID, MEDICARE, OTHER ==
[2018-09-14 17:22] VITALS: BMI 21.6
--- NOTE | 2018-09-14 17:31 | ED PDOC ---
Arrival/HPI - General Time Seen by Provider: 09/14/18 17:26 Historian: Family (Son), EMS - Critical Care Critical Care Minutes: 45 minutes - History of Present Illness Narrative History of Present Illness (Text): 09/14/18 17:35 57 year old M with pmh of liver cirrhosis, CHF, bladder CA, abdominal ascites, Cardia Arrhythmia and Heart working at 15-20% presents with son complaining of abdominal pain and shortness of breath since yesterday but worse today. Patient is hard of hearing, son translates for him using sign language. Son reports patient has felt cold for days. Ortiz catheter last changed 2 months ago. Patient denies any headache, dizziness, chest pain, cough, nausea, vomiting, diarrhea, back pain, neck pain, or any other complaint. Urologist: Dr. Miller Symptom Onset: Sudden Symptom Course: Unchanged Activities at Onset: Light Context: Home Past Medical History - Provider Review Nursing Documentation Reviewed: Yes - Infectious Disease Hx of Infectious Diseases: None - Cardiac Hx Cardiac Disorders: Yes (Cardia arrhythmia, Pacemaker) Hx Congestive Heart Failure: Yes Hx Hypertension: Yes - Pulmonary Hx Respiratory Disorders: No - Neurological HX Cerebrovascular Accident: Yes - HEENT Hx HEENT Disorder: Yes Hx Deafness: Yes Other/Comment: mute - Renal Hx Renal Disorder: Yes - Endocrine/Metabolic Hx Diabetes Mellitus Type 2: Yes - Hematological/Oncological Hx Cirrhosis: Yes Hx Metastasis: Yes Other/Comment: Liver CA/Bladder CA. Ascitis - Integumentary Hx Dermatological Disorder: No - Musculoskeletal/Rheumatological Hx Falls: Yes - Gastrointestinal Hx Gastrointestinal Disorders: Yes Other/Comment: ascites - Genitourinary/Gynecological Hx Genitourinary Disorders: Yes (retentrion ortiz to sgd) Other/Comment: bph - Psychiatric Hx Substance Use: No - Surgical History Other/Comment: AICD. Paracentesis - Anesthesia Hx Anesthesia: Yes Hx Anesthesia Reactions: No Hx Malignant Hyperthermia: No Family/Social History - Physician Review Nursing Documentation Reviewed: Yes Family/Social History: Unknown Family HX Smoking Status: Never Smoked Hx Alcohol Use: Yes Hx Substance Use: No Hx Substance Use Treatment: No Allergies/Home Meds Allergies/Adverse Reactions: Allergies No Known Allergies Allergy (Verified 07/19/18 14:47) Review of Systems - Physician Review All systems were reviewed & negative as marked: Yes - Review of Systems Constitutional: absent: Fevers ENT: absent: Sore Throat Respiratory: SOB. absent: Cough, Wheezing Cardiovascular: absent: Chest Pain Gastrointestinal: Abdominal Pain. absent: Diarrhea, Nausea, Vomiting Genitourinary Male: absent: Dysuria, Hematuria Musculoskeletal: absent: Arthralgias, Back Pain, Neck Pain, Myalgias Skin: absent: Rash Neurological: absent: Headache, Dizziness, Facial Droop, Disequilibrium Physical Exam Vital Signs Reviewed: Yes Temperature: Hypothermic Blood Pressure: Hypertensive Pulse: Tachycardic Respiratory Rate: Normal Appearance: Positive for: Non-Toxic, Comfortable Pain Distress: Mild Mental Status: Positive for: Alert and Oriented X 3 - Systems Exam Head: Present: Atraumatic, Normocephalic Pupils: Present: PERRL Extroacular Muscles: Present: EOMI Conjunctiva: Present: Normal Mouth: Present: Dry Neck: Present: Normal Range of Motion Respiratory/Chest: Present: Decreased Breath Sounds (at bases), Rales (at bases b/l), Other (palpable pacemaker. Healed surgical scar at left thoracic area.). No: Respiratory Distress, Accessory Muscle Use Cardiovascular: Present: Tachycardic. No: Murmurs Abdomen: Present: Distention. No: Peritoneal Signs Genitourinary Male: Present: Other (ortiz catheter) Upper Extremity: Present: Normal Inspection. No: Cyanosis, Edema Lower Extremity: Present: Edema (2+ pedal edema b/l) Neurological: Present: Other (Patient is hard of hearing, uses sign language to communicate) Skin: Present: Warm, Dry. No: Rashes Psychiatric: Present: Alert, Oriented x 3, Normal Insight, Normal Concentration Medical Decision Making ED Course and Treatment: 09/14/18 17:24 Impression: 57 year old M presents with son complaining of abdominal pain and shortness of breath since yesterday but worse today. Patient is hard of hearing, son translates for him using sign language Plan: -- Labs -- D Dimer -- Chest X-ray -- Lasix -- Saline IV -- Urinalysis -- Reassess and disposition Prior Visits: Notes and results from previous visits were reviewed. Patient was last seen in the emergency department on [facility] Notes: 09/14/18 17:25 E[address] results suspicious for [address] elevation in V3 and V4. Flip T wave at v6 Discussed case with Dr. Das, sending him EKG results 09/14/18 17:33 Dr. Das says case is not a code heart 09/14/18 18:10 Ortiz Catheter changed Bedside Cardiac ultrasound shows no obvious pericardial effusion. Reduced ejection fraction w/ dilated chambers. - RAD Interpretation Narrative RAD Interpretations (Text): 09/14/18 19:48 Chest X-ray -- No active disease. Stable, marked cardiomegaly [employer] Developer: Radiologist - EKG Interpretation EKG Interpretation (Text): 09/14/18 19:30 EKG Irregularly irregularly @ 120. ST elevation noted in v2-v4. T wave inversion in v6 Interpreted by ED Physician: Yes Type: 12 lead EKG - Scribe Statement The provider has reviewed the documentation as recorded by the Diogenes Griffin All medical record entries made by the Melissaibfrank were at my direction and personally dictated by me. I have reviewed the chart and agree that the record accurately reflects my personal performance of the history, physical exam, medical decision making, and the department course for this patient. I have also personally directed, reviewed, and agree with the discharge instructions and disposition. Disposition/Present on Arrival - Present on Arrival History of DVT/PE: No History of Uncontrolled Diabetes: No Urinary Catheter: Yes History Surgical Site Infection Following: None - Disposition Disposition: HOSPITALIZED
[2018-09-14] MEDS ORDERED: Sodium Chloride 0.9% 1,000 ML IV STA (17:35)
[2018-09-14 17:48] LABS: BASO # 0.03 K/mm3 (0.0-2.0); BASO % 0.3 % (0.0-3.0); EOS # 0.1 (0.0-0.7); EOS % 0.9 % (1.5-5.0); HEMOGLOBIN 16.6 g/dL (14.0-18.0); LYMPH # 2.1 (1.2-3.4); LYMPH % 23.7 % (22.0-35.0); MEAN CELL VOLUME 89.6 fl (80.0-105.0); MEAN CORPUSCULAR HEMOGLOBIN 29.7 pg (25.0-35.0); MEAN CORPUSCULAR HGB CONC 33.1 g/dl (31.0-37.0); MEAN PLATELET VOLUME 9.8 fl (7.0-11.0); MONO # 0.9 (0.1-0.6); MONO % 9.6 % (1.0-6.0); RBC 5.59 10^6/uL (3.5-6.1); RED CELL DISTRIBUTION WIDTH 19.4 % (11.5-14.5)
[2018-09-14 18:03] LABS: ALB/GLOB RATIO 0.9 (1.1-1.8); CALCIUM 9.4 mg/dL (8.4-10.5)
[2018-09-14 18:09] LABS: INR 1.51; PARTIAL THROMBOPLASTIN TIME 33.1 Seconds (26.9-38.3); PROTHROMBIN TIME 16.8 SECONDS (9.4-12.5)
[2018-09-14 18:12] LABS: TROPONIN I 0.09 ng/mL
--- NOTE | 2018-09-14 18:24 | RAD ---
Date of service: 09/14/2018 HISTORY: sob COMPARISON: 06/24/2018 FINDINGS: LUNGS: No active pulmonary disease. PLEURA: No significant pleural effusion identified, no pneumothorax apparent. CARDIOVASCULAR: No atherosclerotic calcification present Stable cardiomegaly. Position/ configuration of pacemaker OSSEOUS STRUCTURES: No significant abnormalities. VISUALIZED UPPER ABDOMEN: Normal. OTHER FINDINGS: None. IMPRESSION: No active disease. Stable, marked cardiomegaly.
--- NOTE | 2018-09-14 20:57 | CP.PCM.HP ---
<DiegoWhitley - Last Filed: 09/15/18 08:36> History of Present Illness - History of Present Illness History of Present Illness: HISTORY & PHYSICAL NOTE FOR HOSPITALIST SERVICE- DR. 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 Enmanuel Aguilera [facility] [place]), bladder cancer(papillary urothelial carcinoma), BPH w/ indwelling ortiz catheter, HTN, CKD, liver cirrhosis with ascites s/p paracentesis 07/22/18, presented to ED with complaints of shortness of breath that he has been suffering with for a "long time" however worsened over the past few days after he had been very thirsty and drinking more water than usual (5-6 glasses today). He reports SOB improved after urination. He reports associated dizziness and difficulty sleeping d/t SOB. He reports he has been complaint with his medications and took them this am. He met with his manager market research last month. He hasn't followed with a GI physician. He otherwise denies fevers, chills, headache, dizziness, chest pain, palpitations, nausea, vo miting, constipation, diarrhea, dysuria. PMH: CHF s/p AICD, bladder cancer, BPH, HTN, CKD, liver cirrhosis PSH: pacemaker/AICD (2000), paracentesis Allergies: NKDA SHx: denies alcohol, tobacco or drug use FHx: son: Acute lymphoblastic leukemia PMD: Dr. Edwards Urologist: Dr Tanika Miller Cardio: Dr. Enmanuel Aguilera [facility]acy: [facility], Intepretor #: [id number] Present on Admission - Present on Admission Any Indicators Present on Admission: No Review of Systems - Review of Systems Review of Systems: per HPI Past Patient History - Infectious Disease Hx of Infectious Diseases: None - Past Medical History & Family History Past Medical History?: Yes - Past Social History Smoking Status: Never Smoked - CARDIAC Hx Cardiac Disorders: Yes (Cardia arrhythmia, Pacemaker) Hx Congestive Heart Failure: Yes Hx Hypertension: Yes - PULMONARY Hx Respiratory Disorders: No - NEUROLOGICAL HX Cerebrovascular Accident: Yes - HEENT Hx HEENT Problems: Yes Hx Deafness: Yes Other/Comment: mute - RENAL Hx Chronic Kidney Disease: Yes - ENDOCRINE/METABOLIC Hx Diabetes Mellitus Type 2: Yes - HEMATOLOGICAL/ONCOLOGICAL Hx Cirrhosis: Yes Hx Metastesis: Yes Other/Comment: Liver CA/Bladder CA. Ascitis - INTEGUMENTARY Hx Dermatological Problems: No - MUSCULOSKELETAL/RHEUMATOLOGICAL Hx Falls: Yes - GASTROINTESTINAL Hx Gastrointestinal Disorders: Yes Other/Comment: ascites - GENITOURINARY/GYNECOLOGICAL Hx Genitourinary Disorders: Yes (retentrion ortiz to sgd) Other/Comment: bph - PSYCHIATRIC Hx Substance Use: No - SURGICAL HISTORY Other/Comment: AICD. Paracentesis - ANESTHESIA Hx Anesthesia: Yes Hx Anesthesia Reactions: No Hx Malignant Hyperthermia: No Meds Allergies/Adverse Reactions: Allergies Allergy/AdvReac Type Severity Reaction Status Date / Time No Known Allergies Allergy Verified 07/19/18 14:47 Physical Exam - Constitutional Appears: Well, Non-toxic, No Acute Distress - Head Exam Head Exam: NORMAL INSPECTION, NORMOCEPHALIC - Eye Exam Eye Exam: EOMI, Normal appearance - ENT Exam ENT Exam: Mucous Membranes Moist, Normal Exam - Neck Exam Neck exam: Positive for: Normal Inspection - Respiratory Exam Respiratory Exam: Clear to Auscultation Bilateral, NORMAL BREATHING PATTERN - Cardiovascular Exam Cardiovascular Exam: Tachycardia, +S1, +S2, Systolic Murmur - GI/Abdominal Exam GI & Abdominal Exam: Distended. absent: Guarding, Rebound, Rigid, Tenderness - Extremities Exam Extremities exam: Positive for: normal inspection. Negative for: calf tendernes s, pedal edema - Back Exam Back exam: NORMAL INSPECTION - Neurological Exam Neurological exam: Alert, Oriented x3 - Psychiatric Exam Psychiatric exam: Normal Affect, Normal Mood - Skin Skin Exam: Dry, Intact, Warm Results - Vital Signs Recent Vital Signs: Last Vital Signs Temp 98.9 F 09/14/18 18:43 Pulse 87 09/14/18 18:38 Resp 20 09/14/18 18:43 BP 115/70 09/14/18 18:38 Pulse Ox 96 09/14/18 18:38 - Labs Result Diagrams: 09/15/18 05:01 09/15/18 05:01 Labs: Laboratory Results - last 24 hr 09/14/18 09/14/18 09/14/18 17:29 17:29 17:29 WBC 9.0 D RBC 5.59 Hgb 16.6 D Hct 50.1 MCV 89.6 D MCH 29.7 MCHC 33.1 RDW 19.4 H Plt Count 288 MPV 9.8 Neut % (Auto) 65.5 Lymph % (Auto) 23.7 Wilkin % (Auto) 9.6 H Eos % (Auto) 0.9 L Baso % (Auto) 0.3 Lymph # (Auto) 2.1 Wilkin # (Auto) 0.9 H Eos # (Auto) 0.1 Baso # (Auto) 0.03 Absolute Neuts (auto) 5.87 PT 16.8 H INR 1.51 APTT 33.1 D-Dimer, Quantitative 1520 H Sodium 139 Potassium 4.9 Chloride 100 Carbon Dioxide 25 Anion Gap 19 BUN 55 H Creatinine 1.9 H Est GFR ( Amer) 44 Est GFR (Non-Af Amer) 37 Random Glucose 85 Calcium 9.4 Magnesium 2.3 H Total Bilirubin 4.8 H AST 38 ALT 19 Alkaline Phosphatase 583 H D Troponin I 0.09 NT-Pro-B Natriuret Pep Total Protein 8.5 H Albumin 4.0 Globulin 4.5 Albumin/Globulin Ratio 0.9 L Blood Type Antibody Screen BBK History Checked 09/14/18 09/14/18 17:43 18:15 WBC RBC Hgb Hct MCV MCH MCHC RDW Plt Count MPV Neut % (Auto) Lymph % (Auto) Wilkin % (Auto) Eos % (Auto) Baso % (Auto) Lymph # (Auto) Wilkin # (Auto) Eos # (Auto) Baso # (Auto) Absolute Neuts (auto) PT INR APTT D-Dimer, Quantitative Sodium Potassium Chloride Carbon Dioxide Anion Gap BUN Creatinine Est GFR ( Amer) Est GFR (Non-Af Amer) Random Glucose Calcium Magnesium Total Bilirubin AST ALT Alkaline Phosphatase Troponin I NT-Pro-B Natriuret Pep 7870 H Total Protein Albumin Globulin Albumin/Globulin Ratio Blood Type B NEGATIVE Antibody Screen Negative BBK History Checked No verified bt Assessment & Plan - Assessment and Plan (Free Text) Assessment: 57 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 No signs of SBP. Will cover empirically with 2g Rocephin continue home diuretics @ 100:40 ratio spironolactone:furosemide IR consulted for paracentesis GI consulted for ascites/cardiac cirrhosis cultures pending Cardiomyopathy/HFrEF s/p AICD placement EKG: aflutter 2:[address] elevations in septal leads. EKG reviewed by code heart manager market research affirmative action specialist, was made aware, no code heart. Echo 07/26: LVEF 10-15%. Grade IV restrictive diastolic dysfunction. Initial trop: 0.09, Trend troponins Q6H, repeat EKG Q6H. continue home ASA/b-veronica. Plavix on hole for possible paracentesis Strict I/Os, Daily weight. 2g Na Heart healthy diet Cardiology consulted: Dr. Whitehead had seen pt in past, wrote several progress notes YODIT on CKD Likely secondary to cardiorenal continue inotrope with digoxin Will hold IVF given reduced EF Bladder Cancer/BPH s/p indwelling ortiz catheter Indwelling catheter in place draining yellow urine No hematuria, dysuria noted continue home finasteride Previous cystoscopy was cancelled Urology consulted Chronic a-flutter tachycardic in ED. CTA in ED reveals no PE. Reveals signs of severe R heart failure. Continue home digoxin. f/u digoxin level continue b-veronica/digoxin therapy Cardiology consulted Anxiety start 0.5mg tid DVT/GI PPx: SCD Case reviewed with attending physician, Dr. Codey Cortez PGY1 <Karl Alegre - Last Filed: 09/15/18 20:59> Results - Vital Signs Recent Vital Signs: Last Vital Signs Temp 97.8 F 09/15/18 18:00 Pulse 115 H 09/15/18 18:00 Resp 20 09/15/18 18:00 BP 131/85 09/15/18 18:00 Pulse Ox 100 09/15/18 06:00 - Labs Result Diagrams: 09/15/18 05:01 09/15/18 05:01 Labs: Laboratory Results - last 24 hr 09/14/18 09/14/18 09/15/18 20:17 22:05 05:01 WBC 7.6 RBC 5.23 Hgb 15.4 Hct 46.6 MCV 89.1 MCH 29.4 MCHC 33.0 RDW 19.1 H Plt Count 256 MPV 9.6 Neut % (Auto) 70.9 H Lymph % (Auto) 20.7 L Wilkin % (Auto) 7.2 H Eos % (Auto) 0.7 L Baso % (Auto) 0.5 Lymph # (Auto) 1.6 Wilkin # (Auto) 0.5 Eos # (Auto) 0.1 Baso # (Auto) 0.04 Absolute Neuts (auto) 5.36 Sodium Potassium Chloride Carbon Dioxide Anion Gap BUN Creatinine Est GFR ( Amer) Est GFR (Non-Af Amer) Random Glucose Calcium Phosphorus Magnesium Iron TIBC % Saturation Total Bilirubin AST ALT Alkaline Phosphatase Ammonia Troponin I Total Protein Albumin Globulin Albumin/Globulin Ratio Urine Color Yellow Urine Appearance Sl cloudy Urine pH 6.5 Ur Specific Gilman 1.010 Urine Protein Negative Urine Glucose (UA) Negative Urine Ketones Negative Urine Blood Moderate H Urine Nitrate Negative Urine Bilirubin Negative Urine Urobilinogen 0.2 Ur Leukocyte Esterase Small H Urine RBC 10 - 15 H Urine WBC 2 - 5 Ur Epithelial Cells 3 - 4 Urine Bacteria Few Hyaline Casts 0 - 2 Digoxin Blood Type Confirm B NEGATIVE 09/15/18 09/15/18 09/15/18 05:01 05:01 11:40 WBC RBC Hgb Hct MCV MCH MCHC RDW Plt Count MPV Neut % (Auto) Lymph % (Auto) Wilkin % (Auto) Eos % (Auto) Baso % (Auto) Lymph # (Auto) Wilkin # (Auto) Eos # (Auto) Baso # (Auto) Absolute Neuts (auto) Sodium 138 Potassium 4.2 Chloride 98 Carbon Dioxide 28 Anion Gap 16 BUN 53 H Creatinine 1.8 H Est GFR ( Amer) 47 Est GFR (Non-Af Amer) 39 Random Glucose 105 Calcium 9.0 Phosphorus 4.1 4.8 H Magnesium 2.1 Iron TIBC % Saturation Total Bilirubin 4.1 H AST 30 ALT 15 Alkaline Phosphatase 491 H Ammonia Troponin I 0.11 D 0.11 Total Protein 7.3 Albumin 3.4 Globulin 3.9 Albumin/Globulin Ratio 0.9 L Urine Color Urine Appearance Urine pH Ur Specific Gilman Urine Protein Urine Glucose (UA) Urine Ketones Urine Blood Urine Nitrate Urine Bilirubin Urine Urobilinogen Ur Leukocyte Esterase Urine RBC Urine WBC Ur Epithelial Cells Urine Bacteria Hyaline Casts Digoxin 0.6 L Blood Type Confirm 09/15/18 09/15/18 16:40 18:00 WBC RBC Hgb Hct MCV MCH MCHC RDW Plt Count MPV Neut % (Auto) Lymph % (Auto) Wilkin % (Auto) Eos % (Auto) Baso % (Auto) Lymph # (Auto) Wilkin # (Auto) Eos # (Auto) Baso # (Auto) Absolute Neuts (auto) Sodium Potassium Chloride Carbon Dioxide Anion Gap BUN Creatinine Est GFR ( Amer) Est GFR (Non-Af Amer) Random Glucose Calcium Phosphorus Magnesium Iron 64 TIBC 348 % Saturation 18 L Total Bilirubin AST ALT Alkaline Phosphatase Ammonia 29 Troponin I Total Protein Albumin Globulin Albumin/Globulin Ratio Urine Color Urine Appearance Urine pH Ur Specific Gilman Urine Protein Urine Glucose (UA) Urine Ketones Urine Blood Urine Nitrate Urine Bilirubin Urine Urobilinogen Ur Leukocyte Esterase Urine RBC Urine WBC Ur Epithelial Cells Urine Bacteria Hyaline Casts Digoxin Blood Type Confirm Attending/Attestation - Attestation I have personally seen and examined this patient.: Yes I have fully participated in the care of the patient.: Yes I have reviewed all pertinent clinical information: Yes
[2018-09-14 22:15] LABS: PH,URINE 6.5 (4.7-8.0); URINE BILIRUBIN NEGATIVE (NEGATIVE); URINE BLOOD MODERATE (NEGATIVE); URINE GLUCOSE (UA) NEGATIVE (NEGATIVE); URINE LEUKOCYTE ESTERASE SMALL Leu/uL (NEGATIVE); URINE PROTEIN NEGATIVE mg/dL (<30 mg/dL); URINE UROBILINOGEN 0.2 E.U./dL (<1 E.U./dL)
[2018-09-14 22:17] LABS: URINE APPEARANCE SL CLOUDY (CLEAR); URINE COLOR YELLOW (YELLOW)
[2018-09-14 22:26] LABS: URINE BACTERIA FEW /hpf; URINE HYALINE CAST 0 - 2 /hpf
[2018-09-14] MEDS ORDERED: cefTRIAXone 2 GM IN NS 2 GM/100 ML BAG IVPB STA (23:51)
[2018-09-15 05:29] LABS: BASO # 0.04 K/mm3 (0.0-2.0); BASO % 0.5 % (0.0-3.0); EOS # 0.1 (0.0-0.7); EOS % 0.7 % (1.5-5.0); HEMOGLOBIN 15.4 g/dL (14.0-18.0); LYMPH # 1.6 (1.2-3.4); LYMPH % 20.7 % (22.0-35.0); MEAN CELL VOLUME 89.1 fl (80.0-105.0); MEAN CORPUSCULAR HEMOGLOBIN 29.4 pg (25.0-35.0); MEAN PLATELET VOLUME 9.6 fl (7.0-11.0); MONO # 0.5 (0.1-0.6); MONO % 7.2 % (1.0-6.0); RBC 5.23 10^6/uL (3.5-6.1); RED CELL DISTRIBUTION WIDTH 19.1 % (11.5-14.5); WHITE BLOOD COUNT 7.6 10^3/uL (4.5-11.0)
[2018-09-15 05:33] LABS: TROPONIN I 0.11 ng/mL
[2018-09-15 05:56] LABS: ALB/GLOB RATIO 0.9 (1.1-1.8); ALBUMIN 3.4 g/dL (3.0-4.8)
--- NOTE | 2018-09-15 08:11 | CT ---
Date of service: 09/14/2018 PROCEDURE: CT Chest with contrast (Pulmonary Angiogram) HISTORY: SOB w/ , elevated D-dimer COMPARISON: None available. TECHNIQUE: Axial computed tomography images were obtained of the chest in the pulmonary arterial phase of enhancement. Coronal and sagittal reformatted images were created and reviewed. Intravenous contrast dose: 150 cc of Omni 350 Radiation dose: Total exam DLP = 366.31 mGy-cm. This CT exam was performed using one or more of the following dose reduction techniques: Automated exposure control, adjustment of the mA and/or kV according to patient size, and/or use of iterative reconstruction technique. FINDINGS: PULMONARY ARTERIES: Unremarkable. No pulmonary embolism. AORTA: No acute findings. No thoracic aortic aneurysm. Aortic calcification LUNGS: Unremarkable. No nodule, mass or pulmonary consolidation. PLEURAL SPACES: Unremarkable. No effusion or pneumothorax. HEART: There is severe cardiomegaly with dilatation of the right atrium and reflux into the inferior vena cava LYMPH NODES: No lymphadenopathy. BONES, CHEST WALL: Unremarkable. No fracture or destructive lesion OTHER FINDINGS: The report concurs with the preliminary [facility] report IMPRESSION: No evidence of pulmonary embolus. Severe cardiomegaly with severe right atrial dilatation
--- NOTE | 2018-09-15 09:45 | CP.PCM.CON ---
<Murtaza Suggs - Last Filed: 09/15/18 11:25> History of Present Illness - History of Present Illness History of Present Illness: Murtaza Suggs Internal Medicine Resident- Consult Note on Behalf of Dr. 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 Enmanuel Aguilera [facility] [place]), bladder cancer(papillary urothelial carcinoma), BPH w/ indwelling ortiz catheter, HTN, CKD, liver cirrhosis with ascites s/p paracentesis 07/22/18, who was admitted for evaluation and treatment of shortness of breath and abdominal pain which began 2 days ago. Patient states abdominal pain is diffuse in nature. As per records the patient stated that he had been thirsty and admitted to drinking more water than usual. Also states he has been experiencing 4 bouts of lose bowel movements since symptoms began. Admits to chills, dizziness, and difficulty sleeping. Denies fevers, headache, chest pain, palpitations, nausea, vomiting, constipation, and urinary symptoms. PMH: CHF s/p AICD, bladder cancer, BPH, HTN, CKD, liver cirrhosis PSH: pacemaker/AICD (2000), paracentesis Allergies: NKDA SHx: denies alcohol, tobacco or drug use FHx: son: Acute lymphoblastic leukemia PMD: Dr. Edwards Urologist: Dr Tanika Miller Cardio: Dr. Enmanuel Aguilera Pharmacy: Replaced by [facility], Physical Examination: - Constitutional Appears: Well, Non-toxic, No Acute Distress - Head Exam Head Exam: NORMAL INSPECTION, NORMOCEPHALIC - Eye Exam Eye Exam: EOMI, Normal appearance - ENT Exam ENT Exam: Mucous Membranes Moist, Normal Exam - Neck Exam Neck exam: Positive for: Normal Inspection - Respiratory Exam Respiratory Exam: Clear to Auscultation Bilateral, NORMAL BREATHING PATTERN - Cardiovascular Exam Cardiovascular Exam: Tachycardia, +S1, +S2, Systolic Murmur - GI/Abdominal Exam GI & Abdominal Exam: Distended. Tender to palpation diffusely, Positive fluid wave, absent: Guarding, Rebound, Rigid - Extremities Exam Extremities exam: Positive for: normal inspection. 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 Enmanuel Aguilera [facility] [place]), bladder cancer(papillary urothelial carcinoma), BPH w/ indwelling ortiz catheter, HTN, CKD, liver cirrhosis with ascites s/p paracentesis 07/22/18, who was admitted for evaluation and treatment of shortness of breath and abdominal pain. SOB 2/2 Ascites 2/2 Hepatic Cirrhosis Cardiomyopathy/HFrEF s/p AICD placement YODIT on CKD Bladder Cancer/BPH s/p indwelling ortiz catheter Chronic a-flutter Anxiety - MELD Na 23 - recommend low sodium diet - optimization diuretic therapy spironolactone:furosemide - IR consulted for paracentesis - Order U/S abdomen to evaluate ascites- ordered and official read is pending - monitor for electrolyte derangements and renal function - recommend elective follow up for EGD for variceal screening and colonoscopy for CRC screening Patient seen, case reviewed with, and plan approved by attending physician, Dr. Bird. Past Patient History - Infectious Disease Hx of Infectious Diseases: None - Past Medical History & Family History Past Medical History?: Yes - Past Social History Smoking Status: Never Smoked - CARDIAC Hx Cardiac Disorders: Yes (Cardia arrhythmia, Pacemaker) Hx Congestive Heart Failure: Yes Hx Hypertension: Yes - PULMONARY Hx Respiratory Disorders: No - NEUROLOGICAL HX Cerebrovascular Accident: Yes - HEENT Hx HEENT Problems: Yes Hx Deafness: Yes Other/Comment: mute - RENAL Hx Chronic Kidney Disease: Yes - ENDOCRINE/METABOLIC Hx Diabetes Mellitus Type 2: Yes - HEMATOLOGICAL/ONCOLOGICAL Hx Cirrhosis: Yes Hx Metastesis: Yes Other/Comment: Liver CA/Bladder CA. Ascitis - INTEGUMENTARY Hx Dermatological Problems: No - MUSCULOSKELETAL/RHEUMATOLOGICAL Hx Falls: Yes - GASTROINTESTINAL Hx Gastrointestinal Disorders: Yes Other/Comment: ascites - GENITOURINARY/GYNECOLOGICAL Hx Genitourinary Disorders: Yes (retentrion ortiz to sgd) Other/Comment: bph - PSYCHIATRIC Hx Substance Use: No - SURGICAL HISTORY Other/Comment: AICD. Paracentesis - ANESTHESIA Hx Anesthesia: Yes Hx Anesthesia Reactions: No Hx Malignant Hyperthermia: No Meds Allergies/Adverse Reactions: Allergies Allergy/AdvReac Type Severity Reaction Status Date / Time No Known Allergies Allergy Verified 07/19/18 14:47 - Medications Medications: Current Medications Alprazolam (Xanax) 0.5 mg PO TID PRN; Protocol PRN Reason: Anxiety Aspirin (Aspirin Chewable) 81 mg PO DAILY [facility] Last Admin: 09/15/18 09:12 Dose: 81 mg Carvedilol (Coreg) 6.25 mg PO Q12H [facility] Last Admin: 09/15/18 05:24 Dose: Not Given Clopidogrel Bisulfate (Plavix) 75 mg PO DAILY [facility] Last Admin: 09/15/18 09:11 Dose: 75 mg Digoxin (Digoxin) 0.125 mg PO DAILY@1800 [facility] Finasteride (Proscar) 5 mg PO DAILY [facility] Last Admin: 09/15/18 09:12 Dose: 5 mg Furosemide (Lasix) 20 mg PO DAILY [facility] Last Admin: 09/15/18 09:11 Dose: 20 mg Spironolactone (Aldactone) 50 mg PO DAILY [facility] Last Admin: 09/15/18 09:20 Dose: 50 mg Results - Vital Signs Recent Vital Signs: Last Vital Signs Temp 98 F 09/15/18 06:00 Pulse 119 H 09/15/18 06:00 Resp 20 09/15/18 06:00 BP 122/93 H 09/15/18 09:11 Pulse Ox 100 09/15/18 06:00 - Labs Result Diagrams: 09/15/18 05:01 09/15/18 05:01 Labs: Laboratory Results - last 24 hr 09/14/18 09/14/18 09/14/18 17:29 17:29 17:29 WBC 9.0 D RBC 5.59 Hgb 16.6 D Hct 50.1 MCV 89.6 D MCH 29.7 MCHC 33.1 RDW 19.4 H Plt Count 288 MPV 9.8 Neut % (Auto) 65.5 Lymph % (Auto) 23.7 [place] % (Auto) 9.6 H Eos % (Auto) 0.9 L Baso % (Auto) 0.3 Lymph # (Auto) 2.1 [place] # (Auto) 0.9 H Eos # (Auto) 0.1 Baso # (Auto) 0.03 Absolute Neuts (auto) 5.87 PT 16.8 H INR 1.51 APTT 33.1 D-Dimer, Quantitative 1520 H Sodium 139 Potassium 4.9 Chloride 100 Carbon Dioxide 25 Anion Gap 19 BUN 55 H Creatinine 1.9 H Est GFR ( Amer) 44 Est GFR (Non-Af Amer) 37 Random Glucose 85 Calcium 9.4 Phosphorus Magnesium 2.3 H Total Bilirubin 4.8 H AST 38 ALT 19 Alkaline Phosphatase 583 H D Troponin I 0.09 NT-Pro-B Natriuret Pep Total Protein 8.5 H Albumin 4.0 Globulin 4.5 Albumin/Globulin Ratio 0.9 L Urine Color Urine Appearance Urine pH Ur Specific [place] Urine Protein Urine Glucose (UA) Urine Ketones Urine Blood Urine Nitrate Urine Bilirubin Urine Urobilinogen Ur Leukocyte Esterase Urine RBC Urine WBC Ur Epithelial Cells Urine Bacteria Hyaline Casts Digoxin Blood Type Blood Type Confirm Antibody Screen BBK History Checked 09/14/18 09/14/18 09/14/18 17:43 18:15 20:17 WBC RBC Hgb Hct MCV MCH MCHC RDW Plt Count MPV Neut % (Auto) Lymph % (Auto) [place] % (Auto) Eos % (Auto) Baso % (Auto) Lymph # (Auto) [place] # (Auto) Eos # (Auto) Baso # (Auto) Absolute Neuts (auto) PT INR APTT D-Dimer, Quantitative Sodium Potassium Chloride Carbon Dioxide Anion Gap BUN Creatinine Est GFR ( Amer) Est GFR (Non-Af Amer) Random Glucose Calcium Phosphorus Magnesium Total Bilirubin AST ALT Alkaline Phosphatase Troponin I NT-Pro-B Natriuret Pep 7870 H Total Protein Albumin Globulin Albumin/Globulin Ratio Urine Color Urine Appearance Urine pH Ur Specific [place] Urine Protein Urine Glucose (UA) Urine Ketones Urine Blood Urine Nitrate Urine Bilirubin Urine Urobilinogen Ur Leukocyte Esterase Urine RBC Urine WBC Ur Epithelial Cells Urine Bacteria Hyaline Casts Digoxin Blood Type B NEGATIVE Blood Type Confirm B NEGATIVE Antibody Screen Negative BBK History Checked No verified bt 09/14/18 09/15/18 09/15/18 22:05 05:01 05:01 WBC 7.6 RBC 5.23 Hgb 15.4 Hct 46.6 MCV 89.1 MCH 29.4 MCHC 33.0 RDW 19.1 H Plt Count 256 MPV 9.6 Neut % (Auto) 70.9 H Lymph % (Auto) 20.7 L [place] % (Auto) 7.2 H Eos % (Auto) 0.7 L Baso % (Auto) 0.5 Lymph # (Auto) 1.6 [place] # (Auto) 0.5 Eos # (Auto) 0.1 Baso # (Auto) 0.04 Absolute Neuts (auto) 5.36 PT INR APTT D-Dimer, Quantitative Sodium 138 Potassium 4.2 Chloride 98 Carbon Dioxide 28 Anion Gap 16 BUN 53 H Creatinine 1.8 H Est GFR ( Amer) 47 Est GFR (Non-Af Amer) 39 Random Glucose 105 Calcium 9.0 Phosphorus 4.1 Magnesium 2.1 Total Bilirubin 4.1 H AST 30 ALT 15 Alkaline Phosphatase 491 H Troponin I 0.11 D NT-Pro-B Natriuret Pep Total Protein 7.3 Albumin 3.4 Globulin 3.9 Albumin/Globulin Ratio 0.9 L Urine Color Yellow Urine Appearance Sl cloudy Urine pH 6.5 Ur Specific [place] 1.010 Urine Protein Negative Urine Glucose (UA) Negative Urine Ketones Negative Urine Blood Moderate H Urine Nitrate Negative Urine Bilirubin Negative Urine Urobilinogen 0.2 Ur Leukocyte Esterase Small H Urine RBC 10 - 15 H Urine WBC 2 - 5 Ur Epithelial Cells 3 - 4 Urine Bacteria Few Hyaline Casts 0 - 2 Digoxin Blood Type Blood Type Confirm Antibody Screen BBK History Checked 09/15/18 05:01 WBC RBC Hgb Hct MCV MCH MCHC RDW Plt Count MPV Neut % (Auto) Lymph % (Auto) [place] % (Auto) Eos % (Auto) Baso % (Auto) Lymph # (Auto) [place] # (Auto) Eos # (Auto) Baso # (Auto) Absolute Neuts (auto) PT INR APTT D-Dimer, Quantitative Sodium Potassium Chloride Carbon Dioxide Anion Gap BUN Creatinine Est GFR ( Amer) Est GFR (Non-Af Amer) Random Glucose Calcium Phosphorus Magnesium Total Bilirubin AST ALT Alkaline Phosphatase Troponin I NT-Pro-B Natriuret Pep Total Protein Albumin Globulin Albumin/Globulin Ratio Urine Color Urine Appearance Urine pH Ur Specific [place] Urine Protein Urine Glucose (UA) Urine Ketones Urine Blood Urine Nitrate Urine Bilirubin Urine Urobilinogen Ur Leukocyte Esterase Urine RBC Urine WBC Ur Epithelial Cells Urine Bacteria Hyaline Casts Digoxin 0.6 L Blood Type Blood Type Confirm Antibody Screen BBK History Checked <Roger Bird V - Last Filed: 09/15/18 21:53> Meds - Medications Medications: Current Medications Acetaminophen (Tylenol 325mg Tab) 650 mg PO Q6H PRN PRN Reason: Fever >100.4 F Albuterol/Ipratropium (Duoneb 3 Mg/0.5 Mg (3 Ml) Ud) 3 ml IH [id number] [facility] Last Admin: 09/15/18 19:44 Dose: 3 ml Albuterol/Ipratropium (Duoneb 3 Mg/0.5 Mg (3 Ml) Ud) 3 ml IH Q2H PRN PRN Reason: Shortness of Breath Alprazolam (Xanax) 0.5 mg PO TID PRN; Protocol PRN Reason: Anxiety Aspirin (Aspirin Chewable) 81 mg PO DAILY [facility] Last Admin: 09/15/18 09:12 Dose: 81 mg Carvedilol (Coreg) 6.25 mg PO Q12H [facility] Last Admin: 09/15/18 11:38 Dose: 6.25 mg Clopidogrel Bisulfate (Plavix) 75 mg PO DAILY [facility] Last Admin: 09/15/18 09:11 Dose: 75 mg Digoxin (Digoxin) 0.125 mg PO DAILY@1800 [facility] Last Admin: 09/15/18 17:30 Dose: 0.125 mg Finasteride (Proscar) 5 mg PO DAILY [facility] Last Admin: 09/15/18 09:12 Dose: 5 mg Furosemide (Lasix) 20 mg PO DAILY [facility] Last Admin: 09/15/18 09:11 Dose: 20 mg Morphine Sulfate (Morphine) 2 mg IVP Q4H PRN PRN Reason: Pain, moderate (4-7) Last Admin: 09/15/18 17:35 Dose: 2 mg Spironolactone (Aldactone) 50 mg PO DAILY [facility] Last Admin: 09/15/18 09:20 Dose: 50 mg Results - Vital Signs Recent Vital Signs: Last Vital Signs Temp 97.8 F 09/15/18 18:00 Pulse 115 H 09/15/18 18:00 Resp 20 09/15/18 18:00 BP 131/85 09/15/18 18:00 Pulse Ox 100 09/15/18 06:00 - Labs Result Diagrams: 09/15/18 05:01 09/15/18 05:01 Labs: Laboratory Results - last 24 hr 09/14/18 09/15/18 09/15/18 22:05 05:01 05:01 WBC 7.6 RBC 5.23 Hgb 15.4 Hct 46.6 MCV 89.1 MCH 29.4 MCHC 33.0 RDW 19.1 H Plt Count 256 MPV 9.6 Neut % (Auto) 70.9 H Lymph % (Auto) 20.7 L [place] % (Auto) 7.2 H Eos % (Auto) 0.7 L Baso % (Auto) 0.5 Lymph # (Auto) 1.6 [place] # (Auto) 0.5 Eos # (Auto) 0.1 Baso # (Auto) 0.04 Absolute Neuts (auto) 5.36 Sodium 138 Potassium 4.2 Chloride 98 Carbon Dioxide 28 Anion Gap 16 BUN 53 H Creatinine 1.8 H Est GFR ( Amer) 47 Est GFR (Non-Af Amer) 39 Random Glucose 105 Calcium 9.0 Phosphorus 4.1 Magnesium 2.1 Iron TIBC % Saturation Total Bilirubin 4.1 H AST 30 ALT 15 Alkaline Phosphatase 491 H Ammonia Troponin I 0.11 D Total Protein 7.3 Albumin 3.4 Globulin 3.9 Albumin/Globulin Ratio 0.9 L Urine Color Yellow Urine Appearance Sl cloudy Urine pH 6.5 Ur Specific [place] 1.010 Urine Protein Negative Urine Glucose (UA) Negative Urine Ketones Negative Urine Blood Moderate H Urine Nitrate Negative Urine Bilirubin Negative Urine Urobilinogen 0.2 Ur Leukocyte Esterase Small H Urine RBC 10 - 15 H Urine WBC 2 - 5 Ur Epithelial Cells 3 - 4 Urine Bacteria Few Hyaline Casts 0 - 2 Digoxin 09/15/18 09/15/18 09/15/18 05:01 11:40 16:40 WBC RBC Hgb Hct MCV MCH MCHC RDW Plt Count MPV Neut % (Auto) Lymph % (Auto) [place] % (Auto) Eos % (Auto) Baso % (Auto) Lymph # (Auto) [place] # (Auto) Eos # (Auto) Baso # (Auto) Absolute Neuts (auto) Sodium Potassium Chloride Carbon Dioxide Anion Gap BUN Creatinine Est GFR ( Amer) Est GFR (Non-Af Amer) Random Glucose Calcium Phosphorus 4.8 H Magnesium Iron TIBC % Saturation Total Bilirubin AST ALT Alkaline Phosphatase Ammonia 29 Troponin I 0.11 Total Protein Albumin Globulin Albumin/Globulin Ratio Urine Color Urine Appearance Urine pH Ur Specific [place] Urine Protein Urine Glucose (UA) Urine Ketones Urine Blood Urine Nitrate Urine Bilirubin Urine Urobilinogen Ur Leukocyte Esterase Urine RBC Urine WBC Ur Epithelial Cells Urine Bacteria Hyaline Casts Digoxin 0.6 L 09/15/18 18:00 WBC RBC Hgb Hct MCV MCH MCHC RDW Plt Count MPV Neut % (Auto) Lymph % (Auto) [place] % (Auto) Eos % (Auto) Baso % (Auto) Lymph # (Auto) [place] # (Auto) Eos # (Auto) Baso # (Auto) Absolute Neuts (auto) Sodium Potassium Chloride Carbon Dioxide Anion Gap BUN Creatinine Est GFR ( Amer) Est GFR (Non-Af Amer) Random Glucose Calcium Phosphorus Magnesium Iron 64 TIBC 348 % Saturation 18 L Total Bilirubin AST ALT Alkaline Phosphatase Ammonia Troponin I Total Protein Albumin Globulin Albumin/Globulin Ratio Urine Color Urine Appearance Urine pH Ur Specific [place] Urine Protein Urine Glucose (UA) Urine Ketones Urine Blood Urine Nitrate Urine Bilirubin Urine Urobilinogen Ur Leukocyte Esterase Urine RBC Urine WBC Ur Epithelial Cells Urine Bacteria Hyaline Casts Digoxin Attending/Attestation - Attestation I have personally seen and examined this patient.: Yes I have fully participated in the care of the patient.: Yes I have reviewed all pertinent clinical information: Yes Notes (Text): This is an addendum to the GI consultation report dictated by the medical services assistant. The patient was seen and reviewed along with the resident team earlier today. Patient does have history of cardiomyopathy with ejection fraction about 11% status post AICD placement admitted with abdominal discomfort increase ascites. This patient has been admitted multiple times in the hospital. Previous medical record was reviewed 1. In view of the cardiomyopathy and the cirrhosis of the liver would request hemochromatosis genetic testing. 2 We will request IR and evaluation for for paracentesis. Thank you Dr. Dash following to participate in the care of the patient. We will continue to closely follow-up his care and suggest further recommendations based on the clinical course 09/15/18 21:51
--- NOTE | 2018-09-15 10:40 | CARD ---
APPROVED REPORT Date of service: 09/14/2018 EKG Measurement Heart [id number] <Conclusion> Suspect arm lead reversal, interpretation assumes reversal Atrial flutter with 2:1 AV conduction Incomplete right bundle branch block Septal infarct, age undetermined Inferior infarct, possibly acute T wave abnormality, consider lateral ischemia Abnormal ECG
--- NOTE | 2018-09-15 10:43 | CARD ---
APPROVED REPORT Date of service: 09/14/2018 EKG Measurement Heart [id number] <Conclusion> Atrial flutter with 2:1 conduction Right atrial enlargement Left axis deviation Pulmonary disease pattern Incomplete right bundle branch block Inferior infarct, possibly acute T wave abnormality, consider lateral ischemia Abnormal ECG
--- NOTE | 2018-09-15 10:47 | CARD ---
APPROVED REPORT Date of service: 09/15/2018 EKG Measurement Heart [id number] <Conclusion> Atrial flutter with 2:1 conduction Left axis deviation Pulmonary disease pattern Incomplete right bundle branch block Inferior infarct, age undetermined ST & T wave abnormality, consider lateral ischemia Abnormal ECG
--- NOTE | 2018-09-15 11:45 | CP.PCM.APN ---
Subjective - Date & Time of Evaluation Date of Evaluation: 09/15/18 Time of Evaluation: 09:45 - Subjective Subjective: pt seen and examined a t bdeside, pt reports abd discomfort Review of Systems - Constitutional Constitutional: As Per HPI Objective - Vital Signs/Intake and Output Vital Signs (last 24 hours): Temp Pulse Resp BP Pulse Ox 98 F 119 H 20 122/93 H 100 09/15/18 06:00 09/15/18 06:00 09/15/18 06:00 09/15/18 09:11 09/15/18 06:00 Intake and Output: 09/15/18 09/15/18 06:59 18:59 Intake Total 320 Output Total 640 Balance -320 - Medications Medications: Current Medications Alprazolam (Xanax) 0.5 mg PO TID PRN; Protocol PRN Reason: Anxiety Aspirin (Aspirin Chewable) 81 mg PO DAILY [facility] Last Admin: 09/15/18 09:12 Dose: 81 mg Carvedilol (Coreg) 6.25 mg PO Q12H [facility] Last Admin: 09/15/18 05:24 Dose: Not Given Clopidogrel Bisulfate (Plavix) 75 mg PO DAILY [facility] Last Admin: 09/15/18 09:11 Dose: 75 mg Digoxin (Digoxin) 0.125 mg PO DAILY@1800 [facility] Finasteride (Proscar) 5 mg PO DAILY [facility] Last Admin: 09/15/18 09:12 Dose: 5 mg Furosemide (Lasix) 20 mg PO DAILY [facility] Last Admin: 09/15/18 09:11 Dose: 20 mg Spironolactone (Aldactone) 50 mg PO DAILY [facility] Last Admin: 09/15/18 09:20 Dose: 50 mg - Labs Labs: 09/15/18 05:01 09/15/18 05:01 PT 16.8 SECONDS (9.4-12.5) H 09/14/18 17:29 INR 1.51 09/14/18 17:29 APTT 33.1 Seconds (26.9-38.3) 09/14/18 17:29 - Constitutional Appears: Chronically Ill - Head Exam Head Exam: NORMOCEPHALIC - Eye Exam Eye Exam: Normal appearance - ENT Exam ENT Exam: Mucous Membranes Dry - Neck Exam Neck Exam: Full ROM - Cardiovascular Exam Cardiovascular Exam: +S1, +S2 - GI/Abdominal Exam GI & Abdominal Exam: Distended, Tenderness, Diminished Bowel Sounds - Rectal Exam Rectal Exam: Deferred - Skin Skin Exam: Dry, Intact Assessment and Plan - Assessment and Plan (Free Text) Plan: ITS Impressions Chest X-Ray 09/14/18 17:31 IMPRESSION: No active disease. Stable, marked cardiomegaly. Chest CT 09/14/18 18:13 IMPRESSION: No evidence of pulmonary embolus. Severe cardiomegaly with severe right atrial dilatation a/p 57 yr old AA male with pmh sig for deafnnes, mute, dilated cardiomyopathy s/p AICD, bladder ca, bph with ortiz, liver cirrhosis who was admitted with SOB and abd pain . Pt foundd to have bnp and trop elevated. pt now for further eval with GI, Int radiology, and cardiology consultations. Chest xray and chest ct noted, abd US results and IR recs pending for possible paracentesis. will follow BPCI/TIC - BPCIA/TIC Educated pt/family on BPCIA/CIR/Med to Bed Programs: N/A Flyers given, including CMS Beneficiary letter: N/A Pt/family verbalized understanding & agreed to program: N/A
--- NOTE | 2018-09-15 12:07 | US ---
Date of service: 09/15/2018 HISTORY: ascites COMPARISON: None. TECHNIQUE: Sonographic evaluation of the abdomen. FINDINGS: LIVER: Measures 21.1 cm. Patent portal and hepatic venous systems. Portal venous flow: Hepatopetal. echogenicity of the liver parenchyma. No mass. No intrahepatic bile duct dilatation. GALLBLADDER: Cholelithiasis. Negative study for gallbladder wall thickening, pericholecystic fluid, sonographic Santillan's sign. COMMON BILE DUCT: Measures 5.1 mm. No stones. No dilatation. PANCREAS: Unremarkable as visualized. No mass. No ductal dilatation. RIGHT KIDNEY: Measures 4.6 x 10.3cm. Normal echogenicity. No calculus, mass, or hydronephrosis. LEFT KIDNEY: Measures 4.5 x 10.9cm. Normal echogenicity. No calculus, mass, or hydronephrosis. SPLEEN: Normal in size and contour. No mass. AORTA: No aneurysmal dilatation. IVC: Unremarkable. OTHER FINDINGS: Incompletely visualized apparent low volume abdominal ascites. IMPRESSION: Cholelithiasis. No sonographic evidence of acute cholecystitis. Incompletely visualized upper abdominal ascites, low volume apparent.
[2018-09-15 12:10] LABS: TROPONIN I 0.11 ng/mL
[2018-09-15] MEDS: Digoxin 125 mcg (0.125 mg) Tab PO SCH (17:30)
[2018-09-15] MEDS: Morphine 2 mg/ml ISec IVP PRN (17:35)
[2018-09-15 18:44] LABS: TOTAL IRON BINDING CAPACITY 348 ug/dL (261-462)
[2018-09-15 18:46] LABS: % IRON SATURATION 18 % (20-55); IRON 64 ug/dL (45-180)
[2018-09-15] MEDS: Albuterol-Ipratrop 3 mg / 0.5 (3 ml) UD IH SCH (19:44)
--- NOTE | 2018-09-15 22:24 | PN ---
DATE: 09/15/2018 SUBJECTIVE: The patient is 57-year-old, deaf and mute, was brought to the emergency room because of increasing shortness of breath that recently got worse along with feeling thirsty and not feeling hungry, complained of difficulty sleeping, complained of getting short of breath, and complained of dizziness. PAST MEDICAL HISTORY: He has past medical history significant for: 1. Dilated cardiomyopathy, status post defibrillator placement. 2. History of bladder CA. 3. BPH. 4. Status post indwelling catheter. 5. Hypertension. 6. Chronic kidney disease. 7. Cirrhosis of the liver. PAST SURGICAL HISTORY: Significant for multiple paracenteses and pacemaker placement. ALLERGIES: NOT ALLERGIC TO ANY MEDICATIONS. MEDICATIONS: At home, he is on spironolactone, Lasix, Proscar, digoxin, Plavix, Coreg, and aspirin. PHYSICAL EXAMINATION: GENERAL: He is not very communicative. He is deaf and mute. VITAL SIGNS: He is afebrile, pulse 160, respirations 20, and blood pressure 118/77. LUNGS: Bilateral decreased breath sounds at bases. HEART: S1 and S2 audible, tachycardic. ABDOMEN: Distended, has fluid thrill, palpable splenomegaly. EXTREMITIES: Bilateral legs, no edema. LABORATORY DATA: WBC is 7.6, hemoglobin 15, hematocrit 46, platelets 256, PT 16.8, and INR 1.51. Chemistry: Sodium 138, potassium 4.2, chloride 98, CO2 of 28, BUN 53, creatinine 1.8, and blood sugar of 105. Three sets of troponin are negative. Urine shows moderate blood and rbc's 10-15. Urine toxicology, digoxin is 0.6. ASSESSMENT: 1. Abdominal distention secondary to ascites causing respiratory compromise. 2. History of cancer of the bladder. 3. Chronic kidney disease. 4. Dilated cardiomyopathy. 5. Renal insufficiency. PLAN: Currently, the patient is on spironolactone. He is on aspirin 81 mg daily. He is on Coreg, digoxin. He is on Lasix and Plavix. He has been started on Proscar. He is on Rocephin 2 g every 24 hours. Awaiting input by Dr. Garrett Dejesus for therapeutic paracentesis. Give him some analgesics. The patient is planned to have paracentesis done in the a.m. Alberto Dash MD [facility] # [id number]
[2018-09-16] MEDS: Albuterol-Ipratrop 3 mg / 0.5 (3 ml) UD IH SCH ×4 (01:57→19:32)
--- NOTE | 2018-09-16 02:56 | CON ---
DATE: 09/15/2018 UROLOGY CONSULTATION REASON FOR CONSULTATION: Urinary retention management. HISTORY OF PRESENT ILLNESS: The patient is a very pleasant gentleman who happens to be mute and is also deaf. He does have sight. So the communication is by way of handwriting notes to the patient. The patient is admitted to the hospital. He is under the care of Dr. Rea Suggs. From the Urology standpoint, he has an indwelling Gordon catheter and in fact in the emergency room they put a new one in as per the ER protocol. Urology is consulted for further recommendation. He has baseline retention and I believe a history of bladder cancer. We will need to review the records before. The patient is mine and also the patient mostly of Dr. Tanika Miller who sees him also. PAST MEDICAL AND SURGICAL HISTORY: On the chart. He is in for CHF exacerbation. REVIEW OF SYSTEMS: As above, noncontributory. PHYSICAL EXAMINATION GENERAL: A well-nourished male in no apparent distress, currently resting comfortably. ABDOMEN: Difficult to evaluate, it looks like it is somewhat distended, edematous, but from the Urology standpoint the question is he had an indwelling Gordon catheter and it is difficult to assess whether or not there is urinary retention. DIAGNOSES: Urinary retention, voiding dysfunction on a Urology diagnosis and a history I believe of bladder cancer. PLAN: From the urology standpoint, we going to recommend the following; we going to observe the patient for now. We going to recommend maintaining this current Gordon. Further plans will follow. Blu Miller MD
--- NOTE | 2018-09-16 06:50 | CON ---
DATE: 09/15/2018 CARDIOLOGY CONSULTATION REASON FOR CONSULTATION: Congestive heart failure. 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 The history was obtained via a custom shoe designer and maker. The patient has a history of dilated cardiomyopathy, status post ICD placement, history of chronic renal insufficiency, history of benign prostatic hypertrophy with bladder neck obstruction requiring an indwelling Gordon catheter, history of low grade bladder CA, history of cardiac cirrhosis with recurrent ascites requiring frequent abdominal paracentesis, and history of frequent admissions to the hospital for exacerbation of congestive heart failure. The patient presented because of abdominal pain, abdominal distention as well as shortness of breath. The patient denies any chest pain, dizziness, or syncope and denies any recent discharge of the defibrillator. SOCIAL HISTORY: Nonsmoker; he lives with his son. REVIEW OF SYSTEMS: No fever or chills. No nausea or vomiting. No dizziness or syncope. PAST MEDICAL HISTORY: Chronic atrial flutter, chronic renal insufficiency, benign prostatic hypertrophy, cardiac cirrhosis, portal hypertension with recurrent ascites. CURRENT MEDICATIONS: Aldactone 50 mg once a day, aspirin 81 mg once a day, Coreg 6.25 mg once a day, digoxin 0.125 mg once a day, Lasix 20 mg p.o. once a day, Plavix 75 mg once a day, morphine sulfate 2 mg intravenously every 4 hours p.r.n., Proscar 5 mg once a day. PHYSICAL EXAMINATION: GENERAL: The patient is a middle-aged male, who is uncomfortable mainly because of his abdominal discomfort. VITAL SIGNS: Blood pressure 118/77, heart rate 117, temperature 97.9, and respirations 20. HEENT: Normocephalic. NECK: Jugular venous distention is noted. CHEST: No rales HEART: S1, S2 regular. ABDOMEN: Mild ascites. EXTREMITIES: Trace leg edema. LABORATORY DATA: Hemoglobin and hematocrit 15.4 and 46.6. White count and platelet count are within normal limits. Today's BUN and creatinine are 53 and 1.8 respectively. The rest of the SMA-7 is within normal limits. Total bilirubin is elevated at 4.1. Alkaline phosphatase 491. Troponin was 0.09, 0.11, and 0.11. ProBNP is 7870. D-dimer is 1520. INR was 1.5. Digoxin level is 0.6. Chest x-ray revealed cardiomegaly and ICD. EKG revealed atrial flutter with 2:1 conduction at a rate of 119. Incomplete right bundle-branch block, old inferior infarct, consider lateral ischemic T-wave changes. Abdominal ultrasound is consistent with cholelithiasis. No significant evidence of acute cholecystitis. Incompletely visualized upper abdominal ascites, low volume apparent. He had CT angio, no evidence of pulmonary embolus. Cardiomegaly with severe right atrial dilatation. ASSESSMENT: 1. Exacerbation of his congestive heart failure. 2. Mild ascites, rule out underlying spontaneous septic peritonitis. 3. Chronic atrial flutter. 4. Bladder neck obstruction requiring indwelling Gordon catheter. 5. Cardiac cirrhosis. 6. History of bladder carcinoma. 7. Cholelithiasis, rule out underlying biliary colic. RECOMMENDATIONS: Continue Aldactone 50 mg daily, aspirin 81 mg once a day, Coreg 6.25 mg twice a day, digoxin 0.125 mg daily, Lasix 20 mg p.o. once a day, Plavix 75 mg once a day. Obtain two sets of blood cultures and GI consultation has been requested. Ke Torres MD
[2018-09-16 06:55] LABS: BASO # 0.05 K/mm3 (0.0-2.0); BASO % 0.7 % (0.0-3.0); EOS # 0.1 (0.0-0.7); HEMOGLOBIN 15.1 g/dL (14.0-18.0); LYMPH # 1.5 (1.2-3.4); LYMPH % 21.7 % (22.0-35.0); MEAN CELL VOLUME 88.6 fl (80.0-105.0); MEAN CORPUSCULAR HEMOGLOBIN 29.3 pg (25.0-35.0); MEAN PLATELET VOLUME 9.9 fl (7.0-11.0); MONO # 0.6 (0.1-0.6); MONO % 8.9 % (1.0-6.0); RBC 5.16 10^6/uL (3.5-6.1); RED CELL DISTRIBUTION WIDTH 19.2 % (11.5-14.5)
[2018-09-16] MEDS: Morphine 2 mg/ml ISec IVP PRN (06:58)
[2018-09-16 07:29] LABS: ALB/GLOB RATIO 0.8 (1.1-1.8); ALBUMIN 3.3 g/dL (3.0-4.8); CALCIUM 9.3 mg/dL (8.4-10.5)
--- NOTE | 2018-09-16 07:34 | CP.PCM.PN ---
<Murtaza Suggs - Last Filed: 09/16/18 18:43> Subjective - Date & Time of Evaluation Date of Evaluation: 09/16/18 Time of Evaluation: 07:24 - Subjective Subjective: Murtaza Suggs Internal Medicine Resident- Progress Note on Behalf of Dr. Bird Subjective: Patient seen and examined at bedside. Patient remained tachy overnight. Patient communicated that the abdominal pain has improved relative to baseline. Denies fevers, headache, chest pain, palpitations, nausea, vomiting, constipation, and urinary symptoms. Physical Examination: - Constitutional Appears: Well, Non-toxic, No Acute Distress - Head Exam Head Exam: NORMAL INSPECTION, NORMOCEPHALIC - Eye Exam Eye Exam: EOMI, Normal appearance - ENT Exam ENT Exam: Mucous Membranes Moist, Normal Exam - Neck Exam Neck exam: Positive for: Normal Inspection - Respiratory Exam Respiratory Exam: Clear to Auscultation Bilateral, NORMAL BREATHING PATTERN - Cardiovascular Exam Cardiovascular Exam: Tachycardia, +S1, +S2, Systolic Murmur - GI/Abdominal Exam GI & Abdominal Exam: Distended. Tender to palpation diffusely, Positive fluid wave, absent: Guarding, Rebound, Rigid - Extremities Exam Extremities exam: Positive for: normal inspection. Negative for: calf tenderness, pedal edema - Neurological Exam Neurological exam: Alert, Oriented x3 - Psychiatric Exam Psychiatric exam: Normal Affect, Normal Mood - Skin Skin Exam: Dry, Intact, Warm Assessment and Plan: Patient is a 57 y/o deaf and mute male with past medical history of dilated car diomyopathy (HFrEF) s/p AICD [place]. Enmanuel Aguilera [facility] [place] bladder cancer(papillary urothelial carcinoma), BPH w/ indwelling ortiz catheter, HTN, CKD, liver cirrhosis with ascites s/p paracentesis 07/22/18, who was admitted for evaluation and treatment of shortness of breath and abdominal pain. SOB 2/2 Ascites 2/2 Hepatic Cirrhosis Cardiomyopathy/HFrEF s/p AICD placement YODIT on CKD Bladder Cancer/BPH s/p indwelling ortiz catheter Chronic a-flutter Anxiety - MELD Na 23 - recommend low sodium full liquids diet - optimization diuretic therapy spironolactone:furosemide - IR consulted for paracentesis- scheduled for this afternoon - U/S abdomen to evaluate ascites- Cholelithiasis. No sonographic evidence of acute cholecystitis. Incompletely visualized upper abdominal ascites, low volume apparent - 09/16/2018- CT abdomen and pelvis no po/iv contrast- Partially imaged severe cardiomegaly. Partially imaged moderate pericardial effusion. Partially imaged AICD leads. Small right effusion. The kidneys enhance symmetrically; please note IV contrast was not administered for this study. Correlate clinically for possibility contrast induced nephropathy. No hydronephrosis. Bilateral renal scarring. Hepatomegaly. Hypoattenuation of the liver compatible with hepatic steatosis. Enlarged heterogeneous prostate gland. Recommend correlation with PSA. Decompressed urinary bladder with Ortiz catheter present. Contrast is noted within the urinary bladder. Air within the urinary bladder may be secondary to recent instrumentation. Urinary bladder wall appears thickened. Moderate diffuse abdominal and pelvic ascites. - monitor for electrolyte derangements and renal function - recommend elective follow up for EGD for variceal screening and colonoscopy for CRC screening - recommend hemochromatosis genetic testing in view of the cardiomyopathy and the cirrhosis of the liver Patient seen, case reviewed with, and plan approved by attending physician, Dr. Bird. Objective - Vital Signs/Intake and Output Vital Signs (last 24 hours): Temp Pulse Resp BP Pulse Ox 97.9 F 91 H 18 101/54 L 98 09/16/18 06:00 09/16/18 06:00 09/16/18 06:00 09/16/18 06:00 09/16/18 06:00 Intake and Output: 09/16/18 09/16/18 06:59 18:59 Intake Total 1000 Output Total 800 Balance 200 - Medications Medications: Current Medications Acetaminophen (Tylenol 325mg Tab) 650 mg PO Q6H PRN PRN Reason: Fever >100.4 F Albuterol/Ipratropium (Duoneb 3 Mg/0.5 Mg (3 Ml) Ud) 3 ml IH [id number] [facility] Last Admin: 09/16/18 01:57 Dose: Not Given Albuterol/Ipratropium (Duoneb 3 Mg/0.5 Mg (3 Ml) Ud) 3 ml IH Q2H PRN PRN Reason: Shortness of Breath Alprazolam (Xanax) 0.5 mg PO TID PRN; Protocol PRN Reason: Anxiety Aspirin (Aspirin Chewable) 81 mg PO DAILY [facility] Last Admin: 09/15/18 09:12 Dose: 81 mg Carvedilol (Coreg) 6.25 mg PO Q12H [facility] Last Admin: 09/15/18 22:03 Dose: 6.25 mg Clopidogrel Bisulfate (Plavix) 75 mg PO DAILY [facility] Last Admin: 09/15/18 09:11 Dose: 75 mg Digoxin (Digoxin) 0.125 mg PO DAILY@1800 [facility] Last Admin: 09/15/18 17:30 Dose: 0.125 mg Finasteride (Proscar) 5 mg PO DAILY [facility] Last Admin: 09/15/18 09:12 Dose: 5 mg Furosemide (Lasix) 20 mg PO DAILY [facility] Last Admin: 09/15/18 09:11 Dose: 20 mg Morphine Sulfate (Morphine) 2 mg IVP Q4H PRN PRN Reason: Pain, moderate (4-7) Last Admin: 09/16/18 06:58 Dose: 2 mg Spironolactone (Aldactone) 50 mg PO DAILY [facility] Last Admin: 09/15/18 09:20 Dose: 50 mg - Labs Labs: 09/16/18 06:20 09/15/18 05:01 PT 16.8 SECONDS (9.4-12.5) H 09/14/18 17:29 INR 1.51 09/14/18 17:29 APTT 33.1 Seconds (26.9-38.3) 09/14/18 17:29 <Roger Bird V - Last Filed: 09/17/18 00:42> Objective - Vital Signs/Intake and Output Vital Signs (last 24 hours): Temp Pulse Resp BP Pulse Ox 97 F L 107 H 19 108/86 98 09/17/18 00:01 09/16/18 23:18 09/16/18 23:18 09/16/18 23:18 09/16/18 23:18 Intake and Output: 09/16/18 09/17/18 18:59 06:59 Intake Total 840 Output Total 220 Balance 620 - Medications Medications: Current Medications Acetaminophen (Tylenol 325mg Tab) 650 mg PO Q6H PRN PRN Reason: Fever >100.4 F Albuterol/Ipratropium (Duoneb 3 Mg/0.5 Mg (3 Ml) Ud) 3 ml IH [id number] [facility] Last Admin: 09/16/18 19:32 Dose: 3 ml Albuterol/Ipratropium (Duoneb 3 Mg/0.5 Mg (3 Ml) Ud) 3 ml IH Q2H PRN PRN Reason: Shortness of Breath Last Admin: 09/16/18 12:44 Dose: 3 ml Alprazolam (Xanax) 0.5 mg PO TID PRN; Protocol PRN Reason: Anxiety Aspirin (Aspirin Chewable) 81 mg PO DAILY [facility] Last Admin: 09/16/18 10:08 Dose: 81 mg Carvedilol (Coreg) 6.25 mg PO Q12H [facility] Last Admin: 09/16/18 21:59 Dose: 6.25 mg Digoxin (Digoxin) 0.125 mg PO DAILY@1800 [facility] Last Admin: 09/16/18 18:11 Dose: 0.125 mg Finasteride (Proscar) 5 mg PO DAILY [facility] Last Admin: 09/16/18 10:08 Dose: 5 mg Furosemide (Lasix) 20 mg PO DAILY [facility] Last Admin: 09/16/18 10:07 Dose: 20 mg Morphine Sulfate (Morphine) 2 mg IVP Q4H PRN PRN Reason: Pain, moderate (4-7) Last Admin: 09/16/18 06:58 Dose: 2 mg Pantoprazole Sodium (Protonix Ec Tab) 40 mg PO ACB [facility] Spironolactone (Aldactone) 50 mg PO DAILY [facility] Last Admin: 09/16/18 10:08 Dose: 50 mg - Labs Labs: 09/16/18 06:20 09/16/18 06:20 PT 16.8 SECONDS (9.4-12.5) H 09/14/18 17:29 INR 1.51 09/14/18 17:29 APTT 33.1 Seconds (26.9-38.3) 09/14/18 17:29 Attending/Attestation - Attestation I have personally seen and examined this patient.: Yes I have fully participated in the care of the patient.: Yes I have reviewed all pertinent clinical information, including history, physical exam and plan: Yes Notes (Text): This patient was seen and evaluated along with the resident. Discussed with Dr. Dash. Sonogram was reviewed by the Interventional radiologist here earlier today and he felt that there was not enough fluid for large volume paracentesis. It was deferred. Dr. Dash was concerned about the abdominal distention requested CT with no p.o. or IV contrast. The CT scan was reviewed later. Found to have dilated cardiomyopathy with the moderate pericardial effusion. Large hepatomegaly was noticed. Only minimal ascites noticed. The likely cause of abdominal distention probably secondary to the large hepatomegaly and the the small amount of fluid and gastric distention. Discussed with Dr. Dash request cardiology reevaluation regarding this pericardial effusion. The large hepatomegaly and ascites probably secondary to the right ventricular pressure and and hepatic congestion secondary to the combination of pericardial effusion and cardiomyopathy with increased right ve ntricular pressure We would benefit from repeat echocardiogram and cardiology reevaluation. We will change the diet to liquid diet to avoid further gastric distention at the present time 09/17/18 00:35
[2018-09-16] MEDS ORDERED: HYDROmorphone 2 mg/ml ISec IVP PRN (11:48)
[2018-09-16] MEDS ORDERED: Sodium Chloride 0.45% 1,000 ML IV SCH (12:00)
[2018-09-16] MEDS: Albuterol-Ipratrop 3 mg / 0.5 (3 ml) UD IH PRN (12:44)
[2018-09-16 13:00] LABS: AMYLASE 127 U/L (35-125); LIPASE 44 U/L (23-300)
--- NOTE | 2018-09-16 13:44 | PN ---
DATE: 09/16/2018 SUBJECTIVE: The patient is experiencing abdominal pain, especially in the right upper quadrant. No apparent shortness of breath or distress. He is awaiting CT scan of the abdomen and pelvis. PHYSICAL EXAMINATION: VITAL SIGNS: Blood pressure 108/79, heart rate 110, temperature 97.9 and respirations 20. HEENT: Normocephalic. CHEST: Diminished breath sounds over the bases. HEART: S1 and S2, regular. ABDOMEN: Mild ascites with right subcostal tenderness. EXTREMITIES: Trace edema. LABORATORY DATA: Today's hemoglobin and hematocrit are 15.1 and 45.7. White count and platelet count are within normal limits. Today's BUN and creatinine are 59 and 1.9, carbon dioxide is 20. The rest of the SMA-7 is within normal limits. Today's alkaline phosphatase 448. Ammonia level 29 yesterday. I did review the GI and Urology evaluation. ASSESSMENT: 1. Dilated cardiomyopathy, status post implantable cardioverter-defibrillator placement. 2. Chronic atrial flutter. 3. Cholelithiasis, rule out underlying cholecystitis and/or biliary colic. 4. Mild to moderate ascites, rule out peritonitis. 5. History of bladder cancer. RECOMMENDATIONS: Discontinue Plavix. Continue Aldactone at 50 mg daily, aspirin 81 mg once a day, Coreg 6.25 mg twice a day, digoxin 0.125 mg daily, Lasix 20 mg p.o. once a day, and morphine sulfate at 2 mg intravenously every 4 hours p.r.n. I did request amylase and lipase levels and I will follow CT scan of the abdomen and pelvis. Optimize pain management for now, and based on the findings of CT scan of the abdomen and pelvis, surgical evaluation may be needed. Ke Torres MD
--- NOTE | 2018-09-16 13:49 | CP.PCM.PCO ---
Physician Communication Note - Physician Communication Note Physician Communication Note: pt with abd pain and distention, stat ct abd pelvis - will follow Additional Comments - Additional Comments Additional Comments: spoke to pmd and will follow gi and IR recs once Ct results.
--- NOTE | 2018-09-16 14:08 | CT ---
PROCEDURE: CT Abdomen and Pelvis without Oral or IV contrast. HISTORY: abdominal pain/distention COMPARISON: None available. TECHNIQUE: Contiguous axial images of the abdomen and pelvis. No oral or IV contrast administered. Coronal and Sagittal reformats generated and reviewed. Radiation dose: Total exam DLP = 313.45 mGy-cm. This CT exam was performed using one or more of the following dose reduction techniques: Automated exposure control, adjustment of the mA and/or kV according to patient size, and/or use of iterative reconstruction technique. FINDINGS: There is limited evaluation of the solid organs without the administration of IV contrast. LOWER THORAX: Small right effusion. No focal consolidation in pneumothorax visualized. Partially imaged severe cardiomegaly. Partially imaged moderate pericardial effusion. Partially imaged AICD leads. LIVER: Hepatomegaly. Hypoattenuation of the liver compatible with hepatic steatosis. GALLBLADDER AND BILE DUCTS: High-density material within the gallbladder presumably vicarious excretion of contrast. PANCREAS: Unremarkable. SPLEEN: Unremarkable. ADRENALS: Unremarkable. KIDNEYS AND URETERS: The kidneys enhance symmetrically; please note IV contrast was not administered for this study. Correlate clinically for possibility of nephropathy. No hydronephrosis. Bilateral renal scarring. BLADDER: Decompressed urinary bladder with Gordon catheter present. Contrast is noted within the urinary bladder. Air within the urinary bladder may be secondary to recent instrumentation. Urinary bladder wall appears thickened. REPRODUCTIVE: Enlarged heterogeneous prostate gland. APPENDIX: The appendix appears within normal limits of caliber. No secondary signs of acute appendicitis. BOWEL: The stomach is nondistended. Lack of oral contrast limits evaluation for bowel pathology. The bowel loops appear within normal limits of caliber without evidence of intestinal obstruction. PERITONEUM: Moderate diffuse abdominal and pelvic ascites. No definite free air. LYMPH NODES: No bulky lymphadenopathy identified. VASCULATURE: Dense atherosclerotic calcifications of the aorta. No aortic aneurysm. BONES: No acute osseous abnormality is detected. OTHER FINDINGS: None. IMPRESSION: Partially imaged severe cardiomegaly. Partially imaged moderate pericardial effusion. Partially imaged AICD leads. Small right effusion. The kidneys enhance symmetrically; please note IV contrast was not administered for this study. Correlate clinically for possibility contrast induced nephropathy. No hydronephrosis. Bilateral renal scarring. Hepatomegaly. Hypoattenuation of the liver compatible with hepatic steatosis. Enlarged heterogeneous prostate gland. Recommend correlation with PSA. Decompressed urinary bladder with Gordon catheter present. Contrast is noted within the urinary bladder. Air within the urinary bladder may be secondary to recent instrumentation. Urinary bladder wall appears thickened. Correlate clinically. Recommend correlation with urinalysis. Moderate diffuse abdominal and pelvic ascites. Additional findings as above.
--- NOTE | 2018-09-16 17:29 | PN ---
DATE: 09/16/2018 SUBJECTIVE: The patient is 57 years old, seen and examined. Looks very uncomfortable. Does not want to eat. Complained of feeling abdominal discomfort. The patient is mute and deaf. PHYSICAL EXAMINATION: VITAL SIGNS: He is afebrile, pulse 110, respirations 22, blood pressure 108/79. LUNGS: Bilateral fair airflow. ABDOMEN: Distended. HEART: S1 and S2 audible. Tachycardic. NEUROLOGIC: He is awake and alert, but deaf and mute. LABORATORY DATA: Digoxin 0.6, WBC 7, hemoglobin 15, hematocrit 45. Chemistry: Sodium 137, potassium 5, chloride 102, CO2 of 20. BUN 59, creatinine 1.9, blood sugar 96, magnesium 2.4, alk phos 448. Blood cultures and urine cultures are negative. Abdominal ultrasound shows cholelithiasis. No evidence of acute cholecystitis. CT of the chest, no evidence of pulmonary embolus; severe cardiomegaly with severe right atrial dilatation. ASSESSMENT: 1. Abdominal distention, possible small bowel obstruction versus ascites. 2. History of cancer of bladder. 3. Dilated cardiomyopathy. 4. Benign prostatic hypertrophy. 5. History of hypertension. 6. Chronic kidney disease. 7. History of cirrhosis of the liver. PLAN: We will get CT of the abdomen and pelvis stat. If this is bowel obstruction, need nasogastric tube placed. Otherwise, we will need to get in touch with the interventional radiologist for paracentesis. addendum// ct scan showed severe cardiomyopathy and liver congestion secondary to cariomyopathy. will request Dr menendez for input. Alberto Dash MD MTDD
[2018-09-16] MEDS: Digoxin 125 mcg (0.125 mg) Tab PO SCH (18:11)
[2018-09-17] MEDS: Albuterol-Ipratrop 3 mg / 0.5 (3 ml) UD IH SCH ×4 (01:06→19:17)
--- NOTE | 2018-09-17 06:15 | CP.PCM.PN ---
Subjective - Date & Time of Evaluation Date of Evaluation: 09/17/18 Time of Evaluation: 06:14 - Subjective Subjective: S:Patient was seen at bedside because administrative medical director had asked me to cosign the order for bear hugger. Nurse told that patient temperature is 94 F. Patient has no complaints offered. Pertinent medical records reviewed. O:Temperature 94 Fahrenheit. Awake, alert, not in acute distress. Rest of the vital signs are okay. Lungs: Normal breathing pattern. A:Hypothermia. Sepsis? P:Bear hugger as ordered. CBC. Lactic failure. Objective - Vital Signs/Intake and Output Vital Signs (last 24 hours): Temp Pulse Resp BP Pulse Ox 94.5 F L 107 H 20 93/72 L 100 09/17/18 06:00 09/17/18 06:00 09/17/18 06:00 09/17/18 06:00 09/17/18 06:00 Intake and Output: 09/16/18 09/17/18 18:59 06:59 Intake Total 840 Output Total 220 Balance 620 - Medications Medications: Current Medications Acetaminophen (Tylenol 325mg Tab) 650 mg PO Q6H PRN PRN Reason: Fever >100.4 F Albuterol/Ipratropium (Duoneb 3 Mg/0.5 Mg (3 Ml) Ud) 3 ml IH [id number] [facility] Last Admin: 09/17/18 01:06 Dose: Not Given Albuterol/Ipratropium (Duoneb 3 Mg/0.5 Mg (3 Ml) Ud) 3 ml IH Q2H PRN PRN Reason: Shortness of Breath Last Admin: 09/16/18 12:44 Dose: 3 ml Alprazolam (Xanax) 0.5 mg PO TID PRN; Protocol PRN Reason: Anxiety Aspirin (Aspirin Chewable) 81 mg PO DAILY [facility] Last Admin: 09/16/18 10:08 Dose: 81 mg Carvedilol (Coreg) 6.25 mg PO Q12H [facility] Last Admin: 09/16/18 21:59 Dose: 6.25 mg Digoxin (Digoxin) 0.125 mg PO DAILY@1800 [facility] Last Admin: 09/16/18 18:11 Dose: 0.125 mg Finasteride (Proscar) 5 mg PO DAILY [facility] Last Admin: 09/16/18 10:08 Dose: 5 mg Furosemide (Lasix) 20 mg PO DAILY [facility] Last Admin: 09/16/18 10:07 Dose: 20 mg Morphine Sulfate (Morphine) 2 mg IVP Q4H PRN PRN Reason: Pain, moderate (4-7) Last Admin: 09/16/18 06:58 Dose: 2 mg Pantoprazole Sodium (Protonix Ec Tab) 40 mg PO ACB [facility] Spironolactone (Aldactone) 50 mg PO DAILY [facility] Last Admin: 09/16/18 10:08 Dose: 50 mg - Labs Labs: 09/16/18 06:20 09/16/18 06:20 PT 16.8 SECONDS (9.4-12.5) H 09/14/18 17:29 INR 1.51 09/14/18 17:29 APTT 33.1 Seconds (26.9-38.3) 09/14/18 17:29
[2018-09-17 08:08] LABS: BASO # 0.04 K/mm3 (0.0-2.0); BASO % 0.6 % (0.0-3.0); EOS % 0.6 % (1.5-5.0); HEMOGLOBIN 15.6 g/dL (14.0-18.0); LYMPH # 1.1 (1.2-3.4); LYMPH % 17.1 % (22.0-35.0); MEAN CELL VOLUME 87.6 fl (80.0-105.0); MEAN CORPUSCULAR HEMOGLOBIN 29.2 pg (25.0-35.0); MEAN CORPUSCULAR HGB CONC 33.3 g/dl (31.0-37.0); MEAN PLATELET VOLUME 9.7 fl (7.0-11.0); MONO # 0.7 (0.1-0.6); RBC 5.34 10^6/uL (3.5-6.1); RED CELL DISTRIBUTION WIDTH 19.2 % (11.5-14.5); WHITE BLOOD COUNT 6.6 10^3/uL (4.5-11.0)
[2018-09-17] MEDS: Pantoprazole 40 mg EC Tab PO SCH (08:22)
[2018-09-17 09:15] LABS: BASO # 0.05 K/mm3 (0.0-2.0); BASO % 0.6 % (0.0-3.0); EOS # 0.1 (0.0-0.7); HEMOGLOBIN 16.2 g/dL (14.0-18.0); LYMPH # 1.6 (1.2-3.4); MEAN CORPUSCULAR HEMOGLOBIN 29.4 pg (25.0-35.0); MEAN CORPUSCULAR HGB CONC 30.5 g/dl (31.0-37.0); MEAN PLATELET VOLUME 10.9 fl (7.0-11.0); MONO # 0.6 (0.1-0.6); MONO % 7.7 % (1.0-6.0); RBC 5.51 10^6/uL (3.5-6.1); RED CELL DISTRIBUTION WIDTH 21.8 % (11.5-14.5); WHITE BLOOD COUNT 8.1 10^3/uL (4.5-11.0)
[2018-09-17 09:19] LABS: MEAN CELL VOLUME 96.6 fl (80.0-105.0)
--- NOTE | 2018-09-17 09:30 | CARD ---
APPROVED REPORT Date of service: 09/16/2018 EXAM: Two-dimensional and M-mode echocardiogram with Doppler and color Doppler. INDICATION ENLARGED HEART 2D DIMENSIONS Left Atrium (2D)4.8 (1.6-4.0cm)IVSd1.4 (0.7-1.1cm) LVDd6.6 (3.9-5.9cm)PWd1.4 (0.7-1.1cm) LVDs6.3 (2.5-4.0cm)FS (%) 5.4 % LVEF (%)12.0 (>50%) M-Mode DIMENSIONS Aortic Root3.40 (2.2-3.7cm)Aortic Cusp Exc.1.60 (1.5-2.0cm) Aortic Valve AoV Peak Ezbfbvzo55.3cm/Brenda Peak GR.2mmHg Mitral Valve E/A ratio0.0 TDI E/Lateral E'0.0E/Medial E'0.0 Pulmonary Valve PV Peak Youxcnjz26.9cm/sPV Peak Grad.1mmHg Tricuspid Valve TR Peak [id number]/sRAP [id number] Peak Gr.30mmHg [id number] LEFT VENTRICLE The Left Ventricle is moderately dilated. There is mild concentric left ventricular hypertrophy. The systolic function is severely impaired. There is global hypokinesis of the left ventricle. RIGHT VENTRICLE The right ventricle is moderately dilated. Systolic function is moderately reduced. There is an ICDr in the right ventricle. ATRIA The left atrium is severely dilated. The right atrium is severely dilated. The interatrial septum is intact with no evidence for an atrial septal defect. AORTIC VALVE The aortic valve is mildly sclerotic. There is mild aortic regurgitation. There is no aortic valvular stenosis. MITRAL VALVE The mitral valve is normal in structure. The reduced mitral leaflet separation suggests decreased flow through the mitral valve and poor cardiac output. Mitral regurgitation is moderate. TRICUSPID VALVE The tricuspid valve is normal in structure. There is severe tricuspid regurgitation. PULMONIC VALVE The pulmonary valve is normal in structure. There is mild pulmonic valvular regurgitation. GREAT VESSELS The aortic root is normal in size. Dilated IVC with poor inspiration collapse is consistent with elevated right atrial pressure. PERICARDIAL EFFUSION There is no pleural effusion. There is a small posterior pericardial effusion. <Conclusion> Four chamber enlargement. Severely reduced LV systolic function with global hypokinesis and EF - 20%. Severe TR. Moderate MR. Mild PI and AI. ICD lead noted in RV. small posterior pericardial effusion.
[2018-09-17 10:11] LABS: CALCIUM 9.4 mg/dL (8.4-10.5)
[2018-09-17 10:12] LABS: ALB/GLOB RATIO 0.8 (1.1-1.8); ALBUMIN 3.3 g/dL (3.0-4.8)
--- NOTE | 2018-09-17 14:34 | CP.PCM.CON ---
<Mily Landon - Last Filed: 09/17/18 18:06> History of Present Illness - History of Present Illness History of Present Illness: General Surgery Dr. 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 Symptoms began 2days [employer]. Abd pain is diffuse in nature. As per records, pt reported being thirsty and drinking more water than usual. Pt also admitted to concurrent diarrhea x4 episodes. Pt admits to chills and dizziness. Denies fevers, JOHN, CP, N/V, constipation, urinary symptoms. Pt underwent Abd US which showed liver cirrhosis and cholelithiasis w/o signs of cholecystitis. Pt had CT A/P performed which was read as significant abd ascites w/ small right pleural effusion. Surgery consulted for cholelithiasis, abd pain, r/o cholecystitis. PMHx: see above, bladder cancer, BPH, CKD Meds: reviewed in chart NKDA PSHx: pacemaker/AICD (2000), paracentesis SHx: denies alcohol, tobacco or drug use FHx: son: Acute lymphoblastic leukemia Review of Systems - Review of Systems All systems: reviewed and no additional remarkable complaints except (see HPI) Past Patient History - Infectious Disease Hx of Infectious Diseases: None - Past Medical History & Family History Past Medical History?: Yes - Past Social History Smoking Status: Never Smoked - CARDIAC Hx Cardiac Disorders: Yes (Cardia arrhythmia, Pacemaker) Hx Congestive Heart Failure: Yes Hx Hypertension: Yes - PULMONARY Hx Respiratory Disorders: No - NEUROLOGICAL HX Cerebrovascular Accident: Yes - HEENT Hx HEENT Problems: Yes Hx Deafness: Yes Other/Comment: mute - RENAL Hx Chronic Kidney Disease: Yes - ENDOCRINE/METABOLIC Hx Diabetes Mellitus Type 2: Yes - HEMATOLOGICAL/ONCOLOGICAL Hx Cirrhosis: Yes Hx Metastesis: Yes Other/Comment: Liver CA/Bladder CA. Ascitis - INTEGUMENTARY Hx Dermatological Problems: No - MUSCULOSKELETAL/RHEUMATOLOGICAL Hx Falls: Yes - GASTROINTESTINAL Hx Gastrointestinal Disorders: Yes Other/Comment: ascites - GENITOURINARY/GYNECOLOGICAL Hx Genitourinary Disorders: Yes (retentrion ortiz to sgd) Other/Comment: bph - PSYCHIATRIC Hx Substance Use: No - SURGICAL HISTORY Other/Comment: AICD. Paracentesis - ANESTHESIA Hx Anesthesia: Yes Hx Anesthesia Reactions: No Hx Malignant Hyperthermia: No Meds Allergies/Adverse Reactions: Allergies Allergy/AdvReac Type Severity Reaction Status Date / Time No Known Allergies Allergy Verified 07/19/18 14:47 - Medications Medications: Current Medications Acetaminophen (Tylenol 325mg Tab) 650 mg PO Q6H PRN PRN Reason: Fever >100.4 F Albuterol/Ipratropium (Duoneb 3 Mg/0.5 Mg (3 Ml) Ud) 3 ml [id number] [facility] Last Admin: 09/17/18 09:09 Dose: 3 ml Albuterol/Ipratropium (Duoneb 3 Mg/0.5 Mg (3 Ml) Ud) 3 ml IH Q2H PRN PRN Reason: Shortness of Breath Last Admin: 09/16/18 12:44 Dose: 3 ml Alprazolam (Xanax) 0.5 mg PO TID PRN; Protocol PRN Reason: Anxiety Aspirin (Aspirin Chewable) 81 mg PO DAILY [facility] Last Admin: 09/17/18 10:52 Dose: 81 mg Carvedilol (Coreg) 6.25 mg PO Q12H [facility] Last Admin: 09/17/18 10:52 Dose: 6.25 mg Digoxin (Digoxin) 0.125 mg PO DAILY@1800 [facility] Last Admin: 09/16/18 18:11 Dose: 0.125 mg Finasteride (Proscar) 5 mg PO DAILY [facility] Last Admin: 09/17/18 10:53 Dose: 5 mg Furosemide (Lasix) 40 mg IVP DAILY [facility] Last Admin: 09/17/18 12:52 Dose: 20 mg Heparin Sodium (Porcine) (Heparin) 5,000 units SC Q12 [facility]; Protocol Morphine Sulfate (Morphine) 2 mg IVP Q4H PRN PRN Reason: Pain, moderate (4-7) Last Admin: 09/16/18 06:58 Dose: 2 mg Pantoprazole Sodium (Protonix Ec Tab) 40 mg PO ACB [facility] Last Admin: 09/17/18 08:22 Dose: 40 mg Spironolactone (Aldactone) 50 mg PO DAILY [facility] Last Admin: 09/17/18 10:52 Dose: 50 mg Physical Exam - Constitutional Appears: Non-toxic, No Acute Distress - Head Exam Head Exam: NORMAL INSPECTION - Eye Exam Eye Exam: Normal appearance - ENT Exam ENT Exam: Mucous Membranes Moist - Respiratory Exam Respiratory Exam: NORMAL BREATHING PATTERN. absent: Accessory Muscle Use, Respiratory Distress - Cardiovascular Exam Cardiovascular Exam: absent: Bradycardia, Tachycardia - GI/Abdominal Exam GI & Abdominal Exam: Distended (ascites), Soft. absent: Firm, Guarding, Rebound, Rigid, Tenderness - Extremities Exam Extremities exam: Positive for: normal inspection - Neurological Exam Neurological exam: Alert, Oriented x3 - Psychiatric Exam Psychiatric exam: Normal Affect, Normal Mood - Skin Skin Exam: Dry, Intact, Normal Color, Warm Results - Vital Signs Recent Vital Signs: Last Vital Signs Temp 97.3 F L 09/17/18 12:00 Pulse 59 L 09/17/18 12:00 Resp 18 09/17/18 12:00 BP 111/74 09/17/18 12:52 Pulse Ox 100 09/17/18 06:00 - Labs Result Diagrams: 09/17/18 08:30 09/17/18 06:30 Labs: Laboratory Results - last 24 hr 09/17/18 09/17/18 09/17/18 06:30 06:30 08:30 WBC 6.6 RBC 5.34 Hgb 15.6 Hct 46.8 MCV 87.6 MCH 29.2 MCHC 33.3 RDW 19.2 H Plt Count 167 MPV 9.7 Neut % (Auto) 71.7 H Lymph % (Auto) 17.1 L [place] % (Auto) 10.0 H Eos % (Auto) 0.6 L Baso % (Auto) 0.6 Lymph # (Auto) 1.1 L [place] # (Auto) 0.7 H Eos # (Auto) 0.0 Baso # (Auto) 0.04 Absolute Neuts (auto) 4.75 Sodium 136 Potassium 5.2 H Chloride 100 Carbon Dioxide 22 Anion Gap 19 BUN 68 H Creatinine 2.5 H Est GFR ( Amer) 32 Est GFR (Non-Af Amer) 27 Random Glucose 96 Lactic Acid 1.7 Calcium 9.4 Phosphorus 5.9 H Magnesium 2.4 H Total Bilirubin 4.5 H AST 32 ALT 22 Alkaline Phosphatase 425 H Total Protein 7.2 Albumin 3.3 Globulin 3.9 Albumin/Globulin Ratio 0.8 L 09/17/18 08:30 WBC 8.1 D RBC 5.51 Hgb 16.2 Hct 53.2 H MCV 96.6 D MCH 29.4 MCHC 30.5 L RDW 21.8 H Plt Count 263 MPV 10.9 Neut % (Auto) 70.7 H Lymph % (Auto) 20.0 L [place] % (Auto) 7.7 H Eos % (Auto) 1.0 L Baso % (Auto) 0.6 Lymph # (Auto) 1.6 [place] # (Auto) 0.6 Eos # (Auto) 0.1 Baso # (Auto) 0.05 Absolute Neuts (auto) 5.74 Sodium Potassium Chloride Carbon Dioxide Anion Gap BUN Creatinine Est GFR ( Amer) Est GFR (Non-Af Amer) Random Glucose Lactic Acid Calcium Phosphorus Magnesium Total Bilirubin AST ALT Alkaline Phosphatase Total Protein Albumin Globulin Albumin/Globulin Ratio - Imaging and Cardiology CT scan - abdomen Status: Image reviewed by me, Report reviewed by me US - abdomen Status: Image reviewed by me, Report reviewed by me Assessment & Plan - Assessment and Plan (Free Text) Assessment: 57 y/o M w/ liver cirrhosis, ascites, and cholelithiasis Plan: - f/u HIDA - f/u IR for paracentesis - cont medical management - no surgical intervention at this time Pt discussed w/ Dr. Pravin Landon PGY3 <Willy Costello - Last Filed: 09/19/18 11:40> Meds - Medications Medications: Current Medications Acetaminophen (Tylenol 325mg Tab) 650 mg PO Q6H PRN PRN Reason: Fever >100.4 F Albuterol/Ipratropium (Duoneb 3 Mg/0.5 Mg (3 Ml) Ud) 3 ml IH [id number] [facility] Last Admin: 09/19/18 08:42 Dose: 3 ml Albuterol/Ipratropium (Duoneb 3 Mg/0.5 Mg (3 Ml) Ud) 3 ml IH Q2H PRN PRN Reason: Shortness of Breath Last Admin: 09/16/18 12:44 Dose: 3 ml Alprazolam (Xanax) 0.5 mg PO TID PRN; Protocol PRN Reason: Anxiety Last Admin: 09/18/18 23:19 Dose: 0.5 mg Aspirin (Aspirin Chewable) 81 mg PO DAILY [facility] Last Admin: 09/19/18 10:41 Dose: 81 mg Carvedilol (Coreg) 6.25 mg PO Q12H [facility] Last Admin: 09/19/18 10:42 Dose: 6.25 mg Digoxin (Digoxin) 0.125 mg PO DAILY@1800 [facility] Last Admin: 09/18/18 17:51 Dose: 0.125 mg Finasteride (Proscar) 5 mg PO DAILY [facility] Last Admin: 09/19/18 10:57 Dose: 5 mg Heparin Sodium (Porcine) (Heparin) 5,000 units SC Q12 [facility]; Protocol Last Admin: 09/19/18 10:40 Dose: 5,000 units Morphine Sulfate (Morphine) 2 mg IVP Q4H PRN PRN Reason: Pain, moderate (4-7) Last Admin: 09/17/18 19:59 Dose: 2 mg Pantoprazole Sodium (Protonix Ec Tab) 40 mg PO ACB [facility] Last Admin: 09/19/18 08:46 Dose: 40 mg Results - Vital Signs Recent Vital Signs: Last Vital Signs Temp 97.3 F L 09/19/18 06:00 Pulse 75 09/19/18 10:42 Resp 20 09/19/18 06:00 BP 111/83 09/19/18 11:28 Pulse Ox 94 L 09/19/18 06:00 - Labs Result Diagrams: 09/19/18 06:00 09/19/18 06:00 Labs: Laboratory Results - last 24 hr 09/18/18 09/18/18 09/19/18 14:00 14:05 06:00 WBC 6.5 RBC 5.29 Hgb 15.7 Hct 47.0 MCV 88.8 MCH 29.7 MCHC 33.4 RDW 19.4 H Plt Count 213 MPV 9.7 Sodium 136 Potassium 5.8 H* Chloride 101 Carbon Dioxide 19 L Anion Gap 22 H BUN 72 H Creatinine 2.7 H Est GFR ( Amer) 30 Est GFR (Non-Af Amer) 24 Random Glucose 95 Calcium 9.4 Magnesium Total Bilirubin 4.5 H AST 27 ALT 19 Alkaline Phosphatase 434 H Total Protein 7.8 Albumin 3.5 Globulin 4.3 Albumin/Globulin Ratio 0.8 L Digoxin 1.4 09/19/18 06:00 WBC RBC Hgb Hct MCV MCH MCHC RDW Plt Count MPV Sodium 136 Potassium 5.8 H* Chloride 99 Carbon Dioxide 24 Anion Gap 19 BUN 76 H Creatinine 3.0 H Est GFR ( Amer) 26 Est GFR (Non-Af Amer) 22 Random Glucose 113 H Calcium 9.3 Magnesium 2.6 H Total Bilirubin 4.0 H AST 34 ALT 17 Alkaline Phosphatase 421 H Total Protein 7.6 Albumin 3.5 Globulin 4.1 Albumin/Globulin Ratio 0.8 L Digoxin Assessment & Plan - Assessment and Plan (Free Text) Plan: Dx Cardiac cirrhossis-cholelithiasis Pain NOT due to gallstones-NO surgery needed now This consult done under my direct supervision Km Costello MD FACS
--- NOTE | 2018-09-17 16:24 | CP.PCM.PN ---
<Rafael Jimenez - Last Filed: 09/17/18 16:19> Subjective - Date & Time of Evaluation Date of Evaluation: 09/17/18 Time of Evaluation: 14:35 - Subjective Subjective: PGY4 GI fellow progress note Patient was sitting in bedside chair when seen this morning. Some abdominal fullness and requesting diet. Five-point review of systems negative other than stated above Objective - Vital Signs/Intake and Output Vital Signs (last 24 hours): Temp Pulse Resp BP Pulse Ox 97.3 F L 59 L 18 111/74 100 09/17/18 12:00 09/17/18 12:00 09/17/18 12:00 09/17/18 12:52 09/17/18 06:00 Intake and Output: 09/17/18 09/17/18 06:59 18:59 Intake Total 1380 Output Total 320 Balance 1060 - Medications Medications: Current Medications Acetaminophen (Tylenol 325mg Tab) 650 mg PO Q6H PRN PRN Reason: Fever >100.4 F Albuterol/Ipratropium (Duoneb 3 Mg/0.5 Mg (3 Ml) Ud) 3 ml IH [id number] [facility] Last Admin: 09/17/18 14:44 Dose: 3 ml Albuterol/Ipratropium (Duoneb 3 Mg/0.5 Mg (3 Ml) Ud) 3 ml IH Q2H PRN PRN Reason: Shortness of Breath Last Admin: 09/16/18 12:44 Dose: 3 ml Alprazolam (Xanax) 0.5 mg PO TID PRN; Protocol PRN Reason: Anxiety Aspirin (Aspirin Chewable) 81 mg PO DAILY [facility] Last Admin: 09/17/18 10:52 Dose: 81 mg Carvedilol (Coreg) 6.25 mg PO Q12H [facility] Last Admin: 09/17/18 10:52 Dose: 6.25 mg Digoxin (Digoxin) 0.125 mg PO DAILY@1800 [facility] Last Admin: 09/16/18 18:11 Dose: 0.125 mg Finasteride (Proscar) 5 mg PO DAILY [facility] Last Admin: 09/17/18 10:53 Dose: 5 mg Furosemide (Lasix) 40 mg IVP DAILY [facility] Last Admin: 09/17/18 12:52 Dose: 20 mg Heparin Sodium (Porcine) (Heparin) 5,000 units SC Q12 [facility]; Protocol Morphine Sulfate (Morphine) 2 mg IVP Q4H PRN PRN Reason: Pain, moderate (4-7) Last Admin: 09/16/18 06:58 Dose: 2 mg Pantoprazole Sodium (Protonix Ec Tab) 40 mg PO ACB [facility] Last Admin: 09/17/18 08:22 Dose: 40 mg Spironolactone (Aldactone) 50 mg PO DAILY [facility] Last Admin: 09/17/18 10:52 Dose: 50 mg - Labs Labs: 09/17/18 08:30 09/17/18 06:30 PT 16.8 SECONDS (9.4-12.5) H 09/14/18 17:29 INR 1.51 09/14/18 17:29 APTT 33.1 Seconds (26.9-38.3) 09/14/18 17:29 - Constitutional Appears: No Acute Distress, Chronically Ill - Head Exam Head Exam: ATRAUMATIC, NORMAL INSPECTION - Eye Exam Eye Exam: EOMI. absent: Scleral icterus - ENT Exam ENT Exam: Mucous Membranes Dry. absent: Mucous Membranes Moist - Respiratory Exam Respiratory Exam: NORMAL BREATHING PATTERN. absent: Accessory Muscle Use - GI/Abdominal Exam GI & Abdominal Exam: Distended, Soft. 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 Enmanuel Aguilera [facility] [place]), bladder cancer(papillary urothelial carcinoma), BPH w/ indwelling ortiz catheter, HTN, CKD, liver cirrhosis with ascites s/p paracentesis 07/22/18, who was admitted for evaluation and treatment of shortness of breath and abdominal pain. SOB 2/2 Ascites 2/2 Hepatic Cirrhosis: MELD Na 23 Cardiomyopathy/HFrEF s/p AICD placement YODIT on CKD Bladder Cancer/BPH s/p indwelling ortiz catheter Chronic a-flutter Anxiety Plan: - Low sodium full liquid diet - optimization diuretic therapy spironolactone:furosemide - suspect symptoms related to right-sided heart failure, cardiac management per primary/cardiology - follow-up HIDA scan - Elective follow up for EGD for variceal screening and colonoscopy for CRC screening - Hemochromatosis genetic testing in view of the cardiomyopathy and the cirrhosis of the liver patient seen and examined with Dr. Bird; please see attestation for further recommendations/changes <Roger Bird V - Last Filed: 09/17/18 18:58> Objective - Vital Signs/Intake and Output Vital Signs (last 24 hours): Temp Pulse Resp BP Pulse Ox 97.4 F L 57 L 19 113/89 100 09/17/18 17:28 09/17/18 17:28 09/17/18 17:28 09/17/18 17:28 09/17/18 06:00 Intake and Output: 09/17/18 09/17/18 06:59 18:59 Intake Total 1380 Output Total 320 Balance 1060 - Medications Medications: Current Medications Acetaminophen (Tylenol 325mg Tab) 650 mg PO Q6H PRN PRN Reason: Fever >100.4 F Albuterol/Ipratropium (Duoneb 3 Mg/0.5 Mg (3 Ml) Ud) 3 ml IH [id number] [facility] Last Admin: 09/17/18 14:44 Dose: 3 ml Albuterol/Ipratropium (Duoneb 3 Mg/0.5 Mg (3 Ml) Ud) 3 ml IH Q2H PRN PRN Reason: Shortness of Breath Last Admin: 09/16/18 12:44 Dose: 3 ml Alprazolam (Xanax) 0.5 mg PO TID PRN; Protocol PRN Reason: Anxiety Aspirin (Aspirin Chewable) 81 mg PO DAILY [facility] Last Admin: 09/17/18 10:52 Dose: 81 mg Carvedilol (Coreg) 6.25 mg PO Q12H [facility] Last Admin: 09/17/18 10:52 Dose: 6.25 mg Digoxin (Digoxin) 0.125 mg PO DAILY@1800 [facility] Last Admin: 09/17/18 17:37 Dose: 0.125 mg Finasteride (Proscar) 5 mg PO DAILY [facility] Last Admin: 09/17/18 10:53 Dose: 5 mg Furosemide (Lasix) 40 mg IVP DAILY [facility] Last Admin: 09/17/18 12:52 Dose: 20 mg Heparin Sodium (Porcine) (Heparin) 5,000 units SC Q12 [facility]; Protocol Morphine Sulfate (Morphine) 2 mg IVP Q4H PRN PRN Reason: Pain, moderate (4-7) Last Admin: 09/16/18 06:58 Dose: 2 mg Pantoprazole Sodium (Protonix Ec Tab) 40 mg PO ACB [facility] Last Admin: 09/17/18 08:22 Dose: 40 mg Spironolactone (Aldactone) 50 mg PO DAILY [facility] Last Admin: 09/17/18 10:52 Dose: 50 mg - Labs Labs: 09/17/18 08:30 09/17/18 06:30 PT 16.8 SECONDS (9.4-12.5) H 09/14/18 17:29 INR 1.51 09/14/18 17:29 APTT 33.1 Seconds (26.9-38.3) 09/14/18 17:29 Attending/Attestation - Attestation I have personally seen and examined this patient.: Yes I have fully participated in the care of the patient.: Yes I have reviewed all pertinent clinical information, including history, physical exam and plan: Yes Notes (Text): This is an addendum to the GI progress note dictated by the fellow. This patient was seen and evaluated along with the fellow earlier today. Discussed with Dr. Dash discussed with the nursing staff. Repeat echo was reviewed. No large pleural pericardial effusion. Significant tricuspid regurgitation. Cardiomyopathy with significantly reduced systolic function. Hepatic congestion could be the etiology for this large hepatomegaly. Ascites could be related to the cardiac decompensation plus cardiac cirrhosis to be considered. Hemochromatosis genetic studies requested pending No significant ascites for large-volume paracentesis Close cardiac follow-up 09/17/18 18:55
--- NOTE | 2018-09-17 17:00 | PN ---
DATE: 09/17/2018 SUBJECTIVE: The patient is a 57-year-old black male who is deaf and mute, communicated through the retail pharmacy merchandiser, complained of abdominal discomfort, complained of shortness of breath, complained of generalized weakness. Want to eat, want solid diet. No abdominal pain, but discomfort. PHYSICAL EXAMINATION: VITAL SIGNS: The patient has a temperature of 94.5, pulse 107, respirations 20, blood pressure 113/89. LUNGS: Decreased breath sound at bases. HEART: S1 and S2 audible. ABDOMEN: Soft although looked distended. Palpable right upper abdominal mass. No fluid thrill noted. NEUROLOGIC: He is awake and alert, able to communicate. LABORATORY DATA: WBC is 8.1, hemoglobin 16, hematocrit 53, and platelets 263. PT 16.8, and INR 1.51. Chemistry: Sodium 136, potassium 5.2, chloride 100, CO2 of 22, BUN 68, creatinine 2.5, and total bili 4.5. Urine shows RBCs, this level is 0.6. He had CT of the abdomen and pelvis done that showed severe cardiomegaly, partially image moderate pericardial effusion, partially image AICD, hepatomegaly compatible with hepatic steatosis, large heterogeneous prostate gland, moderate diffuse abdominal and pelvic ascites. An echocardiogram shows four-chamber dilatation, severely reduced LV function. ASSESSMENT: 1. Congestive heart failure with severely reduced left ventricular function and ejection fraction of 20%, severe tricuspid regurgitation causing hepatic congestion. 2. Status post automatic implantable cardioverter defibrillator placement. 3. Noninsulin-dependent diabetes. 4. History of cancer of bladder. 5. Chronic atrial fibrillation. 6. Cholelithiasis. PLAN: So the plan is currently the patient is on spironolactone. He is on aspirin 81 daily. He is on Coreg and digoxin. He is on Lasix. We will give him IV Lasix and follow up electrolytes. Advance his diet as needed. Alberto Dash MD
[2018-09-17] MEDS: Digoxin 125 mcg (0.125 mg) Tab PO SCH (17:37)
--- NOTE | 2018-09-17 19:31 | PN ---
DATE: 09/17/2018 SUBJECTIVE: The patient is currently in warming blanket for mild hypothermia. The patient was interviewed via a electronic parts designer. He denied chest pain. He is still experiencing abdominal discomfort. PHYSICAL EXAMINATION: VITAL SIGNS: Blood pressure 111/74, heart rate 59, temperature 97.3, and respirations 18. HEENT: Normocephalic. CHEST: Minimal rhonchi. HEART: S1 and S2 regular. ABDOMEN: Mild ascites. EXTREMITIES: Trace edema. LABORATORY DATA: Today's hemoglobin and hematocrit 16.1 and 53.2, white count and platelet count are within normal limits. SMA-7: Sodium 136, potassium 5.2, chloride 100, CO2 of 22, glucose 96, BUN 68, and creatinine 2.5. Phosphorus 5.9 and magnesium 2.4, both are elevated. Alkaline phosphatase elevated at 425. Official report of the CT scan of the abdomen and pelvis: Partially imaged severe cardiomegaly, partially imaged moderate pericardial effusion, partially imaged AICD, small right effusion. They can be enhanced symmetrically. Please note, IV contrast was not administered for his study. No hydronephrosis. Bilateral renal scarring. Hepatomegaly. Hypoattenuation of the liver compatible with hepatic steatosis. Enlarged heterogeneous prostate. Decompressed urinary bladder. Urinary bladder wall appeared thickened. Moderate diffuse abdominal and pelvic ascites. Echocardiographic study performed yesterday revealed small posterior pericardial effusion. Ejection fraction estimated at 20%, severe tricuspid insufficiency, mild mitral insufficiency. ASSESSMENT: 1. Dilated cardiomyopathy. 2. Chronic atrial flutter. 3. Anasarca. 4. Cardiac cirrhosis. 5. Cholelithiasis without evidence of cholecystitis. 6. History of bladder cancer. 7. Rule out underlying sepsis. Blood culture is negative after 48 hours. RECOMMENDATIONS: Continue Aldactone 50 mg once a day, aspirin 81 mg once a day, Coreg 6.25 mg twice a day, digoxin 0.125 mg daily, Lasix 40 mg intravenously daily, morphine sulfate 2 mg intravenously every four hours p.r.n. Start heparin 5000 units subcutaneously every 12 hours. Ke Torres MD
[2018-09-17] MEDS: Morphine 2 mg/ml ISec IVP PRN (19:59)
--- NOTE | 2018-09-18 07:55 | CP.PCM.PN ---
Subjective - Date & Time of Evaluation Date of Evaluation: 09/18/18 Time of Evaluation: 07:53 - Subjective Subjective: General Surgery Dr. Costello Pt seen and examined @bedside. No acute events overnight. Pt sleeping comfortably this AM on rounds. Objective - Vital Signs/Intake and Output Vital Signs (last 24 hours): Temp Pulse Resp BP Pulse Ox 97.1 F L 76 20 119/96 H 99 09/18/18 05:54 09/18/18 05:54 09/18/18 05:54 09/18/18 05:54 09/18/18 05:54 Intake and Output: 09/18/18 09/18/18 06:59 18:59 Intake Total 120 Output Total 175 Balance -55 - Medications Medications: Current Medications Acetaminophen (Tylenol 325mg Tab) 650 mg PO Q6H PRN PRN Reason: Fever >100.4 F Albuterol/Ipratropium (Duoneb 3 Mg/0.5 Mg (3 Ml) Ud) 3 ml IH [id number] [facility] Last Admin: 09/17/18 19:17 Dose: 3 ml Albuterol/Ipratropium (Duoneb 3 Mg/0.5 Mg (3 Ml) Ud) 3 ml IH Q2H PRN PRN Reason: Shortness of Breath Last Admin: 09/16/18 12:44 Dose: 3 ml Alprazolam (Xanax) 0.5 mg PO TID PRN; Protocol PRN Reason: Anxiety Last Admin: 09/17/18 22:26 Dose: 0.5 mg Aspirin (Aspirin Chewable) 81 mg PO DAILY [facility] Last Admin: 09/17/18 10:52 Dose: 81 mg Carvedilol (Coreg) 6.25 mg PO Q12H [facility] Last Admin: 09/17/18 22:19 Dose: 6.25 mg Digoxin (Digoxin) 0.125 mg PO DAILY@1800 [facility] Last Admin: 09/17/18 17:37 Dose: 0.125 mg Finasteride (Proscar) 5 mg PO DAILY [facility] Last Admin: 09/17/18 10:53 Dose: 5 mg Furosemide (Lasix) 40 mg IVP DAILY [facility] Last Admin: 09/17/18 12:52 Dose: 20 mg Heparin Sodium (Porcine) (Heparin) 5,000 units SC Q12 [facility]; Protocol Last Admin: 09/17/18 22:06 Dose: 5,000 units Morphine Sulfate (Morphine) 2 mg IVP Q4H PRN PRN Reason: Pain, moderate (4-7) Last Admin: 09/17/18 19:59 Dose: 2 mg Pantoprazole Sodium (Protonix Ec Tab) 40 mg PO ACB [facility] Last Admin: 09/17/18 08:22 Dose: 40 mg Spironolactone (Aldactone) 50 mg PO DAILY [facility] Last Admin: 09/17/18 10:52 Dose: 50 mg - Labs Labs: 09/17/18 08:30 09/17/18 06:30 PT 16.8 SECONDS (9.4-12.5) H 09/14/18 17:29 INR 1.51 09/14/18 17:29 APTT 33.1 Seconds (26.9-38.3) 09/14/18 17:29 - Constitutional Appears: Non-toxic, No Acute Distress - Head Exam Head Exam: NORMAL INSPECTION - Eye Exam Eye Exam: Normal appearance - ENT Exam ENT Exam: Mucous Membranes Moist - Respiratory Exam Respiratory Exam: NORMAL BREATHING PATTERN. absent: Accessory Muscle Use, Respiratory Distress - Cardiovascular Exam Cardiovascular Exam: absent: Bradycardia, Tachycardia - GI/Abdominal Exam GI & Abdominal Exam: Distended (ascites), Soft. absent: Firm, Guarding, Rigid, Tenderness, Rebound - Extremities Exam Extremities Exam: Normal Inspection - Neurological Exam Neurological Exam: absent: Awake - Skin Skin Exam: Dry, Intact, Normal Color, Warm Assessment and Plan - Assessment and Plan (Free Text) Assessment: 57 y/o M w/ liver cirrhosis, ascites, and cholelithiasis Plan: - f/u HIDA - f/u IR for paracentesis - cont medical management - no surgical intervention at this time Pt discussed w/ Dr. Pravin Landon PGY3
[2018-09-18] MEDS: Albuterol-Ipratrop 3 mg / 0.5 (3 ml) UD IH SCH ×3 (08:39→21:05)
[2018-09-18 09:04] LABS: BASO # 0.03 K/mm3 (0.0-2.0); BASO % 0.5 % (0.0-3.0); EOS # 0.1 (0.0-0.7); EOS % 1.2 % (1.5-5.0); HEMOGLOBIN 15.7 g/dL (14.0-18.0); LYMPH # 1.2 (1.2-3.4); LYMPH % 17.6 % (22.0-35.0); MEAN CORPUSCULAR HEMOGLOBIN 29.5 pg (25.0-35.0); MEAN CORPUSCULAR HGB CONC 33.3 g/dl (31.0-37.0); MEAN PLATELET VOLUME 9.3 fl (7.0-11.0); MONO # 0.8 (0.1-0.6); MONO % 12.1 % (1.0-6.0); RBC 5.32 10^6/uL (3.5-6.1); RED CELL DISTRIBUTION WIDTH 19.3 % (11.5-14.5); WHITE BLOOD COUNT 6.6 10^3/uL (4.5-11.0)
--- NOTE | 2018-09-18 09:06 | CP.PCM.PCO ---
Physician Communication Note - Physician Communication Note Physician Communication Note: Concur with full liquids/suggest diaudid not morphine
[2018-09-18 09:08] LABS: MEAN CELL VOLUME 88.5 fl (80.0-105.0)
[2018-09-18] MEDS: Pantoprazole 40 mg EC Tab PO SCH (12:27)
[2018-09-18 14:35] LABS: ALB/GLOB RATIO 0.8 (1.1-1.8); ALBUMIN 3.5 g/dL (3.0-4.8); CALCIUM 9.4 mg/dL (8.4-10.5)
--- NOTE | 2018-09-18 16:20 | PN ---
DATE: 09/18/2018 SUBJECTIVE: The patient has no complaints of any chest pain. No shortness of breath. No headaches or dizziness. PHYSICAL EXAMINATION: VITAL SIGNS: Temperature is 97.1, pulse of 76, blood pressure is 119/96, and respirations 20. GENERAL: The patient is lying in bed, flat, comfortable. HEENT: No oral lesion. Anicteric sclerae. Moist mucosa. NECK: No JVD, adenopathy, or thyromegaly. CARDIOVASCULAR: S1 and S2, regular. No murmurs, rubs, or gallops. LUNGS: Clear to auscultation bilaterally. No wheeze, rales, or rhonchi. ABDOMEN: Bowel sounds are positive, soft, nontender and nondistended. EXTREMITIES: No cyanosis, clubbing, or edema. LABORATORY DATA: White count of 6.6, hemoglobin 15.7, potassium is 5.2, and creatinine is 2.5. ASSESSMENT: 1. Acute congestive heart failure secondary to systolic dysfunction with ejection fraction 20%. 2. Tricuspid regurgitation, severe. 3. Automatic implantable cardioverter-defibrillator. 4. Diabetes type 2. 5. Atrial fibrillation. 6. Cholelithiasis. 7. Benign prostatic hypertrophy with Gordon. 8. Hypertension. 9. Chronic kidney disease, stage III with acute kidney injury. 10. Ascites. 11. Cirrhosis. PLAN: The patient has creatinine that has increased from 1.9 to 2.5. The hemoglobin is stable. He is deaf and mute. I did communicate with him through writing. The patient is on Aldactone for his heart failure and for his cirrhosis. He is going to continue with Coreg for his heart failure. The patient is on Lasix daily. I will hold the Lasix because of the worsening of the creatinine causing an acute kidney injury. The patient is on heparin for DVT prophylaxis. He is on finasteride for his BPH. The patient is on morphine for pain. I will renew the patient's morphine. He is receiving Protonix daily. He is on Xanax as needed. Biliary scan has been ordered by Surgery. The patient is being followed by Dr. Costello form Surgery. The patient is on a heart-healthy diet, but he is n.p.o. currently until the HIDA scan is being done. The patient repeat blood work done tomorrow. We will hold the IV diuretics to see if the creatinine improves. Vijay Brown MD
[2018-09-18] MEDS: Digoxin 125 mcg (0.125 mg) Tab PO SCH (17:51)
[2018-09-18 17:52] VITALS: PULSE 71
--- NOTE | 2018-09-18 17:56 | CP.PCM.PN ---
<BarbaraRiannajorge - Last Filed: 09/18/18 17:54> Subjective - Date & Time of Evaluation Date of Evaluation: 09/18/18 Time of Evaluation: 14:50 - Subjective Subjective: PGY4 GI fellow progress note Patient sleeping in bed when seen this afternoon. He awoke to light tactile stimulation and denied any complaints and went back to sleep. Five-point review of systems negative other than stated above Objective - Vital Signs/Intake and Output Vital Signs (last 24 hours): Temp Pulse Resp BP Pulse Ox 97.4 F L 71 20 115/81 100 09/18/18 12:38 09/18/18 12:38 09/18/18 12:38 09/18/18 12:38 09/18/18 12:38 Intake and Output: 09/18/18 09/18/18 06:59 18:59 Intake Total 120 Output Total 175 Balance -55 - Medications Medications: Current Medications Acetaminophen (Tylenol 325mg Tab) 650 mg PO Q6H PRN PRN Reason: Fever >100.4 F Albuterol/Ipratropium (Duoneb 3 Mg/0.5 Mg (3 Ml) Ud) 3 ml IH [id number] [facility] Last Admin: 09/18/18 13:53 Dose: 3 ml Albuterol/Ipratropium (Duoneb 3 Mg/0.5 Mg (3 Ml) Ud) 3 ml IH Q2H PRN PRN Reason: Shortness of Breath Last Admin: 09/16/18 12:44 Dose: 3 ml Alprazolam (Xanax) 0.5 mg PO TID PRN; Protocol PRN Reason: Anxiety Last Admin: 09/18/18 12:28 Dose: 0.5 mg Aspirin (Aspirin Chewable) 81 mg PO DAILY [facility] Last Admin: 09/18/18 12:27 Dose: 81 mg Carvedilol (Coreg) 6.25 mg PO Q12H [facility] Last Admin: 09/18/18 12:28 Dose: 6.25 mg Digoxin (Digoxin) 0.125 mg PO DAILY@1800 [facility] Last Admin: 09/18/18 17:51 Dose: 0.125 mg Finasteride (Proscar) 5 mg PO DAILY [facility] Last Admin: 09/18/18 12:27 Dose: 5 mg Heparin Sodium (Porcine) (Heparin) 5,000 units SC Q12 [facility]; Protocol Last Admin: 09/18/18 12:32 Dose: 5,000 units Morphine Sulfate (Morphine) 2 mg IVP Q4H PRN PRN Reason: Pain, moderate (4-7) Last Admin: 09/17/18 19:59 Dose: 2 mg Pantoprazole Sodium (Protonix Ec Tab) 40 mg PO ACB [facility] Last Admin: 09/18/18 12:27 Dose: 40 mg - Labs Labs: 09/18/18 08:40 09/18/18 14:00 PT 16.8 SECONDS (9.4-12.5) H 09/14/18 17:29 INR 1.51 09/14/18 17:29 APTT 30.3 Seconds (26.9-38.3) 09/18/18 07:00 - Constitutional Appears: No Acute Distress, Chronically Ill - Head Exam Head Exam: ATRAUMATIC, NORMAL INSPECTION - Eye Exam Eye Exam: EOMI. absent: Scleral icterus - ENT Exam ENT Exam: Mucous Membranes Moist. absent: Mucous Membranes Dry - GI/Abdominal Exam GI & Abdominal Exam: Distended, Soft. absent: Firm, Guarding, Rigid, Tenderness, Pulsatile Mass Assessment and Plan - Assessment and Plan (Free Text) Assessment: 57 y/o deaf and mute male with past medical history of dilated cardiomyopathy (HFrEF) [place]il[place] [facility] [place] bladder cancer(papillary urothelial carcinoma), BPH w/ indwelling ortiz catheter, HTN, CKD, liver cirrhosis with ascites s/p paracentesis 07/22/18, who was admitted for evaluation and treatment of shortness of breath and abdominal pain. HIDA negative SOB 2/2 Ascites 2/2 Hepatic Cirrhosis: MELD Na 23 Cardiomyopathy/HFrEF s/p AICD placement YODIT on CKD Bladder Cancer/BPH s/p indwelling ortiz catheter Chronic a-flutter Anxiety Plan: - Low sodium full liquid diet - optimization diuretic therapy spironolactone:furosemide - suspect symptoms related to right-sided heart failure, cardiac management per primary/cardiology - Elective follow up for EGD for variceal screening and colonoscopy for CRC screening - Hemochromatosis genetic testing in view of the cardiomyopathy and the cirrhosis of the liver patient seen and examined with Dr. Bird; please see attestation for further recommendations/changes <Pelon,Kovil V - Last Filed: 09/19/18 19:52> Objective - Vital Signs/Intake and Output Vital Signs (last 24 hours): Temp Pulse Resp BP Pulse Ox 97 F L 62 20 100/68 97 09/18/18 18:00 09/18/18 23:20 09/18/18 18:00 09/18/18 23:20 09/18/18 18:00 Intake and Output: 09/18/18 09/19/18 18:59 06:59 Intake Total 0 480 Output Total 550 Balance 0 -70 - Medications Medications: Current Medications Acetaminophen (Tylenol 325mg Tab) 650 mg PO Q6H PRN PRN Reason: Fever >100.4 F Albuterol/Ipratropium (Duoneb 3 Mg/0.5 Mg (3 Ml) Ud) 3 ml IH [id number] [facility] Last Admin: 09/18/18 21:05 Dose: 3 ml Albuterol/Ipratropium (Duoneb 3 Mg/0.5 Mg (3 Ml) Ud) 3 ml IH Q2H PRN PRN Reason: Shortness of Breath Last Admin: 09/16/18 12:44 Dose: 3 ml Alprazolam (Xanax) 0.5 mg PO TID PRN; Protocol PRN Reason: Anxiety Last Admin: 09/18/18 23:19 Dose: 0.5 mg Aspirin (Aspirin Chewable) 81 mg PO DAILY [facility] Last Admin: 09/18/18 12:27 Dose: 81 mg Carvedilol (Coreg) 6.25 mg PO Q12H [facility] Last Admin: 09/18/18 23:20 Dose: 6.25 mg Digoxin (Digoxin) 0.125 mg PO DAILY@1800 [facility] Last Admin: 09/18/18 17:51 Dose: 0.125 mg Finasteride (Proscar) 5 mg PO DAILY [facility] Last Admin: 09/18/18 12:27 Dose: 5 mg Heparin Sodium (Porcine) (Heparin) 5,000 units SC Q12 [facility]; Protocol Last Admin: 09/18/18 23:19 Dose: 5,000 units Morphine Sulfate (Morphine) 2 mg IVP Q4H PRN PRN Reason: Pain, moderate (4-7) Last Admin: 09/17/18 19:59 Dose: 2 mg Pantoprazole Sodium (Protonix Ec Tab) 40 mg PO ACB [facility] Last Admin: 09/18/18 12:27 Dose: 40 mg - Labs Labs: 09/18/18 08:40 09/18/18 14:00 PT 16.8 SECONDS (9.4-12.5) H 09/14/18 17:29 INR 1.51 09/14/18 17:29 APTT 30.3 Seconds (26.9-38.3) 09/18/18 07:00 Attending/Attestation - Attestation I have personally seen and examined this patient.: Yes I have fully participated in the care of the patient.: Yes I have reviewed all pertinent clinical information, including history, physical exam and plan: Yes Notes (Text): This patient was seen and evaluated here earlier. There is an addendum to the GI progress note dictated by the fellow. We will follow-up HIDA scan. Clinically not suggestive of cholecystitis. Congestive hepatomegaly with this small ascites. Predominant right-sided heart failure dilated cardiomyopathy.. Diuretics as per cardiology and renal 09/19/18 00:22 09/19/18 19:51
--- NOTE | 2018-09-18 19:03 | PN ---
DATE: 09/18/2018 SUBJECTIVE: The patient is comfortable with less abdominal discomfort. He denies any shortness of breath. PHYSICAL EXAMINATION: VITAL SIGNS: Blood pressure 115/81, heart rate 71, temperature 97.4, respirations 20. HEENT: Normocephalic. NECK: Jugular venous distention is noted. CHEST: Diminished breath sounds over the bases. HEART: S1, S2, regular. ABDOMEN: Mild ascites. EXTREMITIES: No edema. LABORATORY DATA: Today's hemoglobin and hematocrit 15.7 and 47.1. White count and platelet count are within normal limit. Today's SMA-7: Sodium 136, potassium 5.2, chloride 100, CO2 of 22, glucose 96, BUN 68, creatinine 2.5. I did review surgical evaluation and the plan is to follow up HIDA and follow up Interventional Radiology for paracentesis and no surgical intervention at this time. ASSESSMENT: 1. Dilated cardiomyopathy status post ICD placement. 2. Worsening renal insufficiency. 3. Cholelithiasis, rule out cholecystitis. 4. Chronic atrial flutter. 5. Mild hyperkalemia. RECOMMENDATIONS: Discontinue Aldactone. Continue Coreg 6.25 mg twice a day, digoxin 0.125 mg once a day, subcutaneous heparin 5000 units every 12 hours, Lasix 40 mg intravenously daily. I will follow up HIDA scan report. Ke Torres MD
[2018-09-19] MEDS: Albuterol-Ipratrop 3 mg / 0.5 (3 ml) UD IH SCH ×4 (01:43→19:34)
[2018-09-19 06:36] LABS: HEMOGLOBIN 15.7 g/dL (14.0-18.0); MEAN CELL VOLUME 88.8 fl (80.0-105.0); MEAN CORPUSCULAR HEMOGLOBIN 29.7 pg (25.0-35.0); MEAN CORPUSCULAR HGB CONC 33.4 g/dl (31.0-37.0); MEAN PLATELET VOLUME 9.7 fl (7.0-11.0); RBC 5.29 10^6/uL (3.5-6.1); RED CELL DISTRIBUTION WIDTH 19.4 % (11.5-14.5); WHITE BLOOD COUNT 6.5 10^3/uL (4.5-11.0)
[2018-09-19 07:39] LABS: ALB/GLOB RATIO 0.8 (1.1-1.8); ALBUMIN 3.5 g/dL (3.0-4.8); CALCIUM 9.3 mg/dL (8.4-10.5)
[2018-09-19] MEDS: Pantoprazole 40 mg EC Tab PO SCH (08:46)
--- NOTE | 2018-09-19 10:39 | CP.PCM.PCO ---
Physician Communication Note - Physician Communication Note Physician Communication Note: spoke to IR/vasc re:plan, will follow IR/vac recs
--- NOTE | 2018-09-19 10:55 | CP.PCM.PN ---
<IfeanyiMurtaza - Last Filed: 09/19/18 16:49> Subjective - Date & Time of Evaluation Date of Evaluation: 09/19/18 Time of Evaluation: 10:51 - Subjective Subjective: Murtaza Suggs Internal Medicine Resident- Progress Note on Behalf of Dr. Bird Subjective: Patient seen and examined at bedside. No acute events overnight. Patient communicated that the abdominal pain has resolved. Able to tolerate diet. States SOB has improved relative to baseline. Denies fevers, headache, chest pain, palpitations, nausea, vomiting, constipation, and urinary symptoms. 12 Point ROS negative except as indicated in HPI Physical Examination: - Constitutional Appears: Well, Non-toxic, No Acute Distress - Head Exam Head Exam: NORMAL INSPECTION, NORMOCEPHALIC - Eye Exam Eye Exam: EOMI, Normal appearance - ENT Exam ENT Exam: Mucous Membranes Moist, Normal Exam - Neck Exam Neck exam: Positive for: Normal Inspection - Respiratory Exam Respiratory Exam: Clear to Auscultation Bilateral, NORMAL BREATHING PATTERN - Cardiovascular Exam Cardiovascular Exam: +S1, +S2, Systolic Murmur - GI/Abdominal Exam GI & Abdominal Exam: Distended. absent: Guarding, Rebound, Rigid - Extremities Exam Extremities exam: Positive for: normal inspection. 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 Enmanuel Aguilera [facility] [place] bladder cancer(papillary urothelial carcinoma), BPH w/ indwelling ortiz catheter, HTN, CKD, liver cirrhosis with ascites s/p paracentesis 07/22/18, who was admitted for evaluation and treatment of shortness of breath and abdominal pain. SOB 2/2 Ascites 2/2 Hepatic Cirrhosis - improved Cardiomyopathy/HFrEF s/p AICD placement YODIT on CKD Bladder Cancer/BPH s/p indwelling ortiz catheter Chronic a-flutter Anxiety Imaging Review: - U/S abdomen to evaluate ascites- Cholelithiasis. No sonographic evidence of acute cholecystitis. Incompletely visualized upper abdominal ascites, low volume apparent - 09/16/2018- CT abdomen and pelvis no po/iv contrast- Partially imaged severe cardiomegaly. Partially imaged moderate pericardial effusion. Partially imaged AICD leads. Small right effusion. The kidneys enhance symmetrically; please note IV contrast was not administered for this study. Correlate clinically for possibility contrast induced nephropathy. No hydronephrosis. Bilateral renal scarring. Hepatomegaly. Hypoattenuation of the liver compatible with hepatic steatosis. Enlarged heterogeneous prostate gland. Recommend correlation with PSA. Decompressed urinary bladder with Ortiz catheter present. Contrast is noted within the urinary bladder. Air within the urinary bladder may be secondary to recent instrumentation. Urinary bladder wall appears thickened. Moderate diffuse abdominal and pelvic ascites. - MELD Na 23 - recommend low sodium full liquids diet - optimization diuretic therapy spironolactone:furosemide - monitor for electrolyte derangements and renal function - recommend elective follow up for EGD for variceal screening and colonoscopy for CRC screening - recommend hemochromatosis genetic testing in view of the cardiomyopathy and the cirrhosis of the liver Patient seen, case reviewed with, and plan approved by attending physician, Dr. Bird. Objective - Vital Signs/Intake and Output Vital Signs (last 24 hours): Temp Pulse Resp BP Pulse Ox 97.3 F L 75 20 113/82 94 L 09/19/18 06:00 09/19/18 10:42 09/19/18 06:00 09/19/18 10:42 09/19/18 06:00 Intake and Output: 09/19/18 09/19/18 06:59 18:59 Intake Total 600 Output Total 650 Balance -50 - Medications Medications: Current Medications Acetaminophen (Tylenol 325mg Tab) 650 mg PO Q6H PRN PRN Reason: Fever >100.4 F Albuterol/Ipratropium (Duoneb 3 Mg/0.5 Mg (3 Ml) Ud) 3 ml IH [id number] [facility] Last Admin: 09/19/18 08:42 Dose: 3 ml Albuterol/Ipratropium (Duoneb 3 Mg/0.5 Mg (3 Ml) Ud) 3 ml IH Q2H PRN PRN Reason: Shortness of Breath Last Admin: 09/16/18 12:44 Dose: 3 ml Alprazolam (Xanax) 0.5 mg PO TID PRN; Protocol PRN Reason: Anxiety Last Admin: 09/18/18 23:19 Dose: 0.5 mg Aspirin (Aspirin Chewable) 81 mg PO DAILY [facility] Last Admin: 09/19/18 10:41 Dose: 81 mg Carvedilol (Coreg) 6.25 mg PO Q12H [facility] Last Admin: 09/19/18 10:42 Dose: 6.25 mg Digoxin (Digoxin) 0.125 mg PO DAILY@1800 [facility] Last Admin: 09/18/18 17:51 Dose: 0.125 mg Finasteride (Proscar) 5 mg PO DAILY [facility] Last Admin: 09/18/18 12:27 Dose: 5 mg Heparin Sodium (Porcine) (Heparin) 5,000 units SC Q12 [facility]; Protocol Last Admin: 09/19/18 10:40 Dose: 5,000 units Morphine Sulfate (Morphine) 2 mg IVP Q4H PRN PRN Reason: Pain, moderate (4-7) Last Admin: 09/17/18 19:59 Dose: 2 mg Pantoprazole Sodium (Protonix Ec Tab) 40 mg PO ACB [facility] Last Admin: 09/19/18 08:46 Dose: 40 mg - Labs Labs: 09/19/18 06:00 09/19/18 06:00 PT 16.8 SECONDS (9.4-12.5) H 09/14/18 17:29 INR 1.51 09/14/18 17:29 APTT 30.3 Seconds (26.9-38.3) 09/18/18 07:00 <Roger Bird V - Last Filed: 09/19/18 19:50> Objective - Vital Signs/Intake and Output Vital Signs (last 24 hours): Temp Pulse Resp BP Pulse Ox 97.6 F 82 18 133/89 94 L 09/19/18 17:47 09/19/18 18:00 09/19/18 17:47 09/19/18 17:47 09/19/18 06:00 Intake and Output: 09/19/18 09/20/18 18:59 06:59 Intake Total 1110 Output Total 1350 Balance -240 - Medications Medications: Current Medications Acetaminophen (Tylenol 325mg Tab) 650 mg PO Q6H PRN PRN Reason: Fever >100.4 F Albuterol/Ipratropium (Duoneb 3 Mg/0.5 Mg (3 Ml) Ud) 3 ml IH [id number] [facility] Last Admin: 09/19/18 19:34 Dose: 3 ml Albuterol/Ipratropium (Duoneb 3 Mg/0.5 Mg (3 Ml) Ud) 3 ml IH Q2H PRN PRN Reason: Shortness of Breath Last Admin: 09/16/18 12:44 Dose: 3 ml Alprazolam (Xanax) 0.5 mg PO TID PRN; Protocol PRN Reason: Anxiety Last Admin: 09/18/18 23:19 Dose: 0.5 mg Aspirin (Aspirin Chewable) 81 mg PO DAILY [facility] Last Admin: 09/19/18 10:41 Dose: 81 mg Carvedilol (Coreg) 6.25 mg PO Q12H [facility] Last Admin: 09/19/18 10:42 Dose: 6.25 mg Finasteride (Proscar) 5 mg PO DAILY [facility] Last Admin: 09/19/18 10:57 Dose: 5 mg Heparin Sodium (Porcine) (Heparin) 5,000 units SC Q12 [facility]; Protocol Last Admin: 09/19/18 10:40 Dose: 5,000 units Sodium Chloride (Sodium Chloride 0.45%) 1,000 mls @ 30 mls/hr IV .Q24H [facility] Last Admin: 09/19/18 12:00 Dose: 30 mls/hr Morphine Sulfate (Morphine) 2 mg IVP Q4H PRN PRN Reason: Pain, moderate (4-7) Last Admin: 09/17/18 19:59 Dose: 2 mg Pantoprazole Sodium (Protonix Ec Tab) 40 mg PO ACB [facility] Last Admin: 09/19/18 08:46 Dose: 40 mg - Labs Labs: 09/19/18 06:00 09/19/18 06:00 PT 16.8 SECONDS (9.4-12.5) H 09/14/18 17:29 INR 1.51 09/14/18 17:29 APTT 30.3 Seconds (26.9-38.3) 09/18/18 07:00 Attending/Attestation - Attestation I have personally seen and examined this patient.: Yes I have fully participated in the care of the patient.: Yes I have reviewed all pertinent clinical information, including history, physical exam and plan: Yes Notes (Text): This patient was seen and evaluated along with the resident earlier today. This is an addendum to the progress report dictated by the resident. Cardiology note was reviewed. This patient HIDA scan was negative. Patient does have small of ascites not for large-volume paracentesis. Patient does have a large hepatomegaly. Significant right-sided heart failure. Probable cardiac cirrhosis. This patient is very high risk patient no plan for any endoscopy evaluation. Hemochromatosis genetic test ordered results pending 09/19/18 19:48
[2018-09-19] MEDS: Sodium Chloride 0.45% 1,000 ML IV SCH (12:00)
--- NOTE | 2018-09-19 13:03 | NM ---
Date of service: 09/18/2018 PROCEDURE: Nuclear Medicine Hepatobiliary Scan HISTORY: cholelithiasis COMPARISON: 09/15/2018. Abdominal ultrasound. 09/16/2018 CT abdomen and pelvis. TECHNIQUE: 6.4 mCi of technetium 99m Mebrofenin was administered intravenously. Planar images of the abdomen were obtained at 5 min intervals to 60 mins. Delayed images were also obtained. FINDINGS: LIVER: Timely and homogenous uptake. COMMON BILE DUCT: identified at 15 mins. GALLBLADDER: identified at 15 mins. SMALL BOWEL: Identified at 2 hr. IMPRESSION: Normal Hepatobiliary Scan. The cystic duct is patent.
--- NOTE | 2018-09-19 14:17 | PCM.PCON ---
History of Present Illness - History of Present Illness History of Present Illness: Palliative consult requested by Dr Ivelisse Dash Reason: Goals of care This is a 57 year old male who is deaf/ mute with history of dilated cardiomyopathy s/p AICD, bladder cancer, BPH, CKD, liver cirrhosis who presented to ED on 09/15 with shortness of breath and abdominal pain.The patient stated that the abdominal pain worsened over the prior two days. The patient also reported loose bowel movements. He admitted to chills, dizziness, and difficulty sleeping. He denied fevers, headache, chest pain, palpitations, nausea, vomiting, constipation, and urinary symptoms. Chest CT: Severe cardiomegaly with severe right atrial dilatation. No evidence of PE Abdominal CT: Severe cardiomegaly, moderate pericardial effusion. Hepatomegaly,with hepatic steatosis. Enlarged heterogeneous prostate gland.Moderate diffuse abdominal ascites.Urinary bladder wall thickening Nuclear Scan: Patent cystic duct ECHO: Severe reduced LV systolic function with global hyokinesis ,EF 20%, severe TR, moderate MR, mild PI and AI, small posterior pericardial effusion Labs: Wbc 6.6, Hgb 15.7,PLT 194, Na 136, K 5.8, BUN 76, [employer] 3.0, T Bili 4.0, AST 34, ALT 17, Alk Phos 421 , Amylase 127, Lipase 44. Blood/urine C&S negative. PMH: CHF s/p AICD, papillary urothelial bladder cancer, BPH, HTN, CKD, liver cirrhosis,ascites PSH: pacemaker/AICD (2000), paracentesis, indwelling ortiz catheter, Social History: No alcohol, tobacco or drug use. Family History:Son> ALL Advance Care Planning: The patient does not have an Advanced Directive Review of System: As per HPI, no other new complaints. Physical Exam - Constitutional Appears: Chronically Ill - Head Exam Head Exam: NORMOCEPHALIC - ENT Exam ENT Exam: Mucous Membranes Moist - Respiratory Exam Respiratory Exam: Decreased Breath Sounds, Rales - Cardiovascular Exam Cardiovascular Exam: +S1, +S2 - GI/Abdominal Exam GI & Abdominal Exam: Distended, Firm, Tenderness - Extremities Exam Extremities exam: Positive for: pedal edema - Neurological Exam Additional comments: lethargic - Skin Skin Exam: Dry, Pallor - Additional Findings Additional findings: palliative performance scale rating 40% Palliative Care Assessment - Modified MRC Dyspnea Scale Modified MRC Dyspnea Scale: Stop for breath after walking about 100m/after few mins on levelground Grade: 4 - Pain Scale Pain Score: 6 Pain Scale Used: [place] - Pain Location Pain Location Body Site: Abdomen - Pain Description Intensity of pain at present: 8 Pain Behavior: Guarding, Irritability, Restlessness Aggravating Factors: Changing Position, Exercise/Activity Alleviating Factors/Management Techniques: Position Change - John Scale Sensory Perception: Very Limited Moisture: Occasionally Moist Activity: Walks Occasionally Mobility: Very Limited Nutrition: Probably Inadequate Friction & Shear: Potential Problem Total Score - Skin Risk Assessment: 14 - Psychosocial Distress Patient screened for psychosocial distress: No Palliative Care - Goals Treatment Goal(s): Alleviate symptoms, Improve ADLs, Improve quality of life End of life care discussed: Yes - Plan 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 Mr Snider is lethargic. Complains of abdominal pain,distention, shortness of breath. He indicated that this is the reason he came to hospital. He is very uncomfortable, changes position frequently. I tried to discuss his understanding of his medical condition. I also tried to discuss advance care planing.The patient could not concentrate on our conversation because he was uncomfortable. He indicated that his daughter Deepa is his POA and that we could contact her VM left for Deepa Snider,intent to discuss goals of care Time spent with patient in goals of care discussion,20 minutes Plan: Goals of care and advance care planning GI recs, Continue Lasix. IR consulted>Paracentisis pending. Hida scan pending Cardiology following recs reviewed, Continue Coreg, Digoxin,ASA, Porscar,DVT prophylaxis. Duonebs as needed Ativan for anxiety
--- NOTE | 2018-09-19 15:28 | PN ---
DATE: 09/19/2018 SUBJECTIVE: The patient is a 57-year-old, seen and examined, complain of shortness of breath, complain of right upper quadrant pain. Denies any nausea or vomiting. As per nursing aids, he did eat fair. PHYSICAL EXAMINATION: VITAL SIGNS: The patient is afebrile, pulse 53, respirations 18, blood pressure 111/83. LUNGS: Bilateral fair airflow. No rhonchi or crackle. HEART: S1 and S2 audible. ABDOMEN: Soft, but right upper quadrant palpable mass and has positive ascites. EXTREMITIES: Bilateral leg +1 edema. LABORATORY DATA: WBC 6.5, hemoglobin 15, hematocrit 47, and platelet 213. Chemistry; sodium 136, potassium 5.8, chloride 99, CO2 24, BUN 76, creatinine 3.0, and blood sugar 113. Blood culture and urine cultures are negative. 1.5. ASSESSMENT: 1. Abdominal pain, probably secondary to liver congestion. The patient has severe tricuspid regurgitation, secondary to dilated cardiomyopathy status post pacemaker placement. 2. Worsening renal function. 3. History of bladder caner. 4. Chronic atrial fibrillation, not on anticoagulant because of hematuria secondary to bladder cancer. 5. Non-insulin dependent diabetes. 6. Cholelithiasis. 7. History of benign prostatic hypertrophy. 8. Acute and chronic kidney disease. 9. . 10. Cirrhosis of liver. PLAN: Currently the patient is on aspirin 81 mg daily. He is on Coreg. He is on nebulizer treatment. He is on DVT prophylaxis. We will give one dose of coagulate and request Nephrology evaluation. Discussed with Dr. Torres. From his point of view, there is nothing much can be done. Got conservative care because of his other comorbidity. He cannot be referred to heart transplant . Alberto Dash MD
--- NOTE | 2018-09-19 15:30 | PN ---
DATE: 09/19/2018 SUBJECTIVE: Mr. 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 He was admitted with shortness of breath and some abdominal distention. I reviewed his CT scan dated 09/16/2018. He has a severely dilated heart and what appears to be a hepatomegaly. A small amount of ascites is present. There is not enough ascites to warrant therapeutic paracentesis. Garrett Dejesus MD MTDD
--- NOTE | 2018-09-19 16:15 | PN ---
DATE: 09/19/2018 SUBJECTIVE: The patient is currently comfortable. He ate his breakfast. No reported ventricular arrhythmia. PHYSICAL EXAMINATION: VITAL SIGNS: Blood pressure 108/88, heart rate 59, temperature 97.3, respirations 20. HEENT: Normocephalic. CHEST: Clear. HEART: S1 and S2, regular. ABDOMEN: [id number]-[id number] ascites. EXTREMITIES: Trace leg edema. LABORATORY DATA: Today's hemoglobin and hematocrit 15.7 and 47.2. White count and platelet count are within normal limits. Today's SMA-7: Sodium 136, potassium 5.8, chloride 99, CO2 of 24, glucose 115, BUN 76, and creatinine 3. Magnesium is 2.6. HIDA scan was performed yesterday and the report is still pending. ASSESSMENT: 1. Dilated cardiomyopathy; however, the patient is not in pulmonary edema and clinically and radiologically, the lungs are clear. 2. Right-sided failure. 3. Hepatic cirrhosis. 4. Worsening renal insufficiency and worsening hyperkalemia. 5. Rule out cholecystitis. 6. Low-grade bladder cancer. 7. Benign prostatic hypertrophy requiring indwelling Gordon catheter. RECOMMENDATIONS: Case was discussed with Dr. Dash and Dr. España. I will discontinue both digoxin and Aldactone. Consider low-dose intravenous fluid infusion. The patient is not a candidate for inotropic agents. I will follow up HIDA scan report. Ke Torres MD
[2018-09-19 17:38] LABS: URINE APPEARANCE CLEAR (CLEAR); URINE BILIRUBIN NEGATIVE (NEGATIVE); URINE BLOOD NEGATIVE (NEGATIVE); URINE COLOR YELLOW (YELLOW); URINE GLUCOSE (UA) NEGATIVE (NEGATIVE); URINE LEUKOCYTE ESTERASE SMALL Leu/uL (NEGATIVE); URINE PROTEIN NEGATIVE mg/dL (<30 mg/dL)
[2018-09-19 17:53] LABS: URINE HYALINE CAST 0 - 2 /hpf; URINE RBC 0 - 2 /hpf (0-2)
[2018-09-20] MEDS: Albuterol-Ipratrop 3 mg / 0.5 (3 ml) UD IH SCH ×5 (02:29→21:01)
--- NOTE | 2018-09-20 04:57 | CON ---
DATE: 09/19/2018 CONSULTATION REASON FOR CONSULTATION: Acute kidney injury, hyperkalemia. HISTORY OF PRESENTING ILLNESS: This is a 57-year-old young male, admitted on 09/14 with a complaint of abdominal discomfort, bloating, shortness of breath. The patient has a history of dilated cardiomyopathy, severely decreased ejection fraction, AICD placement, anasarca, liver cirrhosis secondary to cardiomyopathy, history of intermittent paracentesis. The patient was initially given IV fluids. He was treated with IV Rocephin 2 g, only received one dose. He was also on Aldactone 50 mg daily which was discontinued yesterday. His creatinine at the time of presentation was 1.9. It was still 1.9 on 09/16/2018. Since then, the creatinine has been progressively rising. It went to 2.5 on 09/17, 2.7 on 09/18, and today, the creatinine is 3. Also, his potassium has risen from 5-5.8. Consultation is requested for acute kidney injury. PAST MEDICAL AND SURGICAL HISTORY: Dilated cardiomyopathy, AICD placement, bladder cancer, BPH with indwelling Gordon, hypertension, chronic kidney disease stage III, cardiac cirrhosis with ascites. FAMILY HISTORY: Acute lymphoblastic leukemia in his son. SOCIAL HISTORY: No smoking, no alcohol use, no IV drug abuse. ALLERGIES: NO KNOWN DRUG ALLERGIES. CURRENT MEDICATIONS: Aldactone 50 mg daily, was discontinued yesterday. Digoxin 0.125 daily. Lasix 20 mg daily, was stopped on 09/17. Plavix 75, Protonix 40, Rocephin 2 g daily, only one dose was given. PHYSICAL EXAMINATION GENERAL: Young male, sitting in bed. VITAL SIGNS: Blood pressure 111/83, heart rate 53, respiratory rate 18, temperature 97.6. HEENT: Normocephalic, atraumatic, positive pallor. NECK: Supple, no JVD. LUNGS: Bilateral equal entry, bilateral equal expansion, no rales. CARDIAC: S1, S2, regular rate and rhythm, positive murmur, no rub. ABDOMEN: Obese, distended, soft, nontender, bowel sounds are present, positive fluid thrill. EXTREMITIES: No lower extremity edema. LABORATORY DATA: WBC 6.5, hemoglobin 15.7, hematocrit 47, platelets 213. Sodium 136, potassium 5.8, chloride 99, CO2 of 24, BUN 76, creatinine 3, glucose 113, calcium 9.3, magnesium 2.6, phosphorus was 5.9 on 09/17, a total bili of 4, AST 34, ALT 17. Albumin 3.5. Urinalysis, yellow, clear, pH 6, specific gravity of 1.010, protein negative, glucose negative, ketones negative, leukocyte esterase small, digoxin level 1.4 yesterday. Blood cultures, no growth. Urine culture, no growth. CT of the abdomen and pelvis from 09/16, kidneys enhanced symmetrically, no hydronephrosis, bilateral renal scarring. Severe cardiomegaly, moderate pericardial effusion, hepatomegaly, enlarged prostate, [id number] abdominal and pelvic ascites. ASSESSMENT: 1. Acute kidney injury, progressive renal insufficiency. 2. Hyperkalemia secondary to acute kidney injury and Aldactone. 3. Severe dilated cardiomyopathy, decreased ejection fraction, pulmonary hypertension. 4. Cardiac cirrhosis, ascites, elevated total bilirubin. 5. Underlying chronic kidney disease. 6. ?supraventricular tachycardia. PLAN: 1. Trial of Lasix. The patient does not appear to be intravascularly deplete; blood pressure appears to be normal; not tachycardic. 2. Avoid nephrotoxins. 3. The patient received one dose of Kayexalate this morning, would limit the use of Kayexalate. 4. Cardiorenal syndrome. 5. Case discussed with cardiology, not a candidate for ionotropic agents. Amada España MD
[2018-09-20] MEDS: Pantoprazole 40 mg EC Tab PO SCH (09:03)
[2018-09-20] MEDS: Morphine 2 mg/ml ISec IVP PRN (09:44)
--- NOTE | 2018-09-20 10:11 | CP.PCM.PCO ---
Physician Communication Note - Physician Communication Note Physician Communication Note: spoke to IR,no intervention planned,pt remains in RF,will follow renal recs
--- NOTE | 2018-09-20 10:19 | CP.PCM.PN ---
<Donte Lr - Last Filed: 09/20/18 10:28> Subjective - Date & Time of Evaluation Date of Evaluation: 09/20/18 Time of Evaluation: 07:45 - Subjective Subjective: PGY6 GI Fellow Progress Note Patient seen and examined bedside this morning. Patient more confused today, nursing notes appreciated. Tolerating diet without issue. No events overnight. 12 system ROS performed and negative except where stated Objective - Vital Signs/Intake and Output Vital Signs (last 24 hours): Temp Pulse Resp BP Pulse Ox 97.0 F L 79 19 125/95 H 98 09/20/18 06:00 09/20/18 06:00 09/20/18 06:00 09/20/18 06:00 09/20/18 06:00 Intake and Output: 09/20/18 09/20/18 06:59 18:59 Intake Total 240 Output Total 550 Balance -310 - Medications Medications: Current Medications Acetaminophen (Tylenol 325mg Tab) 650 mg PO Q6H PRN PRN Reason: Fever >100.4 F Albuterol/Ipratropium (Duoneb 3 Mg/0.5 Mg (3 Ml) Ud) 3 ml IH [id number] [facility] Last Admin: 09/20/18 07:51 Dose: 3 ml Albuterol/Ipratropium (Duoneb 3 Mg/0.5 Mg (3 Ml) Ud) 3 ml IH Q2H PRN PRN Reason: Shortness of Breath Last Admin: 09/16/18 12:44 Dose: 3 ml Alprazolam (Xanax) 0.5 mg PO TID PRN; Protocol PRN Reason: Anxiety Last Admin: 09/18/18 23:19 Dose: 0.5 mg Aspirin (Aspirin Chewable) 81 mg PO DAILY [facility] Last Admin: 09/20/18 09:03 Dose: 81 mg Carvedilol (Coreg) 6.25 mg PO Q12H [facility] Last Admin: 09/19/18 22:30 Dose: 6.25 mg Finasteride (Proscar) 5 mg PO DAILY [facility] Last Admin: 09/20/18 09:03 Dose: 5 mg Heparin Sodium (Porcine) (Heparin) 5,000 units SC Q12 [facility]; Protocol Last Admin: 09/20/18 09:03 Dose: 5,000 units Sodium Chloride (Sodium Chloride 0.45%) 1,000 mls @ 30 mls/hr IV .Q24H [facility] Last Admin: 09/19/18 12:00 Dose: 30 mls/hr Morphine Sulfate (Morphine) 2 mg IVP Q4H PRN PRN Reason: Pain, moderate (4-7) Last Admin: 09/20/18 09:44 Dose: 2 mg Pantoprazole Sodium (Protonix Ec Tab) 40 mg PO ACB [facility] Last Admin: 09/20/18 09:03 Dose: 40 mg - Labs Labs: 09/19/18 06:00 09/19/18 06:00 PT 16.8 SECONDS (9.4-12.5) H 09/14/18 17:29 INR 1.51 09/14/18 17:29 APTT 30.3 Seconds (26.9-38.3) 09/18/18 07:00 - Constitutional Appears: No Acute Distress, Chronically Ill - Eye Exam Eye Exam: EOMI, PERRL - ENT Exam ENT Exam: Mucous Membranes Moist - Respiratory Exam Respiratory Exam: Decreased Breath Sounds. absent: Rales, Rhonchi, Wheezes - Cardiovascular Exam Cardiovascular Exam: RRR, +S1, +S2 - GI/Abdominal Exam GI & Abdominal Exam: Distended, Firm, Tenderness, Normal Bowel Sounds. absent: Guarding, Rigid, Mass, Organomegaly - Extremities Exam Extremities Exam: Normal Inspection. absent: Pedal Edema - Neurological Exam Neurological Exam: Altered, Awake - Psychiatric Exam Psychiatric exam: Normal Affect, Normal Mood - Skin Skin Exam: Dry, Warm Assessment and Plan - Assessment and Plan (Free Text) Assessment: Patient is a 57yo deaf/mute male with PMHx significant for dilated cardio myopathy with systolic CHF (EF 20%), severe tricuspid regurgitation, moderate mitral regurgitation, decompensated cardiac cirrhosis complicated by ascites and hepatic encephalopathy, bladder cancer, BPH, HTN and CKD who presented to the ED with shortness of breath and abdominal pain -Decompensated cardiac cirrhosis c/b ascites and HE -Dilated cardiomyopathy and systolic CHF -YODIT on CKD, R/O HRS vs cardiorenal syndrome vs obstructive uropathy (known malignancy and BPH) -Bladder Cancer/BPH -Chronic a-flutter -Anxiety Plan: -Worsening BUN/Cr noted with Cr 1.9-->3.0 since 09/16 -Check urine sodium, creatinine, urea - calculate FeNa and FeUrea -Stop/hold any diuretic therapy at this time -Has been receiving IVF -Start albumin 25g IV q8H and monitor BMP -The patient's deteriorating kidney function can be result of cirrhosis, congestive heart failure or obstructive issues given BPH and bladder Ca - cardiology/urology following -Avoid lactulose which may further dehyrate patient -Start Xifaxin 550mg PO BID for HE, check ammonia level -2g Na diet -Patient is not a candidate for TIPS with significant CHF and reduced EF as well as HE; not a candidate for liver transplant presently -Goals of care should be clarified given multiple, significant life-threatening comorbidities that this patient has; appreciate palliative/hospice eval -Check CBC, CMP, INR <Roger Bird V - Last Filed: 09/21/18 00:43> Objective - Vital Signs/Intake and Output Vital Signs (last 24 hours): Temp Pulse Resp BP Pulse Ox 97 F L 77 16 128/94 H 98 09/20/18 17:22 09/20/18 22:52 09/20/18 17:22 09/20/18 22:52 09/20/18 06:00 Intake and Output: 09/20/18 09/21/18 18:59 06:59 Intake Total 780 400 Output Total 600 Balance 180 400 - Medications Medications: Current Medications Acetaminophen (Tylenol 325mg Tab) 650 mg PO Q6H PRN PRN Reason: Fever >100.4 F Albumin Human (Albumin Human 25% (12.5 Gm/50 Ml)) 25 gm IV Q8H [facility] Stop: 09/23/18 02:31 Last Admin: 09/20/18 17:30 Dose: 25 gm Albuterol/Ipratropium (Duoneb 3 Mg/0.5 Mg (3 Ml) Ud) 3 ml IH [id number] [facility] Last Admin: 09/20/18 21:01 Dose: 3 ml Albuterol/Ipratropium (Duoneb 3 Mg/0.5 Mg (3 Ml) Ud) 3 ml IH Q2H PRN PRN Reason: Shortness of Breath Last Admin: 09/16/18 12:44 Dose: 3 ml Alprazolam (Xanax) 0.5 mg PO TID PRN; Protocol PRN Reason: Anxiety Last Admin: 09/18/18 23:19 Dose: 0.5 mg Aspirin (Aspirin Chewable) 81 mg PO DAILY [facility] Last Admin: 09/20/18 09:03 Dose: 81 mg Carvedilol (Coreg) 6.25 mg PO Q12H [facility] Last Admin: 09/20/18 22:52 Dose: 6.25 mg Finasteride (Proscar) 5 mg PO DAILY [facility] Last Admin: 09/20/18 09:03 Dose: 5 mg Heparin Sodium (Porcine) (Heparin) 5,000 units SC Q12 [facility]; Protocol Last Admin: 09/20/18 22:52 Dose: 5,000 units Sodium Chloride (Sodium Chloride 0.45%) 1,000 mls @ 30 mls/hr IV .Q24H [facility] Last Admin: 09/20/18 11:40 Dose: Not Given Insulin Human Regular (Humulin R Med) 0 units SC ACHS [facility]; Protocol Last Admin: 09/20/18 22:59 Dose: Not Given Morphine Sulfate (Morphine) 2 mg IVP Q4H PRN PRN Reason: Pain, moderate (4-7) Last Admin: 09/20/18 09:44 Dose: 2 mg Pantoprazole Sodium (Protonix Ec Tab) 40 mg PO ACB [facility] Last Admin: 09/20/18 09:03 Dose: 40 mg Rifaximin (Xifaxan) 550 mg PO BID [facility]; Protocol Last Admin: 09/20/18 17:37 Dose: 550 mg - Labs Labs: 09/20/18 10:45 09/20/18 10:45 PT 17.5 SECONDS (9.4-12.5) H 09/20/18 10:45 INR 1.55 09/20/18 10:45 APTT 30.3 Seconds (26.9-38.3) 09/18/18 07:00 Attending/Attestation - Attestation I have personally seen and examined this patient.: Yes I have fully participated in the care of the patient.: Yes I have reviewed all pertinent clinical information, including history, physical exam and plan: Yes Notes (Text): 09/21/18 00:41 This patient was seen and evaluated earlier along with the GI fellow. This is an addendum to the GI progress report dictated by the fellow. Patient has no worsening of the renal function patient has significantly reduced cardiac function, patient was on diuretics before Only minimal ascites. The worsening of the renal function could be secondary to the combination of the poor cardiac function diuretic therapy, hepatorenal syndrome should be considered in the differential diagnosis but less likely given the above clinical scenario Agree with changing lactulose to Xifaxan Thank you Dr. Dash for allowing us to participate in the care of the patient will continue to closely follow-up his care and suggest further recommendations based on the clinical course
[2018-09-20 10:54] LABS: HEMOGLOBIN 14.7 g/dL (14.0-18.0); MEAN CELL VOLUME 89.2 fl (80.0-105.0); MEAN CORPUSCULAR HEMOGLOBIN 29.3 pg (25.0-35.0); MEAN CORPUSCULAR HGB CONC 32.9 g/dl (31.0-37.0); MEAN PLATELET VOLUME 9.3 fl (7.0-11.0); RBC 5.01 10^6/uL (3.5-6.1); RED CELL DISTRIBUTION WIDTH 19.5 % (11.5-14.5); WHITE BLOOD COUNT 6.3 10^3/uL (4.5-11.0)
[2018-09-20 11:00] LABS: INR 1.55; PROTHROMBIN TIME 17.5 SECONDS (9.4-12.5)
[2018-09-20 11:09] LABS: ALB/GLOB RATIO 0.9 (1.1-1.8); ALBUMIN 3.3 g/dL (3.0-4.8)
[2018-09-20] MEDS: Sodium Chloride 0.45% 1,000 ML IV SCH (11:40)
[2018-09-20] MEDS: Albumin Human 25% (12.5 gm/50 ml) IV SCH ×2 (11:41→17:30)
[2018-09-20] MEDS: Insulin Reg-MEDIUM-Coverage SC SCH ×3 (13:18→22:59)
--- NOTE | 2018-09-20 13:30 | PN ---
DATE: 09/20/2018 SUBJECTIVE: The patient is currently seen on telemetry. The son is in the room. The patient had been visited by palliative care. Family is considering DNR/DNI palliative care and hospice options. The patient has a severe dilated cardiomyopathy with AICD placement. Ejection fraction remains at 20%. He has significant valvular heart disease. He has pericardial effusions and ascites. The patient remains prerenal with a BUN of 71 and a creatinine of 2.2. The patient is currently not receiving diuretic therapy. MEDICATIONS: Medication list reviewed. The patient is on aspirin, Coreg, DuoNeb, subcu heparin, morphine, Proscar, Protonix, half normal saline 30 mL an hour, Tylenol p.r.n., Xanax p.r.n., and Xifaxan. OBJECTIVE: INTAKE/OUTPUT: Intake is 1350, output is 1900. Weight today 156 pounds and 6 ounces. VITAL SIGNS: Blood pressure 107/74, temperature 97.4, respiratory rate 16 with a pulse of 76. HEENT: Shows him to be normocephalic, atraumatic. Conjunctivae are pink. Sclerae are mildly icteric. NECK: Supple. No neck vein distention. CHEST: Clear to auscultation and percussion with decreased breath sounds at the bases. No rales, rhonchi or wheezing. CARDIOVASCULAR: Shows a regular rate and rhythm. Positive AICD. Positive TR/MR/AI/PI. No S3, no S4, no rub. ABDOMEN: Soft. Minimal distention. Positive ascites. No rebound, guarding or masses. EXTREMITIES: Show no significant lower extremity edema. Diminished lower extremity pulses bilaterally. NEUROLOGIC: Shows him to be non-communicative. He is being spoken to with sign language through his son. LABORATORY DATA AND IMAGING STUDIES: Echocardiogram showed ejection fraction of 20% with significant valvular heart disease and a pericardial effusion. TR/MR/AI/PI. Abdominal CT scan showed no hydronephrosis and large prostate positive ascites. LABORATORY DATA: CBC; white blood cell count 6.3, hemoglobin 14.1, platelet count 168,000. Chemistries normal electrolytes. Potassium is down to 4.7, it was high as 5.8. Aldactone was discontinued. BUN 71 and creatinine of 2.2 with holding of diuretic therapy. Glucose is 191. Bilirubin is 3.9, alkaline phosphatase is elevated. Albumin is 3.3. Urines were essentially unremarkable. Toxicology screen. Digoxin level last check was 1.4. Microbiology; all cultures are negative both urine cultures and blood cultures. ASSESSMENT: 1. Acute renal insufficiency, prerenal azotemia in the setting of advanced cardiorenal syndrome. With the holding of diuretics and the start of the very low volume IV fluid hydration BUN and creatinine have improved somewhat. 2. Hyperkalemia secondary to acute renal failure, Aldactone. Potassium level today is normal. 3. Severe dilated cardiomyopathy, ejection fraction 20% with valvular heart disease. Pulmonary hypertension, pericardial effusion. The patient has an automatic implantable cardioverter-defibrillator. 4. History of cardiac cirrhosis, ascites, and elevated bilirubin levels. 5. No past history of chronic kidney disease. His baseline BUN is in the 30s with a baseline creatinine of 1.0 dating back to earlier this year. 6. Hypertension. Blood pressure control is acceptable. Blood pressure is in the low normal range. 7. History of bladder cancer. 8. History of benign prostatic hyperplasia, stable. PLAN: 1. Discussed with the patient's son who communicated with the patient via sign language. Decision is going to be made by the family as to what the immediate plan will be. There is consideration for palliative care, hospice, DNR/DNI. The patient's family understands that he has essentially a heart that is not compatible with life given the severe dilated cardiomyopathy. 2. Accept a degree of prerenal azotemia. 3. Use Lasix judiciously. 4. As noted in Dr. España's note, the patient is not a candidate for inotropic agents to improve cardiac output. Karson Sharpe MD [facility]
--- NOTE | 2018-09-20 15:11 | PN ---
DATE: 09/20/2018 SUBJECTIVE: The patient is a 57-year-old black male, seen and examined, awake and alert, seems to be uncomfortable, and complain of abdominal pain. He was seen by Dr. Garrett Dejesus and was evaluated for paracentesis, but there is no plan to do paracentesis. He is eating fair. Complaining of feeling nausea at times. PHYSICAL EXAMINATION: VITAL SIGNS: He is afebrile, pulse 76, respirations 16, and blood pressure 107/74. LUNGS: Bilateral fair airflow, decreased at bases. HEART: S1 and S2 audible. ABDOMEN: Distended. He has right upper quadrant palpable discomfort. NEUROLOGIC: He is awake and alert. Able to communicate. LABORATORY DATA: WBC 6.3, hemoglobin 14.7, hematocrit 44.7, and platelet is 168. PT 17.5 and INR 1.55. Chemistry; sodium 137, potassium 4.7, chloride 100, CO2 of 20, BUN 71, creatinine 2.2, and blood sugar of 191, dig level is 1.4. ASSESSMENT: 1. Dilated cardiomyopathy global hypokinesia with ejection fraction of 40%. 2. Acute and chronic renal failure, hyperkalemia secondary to Aldactone. 3. Pulmonary hypertension. 4. Severe tricuspid regurgitation with passive hepatic congestion. 5. Cardiac cirrhosis. 6. Non-insulin dependent diabetes. 7. History of bladder cancer. PLAN: I spoke to the patient's son, who is by the bedside that he has multi-organ failure. Prognosis overall is poor. He should be made comfortable, he will talk to his sister who is in some kind of course on training and once she come out, he will discuss with her and make a decision that he should be in hospice care, but the patient definitely express that he does not want to be intubated. So, in the mean time, we will continue present care. His HIDA scan is unremarkable, spoke to Dr. Love. No plan for any surgical intervention either. Alberto Dash MD
--- NOTE | 2018-09-20 15:17 | RAD ---
Date of service: 09/20/2018 HISTORY: chf COMPARISON: 09/14/2018 TECHNIQUE: 1 view obtained. FINDINGS: LUNGS: No active pulmonary disease. PLEURA: No significant pleural effusion identified, no pneumothorax apparent. CARDIOVASCULAR: No aortic atherosclerotic calcification present. Severe cardiomegaly. Dual lead pacemaker no pulmonary vascular congestion. OSSEOUS STRUCTURES: No significant abnormalities. VISUALIZED UPPER ABDOMEN: Normal. OTHER FINDINGS: None. IMPRESSION: No active disease.
--- NOTE | 2018-09-20 16:16 | PCM.PPROG ---
History of Present Illness - History of Present Illness History of Present Illness: Lethargic, complains of abdominal discomfort , dyspnea Review of Systems - Review of Systems Review of Systems: As per HPI Physical Exam - Constitutional Appears: Cachectic, Chronically Ill - Eye Exam Eye Exam: Normal appearance, PERRL - ENT Exam ENT Exam: Mucous Membranes Moist - Respiratory Exam Respiratory Exam: Decreased Breath Sounds, NORMAL BREATHING PATTERN - Cardiovascular Exam Cardiovascular Exam: REGULAR RHYTHM, +S1, +S2 - GI/Abdominal Exam GI & Abdominal Exam: Distended, Firm, Hypoactive Bowel Sounds, Tenderness - Extremities Exam Extremities exam: Positive for: pedal edema - Neurological Exam Neurological exam: Alert - Skin Skin Exam: Dry, Pallor Palliative Care Assessment - Pain Scale Pain Score: 10 Pain Scale Used: Numeric - Pain Location Pain Location Body Site: Abdomen - Pain Description Description: Pressure Intensity of pain at present: 5 - John Scale Sensory Perception: Very Limited Moisture: Occasionally Moist Activity: Bedfast Mobility: Very Limited Nutrition: Probably Inadequate Friction & Shear: Problem Total Score - Skin Risk Assessment: 11 Palliative Care - Goals Treatment Goal(s): Alleviate symptoms, Improve ADLs, Improve quality of life End of life care discussed: Yes - Plan Interdisciplinary involved: toll test desk worker Assessment & Plan - Assessment and Plan (Free Text) Assessment: 57 year old male who is deaf/mute with history of severe cardiomyopathy,CAD,s/p AICD, cirrhosis, cirrhosis, A Fib who is admitted with pleural effusion, ascites, renal insufficiency. Lengthy discussion with patient regarding goals of care and advance care planning. power plant operations manager and written communication process was used. Patient was told of medical comorbidities. Patient was given written material which explained CPR and intubation Ramifications of CPR/intubation explained. He expressed that he did not want to be intubated. He was not sure how he felt about CPR. Mr. Snider indicated that he wished to discuss with his family. Later patient's son Natan visited. Natan stated that he is aware of his fathers medical problems. Natan was updated of his fathers current medical situation. We explained that resuscitation status had been discussed with his father. Ramifications of CPR/intubation also explained to Natan. Conversation about goals of care ensued. Option for hospice care was also discussed. Son will talk with his sister about these choices. Son also waiting to speak with Dr Dash regarding our conversation Time spent with patient and family in goals of care and advance care planning, 60 minutes Plan: Goals of care and advance care planning GI recs, Continue Lasix. IR consulted, not a candidate for paracentisis. HIDA scan pending Cardiology following recs reviewed, Continue Coreg, Digoxin,ASA, Porscar,DVT prophylaxis. Duonebs as needed Ativan for anxiety
--- NOTE | 2018-09-20 17:01 | PN ---
DATE: 09/20/2018 SUBJECTIVE: The patient is currently experiencing shortness of breath. He denies abdominal pain. PHYSICAL EXAMINATION: VITAL SIGNS: Blood pressure 107/74, heart rate 76, temperature is 97.4, and respirations 16. HEENT: Normocephalic. NECK: Jugular venous distention is noted. CHEST: Right basal coarse crepitations. HEART: S1 and S2, regular. ABDOMEN: Moderate ascites. EXTREMITIES: Trace leg edema. LABORATORY DATA: Hemoglobin and hematocrit today 14.7 and 44.7. White count and platelet count are within normal limit. Today's BUN and creatinine improved to 71 and 2.2 respectively. Glucose 158. ASSESSMENT: 1. Biventricular failure. 2. Cardiac cirrhosis. 3. Recurrent ascites. 4. Rule out spontaneous peritonitis. 5. Worsening renal insufficiency with slight improvement today. 6. Bladder cancer. RECOMMENDATIONS: Case was discussed with his son at the bedside as well as comfort patient care technician evaluating the patient today for possible hospice. IV fluids were discontinued which he agreed with. Hold subcutaneous heparin if abdominal paracentesis is considered today. Continue aspirin 81 mg once a day and Coreg 6.25 mg twice a day. I will administer one dose of Lasix 40 mg IV push, obtain a portable chest x-ray and change nasal O2 to humidified nasal O2 at 2 liters per minute. Ke Torres MD
[2018-09-20 18:59] LABS: CREATININE,RANDOM URINE 102 mg/dL; TOTAL PROTEIN,RANDOM URINE 25 mg/L
[2018-09-21] MEDS: Albuterol-Ipratrop 3 mg / 0.5 (3 ml) UD IH SCH ×4 (01:11→19:59)
[2018-09-21] MEDS: Albumin Human 25% (12.5 gm/50 ml) IV SCH ×3 (03:32→20:00)
[2018-09-21] MEDS: Sodium Chloride 0.45% 1,000 ML IV SCH ×2 (03:34→14:28)
[2018-09-21 06:58] LABS: HEMOGLOBIN 14.6 g/dL (14.0-18.0); MEAN CELL VOLUME 90.3 fl (80.0-105.0); MEAN CORPUSCULAR HEMOGLOBIN 29.4 pg (25.0-35.0); MEAN CORPUSCULAR HGB CONC 32.5 g/dl (31.0-37.0); MEAN PLATELET VOLUME 9.8 fl (7.0-11.0); RBC 4.97 10^6/uL (3.5-6.1); RED CELL DISTRIBUTION WIDTH 19.6 % (11.5-14.5); WHITE BLOOD COUNT 6.2 10^3/uL (4.5-11.0)
[2018-09-21 07:25] LABS: ALBUMIN 3.9 g/dL (3.0-4.8); CALCIUM 9.3 mg/dL (8.4-10.5)
[2018-09-21] MEDS: Insulin Reg-MEDIUM-Coverage SC SCH ×4 (08:30→21:56)
[2018-09-21] MEDS: Pantoprazole 40 mg EC Tab PO SCH (10:45)
--- NOTE | 2018-09-21 11:05 | CP.PCM.PN ---
<Murtaza Suggs - Last Filed: 09/21/18 11:08> Subjective - Date & Time of Evaluation Date of Evaluation: 09/28/18 Time of Evaluation: 10:00 - Subjective Subjective: Murtaza Suggs Internal Medicine Resident- Progress Note on Behalf of Dr. Bird Subjective: Patient seen and examined at bedside. No acute events overnight. Communicates that he is fatigued. States abdominal pain and SOB have improved relative to baseline. Denies fevers, headache, chest pain, palpitations, nausea, vomiting, constipation, and urinary symptoms. 12 Point ROS negative except as indicated in HPI Physical Examination: - Constitutional Appears: No Acute Distress - Head Exam Head Exam: NORMAL INSPECTION, NORMOCEPHALIC - Eye Exam Eye Exam: EOMI, Normal appearance - ENT Exam ENT Exam: Mucous Membranes Moist, Normal Exam - Neck Exam Neck exam: Positive for: Normal Inspection - Respiratory Exam Respiratory Exam: Clear to Auscultation Bilateral, NORMAL BREATHING PATTERN - Cardiovascular Exam Cardiovascular Exam: +S1, +S2, Systolic Murmur - GI/Abdominal Exam GI & Abdominal Exam: Distended, Firm, Hypoactive Bowel Sounds, Tendernessabsent: Guarding, Rebound, - Extremities Exam Extremities exam: Positive for: normal inspection. 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 Enmanuel Aguilera [facility] [place]), bladder cancer(papillary urothelial carcinoma), BPH w/ indwelling ortiz catheter, HTN, CKD, liver cirrhosis with ascites s/p paracentesis 07/22/18, who was admitted for evaluation and treatment of shortness of breath and abdominal pain. Decompensated cardiac cirrhosis complicated by ascities and hepatic encophalopathy SOB 2/2 Ascites 2/2 Cardiac Cirrhosis - improved Cardiomyopathy/HFrEF s/p AICD placement YODIT on CKD- improving, HRS vs cardiorenal syndrome vs obstructive uropathy (known malignancy and BPH) Bladder Cancer/BPH s/p indwelling ortiz catheter Chronic a-flutter Anxiety Imaging Review: - U/S abdomen to evaluate ascites- Cholelithiasis. No sonographic evidence of acute cholecystitis. Incompletely visualized upper abdominal ascites, low volume apparent - 09/16/2018- CT abdomen and pelvis no po/iv contrast- Partially imaged severe cardiomegaly. Partially imaged moderate pericardial effusion. Partially imaged AICD leads. Small right effusion. The kidneys enhance symmetrically; please note IV contrast was not administered for this study. Correlate clinically for possibility contrast induced nephropathy. No hydronephrosis. Bilateral renal scarring. Hepatomegaly. Hypoattenuation of the liver compatible with hepatic steatosis. Enlarged heterogeneous prostate gland. Recommend correlation with PSA. Decompressed urinary bladder with Ortiz catheter present. Contrast is noted within the urinary bladder. Air within the urinary bladder may be secondary to recent instrumentation. Urinary bladder wall appears thickened. Moderate diffuse abdominal and pelvic ascites. - improving BUN/Cr noted overnight - continue to hold diuretic therapy - continue albumin 25g IV q8H - continue Xifaxin 550mg PO BID for HE - recommend low sodium diet, less than 2g Na daily - due to comorbidities including CHF with reduced EF patient is not a candidate for TIPS at this time - patient is not a candidate for liver transplant at this time - palliative care consulted- appreciate recommendations Patient seen, case reviewed with, and plan approved by attending physician, Dr. Bird. Objective - Vital Signs/Intake and Output Vital Signs (last 24 hours): Temp Pulse Resp BP Pulse Ox 97.9 F 87 19 113/87 99 09/21/18 05:55 09/21/18 10:45 09/21/18 05:55 09/21/18 10:45 09/21/18 05:55 Intake and Output: 09/21/18 09/21/18 06:59 18:59 Intake Total 760 Output Total 525 Balance 235 - Medications Medications: Current Medications Acetaminophen (Tylenol 325mg Tab) 650 mg PO Q6H PRN PRN Reason: Fever >100.4 F Albumin Human (Albumin Human 25% (12.5 Gm/50 Ml)) 25 gm IV Q8H [facility] Stop: 09/23/18 02:31 Last Admin: 09/21/18 03:32 Dose: 25 gm Albuterol/Ipratropium (Duoneb 3 Mg/0.5 Mg (3 Ml) Ud) 3 ml IH [id number] [facility] Last Admin: 09/21/18 08:15 Dose: 3 ml Albuterol/Ipratropium (Duoneb 3 Mg/0.5 Mg (3 Ml) Ud) 3 ml IH Q2H PRN PRN Reason: Shortness of Breath Last Admin: 09/16/18 12:44 Dose: 3 ml Alprazolam (Xanax) 0.5 mg PO TID PRN; Protocol PRN Reason: Anxiety Last Admin: 09/18/18 23:19 Dose: 0.5 mg Aspirin (Aspirin Chewable) 81 mg PO DAILY [facility] Last Admin: 09/21/18 10:45 Dose: 81 mg Carvedilol (Coreg) 6.25 mg PO Q12H [facility] Last Admin: 09/21/18 10:45 Dose: 6.25 mg Finasteride (Proscar) 5 mg PO DAILY [facility] Last Admin: 09/21/18 10:45 Dose: 5 mg Heparin Sodium (Porcine) (Heparin) 5,000 units SC Q12 [facility]; Protocol Last Admin: 09/21/18 10:45 Dose: 5,000 units Sodium Chloride (Sodium Chloride 0.45%) 1,000 mls @ 30 mls/hr IV .Q24H [facility] Last Admin: 09/21/18 03:34 Dose: 30 mls/hr Insulin Human Regular (Humulin R Med) 0 units SC ACHS [facility]; Protocol Last Admin: 09/21/18 08:30 Dose: Not Given Morphine Sulfate (Morphine) 2 mg IVP Q4H PRN PRN Reason: Pain, moderate (4-7) Last Admin: 09/20/18 09:44 Dose: 2 mg Pantoprazole Sodium (Protonix Ec Tab) 40 mg PO ACB [facility] Last Admin: 09/21/18 10:45 Dose: 40 mg Rifaximin (Xifaxan) 550 mg PO BID [facility]; Protocol Last Admin: 09/21/18 10:45 Dose: 550 mg - Labs Labs: 09/21/18 06:45 09/21/18 06:45 PT 17.5 SECONDS (9.4-12.5) H 09/20/18 10:45 INR 1.55 09/20/18 10:45 APTT 30.3 Seconds (26.9-38.3) 09/18/18 07:00 <Pelon,Kovil V - Last Filed: 09/21/18 20:31> Objective - Vital Signs/Intake and Output Vital Signs (last 24 hours): Temp Pulse Resp BP Pulse Ox 97.8 F 77 20 122/85 99 09/21/18 17:40 09/21/18 17:42 09/21/18 17:40 09/21/18 17:40 09/21/18 05:55 Intake and Output: 09/21/18 09/22/18 18:59 06:59 Intake Total 600 Output Total 320 Balance 280 - Medications Medications: Current Medications Acetaminophen (Tylenol 325mg Tab) 650 mg PO Q6H PRN PRN Reason: Fever >100.4 F Albumin Human (Albumin Human 25% (12.5 Gm/50 Ml)) 25 gm IV Q8H [facility] Stop: 09/23/18 02:31 Last Admin: 09/21/18 14:27 Dose: 25 gm Albuterol/Ipratropium (Duoneb 3 Mg/0.5 Mg (3 Ml) Ud) 3 ml IH [id number] [facility] Last Admin: 09/21/18 19:59 Dose: 3 ml Albuterol/Ipratropium (Duoneb 3 Mg/0.5 Mg (3 Ml) Ud) 3 ml IH Q2H PRN PRN Reason: Shortness of Breath Last Admin: 09/16/18 12:44 Dose: 3 ml Alprazolam (Xanax) 0.5 mg PO TID PRN; Protocol PRN Reason: Anxiety Last Admin: 09/18/18 23:19 Dose: 0.5 mg Aspirin (Aspirin Chewable) 81 mg PO DAILY [facility] Last Admin: 09/21/18 10:45 Dose: 81 mg Carvedilol (Coreg) 6.25 mg PO Q12H [facility] Last Admin: 09/21/18 10:45 Dose: 6.25 mg Finasteride (Proscar) 5 mg PO DAILY [facility] Last Admin: 09/21/18 10:45 Dose: 5 mg Furosemide (Lasix) 40 mg IV DAILY [facility] Heparin Sodium (Porcine) (Heparin) 5,000 units SC Q12 [facility]; Protocol Last Admin: 09/21/18 10:45 Dose: 5,000 units Sodium Chloride (Sodium Chloride 0.45%) 1,000 mls @ 30 mls/hr IV .Q24H [facility] Last Admin: 09/21/18 14:28 Dose: Not Given Insulin Human Regular (Humulin R Med) 0 units SC ACHS [facility]; Protocol Last Admin: 09/21/18 18:38 Dose: 3 units Morphine Sulfate (Morphine) 2 mg IVP Q4H PRN PRN Reason: Pain, moderate (4-7) Last Admin: 09/20/18 09:44 Dose: 2 mg Pantoprazole Sodium (Protonix Ec Tab) 40 mg PO ACB [facility] Last Admin: 09/21/18 10:45 Dose: 40 mg Rifaximin (Xifaxan) 550 mg PO BID [facility]; Protocol Last Admin: 09/21/18 18:38 Dose: 550 mg - Labs Labs: 09/21/18 06:45 09/21/18 06:45 PT 17.5 SECONDS (9.4-12.5) H 09/20/18 10:45 INR 1.55 09/20/18 10:45 APTT 30.3 Seconds (26.9-38.3) 09/18/18 07:00 Attending/Attestation - Attestation I have personally seen and examined this patient.: Yes I have fully participated in the care of the patient.: Yes I have reviewed all pertinent clinical information, including history, physical exam and plan: Yes Notes (Text): This patient was seen and evaluated here earlier along with the resident. This is an addendum to the GI progress report dictated by the resident. Renal function shows improvement near baseline. Patient has been off the diuretics in view of the worsening of the renal function. There is everything in this patient is to repeat a large volume paracentesis. He is not a candidate for TIPS because of his cardiac status Patient has refractory ascites now. Patient appears more alert on Xifaxan continue 09/21/18 20:29
--- NOTE | 2018-09-21 14:22 | PCM.PPROG ---
History of Present Illness - History of Present Illness History of Present Illness: Alert, sitting on edge of bed. Offers no complaints Physical Exam - Constitutional Appears: Chronically Ill - Eye Exam Eye Exam: Normal appearance - ENT Exam ENT Exam: Mucous Membranes Moist - Respiratory Exam Respiratory Exam: Decreased Breath Sounds, NORMAL BREATHING PATTERN - Cardiovascular Exam Cardiovascular Exam: REGULAR RHYTHM, +S1, +S2 - GI/Abdominal Exam GI & Abdominal Exam: Distended, Firm, Hypoactive Bowel Sounds - Extremities Exam Extremities exam: Positive for: pedal edema, pedal pulses present - Neurological Exam Neurological exam: Alert - Skin Skin Exam: Dry, Pallor Palliative Care Assessment - Pain Scale Pain Score: 8 - Pain Location Pain Location Body Site: Abdomen - Pain Description Description: Pressure Intensity of pain at present: 5 Pain Behavior: Guarding, Grasping Site, Restlessness Aggravating Factors: Exercise/Activity, Walking Alleviating Factors/Management Techniques: Medication, Position Change - John Scale Sensory Perception: Very Limited Moisture: Occasionally Moist Activity: Chairfast Mobility: Very Limited Nutrition: Probably Inadequate Friction & Shear: Potential Problem Total Score - Skin Risk Assessment: 13 Palliative Care - Goals Treatment Goal(s): Alleviate symptoms, Improve ADLs, Improve quality of life End of life care discussed: Yes - Plan Interdisciplinary involved: form worker Assessment & Plan - Assessment and Plan (Free Text) Assessment: 57 year old male who is deaf/mute with history of severe cardiomyopathy,CAD,s/p AICD, cirrhosis, cirrhosis, A Fib who is admitted with pleural effusion, ascites, renal insufficiency. Now DNR/DNI I spoke with patient son Natan via phone He discussed goals of care with family. All family are in agreement for hospice care. Hospice services explained in detail. Family requesting that patient be placed in NH with hospice services as they are unable to care for him at home. Psychsol support provided> Family states that Mr Snider has medicaid coverage. Time pent with son in goals of care discussion, 20 minutes Plan: Goals of care Family requesting hospice care, Ivelisse Mcdonough CM made gaffney of family request Hospice eval Continue Lasix.ding Continue Coreg, Digoxin,ASA, Porscar,DVT prophylaxis. Duonebs as needed Ativan for anxiety
--- NOTE | 2018-09-21 14:57 | PN ---
DATE: 09/21/2018 SUBJECTIVE: The patient is 57 years old, seen and examined. He still has some abdominal discomfort, but better than before. Eating fair, has bowel movement the other day, mild shortness of breath and walking. No fever or chills. PHYSICAL EXAMINATION: VITAL SIGNS: He is afebrile. Pulse 87, respirations 19, blood pressure 113/87. LUNGS: Decreased breath sounds at the bases. HEART: S1 and S2 audible. ABDOMEN: Soft. Right upper quadrant palpable liver, otherwise, belly is soft. Small amount of palpable ascites. EXTREMITIES: Bilateral legs, +1 edema. LABORATORY DATA: WBC 6.2, hemoglobin 14, hematocrit 44, and platelets 178. Chemistries; sodium 138, potassium 4.6, chloride 101, CO2 of 27, BUN 59, creatinine 1.9, and blood sugar of 162. Blood cultures and urine cultures are negative. ASSESSMENT: 1. Dilated cardiomyopathy with ejection fraction of 20%. 2. Passive hepatic congestion. 3. Cirrhotic ascites. 4. Cardiac cirrhosis. 5. Chronic anemia. 6. Status post pacemaker placement. 7. History of papillary urothelial bladder cancer with benign prostatic hyperplasia. Now, the patient has indwelling catheter. 8. Chronic kidney disease, [id number], seems to be improving. 9. Cholelithiasis, but not acute cholecystitis. PLAN: I discussed with Dr. Torres much can be done other than what is being done. He seems to be little comfortable. We can get physical therapy evaluation if can be transferred to TCU or home with therapy. I spoke to the son, they do not want him to be intubated, but he was not final that his sister, Sue will agree for hospice care. After he speaks to her, they will make decision. I did explain to them that he is getting into multiorgan failure. As soon as we hear from them, we will make a plan for that if they agree for hospice care. Alberto Dash MD
--- NOTE | 2018-09-21 15:15 | PN ---
DATE: 09/21/2018 SUBJECTIVE: The patient denies any pain. He is cooperative and oriented, does not appear to be in any respiratory distress. PHYSICAL EXAMINATION: VITAL SIGNS: Blood pressure 124/56, heart rate 78, temperature 97.9, respirations 19. HEENT: Normocephalic. NECK: Jugular venous distention. CHEST: Diminished right basal rales. HEART: S1, S2, regular. ABDOMEN: Mild to moderate ascites. EXTREMITIES: Trace leg edema. LABORATORY DATA: Today's hemoglobin and hematocrit are 14.6 and 44.9. White count and platelet count are within normal limits. Today's BUN and creatinine had improved to 59 and 1.9 respectively. Glucose 128 and magnesium is 2.3. ASSESSMENT: 1. Biventricular failure. 2. Pulmonary hypertension and right-sided failure. 3. Cardiac cirrhosis. 4. Chronic renal insufficiency. 5. Chronic atrial flutter. 6. Low-grade bladder malignancy. RECOMMENDATIONS: Case was discussed with Dr. Dash, the primary physician. The patient can be maintained on Coreg 6.25 mg twice a day, subcutaneous heparin 5000 units every 12 hours, Proscar 5 mg once a day, rifaximin 550 mg twice a day. The patient is not a suitable candidate for anticoagulation, or TAMICA inhibitor at this time. Aldactone may be started as an outpatient at 25 mg orally daily with a followup BMP for any hyperkalemia. Ke Torres MD
--- NOTE | 2018-09-21 15:31 | CP.PCM.PCO ---
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
--- NOTE | 2018-09-22 01:08 | PN ---
DATE: 09/21/2018 SUBJECTIVE: The patient is seen lying in bed. He is awake. He is alert. He is comfortable. PHYSICAL EXAMINATION: GENERAL: Middle-aged male, lying in bed. VITAL SIGNS: Blood pressure 122/85, heart rate 77, respiratory rate 18, temperature 97.8. HEENT: Normocephalic and atraumatic. Positive pallor. NECK: Supple. No JVD. LUNGS: Bilateral equal air entry, bilateral equal expansion. Basilar rales are seen. CARDIAC: S1 and S2, regular rate and rhythm, no murmur, no rub. ABDOMEN: Obese, distended, soft, nontender, bowel sounds present. EXTREMITIES: No lower extremity edema. LABORATORY DATA: WBC 6.2, hemoglobin 14.6, hematocrit 45, platelets 178. Sodium 138, potassium 4.6, chloride 101, CO2 of 27, BUN 39, creatinine 1.9, glucose 128. CURRENT MEDICATIONS: Albumin 25 g every 8 hours, aspirin, Coreg 6.25 mg b.i.d., DuoNeb, insulin, morphine, Proscar, Protonix, Tylenol, Xanax, rifaximin 550 mg b.i.d. ASSESSMENT: 1. Acute kidney injury, cardiorenal syndrome. 2. Severe dilated cardiomyopathy, severe right heart failure, pulmonary hypertension. 3. Recurrent ascites. 4. Total body volume overload, intravascular volume depletion(?). PLAN: 1. Agree with albumin. 2. Lasix 40 mg IV daily. 3. Check intake and output. 4. Daily labs. 5. Avoid nephrotoxins. 6. Continue Proscar. Amada España MD
[2018-09-22] MEDS: Albuterol-Ipratrop 3 mg / 0.5 (3 ml) UD IH SCH ×4 (01:50→20:30)
[2018-09-22] MEDS: Albumin Human 25% (12.5 gm/50 ml) IV SCH ×3 (02:30→19:02)
[2018-09-22] MEDS: Morphine 2 mg/ml ISec IVP PRN ×2 (06:45→18:46)
[2018-09-22 07:10] LABS: HEMOGLOBIN 13.8 g/dL (14.0-18.0); MEAN CELL VOLUME 89.2 fl (80.0-105.0); MEAN CORPUSCULAR HEMOGLOBIN 28.6 pg (25.0-35.0); MEAN CORPUSCULAR HGB CONC 32.1 g/dl (31.0-37.0); MEAN PLATELET VOLUME 9.6 fl (7.0-11.0); RBC 4.82 10^6/uL (3.5-6.1); RED CELL DISTRIBUTION WIDTH 19.5 % (11.5-14.5); WHITE BLOOD COUNT 6.1 10^3/uL (4.5-11.0)
[2018-09-22 07:24] LABS: ALB/GLOB RATIO 1.1 (1.1-1.8); ALBUMIN 3.9 g/dL (3.0-4.8); ALT/SGPT 17 U/L (7-56); AST/SGOT 30 U/L (17-59); BLOOD UREA NITROGEN 46 mg/dL (7-21); CALCIUM 9.2 mg/dL (8.4-10.5); GFR NON-AFRICAN AMERICAN 52
[2018-09-22] MEDS: Insulin Reg-MEDIUM-Coverage SC SCH ×3 (07:50→17:02)
[2018-09-22] MEDS: Pantoprazole 40 mg EC Tab PO SCH (08:06)
--- NOTE | 2018-09-22 10:37 | CP.PCM.PCO ---
Physician Communication Note - Physician Communication Note Physician Communication Note: discuss plan with IDT - plan for inpt facility on hospice-
--- NOTE | 2018-09-22 13:14 | CP.PCM.PN ---
<IfeanyiMurtaza - Last Filed: 09/22/18 13:10> Subjective - Date & Time of Evaluation Date of Evaluation: 09/22/18 Time of Evaluation: 09:30 - Subjective Subjective: Murtaza Suggs Internal Medicine Resident- Progress Note on Behalf of Dr. Bird Subjective: Patient seen and examined at bedside. No acute events overnight. Communicates that he is feeling dizzy, fatigued, and that the abdominal pain and SOB are worse compared to yesterday. Denies fevers, headache, chest pain, palpitations, nausea, vomiting, constipation, and urinary symptoms. 12 Point ROS negative except as indicated in HPI Physical Examination: - Constitutional Appears: No Acute Distress - Head Exam Head Exam: NORMAL INSPECTION, NORMOCEPHALIC - Eye Exam Eye Exam: EOMI, Normal appearance - ENT Exam ENT Exam: Mucous Membranes Moist, Normal Exam - Neck Exam Neck exam: Positive for: Normal Inspection - Respiratory Exam Respiratory Exam: Clear to Auscultation Bilateral, NORMAL BREATHING PATTERN - Cardiovascular Exam Cardiovascular Exam: +S1, +S2, Systolic Murmur - GI/Abdominal Exam GI & Abdominal Exam: Distended, Firm, Hypoactive Bowel Sounds, Tendernessabsent: Guarding, Rebound, - Extremities Exam Extremities exam: Positive for: normal inspection. 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 Enmanuel Aguil[place] [facility] [place] bladder cancer(papillary urothelial carcinoma), BPH w/ indwelling ortiz catheter, HTN, CKD, liver cirrhosis with ascites s/p paracentesis 07/22/18, who was admitted for evaluation and treatment of shortness of breath and abdominal pain. Decompensated cardiac cirrhosis complicated by ascities and hepatic encophalopathy Refractory ascites SOB 2/2 Ascites 2/2 Cardiac Cirrhosis - improved Cardiomyopathy/HFrEF s/p AICD placement YODIT on CKD- improving, HRS vs cardiorenal syndrome vs obstructive uropathy (known malignancy and BPH) Bladder Cancer/BPH s/p indwelling ortiz catheter Chronic a-flutter Anxiety Imaging Review: - U/S abdomen to evaluate ascites- Cholelithiasis. No sonographic evidence of acute cholecystitis. Incompletely visualized upper abdominal ascites, low volume apparent - 09/16/2018- CT abdomen and pelvis no po/iv contrast- Partially imaged severe cardiomegaly. Partially imaged moderate pericardial effusion. Partially imaged AICD leads. Small right effusion. The kidneys enhance symmetrically; please note IV contrast was not administered for this study. Correlate clinically for possibility contrast induced nephropathy. No hydronephrosis. Bilateral renal scarring. Hepatomegaly. Hypoattenuation of the liver compatible with hepatic steatosis. Enlarged heterogeneous prostate gland. Recommend correlation with PSA. Decompressed urinary bladder with Ortiz catheter present. Contrast is noted within the urinary bladder. Air within the urinary bladder may be secondary to recent instrumentation. Urinary bladder wall appears thickened. Moderate diffuse abdominal and pelvic ascites. - improving BUN/Cr noted overnight - continue to hold diuretic therapy - continue albumin 25g IV q8H for 9 doses total - continue Xifaxin 550mg PO BID for HE - recommend low sodium diet, less than 2g Na daily - due to comorbidities including CHF with reduced EF patient is not a candidate for TIPS at this time - patient is not a candidate for liver transplant at this time - palliative care consulted- appreciate recommendations - continue DVT ppx with subq heparin 5000 units q12 Patient seen, case reviewed with, and plan approved by attending physician, Dr. Bird. Objective - Vital Signs/Intake and Output Vital Signs (last 24 hours): Temp Pulse Resp BP Pulse Ox 98.4 F 113 H 20 129/73 99 09/22/18 11:58 09/22/18 11:58 09/22/18 11:58 09/22/18 11:58 09/21/18 05:55 Intake and Output: 09/22/18 09/22/18 06:59 18:59 Intake Total 640 Output Total 450 Balance 190 - Medications Medications: Current Medications Acetaminophen (Tylenol 325mg Tab) 650 mg PO Q6H PRN PRN Reason: Fever >100.4 F Albumin Human (Albumin Human 25% (12.5 Gm/50 Ml)) 25 gm IV Q8H [facility] Stop: 09/23/18 02:31 Last Admin: 09/22/18 10:27 Dose: 25 gm Albuterol/Ipratropium (Duoneb 3 Mg/0.5 Mg (3 Ml) Ud) 3 ml IH [id number] [facility] Last Admin: 09/22/18 08:18 Dose: 3 ml Albuterol/Ipratropium (Duoneb 3 Mg/0.5 Mg (3 Ml) Ud) 3 ml IH Q2H PRN PRN Reason: Shortness of Breath Last Admin: 09/16/18 12:44 Dose: 3 ml Alprazolam (Xanax) 0.5 mg PO TID PRN; Protocol PRN Reason: Anxiety Last Admin: 09/18/18 23:19 Dose: 0.5 mg Aspirin (Aspirin Chewable) 81 mg PO DAILY [facility] Last Admin: 09/22/18 10:24 Dose: 81 mg Carvedilol (Coreg) 6.25 mg PO Q12H [facility] Last Admin: 09/22/18 10:23 Dose: 6.25 mg Finasteride (Proscar) 5 mg PO DAILY [facility] Last Admin: 09/22/18 10:24 Dose: 5 mg Furosemide (Lasix) 40 mg IV DAILY [facility] Last Admin: 09/22/18 10:24 Dose: 40 mg Heparin Sodium (Porcine) (Heparin) 5,000 units SC Q12 [facility]; Protocol Last Admin: 09/22/18 10:24 Dose: 5,000 units Insulin Human Regular (Humulin R Med) 0 units SC ACHS [facility]; Protocol Last Admin: 09/22/18 11:40 Dose: Not Given Morphine Sulfate (Morphine) 2 mg IVP Q4H PRN PRN Reason: Pain, moderate (4-7) Pantoprazole Sodium (Protonix Ec Tab) 40 mg PO ACB [facility] Last Admin: 09/22/18 08:06 Dose: 40 mg Rifaximin (Xifaxan) 550 mg PO BID [facility]; Protocol Last Admin: 09/22/18 10:23 Dose: 550 mg - Labs Labs: 09/22/18 06:45 09/22/18 06:45 PT 17.5 SECONDS (9.4-12.5) H 09/20/18 10:45 INR 1.55 09/20/18 10:45 APTT 30.3 Seconds (26.9-38.3) 09/18/18 07:00 <Pelon,Kovil V - Last Filed: 09/22/18 21:40> Objective - Vital Signs/Intake and Output Vital Signs (last 24 hours): Temp Pulse Resp BP Pulse Ox 98.5 F 73 18 108/80 100 09/22/18 14:00 09/22/18 14:00 09/22/18 14:00 09/22/18 14:00 09/22/18 14:00 Intake and Output: 09/22/18 09/23/18 18:59 06:59 Intake Total 240 Output Total 1000 Balance -760 - Medications Medications: Current Medications Acetaminophen (Tylenol 325mg Tab) 650 mg PO Q6H PRN PRN Reason: Fever >100.4 F Albumin Human (Albumin Human 25% (12.5 Gm/50 Ml)) 25 gm IV Q8H [facility] Stop: 09/23/18 02:31 Last Admin: 09/22/18 19:02 Dose: 25 gm Albuterol/Ipratropium (Duoneb 3 Mg/0.5 Mg (3 Ml) Ud) 3 ml IH [id number] [facility] Last Admin: 09/22/18 14:17 Dose: Not Given Albuterol/Ipratropium (Duoneb 3 Mg/0.5 Mg (3 Ml) Ud) 3 ml IH Q2H PRN PRN Reason: Shortness of Breath Last Admin: 09/16/18 12:44 Dose: 3 ml Alprazolam (Xanax) 0.5 mg PO TID PRN; Protocol PRN Reason: Anxiety Last Admin: 09/18/18 23:19 Dose: 0.5 mg Aspirin (Aspirin Chewable) 81 mg PO DAILY [facility] Last Admin: 09/22/18 10:24 Dose: 81 mg Carvedilol (Coreg) 6.25 mg PO Q12H [facility] Last Admin: 09/22/18 10:23 Dose: 6.25 mg Finasteride (Proscar) 5 mg PO DAILY [facility] Last Admin: 09/22/18 10:24 Dose: 5 mg Furosemide (Lasix) 40 mg IV DAILY [facility] Last Admin: 09/22/18 10:24 Dose: 40 mg Heparin Sodium (Porcine) (Heparin) 5,000 units SC Q12 [facility]; Protocol Last Admin: 09/22/18 10:24 Dose: 5,000 units Insulin Human Regular (Humulin R Med) 0 units SC ACHS [facility]; Protocol Last Admin: 09/22/18 17:02 Dose: Not Given Morphine Sulfate (Morphine) 2 mg IVP Q4H PRN PRN Reason: Pain, moderate (4-7) Last Admin: 09/22/18 18:46 Dose: 2 mg Pantoprazole Sodium (Protonix Ec Tab) 40 mg PO ACB [facility] Last Admin: 09/22/18 08:06 Dose: 40 mg Rifaximin (Xifaxan) 550 mg PO BID [facility]; Protocol Last Admin: 09/22/18 18:46 Dose: 550 mg - Labs Labs: 09/22/18 06:45 09/22/18 06:45 PT 17.5 SECONDS (9.4-12.5) H 09/20/18 10:45 INR 1.55 09/20/18 10:45 APTT 30.3 Seconds (26.9-38.3) 09/18/18 07:00 Attending/Attestation - Attestation I have personally seen and examined this patient.: Yes I have fully participated in the care of the patient.: Yes I have reviewed all pertinent clinical information, including history, physical exam and plan: Yes Notes (Text): This is an addendum to the GI progress note dictated by the resident. The patient was seen and evaluated along with the resident earlier today. Improving renal function. Patient has been on IV albumin. Refractory acidosis due to worsening of the renal function with the diuretics. Dilated cardiomyopathy sig nificantly reduced cardiac function. Ascites. Long-term prognosis is guarded Patient may benefit from periodic paracentesis. 09/22/18 21:38
--- NOTE | 2018-09-22 13:47 | PN ---
DATE: 09/22/2018 SUBJECTIVE: The patient is 57 years old, seen and examined. Sitting in chair. Pointing towards belly that he feels uncomfortable time. Eating fair. Not in any acute distress. PHYSICAL EXAMINATION: VITAL SIGNS: He is afebrile. Pulse 78, respiration 20 and blood pressure 112/73. LUNGS: Bilateral fair airflow. Decreased breath sound at bases. HEART: S1 and S2, audible. ABDOMEN: Soft, but palpable discomfort in right upper quadrant area. NEUROLOGIC: The patient is awake and alert, but deaf and mute. EXTREMITIES: Bilateral leg no edema. LABORATORY DATA: WBC 6.1, hemoglobin 13, hematocrit 43 and platelet 174. Chemistry; sodium 140, potassium 4.3, chloride 103, CO2 of 24, BUN 46, creatinine 1.4, blood sugar of 55 and alk phos 392. ASSESSMENT: 1. Dilated cardiomyopathy. 2. [id number] renal insufficiency, improved. 3. Status post pacemaker placement. 4. Benign prosthetic hyperplasia. 5. History of cancer bladder. 6. History of being deaf and mute. PLAN: Spoke to the patient's son who spoke to sister he was told that he has multiple organ involved because of multiple comorbidities. He need to be comfortable and they agreed for hospice care. Straightening some insurance issues and then he will be transferred to subacute rehab along with hospice care. Alberto Dash MD
--- NOTE | 2018-09-22 18:33 | PN ---
DATE: 09/22/2018 SUBJECTIVE: The patient complains of abdominal discomfort as well as shortness of breath. He denies any chest pain. PHYSICAL EXAMINATION: VITAL SIGNS: Blood pressure 129/73, heart rate 115, temperature 98.4, and respirations 20. HEENT: Normocephalic. CHEST: Right basal dry crepitations. HEART: S1 and S2 regular. ABDOMEN: [id number] ascites. EXTREMITIES: 1+ pitting edema. LABORATORY DATA: Today's hemoglobin and hematocrit are 15.8 and 43.2, white count and platelet count are within normal limits. Today's SMA-7 are within normal limits except for BUN of 46 and glucose is 57. Today's alkaline phosphate 392. ASSESSMENT: 1. Biventricular failure. 2. Improved renal insufficiency. 3. Chronic atrial flutter. 4. Cardiac cirrhosis. 5. Mild hypoglycemia. 6. Bladder cancer of low-grade malignancy. RECOMMENDATIONS: Continue aspirin 81 mg once a day, Coreg 6.25 mg twice a day, albuterol inhaler every 2 hours p.r.n., subcutaneous heparin 5000 units every 12 hours, Lasix 40 mg intravenously daily, Proscar 5 mg once a day. Discontinue telemetry. X-rays are being conducted for hospice placement for the patient. Ke Torres MD
--- NOTE | 2018-09-22 20:03 | PN ---
DATE: 09/22/2018 SUBJECTIVE: The patient is seen sitting in chair. He is awake, he is alert, he is comfortable. He denies any shortness of breath today. He is not in any pain. PHYSICAL EXAMINATION: GENERAL: A middle-aged male sitting in bed. VITAL SIGNS: Blood pressure 108/80, heart rate 73, respiratory rate 18, temperature 98.5. HEENT: Normocephalic, atraumatic, positive pallor. NECK: Supple, no JVD. LUNGS: Bilateral equal entry, bilateral equal expansion, minimal rales. CARDIAC: S1 and S2, regular rate and rhythm, no murmur, no rub. ABDOMEN: Obese, distended, soft, positive fluid thrill. EXTREMITIES: No lower extremity edema. INTAKE AND OUTPUT: 1240/770? LABORATORY DATA: WBC 6, hemoglobin 13.8, hematocrit 43, platelets 174. Sodium 140, potassium 4.3, chloride 103, CO2 of 24, BUN 46, creatinine 1.4, glucose 57, calcium 9.2, total bili 4.2, albumin 3.9. CURRENT MEDICATIONS Albumin 25 g IV every 8 hours, aspirin, Coreg 6.25 b.i.d., heparin, insulin, Lasix 40 IV daily, morphine, Proscar, Protonix, Tylenol, Xanax. ASSESSMENT: 1. Acute kidney injury superimposed on chronic kidney disease stage III, resolving, intravascular volume depletion with total body volume overload. The patient is responding well to combination of albumin plus Lasix. 2. Severe dilated cardiomyopathy. 3. Pulmonary hypertension. 4. Recurrent ascites. 5. History of bladder cancer. 6. History of benign prostatic hypertrophy. PLAN: 1. Continue albumin plus Lasix. 2. Avoid nephrotoxins. 3. Monitor electrolytes. 4. Monitor urine output. Amada España MD
[2018-09-23] MEDS: Albuterol-Ipratrop 3 mg / 0.5 (3 ml) UD IH SCH ×4 (01:53→20:46)
[2018-09-23] MEDS: Albumin Human 25% (12.5 gm/50 ml) IV SCH (05:27)
[2018-09-23] MEDS: Pantoprazole 40 mg EC Tab PO SCH (07:30)
[2018-09-23] MEDS: Insulin Reg-MEDIUM-Coverage SC SCH ×4 (08:34→18:25)
[2018-09-23] MEDS: Morphine 2 mg/ml ISec IVP PRN (09:44)
--- NOTE | 2018-09-23 10:03 | PN ---
DATE: 09/22/2018 REASON FOR FOLLOWUP: Urinary retention and bladder cancer. SUBJECTIVE: Mr. Zapata is resting comfortably. No new complaints. Gordon catheter is draining clear urine. Past medical, surgical, all otherwise unchanged. I have been difficult to evaluate this secondary to fluid and ascites etc. Gordon catheter is in place. The urine is also clear. DIAGNOSES: Urinary retention, voiding dysfunction, and a history of bladder cancer. PLAN: As follows: Maintain his Gordon . We will follow up with Dr. Tanika Miller. I have explained the patient on a done again today that when he leave the hospital, he is to make arrangements for outpatient followup with Dr. Sagastume for repeat cystoscopy and evaluation for recurrence of bladder cancer. Blu Miller MD
--- NOTE | 2018-09-23 10:40 | CP.PCM.PCO ---
Physician Communication Note - Physician Communication Note Physician Communication Note: pt pending [facility] eval, will follow
--- NOTE | 2018-09-23 10:56 | CP.PCM.PN ---
<Murtaza Suggs - Last Filed: 09/23/18 14:01> Subjective - Date & Time of Evaluation Date of Evaluation: 09/23/18 Time of Evaluation: 10:00 - Subjective Subjective: Murtaza Suggs Internal Medicine Resident- Progress Note on Behalf of Dr. Bird Subjective: Patient seen and examined at bedside. No acute events overnight. Refused blood work this AM after IV infiltrated. Denies fevers, headache, chest pain, palpitations, nausea, vomiting, constipation, and urinary symptoms. 12 Point ROS negative except as indicated in HPI Physical Examination: - Constitutional Appears: No Acute Distress - Head Exam Head Exam: NORMAL INSPECTION, NORMOCEPHALIC - Eye Exam Eye Exam: EOMI, Normal appearance - ENT Exam ENT Exam: Mucous Membranes Moist, Normal Exam - Neck Exam Neck exam: Positive for: Normal Inspection - Respiratory Exam Respiratory Exam: Clear to Auscultation Bilateral, NORMAL BREATHING PATTERN - Cardiovascular Exam Cardiovascular Exam: +S1, +S2, Systolic Murmur - GI/Abdominal Exam GI & Abdominal Exam: Distended, Firm, Hypoactive Bowel Sounds, Tendernessabsent: Guarding, Rebound, - Extremities Exam Extremities exam: Positive for: normal inspection. 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 Enmanuel Aguilera [facility] [place]), bladder cance r(papillary urothelial carcinoma), BPH w/ indwelling ortiz catheter, HTN, CKD, liver cirrhosis with ascites s/p paracentesis 07/22/18, who was admitted for evaluation and treatment of shortness of breath and abdominal pain. Decompensated cardiac cirrhosis complicated by ascities and hepatic encophal opathy Refractory ascites SOB 2/2 Ascites 2/2 Cardiac Cirrhosis - improved Cardiomyopathy/HFrEF s/p AICD placement YODIT on CKD- improving, HRS vs cardiorenal syndrome vs obstructive uropathy (known malignancy and BPH) Bladder Cancer/BPH s/p indwelling ortiz catheter Chronic a-flutter Anxiety Imaging Review: - U/S abdomen to evaluate ascites- Cholelithiasis. No sonographic evidence of acute cholecystitis. Incompletely visualized upper abdominal ascites, low volume apparent - 09/16/2018- CT abdomen and pelvis no po/iv contrast- Partially imaged severe cardiomegaly. Partially imaged moderate pericardial effusion. Partially imaged AICD leads. Small right effusion. The kidneys enhance symmetrically; please note IV contrast was not administered for this study. Correlate clinically for possibility contrast induced nephropathy. No hydronephrosis. Bilateral renal scarring. Hepatomegaly. Hypoattenuation of the liver compatible with hepatic steatosis. Enlarged heterogeneous prostate gland. Recommend correlation with PSA. Decompressed urinary bladder with Ortiz catheter present. Contrast is noted within the urinary bladder. Air within the urinary bladder may be secondary to recent instrumentation. Urinary bladder wall appears thickened. Moderate diffuse abdominal and pelvic ascites. - completed albumin 25g IV q8H for 8 doses total (9th dose was being administered, nearly complete when IV infiltrated- patient refused to have another IV placed) - continue Xifaxin 550mg PO BID for HE - recommend low sodium diet, less than 2g Na daily - patient is not a candidate for liver transplant at this time - palliative care consulted- appreciate recommendations - continue DVT ppx with subq heparin 5000 units q12 - due to comorbidities including CHF with reduced EF patient is not a candidate for TIPS at this time - recommend periodic paracentesis - Long-term prognosis is guarded Patient seen, case reviewed with, and plan approved by attending physician, Dr. Bird. Objective - Vital Signs/Intake and Output Vital Signs (last 24 hours): Temp Pulse Resp BP Pulse Ox 97 F L 80 20 108/80 92 L 09/22/18 23:09 09/23/18 10:41 09/22/18 23:09 09/23/18 10:41 09/22/18 23:09 Intake and Output: 09/23/18 09/23/18 06:59 18:59 Intake Total 480 Output Total 600 Balance -120 - Medications Medications: Current Medications Acetaminophen (Tylenol 325mg Tab) 650 mg PO Q6H PRN PRN Reason: Fever >100.4 F Albuterol/Ipratropium (Duoneb 3 Mg/0.5 Mg (3 Ml) Ud) 3 ml IH [id number] [facility] Last Admin: 09/23/18 07:11 Dose: 3 ml Albuterol/Ipratropium (Duoneb 3 Mg/0.5 Mg (3 Ml) Ud) 3 ml IH Q2H PRN PRN Reason: Shortness of Breath Last Admin: 09/16/18 12:44 Dose: 3 ml Alprazolam (Xanax) 0.5 mg PO TID PRN; Protocol PRN Reason: Anxiety Last Admin: 09/18/18 23:19 Dose: 0.5 mg Aspirin (Aspirin Chewable) 81 mg PO DAILY [facility] Last Admin: 09/23/18 09:32 Dose: 81 mg Carvedilol (Coreg) 6.25 mg PO Q12H [facility] Last Admin: 09/23/18 10:41 Dose: 6.25 mg Finasteride (Proscar) 5 mg PO DAILY [facility] Last Admin: 09/23/18 09:34 Dose: 5 mg Furosemide (Lasix) 40 mg IV DAILY [facility] Last Admin: 09/23/18 09:29 Dose: 40 mg Heparin Sodium (Porcine) (Heparin) 5,000 units SC Q12 [facility]; Protocol Last Admin: 09/23/18 09:32 Dose: 5,000 units Insulin Human Regular (Humulin R Med) 0 units SC ACHS [facility]; Protocol Last Admin: 09/23/18 09:33 Dose: Not Given Morphine Sulfate (Morphine) 2 mg IVP Q4H PRN PRN Reason: Pain, moderate (4-7) Last Admin: 09/23/18 09:44 Dose: 2 mg Pantoprazole Sodium (Protonix Ec Tab) 40 mg PO ACB [facility] Last Admin: 09/23/18 07:30 Dose: 40 mg Rifaximin (Xifaxan) 550 mg PO BID [facility]; Protocol Last Admin: 09/23/18 09:31 Dose: 550 mg - Labs Labs: 09/22/18 06:45 09/22/18 06:45 PT 17.5 SECONDS (9.4-12.5) H 09/20/18 10:45 INR 1.55 09/20/18 10:45 APTT 30.3 Seconds (26.9-38.3) 09/18/18 07:00 <Pelon,Kovil V - Last Filed: 09/24/18 00:13> Objective - Vital Signs/Intake and Output Vital Signs (last 24 hours): Temp Pulse Resp BP Pulse Ox 98.4 F 79 20 112/87 95 09/23/18 22:00 09/23/18 22:17 09/23/18 22:00 09/23/18 22:17 09/23/18 22:00 Intake and Output: 09/23/18 09/24/18 18:59 06:59 Intake Total 480 240 Output Total 600 300 Balance -120 -60 - Medications Medications: Current Medications Acetaminophen (Tylenol 325mg Tab) 650 mg PO Q6H PRN PRN Reason: Fever >100.4 F Albuterol/Ipratropium (Duoneb 3 Mg/0.5 Mg (3 Ml) Ud) 3 ml IH [id number] [facility] Last Admin: 09/23/18 20:46 Dose: 3 ml Albuterol/Ipratropium (Duoneb 3 Mg/0.5 Mg (3 Ml) Ud) 3 ml IH Q2H PRN PRN Reason: Shortness of Breath Last Admin: 09/16/18 12:44 Dose: 3 ml Alprazolam (Xanax) 0.5 mg PO TID PRN; Protocol PRN Reason: Anxiety Last Admin: 09/18/18 23:19 Dose: 0.5 mg Aspirin (Aspirin Chewable) 81 mg PO DAILY [facility] Last Admin: 09/23/18 09:32 Dose: 81 mg Carvedilol (Coreg) 6.25 mg PO Q12H [facility] Last Admin: 09/23/18 22:17 Dose: 6.25 mg Finasteride (Proscar) 5 mg PO DAILY [facility] Last Admin: 09/23/18 09:34 Dose: 5 mg Furosemide (Lasix) 40 mg IV DAILY [facility] Last Admin: 09/23/18 09:29 Dose: 40 mg Heparin Sodium (Porcine) (Heparin) 5,000 units SC Q12 [facility]; Protocol Last Admin: 09/23/18 22:17 Dose: 5,000 units Insulin Human Regular (Humulin R Med) 0 units SC ACHS [facility]; Protocol Last Admin: 09/23/18 18:25 Dose: Not Given Morphine Sulfate (Morphine) 2 mg IVP Q4H PRN PRN Reason: Pain, moderate (4-7) Last Admin: 09/23/18 09:44 Dose: 2 mg Pantoprazole Sodium (Protonix Ec Tab) 40 mg PO ACB [facility] Last Admin: 09/23/18 07:30 Dose: 40 mg Rifaximin (Xifaxan) 550 mg PO BID [facility]; Protocol Last Admin: 09/23/18 18:37 Dose: 550 mg - Labs Labs: 09/22/18 06:45 09/22/18 06:45 PT 17.5 SECONDS (9.4-12.5) H 09/20/18 10:45 INR 1.55 09/20/18 10:45 APTT 30.3 Seconds (26.9-38.3) 09/18/18 07:00 Attending/Attestation - Attestation I have personally seen and examined this patient.: Yes I have fully participated in the care of the patient.: Yes I have reviewed all pertinent clinical information, including history, physical exam and plan: Yes Notes (Text): This patient was seen and evaluated here earlier. There is an addendum to the GI progress note dictated by the resident. Renal function showing improvement. Patient has reduced cardiac output Patient has been on IV albumin Recently started on Lasix by metal tank builder Close follow-up of electrolytes and renal function 09/24/18 00:11
--- NOTE | 2018-09-23 14:44 | PN ---
DATE: 09/23/2018 SUBJECTIVE: The patient is 57 years old, seen and examined, sitting in chair, seems to be comfortable, complains of some abdominal discomfort, eating fair. No chest pain. No shortness of breath. PHYSICAL EXAMINATION: VITAL SIGNS: The patient is afebrile, pulse 107, respirations 20, and blood pressure 108/80. LUNGS: Bilateral fair airflow. No rhonchi or crackles. Decreased breath sounds at bases. HEART: S1 and S2 audible. ABDOMEN: Soft. Slight right upper quadrant discomfort and suprapubic discomfort. NEUROLOGIC: The patient is awake and alert; able to communicate, but communicates by writing, because he is deaf and mute. LABORATORY DATA: Blood sugar is 214. Urine culture is negative. Blood cultures are negative. ASSESSMENT: 1. Severe dilated cardiomyopathy with ejection fraction of 20%. 2. Status post defibrillator placement. 3. Cardiac cirrhosis of liver. 4. Severe tricuspid regurgitation. 5. Chronic obstructive pulmonary disease. 6. Idu-lswbspc-fevzxpseu diabetes. 7. Renal insufficiency, acute and chronic, that has almost resolved. PLAN: The patient's daughter is some insurance issues, so he can be started on hospice care. As soon as paperwork is completed, he will be transferred to [facility] for hospice. Alberto Dash MD
--- NOTE | 2018-09-23 16:20 | PN ---
DATE: 09/23/2018 SUBJECTIVE: The patient is in much better spirits today. He denies any chest pain. Minimal abdominal pain. He has good appetite. PHYSICAL EXAMINATION: VITAL SIGNS: Blood pressure 108/80, heart rate 80, temperature 97. HEENT: Normocephalic. CHEST: Right basilar coarse crepitations. HEART: S1 and S2. Regular. ABDOMEN: [id number] ascites. EXTREMITIES: 1+ pitting edema. LABORATORY DATA: Today's blood sugars 129 and 214 respectively. ASSESSMENT: 1. Right ventricular failure. 2. Chronic atrial flutter. 3. Cardiac cirrhosis. 4. Benign prostatic hypertrophy requiring indwelling Gordon catheter. 5. Low-grade malignancy bladder cancer. 6. Improved renal insufficiency. RECOMMENDATIONS: Continue aspirin 81 mg once a day, Coreg 6.25 mg twice a day, subcutaneous heparin 5000 units every 12 hours, Lasix _40 mg intravenously daily, resume Aldactone and afterload-reducing agents if cleared by Dr España, the solar sales specialist. Ke Torres MD MTDMichael
--- NOTE | 2018-09-23 20:39 | PN ---
DATE: 09/23/2018 SUBJECTIVE: The patient currently is sitting in a chair. He appears to be comfortable. There are families and friend in the room. The patient apparently has been accepted into hospice at [facility]. He is awaiting final insurance arrangements. The patient is currently a DNR/DNI. He has a severe dilated cardiomyopathy. MEDICATIONS: Medication list reviewed. The patient is on aspirin, Coreg, DuoNeb, heparin, insulin sliding scale, IV Lasix, morphine, Proscar, Protonix, Tylenol, Xanax and Xifaxan. OBJECTIVE: INTAKE/OUTPUT: Intake is 480 and output is 600. VITAL SIGNS: Blood pressure 109/74, temperature 97.3, respiratory rate 20 with a pulse of 77. HEENT: Normocephalic and atraumatic. His conjunctivae are pink. His sclerae are mildly icteric. NECK: Supple. No neck vein distention. CHEST: Clear to auscultation and percussion with slight decreased breath sounds at the bases. No rales, rhonchi or wheezing. CARDIOVASCULAR: Shows a regular rate and rhythm. Positive AICD. Positive TR/MR/AI/PI. No S3. No S4. No rub. ABDOMEN: Soft. Minimal distention. Positive ascites. No rebound, guarding or masses. EXTREMITIES: Show no significant pitting lower extremity edema. Diminished lower extremity pulses bilaterally. NEURO: Shows him to be non-communicative. He is being spoken to with sign language through the family and friends in the room. LABORATORY DATA AND IMAGING STUDIES: CBC from yesterday, white blood cell count 6.1, hemoglobin 13.8 with a platelet count of 174,000. Chemistry showed normal electrolytes, BUN 46 with creatinine of 1.4. This is a significant improvement in his BUN and creatinine with a temporary holding of his diuretic therapy. Glucose is 57 and calcium is 9.2. Last phosphorus is 3.4 with a magnesium level of 2.3. Bilirubin remains elevated at 4.2 and alkaline phosphatase 392. Microbiology, all cultures of blood and urine are negative. ASSESSMENT: 1. Acute renal insufficiency with prerenal azotemia actually improved with the holding of diuretic therapy. With the resumption of diuretic therapy, he will likely go back to an elevated BUN and creatinine higher than present levels in the setting of cardiorenal syndrome. He is currently off IV fluid hydration. 2. Hyperkalemia secondary to acute renal failure, Aldactone. Potassium level is back to normal. 3. Severe dilated cardiomyopathy with ejection fraction of 20%. Pulmonary hypertension, pericardial effusion. The patient has an automatic implantable cardioverter-defibrillator. 4. History of cardiac cirrhosis, ascites and elevated bilirubin levels. 5. No past history of chronic kidney disease, baseline BUN and creatinine have been in the 30s and 1.0 range dating back to earlier this year 2018. 6. Hypertension. Blood pressure control is acceptable. 7. History of bladder cancer, currently stable. 8. History of benign prostatic hyperplasia, currently stable. 9. Do not resuscitate/do not intubate. With plans for the patient to enter hospice at [facility]. PLAN: 1. Discussed with family and friends in the room. Everybody is in agreement with the decision for him to have comfort measures and to be accepted at hospice. 2. We will unfortunately to accept a more advanced degree of prerenal azotemia. In all likelihood labs will not be done frequently as the patient will be entering hospice situation. 3. No choice but to restart Lasix. 4. The patient is not a candidate for ionotropic agents to improve his cardiac output as per my partners note in consultation with Cardiology. Karson Sharpe MD
[2018-09-24] MEDS: Albuterol-Ipratrop 3 mg / 0.5 (3 ml) UD IH SCH ×4 (03:04→20:09)
[2018-09-24] MEDS: Pantoprazole 40 mg EC Tab PO SCH (08:25)
[2018-09-24] MEDS: Insulin Reg-MEDIUM-Coverage SC SCH ×3 (08:42→17:43)
--- NOTE | 2018-09-24 09:47 | PN ---
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 He is sleeping in bed. Oxygen is in place. The patient is awaiting final arrangements for possible transfer to [facility] for hospice. According to staff, were awaiting final insurance arrangements. The patient is a DNR/DNI. He has a severe dilated cardiomyopathy. MEDICATIONS: Medication list reviewed. The patient is on aspirin, Coreg, albuterol, heparin, insulin, IV Lasix, morphine, Proscar, Protonix, Tylenol, Xanax and Xifaxan. OBJECTIVE: INTAKE/OUTPUT: Intake is 720, output is 1300. VITAL SIGNS: Blood pressure 112/87, temperature 98.4, pulse of 79 with a respiratory rate of 20. Last pulse ox was 95%. HEENT: His eyes are closed. His sclera has been mildly icteric. NECK: Supple. No neck vein distention. CHEST: Clear to auscultation and percussion with decreased breath sounds at the bases. No rales, rhonchi or wheezing. CARDIOVASCULAR: Shows a regular rate and rhythm. Positive AICD. Positive TR/MR/AI/PI. No S3. No S4. No rub. ABDOMEN: Soft. Positive ascites. Minimal distention. No rebound, guarding or masses. EXTREMITIES: Show no significant lower extremity edema. He has diminished lower extremity pulses bilaterally. NEUROLOGIC: Shows him to be non-communicative verbally. LABORATORY DATA AND IMAGING STUDIES: No labs were done last 24 hours. Previous CBC from 09/22/2018 white blood cell count 6.1, hemoglobin 13.8 with a platelet count of 174,000. Last chemistries with a 09/22/2018 showing a BUN of 46 with a creatinine of 1.4. Electrolytes were normal. Bilirubin is 4.2. With elevated alkaline phosphatase. Microbiology, all cultures were negative. ASSESSMENT: 1. Acute renal failure with prerenal azotemia in the setting of severe dilated cardiomyopathy, cardiorenal syndrome, and diuretic use. The patient is currently only on oral hydration. He does remain on IV Lasix and in all likelihood, his BUN and creatinine will continue to rise. 2. Status post hyperkalemia secondary to acute renal failure. 3. History of severe dilated cardiomyopathy, ejection fraction 20% with pulmonary hypertension, pericardial effusions. He has an automatic implantable cardioverter-defibrillator in place. 4. History of cardiac cirrhosis, ascites and elevated bilirubin levels. 5. No past history of chronic kidney disease. BUN has been in the low 30s with a creatinine in the 1 range prior to this admission. 6. History of hypertension. Blood pressure control is acceptable and is in the low range of normal, on beta veronica therapy. 7. History of bladder cancer, currently stable. 8. History of benign prostatic hyperplasia, currently stable. 9. DO NOT RESUSCITATE/DO NOT INTUBATE. The patient will likely be transferred to [facility] once final arrangements are made. PLAN: 1. Discussed with staff on 5R. Little more to do for this patient. Will decreasing the frequency of his laboratory work and await transfer to [facility] for possible hospice. 2. No choice, but to continue Lasix therapy. 3. The patient is deemed not to be a candidate for inotropic agents. This decision was made by Cardiology. Karson Sharpe MD MTDD
[2018-09-24] MEDS: Morphine 2 mg/ml ISec IVP PRN (10:45)
[2018-09-24 13:49] LABS: BLOOD UREA NITROGEN 43 mg/dL (7-21); CALCIUM 9.1 mg/dL (8.4-10.5); GFR NON-AFRICAN AMERICAN 57
--- NOTE | 2018-09-24 18:17 | PN ---
DATE: 09/24/2018 SUBJECTIVE: The patient denies any chest pain. He is bothered by his abdominal swelling, and does not feel happy. He denies any shortness of breath. PHYSICAL EXAMINATION: VITAL SIGNS: Blood pressure 103/80, heart rate 80, temperature 98.4, respirations 20. HEENT: Normocephalic. NECK: Jugular venous distention is noted. CHEST: Minimal right basal coarse crepitations. HEART: S1 and S2, regular. ABDOMEN: Moderate ascites. EXTREMITIES: 1+ pitting edema. LABORATORY DATA: Today's blood sugar of 140 and 212 respectively. ASSESSMENT: 1. Biventricular failure. 2. Chronic atrial flutter. 3. Improved renal insufficiency. 4. Severe portal hypertension with chronic ascites. 5. Bladder cancer. 6. Leg cramps. RECOMMENDATIONS: Continue aspirin 81 mg once a day, Coreg 6.25 mg twice a day, subcutaneous heparin 5000 units every 12 hours, Lasix 40 mg intravenously daily, Proscar 5 mg once a day. Obtain and magnesium level today. Ke Torres MD
[2018-09-25] MEDS: Insulin Reg-MEDIUM-Coverage SC SCH ×5 (00:44→21:39)
[2018-09-25] MEDS: Albuterol-Ipratrop 3 mg / 0.5 (3 ml) UD IH SCH ×4 (03:01→20:15)
[2018-09-25 07:50] LABS: BASO # 0.03 K/mm3 (0.0-2.0); BASO % 0.5 % (0.0-3.0); EOS # 0.1 (0.0-0.7); EOS % 1.8 % (1.5-5.0); HEMOGLOBIN 13.5 g/dL (14.0-18.0); LYMPH # 0.8 (1.2-3.4); MEAN CELL VOLUME 89.9 fl (80.0-105.0); MEAN CORPUSCULAR HEMOGLOBIN 28.9 pg (25.0-35.0); MEAN CORPUSCULAR HGB CONC 32.1 g/dl (31.0-37.0); MEAN PLATELET VOLUME 9.7 fl (7.0-11.0); MONO # 0.6 (0.1-0.6); RBC 4.67 10^6/uL (3.5-6.1); RED CELL DISTRIBUTION WIDTH 20.2 % (11.5-14.5)
[2018-09-25 07:58] LABS: ALB/GLOB RATIO 1.1 (1.1-1.8); ALT/SGPT 21 U/L (7-56); AST/SGOT 28 U/L (17-59); BLOOD UREA NITROGEN 38 mg/dL (7-21); CALCIUM 9.1 mg/dL (8.4-10.5); GFR NON-AFRICAN AMERICAN > 60
[2018-09-25] MEDS: Pantoprazole 40 mg EC Tab PO SCH (08:21)
[2018-09-25] MEDS: Morphine 2 mg/ml ISec IVP PRN (08:21)
--- NOTE | 2018-09-25 15:46 | PN ---
DATE: 09/25/2018 SUBJECTIVE: The patient is 57-year-old, seen and examined. Complaint of abdominal distention. Complaint of some abdominal discomfort. No chest pain. No shortness of breath. PHYSICAL EXAMINATION: VITAL SIGNS: He is afebrile. Pulse 80, respiration 20 and blood pressure 130/90. LUNGS: Bilateral decreased breath sounds at bases. HEART: S1 and S2, audible. ABDOMEN: Soft and nontender. No rebound. No guarding. NEUROLOGIC: The patient is awake, alert, oriented and communicative. LABORATORY DATA: WBC 6.0, hemoglobin 13.5, hematocrit 42 and platelets 177. Chemistry; sodium 145, potassium 4.0, chloride 108, CO2 of 27, BUN 38, creatinine 1.1 and blood sugar of 231. Blood culture and urine cultures are negative. ASSESSMENT: 1. History of cirrhosis of liver. 2. Cirrhotic ascites. 3. Dilated cardiomyopathy. 4. Status post defibrillator placement. 5. Renal failure, improved. 6. Hepatic encephalopathy. PLAN: We will continue the patient on current medication, add spironolactone. I will request Dr. Garrett Dejesus in a.m. if he is a candidate of paracentesis because he complaint of abdominal discomfort and also director social welfare making arrangement for disposition plan. Alberto Dash MD
--- NOTE | 2018-09-25 17:03 | PN ---
DATE: 09/25/2018 SUBJECTIVE: The patient is short of breath and complains of abdominal distention and discomfort. PHYSICAL EXAMINATION: VITAL SIGNS: Blood pressure 103/90, heart rate 88, temperature 97.4, respirations 20. HEENT: Normocephalic. NECK: Jugular venous distention is noted. CHEST: Improved basal crepitations. HEART: S1 and S2, regular. ABDOMEN: Moderate ascites. EXTREMITIES: 1 to 2+ pitting edema. LABORATORY DATA: Today's SMA-7: Sodium 145, potassium 4, chloride 108, CO2 of 27, glucose 115, BUN 38, and creatinine 1.1. Today's hemoglobin and hematocrit 13.5 and 42.2. White count and platelet count are within normal limits. ASSESSMENT: 1. Biventricular failure. 2. Cardiac cirrhosis. 3. Improved renal insufficiency. 4. Chronic atrial flutter. 5. Bladder carcinoma. RECOMMENDATIONS: I agree with restarting Aldactone at 25 mg twice a day. Continue Coreg 6.25 mg twice a day, aspirin 81 mg once a day, subcutaneous heparin 5000 units every 12 hours, Lasix 40 mg intravenously daily. Ke Torres MD
[2018-09-26] MEDS: Albuterol-Ipratrop 3 mg / 0.5 (3 ml) UD IH PRN (00:44)
[2018-09-26] MEDS: Albuterol-Ipratrop 3 mg / 0.5 (3 ml) UD IH SCH ×4 (01:07→19:31)
[2018-09-26] MEDS: Insulin Reg-MEDIUM-Coverage SC SCH ×4 (07:54→22:00)
[2018-09-26] MEDS: Pantoprazole 40 mg EC Tab PO SCH (08:00)
--- NOTE | 2018-09-26 09:29 | PN ---
DATE: 09/24/2018 SUBJECTIVE: The patient is a 57-year-old, seen and examined, sitting in chair, pointing towards belly. He is stating after he eats, he feels distended. PHYSICAL EXAMINATION: VITAL SIGNS: He is afebrile, pulse 80, respirations 20, and blood pressure 130/80. LUNGS: Bilateral fair airflow, decreased at bases. HEART: S1 and S2 audible. ABDOMEN: Soft and distended. positive. EXTREMITIES: Bilateral legs, no edema. LABORATORY DATA: There is no new lab available today. Blood sugar is . ASSESSMENT: 1. Dilated cardiomyopathy. 2. Severe tricuspid regurgitation. 3. Chronic atrial flutter, not on any anticoagulant because of his carcinoma of the bladder and hematuria. 4. Cardiac cirrhosis. 5. Benign prostatic hypertrophy. 6. Renal insufficiency, improved. 7. Chronic anemia. PLAN: The patient currently is on aspirin, carvedilol, and heparin for DVT prophylaxis. He is on Lasix, Protonix and he is on cefixime. I will order for CBC and CMP for the morning. Administrative Liaison are in the process of making arrangement for hospice care. Follow up the patient in the a.m. Alberto Dash MD
[2018-09-26] MEDS: Morphine 2 mg/ml ISec IVP PRN ×2 (10:23→23:11)
--- NOTE | 2018-09-26 12:45 | CP.PCM.PCO ---
Physician Communication Note - Physician Communication Note Physician Communication Note: discuss plan with pmd, awaiting auth
--- NOTE | 2018-09-26 15:49 | PN ---
DATE: 09/26/2018 SUBJECTIVE: The patient is a 57-year-old seen and examined. Resting in chair comfortably, complain of bloating and abdominal distention as per nurse if is fair. No nausea are noted. PHYSICAL EXAMINATION: VITAL SIGNS: The patient is afebrile. Pulse 85, respirations 22, blood pressure 120/90. LUNGS: Bilateral fair airflow. No rhonchi or crackle. HEART: S1 and S2 audible. ABDOMEN: Soft, nontender. No rebound; however, he had fluid thrill positive. EXTREMITIES: Bilateral leg no edema. LABORATORY DATA: WBC 6.0, hemoglobin 13, hematocrit 42 and platelet 177. Chemistry; blood sugar is 160. Blood cultures and urine culture are negative. ASSESSMENT: 1. Cardiomyopathy. 2. Severe tricuspid regurgitation. 3. Passive hepatic congestion. 4. Cardiac cirrhosis. 5. Improving renal insufficiency. 6. Chronic atrial fibrillation. 7. History of cancer bladder, not on anticoagulant because of hematuria in the past. PLAN: At this point, he is on multiorgan failure drifting slowly. We will continue on aspirin, spirolactone, Coreg, nebulizer treatment and Lasix. He is on analgesic as needed. He is on Xifaxan. We will continue awaiting disposition plan. Alberto Dash MD
--- NOTE | 2018-09-26 17:19 | PN ---
DATE: 09/26/2018 SUBJECTIVE: The patient denied any chest pain. He has mild scrotal swelling. PHYSICAL EXAMINATION: VITAL SIGNS: Blood pressure 120/90, heart rate 85, temperature 97.3 and respirations 22. HEENT: Head is normocephalic. CHEST: Clear. HEART: S1 and S2, regular. ABDOMEN: Moderate ascites. EXTREMITIES: 1+ pitting edema. LABORATORY DATA: Today's blood sugars are 105 and 160 respectively. ASSESSMENT AND PLAN: 1. Biventricular failure. 2. Chronic atrial flutter. 3. Cardiac cirrhosis. 4. Portal hypertension with recurrent ascites and currently with scrotal edema. RECOMMENDATIONS: Continue Aldactone 25 mg twice a day, aspirin 81 mg once a day, Coreg 6.25 mg twice a day, subcutaneous heparin 5000 units every 12 hours, and Lasix 40 mg intravenously once a day. I may change diet to 2 g sodium only, as the patient is not keeping with his current diet. Ke Torres MD
--- NOTE | 2018-09-26 23:05 | PN ---
DATE: 09/26/2018 SUBJECTIVE: The patient is seen sitting in bed. He appears comfortable. He does not appear to be in any kind of distress. PHYSICAL EXAMINATION VITAL SIGNS: Blood pressure 120/90, heart rate 85, respiratory rate 18 and temperature 97.3. HEENT: Normocephalic, atraumatic, positive pallor. NECK: Supple, no JVD. LUNGS: Bilateral equal air entry, bilateral equal expansion, no rales. CARDIAC: S1 and S2, regular rate and rhythm, no murmur, no rub. ABDOMEN: Distended, soft, positive fluid thrill, bowel sounds present. EXTREMITIES: No lower extremity edema. INTAKE AND OUTPUT: 1170/945. LABORATORY DATA: No new labs. Hemoglobin 13.5 yesterday. Chemistry; BUN 38 and creatinine 1.1. MEDICATIONS: List reviewed. ASSESSMENT: 1. Acute kidney injury, resolved. 2. Stable chronic kidney disease stage II/III. 3. Severe dilated cardiomyopathy, decreased ejection fraction, pulmonary hypertension, pericardial effusion. 4. Cardiac cirrhosis. 5. History of bladder cancer. PLAN: 1. Currently, the patient is stable from a renal standpoint. 2. Continue Lasix. 3. Continue Aldactone. 4. Follow Cardiology recommendations. Amada España MD
[2018-09-27] MEDS: Albuterol-Ipratrop 3 mg / 0.5 (3 ml) UD IH SCH ×4 (02:16→20:40)
[2018-09-27] MEDS: Insulin Reg-MEDIUM-Coverage SC SCH ×4 (08:10→22:48)
[2018-09-27] MEDS: Pantoprazole 40 mg EC Tab PO SCH (08:28)
--- NOTE | 2018-09-27 15:19 | PN ---
DATE: 09/27/2018 SUBJECTIVE: The patient is currently seen lying in bed on 5R. He appears to be uncomfortable, the ascites is worsened over the last several days. He is being scheduled for a paracentesis to be done by Interventional Radiology perhaps later today. This will likely take place prior to any transfer out of the hospital or possible discharge home, if indeed, he is to go home on hospice. The patient is a DNR/DNI. He has a severe dilated cardiomyopathy. He remains on IV diuretic therapy. His prerenal azotemia has remained stable. MEDICATIONS: Medication list reviewed. The patient is on Aldactone, aspirin, Coreg, DuoNeb, heparin, insulin, IV Lasix, morphine, Protonix, Tylenol p.r.n., Xanax and Xifaxan. OBJECTIVE: INTAKE/OUTPUT: Intake is 710, output is 600. VITAL SIGNS: Last blood pressure 121/84, temperature 97.3, pulse of 91 with a respiratory rate of 18, pulse ox on room air is 100%. HEENT: Eyes are open. Sclera is mildly icteric. Conjunctiva is pink. NECK: Supple. No neck vein distention. CHEST: Clear to auscultation and percussion with decreased breath sounds at the bases. No rales, rhonchi or wheezing. CARDIOVASCULAR: Shows a regular rate and rhythm. Positive AICD. Positive TR/MR/AI/PI. No S3. No S4. No rub. ABDOMEN: Soft. 4+ ascites. Moderately distended. No rebound, guarding or masses. EXTREMITIES: Show no significant lower extremity edema. Diminished lower extremity pulses bilaterally. NEUROLOGIC: The patient does not communicate verbally. LABORATORY DATA AND IMAGING: No recent labs were done. Laboratory work from 09/25 showed a white blood cell count of 6.0, hemoglobin 13.5, platelet count of 177,000. Chemistries from 09/25 showed normal electrolytes, BUN holding stable at 38 with a creatinine of 1.1, glucose is 115. Calcium is 9.1, bilirubin remains elevated at 4.11 and alkaline phosphatase of 407. AST and ALT are normal. Microbiology, all cultures are negative. ASSESSMENT: 1. Mild prerenal azotemia which is actually better than expected given his decreased cardiac output and the need for IV diuretic therapy. He does have a severe dilated cardiomyopathy with an ejection fraction of 20%, the patient where easily goes into cardiorenal syndrome. He does remain on IV Lasix. 2. Status post hyperkalemia, this is secondary to acute renal failure. Potassium levels are now normal. 3. History of severe dilated cardiomyopathy, ejection fraction 20%; pulmonary hypertension; pericardial effusions. He has an automatic implantable cardioverter-defibrillator in place. 4. History of cardiac cirrhosis, 4+ ascites, elevated bilirubin levels, elevated alkaline phosphatase. The patient is likely going to go down for a paracentesis with Interventional Radiology later today. 5. No past history of chronic kidney disease. BUN has been in low 30s with a creatinine in the 1 range prior to this admission. 6. History of hypertension. Blood pressure control is acceptable, had in the low normal range on present beta-veronica therapy. 7. History of bladder cancer, currently stable. 8. History of benign prostatic hypertrophy, currently stable. 9. Do not resuscitate/do no intubate. The patient has been accepted into the hospice program and it is unclear whether he will do hospice at home or whether perhaps he will do hospice at [facility]. It appears to be in the hands of the insurance company. PLAN: 1. Discuss with staff on 5R. Agree with therapeutic paracentesis prior to discharge. 2. Continue IV Lasix therapy or perhaps switch over to oral Lasix therapy on discharge. 3. Would monitor blood work periodically, but not frequently given the poor prognosis and the likelihood that his BUN and creatinine will likely elevate. 4. Monitor potassium levels as he remains on Aldactone with potential worsening renal failure. His potassium levels can elevate. 5. The patient is not a candidate for inotropic agents, this has been discussed with Cardiology during the early part of his hospitalization. Karson Sharpe MD
--- NOTE | 2018-09-27 16:15 | PN ---
DATE: 09/27/2018 SUBJECTIVE: The patient is complaining of worsening of abdominal swelling. PHYSICAL EXAMINATION: VITAL SIGNS: Blood pressure 121/84, heart rate 91, temperature 97.3, respirations 18. HEENT: Normocephalic. CHEST: Diminished breath sounds over the bases. HEART: S1, S2, regular. ABDOMEN: Moderate to severe ascites. EXTREMITIES: 1+ pitting edema. LABORATORY DATA: Today's blood sugars are 109, 100 and 179 respectively. ASSESSMENT: 1. Biventricular failure. 2. Chronic atrial flutter. 3. Worsening ascites. 4. Cardiac cirrhosis. 5. Bladder cancer. RECOMMENDATIONS: Continue current Aldactone 25 mg twice a day, aspirin 81 mg once a day, Coreg 6.25 mg every 12 hours, Lasix 40 mg intravenously once a day. Hold subcutaneous heparin in anticipation of abdominal paracentesis. Ke Torres MD
--- NOTE | 2018-09-27 18:04 | US ---
PROCEDURE: Ultrasound guided paracentesis. HISTORY: Recurrent ascites with abdominal pain and distension. Needs therapeutic paracentesis PHYSICIAN(S): Garrett Dejesus MD. TECHNIQUE: The relative risks and indications for the procedure were explained to the patient and informed written consent obtained. Sonography of the abdomen was performed in a supine position. This revealed a small to moderate amount of non-loculated ascites, greatest in the right lower quadrant. A puncture site was selected and the area was prepped and draped in the usual sterile fashion. 1% Xylocaine was used to anesthetize the skin and soft tissues. A 7 Indonesian paracentesis catheter was trocared into the right lower quadrantand 700 cc of bilious clear fluid aspirated. No labs were sent. IMPRESSION: Ultrasound-guided paracentesis in the right lower quadrant. 700 cc of bilious yellow fluid were aspirated. No labs were sent.
--- NOTE | 2018-09-28 00:57 | DS ---
HISTORY OF PRESENT ILLNESS: The patient is a 57-year-old who came with increasing abdominal distention, has abdominal sonogram done, and was found to have moderate amount of fluid. The patient was also had x-ray of chest done that shows severe cardiomegaly, has biventricular failure, has been on diuretic and spironolactone, and was evaluated by Dr. Lalit Mirlees, was decided not to tap; however, the patient has been here for almost 13 days. He has developed a fluid at this time. He complained of some abdominal distention and discomfort, so he is scheduled to have paracentesis done today. PAST MEDICAL HISTORY: Significant for: 1. Severe tricuspid regurgitation. 2. Passive hepatic congestion. 3. [id number] kidney injury has almost resolved. 4. Chronic anemia. 5. History of cancer of bladder. 6. Deaf and mute. PHYSICAL EXAMINATION: GENERAL: Today; he is sitting in bed and seems to be uncomfortable because of abdominal distention. VITAL SIGNS: He is afebrile, pulse 91, respirations 18, and blood pressure 121/84. LUNGS: Bilateral fair airflow decreased at bases. HEART: S1 and S2 audible. ABDOMEN: Soft, but abdomen is distended with fluid thrill. EXTREMITIES: Bilateral legs, +1 edema. LABORATORY DATA: There is no new lab available today except his blood sugar is 179. ASSESSMENT: 1. Dilated cardiomyopathy giving rise to biventricular failure. 2. Tricuspid regurgitation. 3. Cardiac cirrhosis. 4. Carcinoma of bladder. 5. Chronic anemia. 6. [id number] renal failure. PLAN: Dr. Garrett Dejesus will be contacted and the patient will have paracentesis done and after that the patient will be transferred to subacute rehab and hospice care. Alberto Dash MD
[2018-09-28] MEDS: Albuterol-Ipratrop 3 mg / 0.5 (3 ml) UD IH SCH ×3 (02:00→14:44)
[2018-09-28] MEDS: Morphine 2 mg/ml ISec IVP PRN (04:48)
[2018-09-28 07:19] LABS: HEMOGLOBIN 13.9 g/dL (14.0-18.0); MEAN CELL VOLUME 89.5 fl (80.0-105.0); MEAN CORPUSCULAR HEMOGLOBIN 28.7 pg (25.0-35.0); MEAN CORPUSCULAR HGB CONC 32.1 g/dl (31.0-37.0); MEAN PLATELET VOLUME 9.8 fl (7.0-11.0); RBC 4.84 10^6/uL (3.5-6.1); RED CELL DISTRIBUTION WIDTH 20.2 % (11.5-14.5); WHITE BLOOD COUNT 6.7 10^3/uL (4.5-11.0)
[2018-09-28 07:41] LABS: ALBUMIN 3.7 g/dL (3.0-4.8); CALCIUM 9.1 mg/dL (8.4-10.5)
[2018-09-28] MEDS: Insulin Reg-MEDIUM-Coverage SC SCH ×3 (08:19→16:22)
[2018-09-28] MEDS: Pantoprazole 40 mg EC Tab PO SCH (08:27)
[2018-09-28 17:03] VITALS: BP 106/59; PULSE 95; RESP 18; TEMP 97.3; O2SAT 100
--- NOTE | 2018-09-28 18:27 | PN ---
DATE: 09/28/2018 SUBJECTIVE: The patient underwent abdominal paracentesis yesterday with removal of 700 mL. He complains of shortness of breath. He denies chest pain. PHYSICAL EXAMINATION: VITAL SIGNS: Blood pressure 105/80, heart rate is 55, temperature 97.9, respirations 20. HEENT: Normocephalic. NECK: Jugular venous distention. CHEST: Diminished breath sounds at the bases. HEART: S1, S2, regular. ABDOMEN: Mild ascites. EXTREMITIES: 1+ pitting edema. LABORATORY DATA: Today's hemoglobin and hematocrit are 13.9 and 43.3, white count and platelet count are within normal limits. SMA-7 is within normal limits except for BUN of 46. ASSESSMENT: 1. Biventricular failure. 2. Chronic atrial flutter. 3. Cardiac cirrhosis. 4. Improved renal insufficiency. 5. Bladder cancer. 6. Portal hypertension with recurrent ascites. RECOMMENDATIONS: Continue Aldactone 25 mg twice a day, aspirin 81 mg once a day, Coreg 6.25 mg twice a day, Lasix 40 mg intravenously daily, Xanax 0.5 mg twice a day. The plan is to transfer the patient to hospice. I did speak to the patient's son at the bedside, who is unwilling to receive the patient at home stating that the patient will be not attended at home as the son has a difficult working schedule and is unable to attend to his father at home. Ke Torres MD
--- NOTE | 2018-09-28 21:36 | PN ---
DATE: 09/28/2018 SUBJECTIVE: The patient is seen sitting in bed. He is awake. He is alert. He does not appear to be in any kind of distress. PHYSICAL EXAMINATION VITAL SIGNS: Blood pressure 106/59, heart rate 85, respiratory rate 18, temperature 97.3. HEENT: Normocephalic, atraumatic, positive pallor. NECK: Supple, no JVD. LUNGS: Bilateral equal entry, bilateral equal expansion, no rales. CARDIAC: S1, S2, regular rate and rhythm, no murmur, no rub. ABDOMEN: Distended, soft, positive base thrill, bowel sounds present. EXTREMITIES: No lower extremity edema. INTAKE AND OUTPUT: 770/500. LABORATORY DATA WBC 6.7, hemoglobin 13.9, hematocrit 43, platelets 158. Sodium 139, potassium 4.8, chloride 105, CO2 of 22, BUN 46, creatinine 1.5, glucose 82, calcium 9.1, phosphorus 3.2, magnesium 1.9. CURRENT MEDICATIONS: Aldactone 25 mg b.i.d., aspirin, Coreg 6.25 mg every 12 hours, DuoNeb, heparin, Lasix 40 mg IV daily, morphine, Protonix, Tylenol, Xanax, rifaximin. ASSESSMENT AND PLAN: 1. Acute kidney injury, resolved. 2. Underlying chronic kidney disease, stage 3, stable. 3. Severe dilated cardiomyopathy, decreased ejection fraction. 4. Pulmonary hypertension. 5. Cardiac cirrhosis. 1. The patient is stable from the renal standpoint. 2. Continue Aldactone. 3. Continue Lasix. 4. No objection to discharge. Amada España MD
--- NOTE | 2018-09-29 02:28 | DS ---
HISTORY OF PRESENT ILLNESS: The patient is a 57-year-old black man with multiple comorbidities, came to the emergency room because of abdominal discomfort and distention. He initially had abdominal sonogram done that showed some [id number] ascites. The patient was evaluated by financial center manager and religious healer. He has been on IV fluid. The patient does have a history of dilated cardiomyopathy, history of CA of bladder, chronic AFib not on anticoagulant because of recurrent hematuria, history of being deaf and mute. The patient was diuresed intermittently, has been on Xifaxan and doing well on the above mentioned treatment. He is being transferred to [facility] for possible hospice care. PHYSICAL EXAMINATION: GENERAL: Today; he is awake and alert, able to communicate. VITAL SIGNS: He is afebrile, pulse 95, respirations 18, and blood pressure 106/59. LUNGS: Bilateral fair airflow, no rhonchi or crackle. HEART: S1 and S2 audible. ABDOMEN: Distended, but no fluid thrill anymore. He had 700 mL of fluid drained. The patient states he feels significant relief. NEUROLOGIC: He is awake and alert, able to communicate by sign language. ASSESSMENT: 1. Cirrhosis liver. 2. Cardiac cirrhosis. 3. Dilated cardiomyopathy. 4. History of carcinoma of bladder. 5. Chronic atrial fibrillation, not on anticoagulant. 6. Chronic kidney disease. PLAN: We will continue the patient on current medications. He is being transferred to [facility]. He will resume his medications including Lasix, Coreg, aspirin, Xifaxan, spironolactone, Protonix, morphine sulfate, nebulizer treatment, and Xanax. Alberto Dash MD
== END 2018-09-28 18:24 | DRG 291 ==
LOC: ED 17:07 → ERH 19:28 → 2RNO 23:06 → 5RSO 09-22 12:42
PROVIDERS: ADMIT Hospitalist; ATTEND Internal Medicine
PROC: 0T2BX0Z Change Drainage Device in Bladder, External Approach (ICD-10-PCS; 2018-09-14)
PROC: 0W9G3ZZ Drainage of Peritoneal Cavity, Percutaneous Approach (ICD-10-PCS; principal; 2018-09-27 14:45)
DX: I13.0 Hypertensive heart and chronic kidney disease with heart failure and stage 1 through stage 4 chronic kidney disease, or unspecified chronic kidney disease (principal); I50.23 Acute on chronic systolic (congestive) heart failure; R18.8 Other ascites; N17.9 Acute kidney failure, unspecified; I48.92 Unspecified atrial flutter; K76.6 Portal hypertension; I31.3 Pericardial effusion (noninflammatory); E87.2 Acidosis; K72.90 Hepatic failure, unspecified without coma; I42.0 Dilated cardiomyopathy; I50.82 Biventricular heart failure; E11.22 Type 2 diabetes mellitus with diabetic chronic kidney disease; N18.3 Chronic kidney disease, stage 3 (moderate); N40.1 Benign prostatic hyperplasia with lower urinary tract symptoms; R33.9 Retention of urine, unspecified; H91.3 Deaf nonspeaking, not elsewhere classified; E87.5 Hyperkalemia; T50.0X5A Adverse effect of mineralocorticoids and their antagonists, initial encounter; I08.1 Rheumatic disorders of both mitral and tricuspid valves; I27.20 Pulmonary hypertension, unspecified; K76.1 Chronic passive congestion of liver; D64.9 Anemia, unspecified; I48.2 Chronic atrial fibrillation; E11.649 Type 2 diabetes mellitus with hypoglycemia without coma; E86.9 Volume depletion, unspecified; Z66 Do not resuscitate; Z51.5 Encounter for palliative care; Z95.810 Presence of automatic (implantable) cardiac defibrillator; Z85.51 Personal history of malignant neoplasm of bladder

== ENCOUNTER 2018-10-07 10:41 | Day surgery (SDC) | payer MEDICARE, MEDICAID ==
[2018-10-07 11:19] VITALS: BMI 23.4
[2018-10-07 11:31] VITALS: RESP 18
[2018-10-07 11:45] LABS: BASO # 0.04 K/mm3 (0.0-2.0); BASO % 0.5 % (0.0-3.0); EOS # 0.1 (0.0-0.7); EOS % 1.7 % (1.5-5.0); LYMPH # 1.1 (1.2-3.4); LYMPH % 13.9 % (22.0-35.0); MEAN CELL VOLUME 87.4 fl (80.0-105.0); MEAN CORPUSCULAR HEMOGLOBIN 28.9 pg (25.0-35.0); MEAN PLATELET VOLUME 9.8 fl (7.0-11.0); MONO # 0.9 (0.1-0.6); MONO % 11.3 % (1.0-6.0); RBC 4.85 10^6/uL (3.5-6.1); RED CELL DISTRIBUTION WIDTH 20.2 % (11.5-14.5); WHITE BLOOD COUNT 7.6 10^3/uL (4.5-11.0)
[2018-10-07 12:21] LABS: CALCIUM 9.5 mg/dL (8.4-10.5)
[2018-10-07 14:20] VITALS: PULSE 75; TEMP 96.6
[2018-10-07 15:17] VITALS: BP 110/83
--- NOTE | 2018-10-07 18:07 | US ---
PROCEDURE: Ultrasound guided paracentesis. HISTORY: Cardiogenic cirrhosis. Recurrent ascites with abdominal pain and distension. Needs therapeutic paracentesis PHYSICIAN(S): Garrett Dejesus MD. TECHNIQUE: The relative risks and indications for the procedure were explained to the patient and informed written consent obtained. Sonography of the abdomen was performed in a supine position. This revealed a small to moderate amount of non-loculated ascites, greatest in the right lower quadrant. A puncture site was selected and the area was prepped and draped in the usual sterile fashion. 1% Xylocaine was used to anesthetize the skin and soft tissues. A 7 Spanish paracentesis catheter was trocared into the right lower quadrantand 3700 cc of clear than sammy fluid aspirated. No labs were sent IMPRESSION: Ultrasound-guided paracentesis in the right lower quadrant. 3700 cc of fluid were aspirated. No labs were sent.
== END 2018-10-07 15:25 | disposition home or self-care (01) ==
LOC: OPSURG 10:41
PROVIDERS: ATTEND Radiology Vascular & Interventional Radiology
DX: K74.60 Unspecified cirrhosis of liver (principal); R18.8 Other ascites; R10.9 Unspecified abdominal pain